=== PATIENT | female | born 1950 | race Caucasian/White ===

== ENCOUNTER 2017-10-15 17:17 | Emergency (ER) | payer MEDICARE, MEDICAID, SELFPAY ==
[2017-10-15 17:45] VITALS: BP 113/63; PULSE 57; RESP 16; TEMP 37; O2SAT 99
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
[2017-10-15 20:09] VITALS: BP 113/63; PULSE 57; RESP 16; TEMP 37; O2SAT 99
== END 2017-10-15 21:08 | disposition home or self-care (01) ==
PROVIDERS: Emergency Provider Nurse Practitioner Family
DX: S22.32XA Fracture of one rib, left side, initial encounter for closed fracture (principal); V19.3XXA Pedal cyclist (driver) (passenger) injured in unspecified nontraffic accident, initial encounter
CPT/HCPCS: 71101; 73010; 73060; 99282; 99283

== ENCOUNTER → 2020-10-26 15:50 | Outpatient (CLI) | payer MEDICARE, MEDICAID, SELFPAY ==
[2020-10-26 17:13] LABS: Add Manual Diff / Slide Review NO; Basophils Absolute Auto 0 /uL (0-100); Basophils Percent Auto 0.4 % (0-2); Eosinophils Absolute Auto 100 /uL (0-450); Eosinophils Percent Auto 1.2 % (2-4); Hematocrit 40.7 % (36-46); Hemoglobin 13.2 g/dL (12.0-16.0); Lymphocytes Absolute Auto 900 /uL (1100-4500); Lymphocytes Percent Auto 14.7 % (25-40); Mean Corpuscular HGB Conc 32.4 % (30-36); Mean Corpuscular Volume 95.8 fL (80-100); Monocytes Absolute Auto 800 /uL (0-900); Neutrophils Absolute Auto 4400 /uL (1500-7000); Neutrophils Percent Auto 70.7 % (50-75); Platelet Count 156 X10^3/uL (150-400); Red Blood Cell Count 4.25 X10^6/uL (4.0-5.2); Red Cell Distribution Width 14.1 % (11.6-14.8); White Blood Cell Count 6.3 X10^3/uL (4.5-11.0)
[2020-10-26 17:43] LABS: Alanine Aminotransferase 28 IU/L (<35); Albumin 4.1 g/dL (3.5-5.0); Albumin Globulin Ratio 1.6 (1.0-2.8); Alkaline Phosphatase 87 U/L (38-126); Aspartate Aminotransferase 38 IU/L (14-36); BUN Creatinine Ratio 24.4 (6-22); Bilirubin Total 0.4 mg/dL (0.2-1.3); Blood Urea Nitrogen 19 mg/dL (7-17); Calcium 9.6 mg/dL (8.4-10.2); Carbon Dioxide 36 mmol/L (22-32); Chloride 99 mmol/L (98-107); Cholesterol 161 mg/dL (140-199); Estimated Glomerular Filt Rate > 60.0 mL/min (>60); Globulin 2.5 g/dL (1.7-4.1); Glucose 87 mg/dL (80-110); HDL Cholesterol 96 mg/dL (40-60); HEMOLYSIS < 15 (0-50); LDL Cholesterol Calculated 52 mg/dL (<100); Potassium 4.3 mmol/L (3.4-5.1); Sodium 140 mmol/L (137-145); Total Protein 6.6 g/dL (6.3-8.2); Triglycerides 63 mg/dL (35-150)
[2020-10-26 17:52] LABS: Hemoglobin A1C% w Est Avg Glu 5.1 % (4.0-6.0)
[2020-10-26 17:57] LABS: Vitamin D 25 Hydroxy (D3) 61.9 ng/mL (30.0-100.0)
[2020-10-26 18:23] LABS: Thyroid Stimulating Hormone 1.42 uIU/mL (0.47-4.68)
== END ==
PROVIDERS: Referring Provider Physician Assistant; Visit Provider Physician Assistant
DX: Z13.29 Encounter for screening for other suspected endocrine disorder (principal); I10 Essential (primary) hypertension; Z76.89 Persons encountering health services in other specified circumstances; Z13.220 Encounter for screening for lipoid disorders; Z13.21 Encounter for screening for nutritional disorder; Z13.1 Encounter for screening for diabetes mellitus
CPT/HCPCS: 36415; 80053; 80061; 82306; 83036; 84439; 84443; 85025

== ENCOUNTER → 2021-05-11 17:16 | Outpatient (CLI) | payer MEDICARE, MEDICAID, SELFPAY ==
[2021-05-11 18:01] LABS: BUN Creatinine Ratio 27.8 (6-22); Blood Urea Nitrogen 25 mg/dL (7-17); Calcium 9.5 mg/dL (8.4-10.2); Carbon Dioxide 38 mmol/L (22-32); Chloride 100 mmol/L (98-107); Estimated Glomerular Filt Rate > 60.0 mL/min (>60); Glucose 122 mg/dL (80-110); HEMOLYSIS < 15 (0-50); Potassium 4.5 mmol/L (3.4-5.1); Sodium 138 mmol/L (137-145)
== END ==
PROVIDERS: Referring Provider Physician Assistant; Visit Provider Physician Assistant
DX: C34.92 Malignant neoplasm of unspecified part of left bronchus or lung (principal)
CPT/HCPCS: 36415; 80048

== ENCOUNTER → 2021-05-15 14:10 | Outpatient (CLI) | payer MEDICARE, MEDICAID, SELFPAY ==
--- NOTE | 2021-05-15 14:31 | DI.CT.S_ITS ---
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 Radiation dose reduction was achieved utilizing automated exposure control and/or adjustment of the dose parameters according to patient's size. FINDINGS: Image quality: Excellent. Lungs and pleura: Left upper lobe spiculated nodule with internal calcification measures 1.3 cm. There is a background advanced pulmonary emphysema present as well. Smaller 4 mm right upper lobe pulmonary nodule present posteriorly on image 3/884 Mediastinum: Heart size is normal. No pericardial effusion. No mediastinal or hilar adenopathy by size criteria. Thoracic aorta and central pulmonary arteries are normal in size. Esophagus is normal in caliber. No hiatal hernia. Bones and chest wall: No suspicious bony lesions. No vertebral body compression fractures. No axillary or supraclavicular adenopathy by size criteria. Thyroid gland unremarkable . Abdomen: Visualized upper abdominal solid organs appear normal. Upper abdominal bowel loops are normal in caliber. IMPRESSION: 1. Left upper lobe 1.3 cm spiculated nodule with internal calcifications is suspicious for metastatic disease given history. Consider follow-up PET-CT and/or biopsy. Additional smaller 4 mm nodule in the right upper lobe noted as well. 2. Moderate to severe pulmonary emphysema with hyperinflation. Approved by: Rajendra Gotti M.D. on 05/15/2021 at 19:05
== END ==
PROVIDERS: PCP Physician Assistant; Referring Provider Internal Medicine Medical Oncology; Visit Provider Internal Medicine Medical Oncology
DX: C96.4 Sarcoma of dendritic cells (accessory cells) (principal); R91.8 Other nonspecific abnormal finding of lung field; J43.8 Other emphysema
CPT/HCPCS: 71260

== ENCOUNTER → 2021-11-14 12:24 | Outpatient (CLI) | payer MEDICARE, MEDICAID, SELFPAY ==
[2021-11-14 14:55] LABS: Estimated Glomerular Filt Rate > 60 mL/min (>60)
== END ==
PROVIDERS: PCP Physician Assistant; Referring Provider Physician Assistant; Visit Provider Physician Assistant
DX: C34.92 Malignant neoplasm of unspecified part of left bronchus or lung (principal)
CPT/HCPCS: 36415; 82565

== ENCOUNTER → 2021-11-16 14:10 | Outpatient (CLI) | payer MEDICARE, MEDICAID, SELFPAY ==
--- NOTE | 2021-11-16 14:12 | DI.CT.S_ITS ---
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 1 mm axial lung, 5 mm thick coronal and sagittal reformats and 7 mm axial MIP were acquired. For radiation dose reduction, the following was used: automated exposure control, adjustment of mA and/or kV according to patient size. COMPARISON: [facility], CR, XR SCAPULA LT, 10/15/2017, 20:27. [facility], CR, XR CHEST 2VW, 10/22/2016, 20:31. [facility], CT, CT CHEST W CON, 05/15/2021, 14:23. FINDINGS: Image quality: Excellent. Lungs and pleura: There is severe centrilobular emphysema, as before. A centrally calcified pulmonary nodule is redemonstrated at the anterior left apex. This is unchanged from the study dated May 15, 2021, but was not visualized on the comparison plain films from October 15, 2017. A 4 mm interfissural nodule within the right oblique fissure is unchanged from the study dated May 15, 2021 (series 3/image 91). No new pulmonary nodules. No acute airspace opacities. No pleural effusion or pneumothorax. Mediastinum: Heart size is normal. No pericardial effusion. No mediastinal or hilar adenopathy by size criteria. Thoracic aorta and central pulmonary arteries are normal in size. Scattered atheromatous calcifications are present within the aortic arch. Esophagus is normal in caliber. No hiatal hernia. Bones and chest wall: No suspicious bony lesions. No vertebral body compression fractures. No axillary or supraclavicular adenopathy by size criteria. Thyroid gland is unremarkable. Abdomen: Visualized upper abdominal solid organs appear normal. Upper abdominal bowel loops are normal in caliber. IMPRESSION: 1. Stable calcified pulmonary nodule at the left apex suggesting the presence of a granuloma; however this is new when compared with the 2018 plain films of this region. Continued surveillance of this region recommended. 2. Stable 4 mm right interfissural nodule. 3. No findings to suggest new metastasis. Dictated by: Monisha Haile M.D. on 11/16/2021 at 17:02 Approved by: Monisha Haile M.D. on 11/16/2021 at 17:07
== END ==
PROVIDERS: PCP Physician Assistant; Referring Provider Internal Medicine Medical Oncology; Visit Provider Internal Medicine Medical Oncology
DX: C96.4 Sarcoma of dendritic cells (accessory cells) (principal); R91.8 Other nonspecific abnormal finding of lung field; J43.2 Centrilobular emphysema
CPT/HCPCS: 71260; Q9967

== ENCOUNTER 2022-02-19 17:02 | Inpatient (IN) | payer MEDICARE, MEDICAID, SELFPAY ==
[2022-02-19] VITALS (22 sets, daily range): BP systolic 98–142; BP diastolic 53–69; PULSE 65–97; RESP 18–32; TEMP 36.8–37.2; O2SAT 50–99; BMI 17.0
--- NOTE | 2022-02-19 17:25 | ED_ITS ---
HPI - General Adult <Travis Mcfadden DO - Last Filed: 02/20/22 07:07> General Chief complaint: Shortness of Breath/Dyspnea Stated complaint: cold/flu symptons X 3 weeks Time Seen by Provider: 02/19/22 17:14 Source: patient Mode of arrival: Ambulatory Limitations: no limitations History of Present Illness HPI narrative: Patient is a 71-year-old female. History of lung cancer. Had a left-sided lung resection back in 2019. Is not on chemotherapy or radiation. Does surveillance of CT scans. Has had approximately 3 weeks of flu-like symptoms. Difficult for her to get more specific than this although she is having shortness of breath specifically on exertion. She went to the walk-in clinic. She is found to be hypoxic with an oxygen saturations in the 70s so she was brought to the emergency department. She denies any chest pain. No lower extremity swelling. No diagnosis of COPD. Not on home oxygen. Related Data Home Medications Medication Instructions Recorded Confirmed alprazolam 0.5 mg tablet (Xanax) 0.5 mg PO Q12HP ##0 10/31/12 02/19/22 fluvoxamine 50 mg tablet 50 mg PO BID ##0 10/31/12 venlafaxine 75 mg capsule,extended 75 mg PO TID ##0 10/31/12 release 24 hr (Effexor XR) albuterol sulfate 90 mcg/actuation 2 puff inhalation Q4H PRN Wheezing 02/19/22 02/19/22 aerosol inhaler atorvastatin 40 mg tablet 40 mg PO DAILY 02/19/22 02/19/22 escitalopram oxalate 20 mg tablet 20 mg PO DAILY 02/19/22 02/19/22 levothyroxine 50 mcg tablet 50 mcg PO DAILY 02/19/22 02/19/22 quetiapine 25 mg tablet 25 mg PO BEDTIME 02/19/22 02/19/22 Previous Rx's Medication Instructions Recorded MELOXICAM 15 mg PO Q DAY ##30 10/31/12 Allergies Allergy/AdvReac Type Severity Reaction Status Date / Time No Known Drug Allergies Allergy Unverified 02/19/22 17:09 Review of Systems <Travis Mcfadden DO - Last Filed: 02/20/22 07:07> Constitutional Constitutional: Reports system reviewed and no additional complaints, except as documented Cardiovascular Cardiovascular: Reports system reviewed and no additional complaints, except as documented Respiratory Respiratory: Reports system reviewed and no additional complaints, except as documented Gastrointestinal Gastrointestinal: Reports system reviewed and no additional complaints, except as documented Integumentary/Breasts Skin/Breast: Reports system reviewed and no additional complaints, except as documented Hematologic/Lymphatic On Anticoagulants: No Allergic/Immunologic Allergic/Immunologic: Reports system reviewed and no additional complaints, except as documented Patient History <DO Nigaht Nair Last Filed: 02/20/22 07:07> Medical History Acute exacerbation of chronic obstructive pulmonary disease Lung cancer Family History (Updated 02/19/22 @ 22:52 by KODAK Posey) Father Old age Mother Crohn's disease Social History household members: friend(s) Smoking Status: Former smoker alcohol intake: current Smoking Status: Former smoker alcohol intake frequency: 0-2 drinks per day Substance Use Type: does not use Exam <DO Nighat Nair Last Filed: 02/20/22 07:07> Initial Vital Signs Initial Vital Signs: Vital Signs Pulse Rate 90 02/19/22 17:05 Respiratory Rate 32 H 02/19/22 17:05 Pulse Oximetry 69 L 02/19/22 17:05 Const General: cooperative, comfortable and No ill appearing HENMT Head: normal to inspection Chest Chest: normal inspection of the chest Resp Other: Diminished lung sounds on the left. Some wheezing/rhonchi on the right. Cardio Rate: regular rate Rhythm: regular rhythm GI Inspection: normal to inspection and non-distended Skin General: no rashes or lesions noted Neuro General: patient alert, patient awake and moves all extremities Extrem General: normal to inspection and capillary refill normal Psych Appearance: grossly normal and well kempt <Marcus Whaley DO - Last Filed: 02/20/22 03:49> Initial Vital Signs Initial Vital Signs: Vital Signs Pulse Rate 90 02/19/22 17:05 Respiratory Rate 32 H 02/19/22 17:05 Pulse Oximetry 69 L 02/19/22 17:05 Course <DO Nighat Nair Last Filed: 02/20/22 07:07> Orders Ordered: ED Orders 02/20/22 06:35 Complete Blood Count AUTO DIFF DAILY Comprehensive Metabolic Panel DAILY Magnesium DAILY 02/21/22 05:00 Complete Blood Count AUTO DIFF DAILY Comprehensive Metabolic Panel DAILY Magnesium DAILY 02/22/22 05:00 Complete Blood Count AUTO DIFF DAILY Comprehensive Metabolic Panel DAILY Magnesium DAILY Acetaminophen (Acetaminophen 325 Mg Tablet) 650 mg PO Q6H PRN PRN Reason: Fever/Mild Pain (1-3) Albuterol (Albuterol 2.5 Mg/3 Ml Neb (Adult)) 2.5 mg INH [id number] PRN PRN Reason: Shortness Of Breath Or Wheezing Enoxaparin Sodium (Enoxaparin 40 Mg/0.4 Ml Syringe) 40 mg SUBCUT DAILY ERROL Ibuprofen (Ibuprofen 600 Mg Tablet) 600 mg PO Q6H PRN PRN Reason: Fever/Mild Pain (1-3) Ipratropium [place] (Ipratropium 0.5 Mg/2.5 Ml Neb) 0.5 mg INH RTQ4HR PRN PRN Reason: Shortness Of Breath Or Wheezing Naloxone HCl (Naloxone 0.4 Mg/Ml Vial) 0.2 mg IV Q2MIN PRN PRN Reason: Opiate Reversal Ondansetron HCl (Ondansetron 4 Mg/2 Ml Inj) 4 mg IV Q6HR PRN PRN Reason: Nausea And Vomiting Quetiapine Fumarate (Quetiapine 25 Mg Tablet) 25 mg PO BEDTIME REPLACED BY [facility] Last Admin: 02/19/22 23:54 Dose: 25 mg Documented By: AM Discontinued Medications Albuterol/Ipratropium (Albuterol/Ipratropium 3 Ml Ampul) 3 ml INH NOW ONE Stop: 02/19/22 17:27 Last Admin: 02/19/22 19:09 Dose: 3 ml Documented By: SAT Vital Signs Vital signs: Vital Signs - 8 hr 02/19/22 20:00 02/19/22 20:15 02/19/22 20:30 Pulse Rate 66 67 66 Respiratory Rate 25 H 20 23 Pulse Oximetry 98 97 97 02/19/22 20:45 02/19/22 21:00 Pulse Rate 67 69 Respiratory Rate 27 H 30 H Pulse Oximetry 97 96 <Marcus Whaley DO - Last Filed: 02/20/22 03:49> Orders Ordered: ED Orders 02/20/22 06:35 Complete Blood Count AUTO DIFF DAILY Comprehensive Metabolic Panel DAILY Magnesium DAILY 02/21/22 05:00 Complete Blood Count AUTO DIFF DAILY Comprehensive Metabolic Panel DAILY Magnesium DAILY 02/22/22 05:00 Complete Blood Count AUTO DIFF DAILY Comprehensive Metabolic Panel DAILY Magnesium DAILY Acetaminophen (Acetaminophen 325 Mg Tablet) 650 mg PO Q6H PRN PRN Reason: Fever/Mild Pain (1-3) Albuterol (Albuterol 2.5 Mg/3 Ml Neb (Adult)) 2.5 mg INH [id number] PRN PRN Reason: Shortness Of Breath Or Wheezing Enoxaparin Sodium (Enoxaparin 40 Mg/0.4 Ml Syringe) 40 mg SUBCUT DAILY ERROL Ibuprofen (Ibuprofen 600 Mg Tablet) 600 mg PO Q6H PRN PRN Reason: Fever/Mild Pain (1-3) Ipratropium [place] (Ipratropium 0.5 Mg/2.5 Ml Neb) 0.5 mg INH RTQ4HR PRN PRN Reason: Shortness Of Breath Or Wheezing Naloxone HCl (Naloxone 0.4 Mg/Ml Vial) 0.2 mg IV Q2MIN PRN PRN Reason: Opiate Reversal Ondansetron HCl (Ondansetron 4 Mg/2 Ml Inj) 4 mg IV Q6HR PRN PRN Reason: Nausea And Vomiting Quetiapine Fumarate (Quetiapine 25 Mg Tablet) 25 mg PO BEDTIME REPLACED BY [facility] Last Admin: 02/19/22 23:54 Dose: 25 mg Documented By: AM Discontinued Medications Albuterol/Ipratropium (Albuterol/Ipratropium 3 Ml Ampul) 3 ml INH NOW ONE Stop: 02/19/22 17:27 Last Admin: 02/19/22 19:09 Dose: 3 ml Documented By: SAT Vital Signs Vital signs: Vital Signs - 8 hr 02/19/22 20:00 02/19/22 20:15 02/19/22 20:30 Pulse Rate 66 67 66 Respiratory Rate 25 H 20 23 Pulse Oximetry 98 97 97 02/19/22 20:45 02/19/22 21:00 Pulse Rate 67 69 Respiratory Rate 27 H 30 H Pulse Oximetry 97 96 Medical Decision Making <Travis Mcfadden DO - Last Filed: 02/20/22 07:07> Lab Data Lab results reviewed: Yes I reviewed the patient's lab results. Result diagrams: 02/20/22 06:35 02/19/22 17:25 Labs: Lab Results 02/19/22 02/19/22 02/19/22 Range/Units 17:25 17:25 17:25 WBC 12.1 H (4.5-11.0) X10^3/uL RBC 4.09 (4.0-5.2) X10^6/uL Hgb 12.7 (12.0-16.0) g/dL Hct 38.1 (36-46) % MCV 93.2 (80-100) fL MCH 31.1 (26-34) PG MCHC 33.3 (30-36) % RDW 13.7 (11.6-14.8) % Plt Count 110 L (150-400) X10^3/uL Neut % (Auto) 82.8 H (50-75) % Lymph % (Auto) 4.8 L (25-40) % Cloud % (Auto) 11.4 (3-14) % Eos % (Auto) 0.7 L (2-4) % Baso % (Auto) 0.3 (0-2) % Neut # (Auto) 88122 H (3008-6528) /uL Lymph # (Auto) 600 L (4208-0177) /uL Cloud # (Auto) 1400 H (0-900) /uL Eos # (Auto) 100 (0-450) /uL Baso # (Auto) 0 (0-100) /uL Sodium 133 L (137-145) mmol/L Potassium 3.7 (3.4-5.1) mmol/L Chloride 91 L (98-107) mmol/L Carbon Dioxide 37 H (22-32) mmol/L BUN 15 (7-17) mg/dL Creatinine 0.65 (0.52-1.04) mg/dL Estimated GFR > 60 (>60) mL/min BUN/Creatinine Ratio 23.1 H (6-22) Glucose 153 H (80-110) mg/dL Lactate (0.7-2.1) mmol/L Calcium 7.7 L (8.4-10.2) mg/dL Total Bilirubin 0.4 (0.2-1.3) mg/dL AST 27 (14-36) IU/L ALT 22 (<35) IU/L Alkaline Phosphatase 55 (38-126) U/L Total Creatine Kinase 28 L (30-135) U/L CK-MB (CK-2) TNP CK-MB (CK-2) Rel Index TNP Troponin I 0.018 (0.01-0.034) ng/mL NT-Pro-B Natriuret Pep 1340 H (<125) pg/mL Total Protein 6.0 L (6.3-8.2) g/dL Albumin 3.3 L (3.5-5.0) g/dL Globulin 2.7 (1.7-4.1) g/dL Albumin/Globulin Ratio 1.2 (1.0-2.8) Lipase 601 H (23-300) U/L Procalcitonin 0.13 (<0.5) ng/mL Chlamy pneumoniae PCR (Not Detect) Adenovirus (PCR) (Not Detect) B. pertussis DNA (PCR) (Not Detecte) B.parapertussis DNA PCR (Not Detecte) Coronavirus OC43 (PCR) (Not Detect) Coronavirus HKU1 (PCR) (Not Detect) Coronavirus 229E (PCR) (Not Detect) SARS-CoV-2 (PCR) (Not Detecte) Coronavirus NL63 (PCR) (Not Detect) Human Metapneumovir PCR (Not Detect) Influenza Type A (PCR) (Not Detect) Influenza Type B (PCR) (Not Detect) M. pneumoniae (PCR) (Not Detect) Parainfluenza 1 (PCR) (Not Detect) Parainfluenza 2 (PCR) (Not Detect) Parainfluenza 3 (PCR) (Not Detect) Parainfluenza 4 (PCR) (Not Detect) RSV (PCR) (Not Detect) Entero/Rhino (PCR) (Not Detect) 02/19/22 02/19/22 Range/Units 17:27 17:27 WBC (4.5-11.0) X10^3/uL RBC (4.0-5.2) X10^6/uL Hgb (12.0-16.0) g/dL Hct (36-46) % MCV (80-100) fL MCH (26-34) PG MCHC (30-36) % RDW (11.6-14.8) % Plt Count (150-400) X10^3/uL Neut % (Auto) (50-75) % Lymph % (Auto) (25-40) % Cloud % (Auto) (3-14) % Eos % (Auto) (2-4) % Baso % (Auto) (0-2) % Neut # (Auto) (1607-0198) /uL Lymph # (Auto) (4802-8795) /uL Cloud # (Auto) (0-900) /uL Eos # (Auto) (0-450) /uL Baso # (Auto) (0-100) /uL Sodium (137-145) mmol/L Potassium (3.4-5.1) mmol/L Chloride (98-107) mmol/L Carbon Dioxide (22-32) mmol/L BUN (7-17) mg/dL Creatinine (0.52-1.04) mg/dL Estimated GFR (>60) mL/min BUN/Creatinine Ratio (6-22) Glucose (80-110) mg/dL Lactate 1.1 (0.7-2.1) mmol/L Calcium (8.4-10.2) mg/dL Total Bilirubin (0.2-1.3) mg/dL AST (14-36) IU/L ALT (<35) IU/L Alkaline Phosphatase (38-126) U/L Total Creatine Kinase (30-135) U/L CK-MB (CK-2) CK-MB (CK-2) Rel Index Troponin I (0.01-0.034) ng/mL NT-Pro-B Natriuret Pep (<125) pg/mL Total Protein (6.3-8.2) g/dL Albumin (3.5-5.0) g/dL Globulin (1.7-4.1) g/dL Albumin/Globulin Ratio (1.0-2.8) Lipase (23-300) U/L Procalcitonin (<0.5) ng/mL Chlamy pneumoniae PCR Not detected (Not Detect) Adenovirus (PCR) Not detected (Not Detect) B. pertussis DNA (PCR) Not detected (Not Detecte) B.parapertussis DNA PCR Not detected (Not Detecte) Coronavirus OC43 (PCR) Not detected (Not Detect) Coronavirus HKU1 (PCR) Not detected (Not Detect) Coronavirus 229E (PCR) Not detected (Not Detect) SARS-CoV-2 (PCR) Not detected (Not Detecte) Coronavirus NL63 (PCR) Not detected (Not Detect) Human Metapneumovir PCR Not detected (Not Detect) Influenza Type A (PCR) Not detected (Not Detect) Influenza Type B (PCR) Not detected (Not Detect) M. pneumoniae (PCR) Not detected (Not Detect) Parainfluenza 1 (PCR) Not detected (Not Detect) Parainfluenza 2 (PCR) Not detected (Not Detect) Parainfluenza 3 (PCR) Not detected (Not Detect) Parainfluenza 4 (PCR) Not detected (Not Detect) RSV (PCR) Not detected (Not Detect) Entero/Rhino (PCR) Detected H (Not Detect) ECG Data Attestation: I personally reviewed and interpreted this ECG as follows: Interpretation: Sinus rhythm Ventricular rate is 75 Normal axis Normal QRS Normal QTC No ST T wave changes MDM Narrative Medical decision making narrative: Patient is hypoxic on room air and specifically with exertion however she improves with nasal cannula. No chest pain. Waiting on CT scan of the chest. Care turned over to Dr. Whaley to follow-up with CT scan, ABG, re-evaluation after neb and most likely admission to the hospital. <Marcus Whaley, DO - Last Filed: 02/20/22 03:49> Lab Data Labs: Lab Results 02/19/22 02/19/22 02/19/22 Range/Units 17:25 17:25 17:25 WBC 12.1 H (4.5-11.0) X10^3/uL RBC 4.09 (4.0-5.2) X10^6/uL Hgb 12.7 (12.0-16.0) g/dL Hct 38.1 (36-46) % MCV 93.2 (80-100) fL MCH 31.1 (26-34) PG MCHC 33.3 (30-36) % RDW 13.7 (11.6-14.8) % Plt Count 110 L (150-400) X10^3/uL Neut % (Auto) 82.8 H (50-75) % Lymph % (Auto) 4.8 L (25-40) % Cloud % (Auto) 11.4 (3-14) % Eos % (Auto) 0.7 L (2-4) % Baso % (Auto) 0.3 (0-2) % Neut # (Auto) 18461 H (4545-0749) /uL Lymph # (Auto) 600 L (1045-3384) /uL Cloud # (Auto) 1400 H (0-900) /uL Eos # (Auto) 100 (0-450) /uL Baso # (Auto) 0 (0-100) /uL Sodium 133 L (137-145) mmol/L Potassium 3.7 (3.4-5.1) mmol/L Chloride 91 L (98-107) mmol/L Carbon Dioxide 37 H (22-32) mmol/L BUN 15 (7-17) mg/dL Creatinine 0.65 (0.52-1.04) mg/dL Estimated GFR > 60 (>60) mL/min BUN/Creatinine Ratio 23.1 H (6-22) Glucose 153 H (80-110) mg/dL Lactate (0.7-2.1) mmol/L Calcium 7.7 L (8.4-10.2) mg/dL Total Bilirubin 0.4 (0.2-1.3) mg/dL AST 27 (14-36) IU/L ALT 22 (<35) IU/L Alkaline Phosphatase 55 (38-126) U/L Total Creatine Kinase 28 L (30-135) U/L CK-MB (CK-2) TNP CK-MB (CK-2) Rel Index TNP Troponin I 0.018 (0.01-0.034) ng/mL NT-Pro-B Natriuret Pep 1340 H (<125) pg/mL Total Protein 6.0 L (6.3-8.2) g/dL Albumin 3.3 L (3.5-5.0) g/dL Globulin 2.7 (1.7-4.1) g/dL Albumin/Globulin Ratio 1.2 (1.0-2.8) Lipase 601 H (23-300) U/L Procalcitonin 0.13 (<0.5) ng/mL Chlamy pneumoniae PCR (Not Detect) Adenovirus (PCR) (Not Detect) B. pertussis DNA (PCR) (Not Detecte) B.parapertussis DNA PCR (Not Detecte) Coronavirus OC43 (PCR) (Not Detect) Coronavirus HKU1 (PCR) (Not Detect) Coronavirus 229E (PCR) (Not Detect) SARS-CoV-2 (PCR) (Not Detecte) Coronavirus NL63 (PCR) (Not Detect) Human Metapneumovir PCR (Not Detect) Influenza Type A (PCR) (Not Detect) Influenza Type B (PCR) (Not Detect) M. pneumoniae (PCR) (Not Detect) Parainfluenza 1 (PCR) (Not Detect) Parainfluenza 2 (PCR) (Not Detect) Parainfluenza 3 (PCR) (Not Detect) Parainfluenza 4 (PCR) (Not Detect) RSV (PCR) (Not Detect) Entero/Rhino (PCR) (Not Detect) 02/19/22 02/19/22 Range/Units 17:27 17:27 WBC (4.5-11.0) X10^3/uL RBC (4.0-5.2) X10^6/uL Hgb (12.0-16.0) g/dL Hct (36-46) % MCV (80-100) fL MCH (26-34) PG MCHC (30-36) % RDW (11.6-14.8) % Plt Count (150-400) X10^3/uL Neut % (Auto) (50-75) % Lymph % (Auto) (25-40) % Cloud % (Auto) (3-14) % Eos % (Auto) (2-4) % Baso % (Auto) (0-2) % Neut # (Auto) (8003-1020) /uL Lymph # (Auto) (0824-1342) /uL Cloud # (Auto) (0-900) /uL Eos # (Auto) (0-450) /uL Baso # (Auto) (0-100) /uL Sodium (137-145) mmol/L Potassium (3.4-5.1) mmol/L Chloride (98-107) mmol/L Carbon Dioxide (22-32) mmol/L BUN (7-17) mg/dL Creatinine (0.52-1.04) mg/dL Estimated GFR (>60) mL/min BUN/Creatinine Ratio (6-22) Glucose (80-110) mg/dL Lactate 1.1 (0.7-2.1) mmol/L Calcium (8.4-10.2) mg/dL Total Bilirubin (0.2-1.3) mg/dL AST (14-36) IU/L ALT (<35) IU/L Alkaline Phosphatase (38-126) U/L Total Creatine Kinase (30-135) U/L CK-MB (CK-2) CK-MB (CK-2) Rel Index Troponin I (0.01-0.034) ng/mL NT-Pro-B Natriuret Pep (<125) pg/mL Total Protein (6.3-8.2) g/dL Albumin (3.5-5.0) g/dL Globulin (1.7-4.1) g/dL Albumin/Globulin Ratio (1.0-2.8) Lipase (23-300) U/L Procalcitonin (<0.5) ng/mL Chlamy pneumoniae PCR Not detected (Not Detect) Adenovirus (PCR) Not detected (Not Detect) B. pertussis DNA (PCR) Not detected (Not Detecte) B.parapertussis DNA PCR Not detected (Not Detecte) Coronavirus OC43 (PCR) Not detected (Not Detect) Coronavirus HKU1 (PCR) Not detected (Not Detect) Coronavirus 229E (PCR) Not detected (Not Detect) SARS-CoV-2 (PCR) Not detected (Not Detecte) Coronavirus NL63 (PCR) Not detected (Not Detect) Human Metapneumovir PCR Not detected (Not Detect) Influenza Type A (PCR) Not detected (Not Detect) Influenza Type B (PCR) Not detected (Not Detect) M. pneumoniae (PCR) Not detected (Not Detect) Parainfluenza 1 (PCR) Not detected (Not Detect) Parainfluenza 2 (PCR) Not detected (Not Detect) Parainfluenza 3 (PCR) Not detected (Not Detect) Parainfluenza 4 (PCR) Not detected (Not Detect) RSV (PCR) Not detected (Not Detect) Entero/Rhino (PCR) Detected H (Not Detect) Imaging Data CT scan - chest: Radiologist's Impression: Close Chest CTA (Signed) Marvin Reich - 02/19/[address] [address] [address] Scan Report Signed Patient: Trish Espinal MR#: [id number] : 1950 Acct:[id number] Age/Sex: 71 / F Date of Service: 02/19/22 Loc: ED Accession Number: [id number] ?? Procedure: CT angio chest PE protocol Ordering Provider: Travis Mcfadden D.O. PROCEDURE:? CT ANGIO CHEST PE PROTOCOL ? INDICATIONS:? Cancer, left-sided lung resection, hypoxia ? TECHNIQUE:? After the administration of intravenous contrast, 2 mm thick sections acquired from the pulmonary apices to the posterior costophrenic angles.? 3-dimensional maximum intensity projection (MIP) coronal and sagittal reformats were then acquired through the thorax.? For radiation dose reduction, the following was used:? automated exposure control, adjustment of mA and/or kV according to patient size.? ? COMPARISON:? [facility], CT, CT CHEST W CON, 11/16/2021, 14:18. ? FINDINGS:? Image quality:? Excellent.? ? Pulmonary arteries:? no intraluminal filling defects to suggest central pulmonary embolism.? ? Lungs and pleura:? Severe emphysema.? Post treatment changes of the left lung redemonstrated.? No definite new suspicious findings or consolidation.? No pleural effusion. ? Mediastinum:? no? pericardial effusion.? ? Thoracic aorta is normal in caliber and enhancement.? ? Bones and chest wall:? Multilevel degenerative change of the visualized spine. ? Abdomen:? Visualized upper abdominal solid organs appear normal in the early arterial phase of enhancement.? ? IMPRESSION:? No pulmonary embolism demonstrated. ? ? Dictated by: Marvin Reich M.D. on 02/19/2022 at 19:34 ? ? Approved by: Marvin Reich M.D. on 02/19/2022 at 19:45 ? MDM Narrative Medical decision making narrative: Patient is hypoxic on room air and specifically with exertion however she improves with nasal cannula. No chest pain. Waiting on CT scan of the chest. Care turned over to Dr. Whaley to follow-up with CT scan, ABG, re-evaluation after neb and most likely admission to the hospital. [1900] (Judd) Patient received in sign out from [Bogdan]. I have reviewed the clinical course and performed an independent history and physical exam. Trial off of oxygen results in relatively rapid drop in oxygen saturation into the mid to low 80s. CT shows no PE. Patient requires hospitalization for ongoing treatment and stabilization. Patient understands and agrees with the plan Discharge Plan Departure Patient Disposition: Admitted as Observation Clinical Impression: Acute hypoxemic respiratory failure, Rhinovirus Admit Date/Time: 02/19/22 21:10 Admit Provider: Rosie Smith
--- NOTE | 2022-02-19 17:27 | DI.CT.S_ITS ---
PROCEDURE: CT ANGIO CHEST PE PROTOCOL INDICATIONS: Cancer, left-sided lung resection, hypoxia TECHNIQUE: After the administration of intravenous contrast, 2 mm thick sections acquired from the pulmonary apices to the posterior costophrenic angles. 3-dimensional maximum intensity projection (MIP) coronal and sagittal reformats were then acquired through the thorax. For radiation dose reduction, the following was used: automated exposure control, adjustment of mA and/or kV according to patient size. COMPARISON: [facility], CT, CT CHEST W [facility], 11/16/2021, 14:18. FINDINGS: Image quality: Excellent. Pulmonary arteries: no intraluminal filling defects to suggest central pulmonary embolism. Lungs and pleura: Severe emphysema. Post treatment changes of the left lung redemonstrated. No definite new suspicious findings or consolidation. No pleural effusion. Mediastinum: no pericardial effusion. Thoracic aorta is normal in caliber and enhancement. Bones and chest wall: Multilevel degenerative change of the visualized spine. Abdomen: Visualized upper abdominal solid organs appear normal in the early arterial phase of enhancement. IMPRESSION: No pulmonary embolism demonstrated. Dictated by: Marvin Reich M.D. on 02/19/2022 at 19:34 Approved by: Marvin Reich M.D. on 02/19/2022 at 19:45
[2022-02-19 17:38] LABS: Add Manual Diff / Slide Review NO; Basophils Absolute Auto 0 /uL (0-100); Basophils Percent Auto 0.3 % (0-2); Eosinophils Absolute Auto 100 /uL (0-450); Eosinophils Percent Auto 0.7 % (2-4); Hematocrit 38.1 % (36-46); Hemoglobin 12.7 g/dL (12.0-16.0); Lymphocytes Absolute Auto 600 /uL (1100-4500); Lymphocytes Percent Auto 4.8 % (25-40); Mean Corpuscular HGB Conc 33.3 % (30-36); Mean Corpuscular Hemoglobin 31.1 PG (26-34); Mean Corpuscular Volume 93.2 fL (80-100); Monocytes Absolute Auto 1400 /uL (0-900); Monocytes Percent Auto 11.4 % (3-14); Neutrophils Absolute Auto 10100 /uL (1500-7000); Neutrophils Percent Auto 82.8 % (50-75); Platelet Count 110 X10^3/uL (150-400); Red Blood Cell Count 4.09 X10^6/uL (4.0-5.2); Red Cell Distribution Width 13.7 % (11.6-14.8); White Blood Cell Count 12.1 X10^3/uL (4.5-11.0)
[2022-02-19 17:47] LABS: Creatine Kinase 28 U/L (30-135); Lipase 601 U/L (23-300)
[2022-02-19 17:48] LABS: Lactate (Lactic Acid) 1.1 mmol/L (0.7-2.1)
[2022-02-19 17:57] LABS: NT-proBNP (BNP-Adult 18+) 1340 pg/mL (<125)
[2022-02-19 18:05] LABS: Procalcitonin 0.13 ng/mL (<0.5)
[2022-02-19 18:06] LABS: Alanine Aminotransferase 22 IU/L (<35); Albumin 3.3 g/dL (3.5-5.0); Albumin Globulin Ratio 1.2 (1.0-2.8); Alkaline Phosphatase 55 U/L (38-126); Aspartate Aminotransferase 27 IU/L (14-36); BUN Creatinine Ratio 23.1 (6-22); Bilirubin Total 0.4 mg/dL (0.2-1.3); Blood Urea Nitrogen 15 mg/dL (7-17); Calcium 7.7 mg/dL (8.4-10.2); Carbon Dioxide 37 mmol/L (22-32); Chloride 91 mmol/L (98-107); Estimated Glomerular Filt Rate > 60 mL/min (>60); Globulin 2.7 g/dL (1.7-4.1); Glucose 153 mg/dL (80-110); HEMOLYSIS < 15 (0-50); Potassium 3.7 mmol/L (3.4-5.1); Sodium 133 mmol/L (137-145)
[2022-02-19 18:17] LABS: Troponin I 0.018 ng/mL (0.01-0.034)
[2022-02-19] MEDS: ALBUTEROL/IPRATROPIUM 3 ML AMPUL INH (19:09)
[2022-02-19 19:10] LABS: Adenovirus Not Detected (Not Detect); B. parapertussis Not Detected (Not Detecte); Bordetella pertussis Not Detected (Not Detecte); Chlamydophila pneumoniae Not Detected (Not Detect); Coronavirus 229E Not Detected (Not Detect); Coronavirus HKU1 Not Detected (Not Detect); Coronavirus NL 63 Not Detected (Not Detect); Coronavirus OC43 Not Detected (Not Detect); Human Metapneumovirus Not Detected (Not Detect); Human Rhinovirus/Enterovirus Detected (Not Detect); Influenza A Not Detected (Not Detect); Influenza B Not Detected (Not Detect); Mycoplasma pneumoniae Not Detected (Not Detect); Parainfluenza Virus 1 Not Detected (Not Detect); Parainfluenza Virus 2 Not Detected (Not Detect); Parainfluenza Virus 3 Not Detected (Not Detect); Parainfluenza Virus 4 Not Detected (Not Detect); Respiratory Syncytial Virus Not Detected (Not Detect); SARS- CoV-2 Not Detected (Not Detecte)
--- NOTE | 2022-02-19 19:15 | PC.NURSE ---
Report received - assumed care of pt at this time
--- NOTE | 2022-02-19 19:50 | PC.NURSE ---
Pt up to bedside commode - removed self from monitor - able to climb back into bed unassisted - placed back on monitor and cycling BP with continuous O2 - placed back on 3L NC - initial RA O2 86%
--- NOTE | 2022-02-19 20:45 | PC.NURSE ---
Updated on POC - pt and sister with questions - answered at this time
--- NOTE | 2022-02-19 21:00 | PC.NURSE ---
Called report to ALDARI Aguirre
--- NOTE | 2022-02-19 22:44 | P.HP_ITS ---
History of Present Illness History of Present Illness Date Patient Seen: 02/19/22 Time Patient Seen: 21:30 Chief complaint: cold/flu symptons X 3 weeks Narrative: Trish Espinal is a 71 y.o. 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 She presented to the emergency department with a 3 week history of flu and cold-like symptoms. She is had a cough and a cold apparently was taking antibiotics and completed a 10 day course of Augmentin and prednisone and then returned to the ED thinking she would get another extension of her antibiotic treatment as she was getting ready to take a driving trip out of state to assist a friend who is undergoing surgery. She states she is been sick for about 1 month. She is had a low-grade fever off and on she is had profound fatigue and has occasional productive sputum ranging from clear to yellow. Denies a history of snoring or KARLO. She denies chest pain she did have some nausea and diarrhea after taking ivermectin you which is now resolved she denies any dysuria or constipation. Due to concerns for a pulmonary embolism, ED ordered a CTA which was negative for a PE. It did note postsurgical changes of the left lung. She has a low- grade temperature 99? blood pressure 105/59 heart rate 69 respiratory rate 30 oxygen saturation of 96% on 3 L she weighs 41 kg with a BMI of 17. She is a mildly elevated white count of 12.1 platelet count of 110 left shift of 10,000 sodium 133 chloride 91 bicarb 37 glucose of 153 calcium 7.7 proBNP of 1340 lipase of 601 procalcitonin of 0.13 COVID-19 PCR is negative, she does test positive for entero rhino virus. Patient History Medical History Acute exacerbation of chronic obstructive pulmonary disease Lung cancer Family & Social History Family History (Updated 02/19/22 @ 22:52 by KODAK Posey) Father Old age Mother Crohn's disease Social History: household members friend(s) Prior Living Arrangements House Safety & Behavioral: Feels Safe in Current Yes Environment Been Physically Hurt or No Threatened By a Person Tobacco & Substance use: Smoking Status Former smoker, is exposed to secondhand smoke in the home alcohol intake current alcohol intake frequency 0-2 drinks per day Substance Use Type does not use Meds Home Medications and Allergies Home Medications Medication Instructions Recorded Confirmed Type MELOXICAM 15 mg PO Q DAY ##30 10/31/12 Rx alprazolam 0.5 mg tablet (Xanax) 0.5 mg PO Q12HP ##0 10/31/12 History fluvoxamine 50 mg tablet 50 mg PO BID ##0 10/31/12 History venlafaxine 75 mg capsule,extended 75 mg PO TID ##0 10/31/12 History release 24 hr (Effexor XR) albuterol sulfate 90 mcg/actuation 2 puff inhalation Q4H PRN Wheezing 02/19/22 02/19/22 History aerosol inhaler atorvastatin 40 mg tablet 40 mg PO DAILY 02/19/22 02/19/22 History escitalopram oxalate 20 mg tablet 20 mg PO DAILY 02/19/22 02/19/22 History levothyroxine 50 mcg tablet 50 mcg PO DAILY 02/19/22 02/19/22 History quetiapine 25 mg tablet 25 mg PO BEDTIME 02/19/22 02/19/22 History Allergies Allergy/AdvReac Type Severity Reaction Status Date / Time No Known Drug Allergies Allergy Unverified 02/19/22 17:09 Review of Systems Review of Systems ROS: Yes All systems reviewed with the patient and are negative except as otherwise documented Exam Vital Signs (past 8 hours): - 02/19/22 17:09 02/19/22 17:18 02/19/22 17:18 Temperature 99.0 F Pulse Rate 89 82 Respiratory Rate 18 Blood Pressure 113/58 L 142/69 H Pulse Oximetry 80 L 97 Oxygen Delivery Method Room Air Oxygen Flow Rate 02/19/22 17:30 02/19/22 17:05 02/19/22 17:30 Temperature Pulse Rate 79 90 Respiratory Rate 24 32 H Blood Pressure 116/66 Pulse Oximetry 92 69 L Oxygen Delivery Method Room Air Oxygen Flow Rate 3 02/19/22 17:45 02/19/22 17:45 02/19/22 18:00 Temperature Pulse Rate 72 74 Respiratory Rate 26 H 25 H Blood Pressure 109/62 Pulse Oximetry 91 90 L Oxygen Delivery Method Oxygen Flow Rate 02/19/22 18:15 02/19/22 18:37 02/19/22 18:38 Temperature Pulse Rate 72 94 H 92 H Respiratory Rate 26 H 29 H 23 Blood Pressure Pulse Oximetry 94 50 L Oxygen Delivery Method Oxygen Flow Rate 02/19/22 18:38 02/19/22 18:45 02/19/22 18:46 Temperature Pulse Rate 72 Respiratory Rate 22 Blood Pressure 134/69 114/59 L Pulse Oximetry 94 Oxygen Delivery Method Oxygen Flow Rate 02/19/22 18:46 02/19/22 19:00 02/19/22 19:00 Temperature Pulse Rate 71 68 Respiratory Rate 20 26 H Blood Pressure 104/58 L Pulse Oximetry 99 93 Oxygen Delivery Method Nasal Cannula Oxygen Flow Rate 3 02/19/22 19:22 02/19/22 19:15 02/19/22 19:15 Temperature Pulse Rate 68 66 Respiratory Rate 18 29 H Blood Pressure 101/58 L Pulse Oximetry 97 99 Oxygen Delivery Method Nasal Cannula Oxygen Flow Rate 3 02/19/22 19:30 02/19/22 19:30 02/19/22 19:47 Temperature Pulse Rate 65 97 H Respiratory Rate 26 H 27 H Blood Pressure 105/59 L Pulse Oximetry 98 82 L Oxygen Delivery Method Oxygen Flow Rate 02/19/22 20:00 02/19/22 20:15 02/19/22 20:30 Temperature Pulse Rate 66 67 66 Respiratory Rate 25 H 20 23 Blood Pressure Pulse Oximetry 98 97 97 Oxygen Delivery Method Oxygen Flow Rate 02/19/22 20:45 02/19/22 21:00 Temperature Pulse Rate 67 69 Respiratory Rate 27 H 30 H Blood Pressure Pulse Oximetry 97 96 Oxygen Delivery Method Oxygen Flow Rate Oxygen Delivery Method Nasal Cannula Oxygen Flow Rate 3 Narrative Exam Narrative: Gen: Alert, oriented, very thin, but healthy appearing 71 y.o. female, NAD HEENT: normocephalic, atraumatic, conjunctiva clear, sclera non-icteric, oral mucosa pink and moist Neck: supple, full ROM, no JVD, trachea is midline Resp: Lung sounds are course, non-labored breathing, on 3L o2 CV: RRR, no murmur or rubs Abd: soft, non-tender, normoactive BTs Skin: no lesions or rashes, dry and intact Neuro: Alert and oriented X 4 w/no focal deficits. Speech clear and coherent. Extremities: moves all 4 extremities, is ambulatory, negative Cristina?s sign Psyche: normal mood and affect. Objective Labs Result Diagrams: 02/19/22 17:25 02/19/22 17:25 Labs: Laboratory Results - last 24 hr 02/19/22 02/19/22 02/19/22 17:25 17:25 17:25 WBC 12.1 H RBC 4.09 Hgb 12.7 Hct 38.1 MCV 93.2 MCH 31.1 MCHC 33.3 RDW 13.7 Plt Count 110 L Neut % (Auto) 82.8 H Lymph % (Auto) 4.8 L [place] % (Auto) 11.4 Eos % (Auto) 0.7 L Baso % (Auto) 0.3 Neut # (Auto) 31775 H Lymph # (Auto) 600 L [place] # (Auto) 1400 H Eos # (Auto) 100 Baso # (Auto) 0 Sodium 133 L Potassium 3.7 Chloride 91 L Carbon Dioxide 37 H BUN 15 Creatinine 0.65 Estimated GFR > 60 BUN/Creatinine Ratio 23.1 H Glucose 153 H Lactate Calcium 7.7 L Total Bilirubin 0.4 AST 27 ALT 22 Alkaline Phosphatase 55 Total Creatine Kinase 28 L CK-MB (CK-2) TNP CK-MB (CK-2) Rel Index TNP Troponin I 0.018 NT-Pro-B Natriuret Pep 1340 H Total Protein 6.0 L Albumin 3.3 L Globulin 2.7 Albumin/Globulin Ratio 1.2 Lipase 601 H Procalcitonin 0.13 Chlamy pneumoniae PCR Adenovirus (PCR) B. pertussis DNA (PCR) B.parapertussis DNA PCR Coronavirus OC43 (PCR) Coronavirus HKU1 (PCR) Coronavirus 229E (PCR) SARS-CoV-2 (PCR) Coronavirus NL63 (PCR) Human Metapneumovir PCR Influenza Type A (PCR) Influenza Type B (PCR) M. pneumoniae (PCR) Parainfluenza 1 (PCR) Parainfluenza 2 (PCR) Parainfluenza 3 (PCR) Parainfluenza 4 (PCR) RSV (PCR) Entero/Rhino (PCR) 02/19/22 02/19/22 17:27 17:27 WBC RBC Hgb Hct MCV MCH MCHC RDW Plt Count Neut % (Auto) Lymph % (Auto) [place] % (Auto) Eos % (Auto) Baso % (Auto) Neut # (Auto) Lymph # (Auto) [place] # (Auto) Eos # (Auto) Baso # (Auto) Sodium Potassium Chloride Carbon Dioxide BUN Creatinine Estimated GFR BUN/Creatinine Ratio Glucose Lactate 1.1 Calcium Total Bilirubin AST ALT Alkaline Phosphatase Total Creatine Kinase CK-MB (CK-2) CK-MB (CK-2) Rel Index Troponin I NT-Pro-B Natriuret Pep Total Protein Albumin Globulin Albumin/Globulin Ratio Lipase Procalcitonin Chlamy pneumoniae PCR Not detected Adenovirus (PCR) Not detected B. pertussis DNA (PCR) Not detected B.parapertussis DNA PCR Not detected Coronavirus OC43 (PCR) Not detected Coronavirus HKU1 (PCR) Not detected Coronavirus 229E (PCR) Not detected SARS-CoV-2 (PCR) Not detected Coronavirus NL63 (PCR) Not detected Human Metapneumovir PCR Not detected Influenza Type A (PCR) Not detected Influenza Type B (PCR) Not detected M. pneumoniae (PCR) Not detected Parainfluenza 1 (PCR) Not detected Parainfluenza 2 (PCR) Not detected Parainfluenza 3 (PCR) Not detected Parainfluenza 4 (PCR) Not detected RSV (PCR) Not detected Entero/Rhino (PCR) Detected H Assessment & Plan Assessment & Plan narrative: Trish Espinal will be placed into observation for further management of hypo vinh associated with a COPD exacerbation. Acute respiratory failure w/hypoxia, present on admission * While on oxygen the patient maintains oxygen saturations in the high 90s however when she takes off her oxygen and moves around it drops precipitously to the high 60s and low 70s. * COPD exacerbation is probable cause * She is ordered for albuterol, DuoNebs, and Pulmicort nebulizers every 3 hours as needed. Pulmicort is ordered twice daily. * Incentive spirometry Depression, chronic * Continue home doses of Lexapro, and quetiapine Hypothyroidism, chronic * Continue home dose of levothyroxine VTE Prophylaxis: Wells risk score 4.5 [X] Enoxaparin 40 mg subQ once daily X Bilateral SCDs Patient is placed into observation as her stay is not expected to exceed 2 midnights. FEN: IV fluids: saline lock, diet: general, labs: CBC, C/BMP, liver enzymes, [employer] None Dispo: probable d/c to home w/home nebulizers Code status: Full code as discussed with the patient who identifies Fabienne, her emergency contact and friend her surrogate and POA. [X] I have utilized all available immediate resources to obtain, update, or review of the patient's current medications VTE Deep Vein Thrombosis/Pulmonary Embolism Present on Admission: No MIPS - Admit I confirm the patient?s Advance Care Plan is present, Code status is documented, Surrogate decision maker is in patient?s record: Yes MIPS - DC The patient has current or prior documentation of left ventricular ejection fraction (LVEF) less than 40%, or moderate or severely depressed left ventricular systolic function.: No COVID-19 COVID-19 status: Negative Result date/Date tested (Pos, Neg/Pending): 02/19/22 Scores Wells' Criteria for PE Clinical signs and symptoms of DVT: Yes PE is #1 Dx or equally likely: No Heart rate > 100: No Immobilization at least 3 days or surg in previous 4 weeks: Yes History of PE or DVT: No Hemoptysis: No Malignancy w/Treatment within 6 months or palliative: No Wells' PE Score total: 4.5 Quality VTE Deep Vein Thrombosis/Pulmonary Embolism Present on Admission: No
--- NOTE | 2022-02-19 23:43 | PC.NURSE ---
Pt brought from ED at 2125 in wheelchair, ambulated to bed stable on feet. When ambulating to bedside commode pt desat to 81%. Pt states she can 'walk to the bathroom', educated on the need for short distances and oxygen levels. Pt advised to call when needing to get up d/t desat. 2L NC at 96% when sitting/laying. Pt oriented to room and call light.
[2022-02-19] MEDS: QUETIAPINE 25 MG TABLET PO (23:54)
[2022-02-20] VITALS (7 sets, daily range): BP systolic 89–131; BP diastolic 51–64; PULSE 65–88; RESP 20–28; TEMP 36.1–37.1; O2SAT 74–100
[2022-02-20 06:51] LABS: Add Manual Diff / Slide Review NO; Basophils Absolute Auto 0 /uL (0-100); Basophils Percent Auto 0.6 % (0-2); Eosinophils Absolute Auto 100 /uL (0-450); Eosinophils Percent Auto 1.7 % (2-4); Hematocrit 32.7 % (36-46); Hemoglobin 11.1 g/dL (12.0-16.0); Lymphocytes Absolute Auto 500 /uL (1100-4500); Lymphocytes Percent Auto 6.7 % (25-40); Mean Corpuscular HGB Conc 34.1 % (30-36); Mean Corpuscular Volume 93.8 fL (80-100); Monocytes Absolute Auto 900 /uL (0-900); Monocytes Percent Auto 12.8 % (3-14); Neutrophils Absolute Auto 5800 /uL (1500-7000); Neutrophils Percent Auto 78.2 % (50-75); Platelet Count 102 X10^3/uL (150-400); Red Blood Cell Count 3.49 X10^6/uL (4.0-5.2); Red Cell Distribution Width 13.6 % (11.6-14.8); White Blood Cell Count 7.4 X10^3/uL (4.5-11.0)
[2022-02-20 07:04] LABS: Alanine Aminotransferase 21 IU/L (<35); Albumin 2.8 g/dL (3.5-5.0); Albumin Globulin Ratio 1.1 (1.0-2.8); Alkaline Phosphatase 52 U/L (38-126); Aspartate Aminotransferase 26 IU/L (14-36); BUN Creatinine Ratio 24.1 (6-22); Bilirubin Total 0.3 mg/dL (0.2-1.3); Blood Urea Nitrogen 14 mg/dL (7-17); Calcium 7.6 mg/dL (8.4-10.2); Carbon Dioxide 38 mmol/L (22-32); Chloride 94 mmol/L (98-107); Estimated Glomerular Filt Rate > 60 mL/min (>60); Globulin 2.5 g/dL (1.7-4.1); Glucose 89 mg/dL (80-110); HEMOLYSIS < 15 (0-50); Magnesium 1.8 mg/dL (1.6-2.3); Sodium 134 mmol/L (137-145); Total Protein 5.3 g/dL (6.3-8.2)
--- NOTE | 2022-02-20 07:31 | P.PN_ITS ---
Subjective Subjective Date Patient Seen: 02/20/22 Interval history: Patient still has a cruddy cough and says she's been battling a resp illness for about a month. Currently eating with O2 off and satting at 82% and when replaces O2 at 3L drifts back up to 89%. Exam Vital Signs (past 8 hours): - 02/20/22 00:40 02/20/22 00:41 02/20/22 05:18 Temperature 98.8 F 96.9 F L Pulse Rate 69 65 Respiratory Rate 28 H 24 Blood Pressure 89/58 L 131/64 101/56 L Pulse Oximetry 98 100 Oxygen Flow Rate 3 3 Oxygen Delivery Method Nasal Cannula Oxygen Flow Rate 3 Narrative Exam Narrative: Gen: Alert, oriented, very thin, but healthy appearing 71 y.o. female, NAD HEENT: normocephalic, atraumatic, conjunctiva clear, sclera non-icteric, oral mucosa pink and moist Neck: supple, full ROM, no JVD, trachea is midline Resp: Lung sounds are course with distant breath sounds, non-labored breathing, on 3L O2 CV: RRR, no murmur or rubs Abd: soft, non-tender, normoactive BTs Skin: no lesions or rashes, dry and intact Neuro: Alert and oriented X 4 w/no focal deficits. Speech clear and coherent. Extremities: moves all 4 extremities, is ambulatory, negative Cristina?s sign Psyche: normal mood and affect. Objective Labs Result Diagrams: 02/20/22 06:35 02/20/22 06:35 Labs: Laboratory Results - last 24 hr 02/19/22 02/19/22 02/19/22 17:25 17:25 17:25 WBC 12.1 H RBC 4.09 Hgb 12.7 Hct 38.1 MCV 93.2 MCH 31.1 MCHC 33.3 RDW 13.7 Plt Count 110 L Neut % (Auto) 82.8 H Lymph % (Auto) 4.8 L [place] % (Auto) 11.4 Eos % (Auto) 0.7 L Baso % (Auto) 0.3 Neut # (Auto) 71385 H Lymph # (Auto) 600 L [place] # (Auto) 1400 H Eos # (Auto) 100 Baso # (Auto) 0 Sodium 133 L Potassium 3.7 Chloride 91 L Carbon Dioxide 37 H BUN 15 Creatinine 0.65 Estimated GFR > 60 BUN/Creatinine Ratio 23.1 H Glucose 153 H Lactate Calcium 7.7 L Magnesium Total Bilirubin 0.4 AST 27 ALT 22 Alkaline Phosphatase 55 Total Creatine Kinase 28 L CK-MB (CK-2) TNP CK-MB (CK-2) Rel Index TNP Troponin I 0.018 NT-Pro-B Natriuret Pep 1340 H Total Protein 6.0 L Albumin 3.3 L Globulin 2.7 Albumin/Globulin Ratio 1.2 Lipase 601 H Procalcitonin 0.13 Chlamy pneumoniae PCR Adenovirus (PCR) B. pertussis DNA (PCR) B.parapertussis DNA PCR Coronavirus OC43 (PCR) Coronavirus HKU1 (PCR) Coronavirus 229E (PCR) SARS-CoV-2 (PCR) Coronavirus NL63 (PCR) Human Metapneumovir PCR Influenza Type A (PCR) Influenza Type B (PCR) M. pneumoniae (PCR) Parainfluenza 1 (PCR) Parainfluenza 2 (PCR) Parainfluenza 3 (PCR) Parainfluenza 4 (PCR) RSV (PCR) Entero/Rhino (PCR) 02/19/22 02/19/22 02/20/22 17:27 17:27 06:35 WBC 7.4 RBC 3.49 L Hgb 11.1 L Hct 32.7 L MCV 93.8 MCH 32.0 MCHC 34.1 RDW 13.6 Plt Count 102 L Neut % (Auto) 78.2 H Lymph % (Auto) 6.7 L [place] % (Auto) 12.8 Eos % (Auto) 1.7 L Baso % (Auto) 0.6 Neut # (Auto) 5800 Lymph # (Auto) 500 L [place] # (Auto) 900 Eos # (Auto) 100 Baso # (Auto) 0 Sodium Potassium Chloride Carbon Dioxide BUN Creatinine Estimated GFR BUN/Creatinine Ratio Glucose Lactate 1.1 Calcium Magnesium Total Bilirubin AST ALT Alkaline Phosphatase Total Creatine Kinase CK-MB (CK-2) CK-MB (CK-2) Rel Index Troponin I NT-Pro-B Natriuret Pep Total Protein Albumin Globulin Albumin/Globulin Ratio Lipase Procalcitonin Chlamy pneumoniae PCR Not detected Adenovirus (PCR) Not detected B. pertussis DNA (PCR) Not detected B.parapertussis DNA PCR Not detected Coronavirus OC43 (PCR) Not detected Coronavirus HKU1 (PCR) Not detected Coronavirus 229E (PCR) Not detected SARS-CoV-2 (PCR) Not detected Coronavirus NL63 (PCR) Not detected Human Metapneumovir PCR Not detected Influenza Type A (PCR) Not detected Influenza Type B (PCR) Not detected M. pneumoniae (PCR) Not detected Parainfluenza 1 (PCR) Not detected Parainfluenza 2 (PCR) Not detected Parainfluenza 3 (PCR) Not detected Parainfluenza 4 (PCR) Not detected RSV (PCR) Not detected Entero/Rhino (PCR) Detected H 02/20/22 06:35 WBC RBC Hgb Hct MCV MCH MCHC RDW Plt Count Neut % (Auto) Lymph % (Auto) [place] % (Auto) Eos % (Auto) Baso % (Auto) Neut # (Auto) Lymph # (Auto) [place] # (Auto) Eos # (Auto) Baso # (Auto) Sodium 134 L Potassium 4.0 Chloride 94 L Carbon Dioxide 38 H BUN 14 Creatinine 0.58 Estimated GFR > 60 BUN/Creatinine Ratio 24.1 H Glucose 89 Lactate Calcium 7.6 L Magnesium 1.8 Total Bilirubin 0.3 AST 26 ALT 21 Alkaline Phosphatase 52 Total Creatine Kinase CK-MB (CK-2) CK-MB (CK-2) Rel Index Troponin I NT-Pro-B Natriuret Pep Total Protein 5.3 L Albumin 2.8 L Globulin 2.5 Albumin/Globulin Ratio 1.1 Lipase Procalcitonin Chlamy pneumoniae PCR Adenovirus (PCR) B. pertussis DNA (PCR) B.parapertussis DNA PCR Coronavirus OC43 (PCR) Coronavirus HKU1 (PCR) Coronavirus 229E (PCR) SARS-CoV-2 (PCR) Coronavirus NL63 (PCR) Human Metapneumovir PCR Influenza Type A (PCR) Influenza Type B (PCR) M. pneumoniae (PCR) Parainfluenza 1 (PCR) Parainfluenza 2 (PCR) Parainfluenza 3 (PCR) Parainfluenza 4 (PCR) RSV (PCR) Entero/Rhino (PCR) ON LICENSE OF [facility] Medical History Acute exacerbation of chronic obstructive pulmonary disease Lung cancer Family History (Updated 02/19/22 @ 22:52 by KODAK Posey) Father Old age Mother Crohn's disease Social History household members: friend(s) Smoking Status: Former smoker alcohol intake: current Assessment & Plan Assessment & Plan narrative: Acute respiratory failure w/ hypoxia, present on admission * While on oxygen the patient maintains oxygen saturations in the high 90s however when she takes off her oxygen and moves around it drops precipitously to the high 60s and low 70s. * COPD exacerbation is probable cause * She is ordered for albuterol, DuoNebs, and Pulmicort nebulizers every 3 hours as needed. Pulmicort is ordered twice daily. * Incentive spirometry * will likely discharge home on a 1-2L of O2 Depression, chronic * Continue home doses of Lexapro, and quetiapine Hypothyroidism, chronic * Continue home dose of levothyroxine VTE Prophylaxis: Enoxaparin 40 mg subQ once daily X Bilateral SCDs Dispo: probable d/c to home in 1-2 days on home O2 pending home O2 eval Code status: Full code as discussed with the patient who identifies Fabienne, her emergency contact and friend her surrogate and POA. COVID-19 COVID-19 status: Negative Result date/Date tested (Pos, Neg/Pending): 02/19/22 Time Spent With Patient Critical Care time: I spent a total of [] minutes of critical care time on this patient's care today; this time is exclusive of procedural time. Quality VTE Deep Vein Thrombosis/Pulmonary Embolism Present on Admission: No
[2022-02-20] MEDS: ENOXAPARIN 40 MG/0.4 ML SYRINGE SUBCUT (09:28)
[2022-02-20] MEDS: ESCITALOPRAM 10 MG TABLET 20 MG PO (09:29)
[2022-02-20] MEDS: predniSONE 20 MG TABLET 40 MG PO (09:29)
[2022-02-20] MEDS: ALPRAZolam 0.5 MG TABLET PO ×2 (09:29→21:16)
--- NOTE | 2022-02-20 10:53 | CM.DANOTE ---
DCP: Case receive, EMR reviewed and met with patient. Introduced self and role. Was able to obtain information regarding patient's baseline activity status at home prior to hospitalization. DCP assessment completed with information currently available. Patient is a 71 year old female who admitted yesterday evening to the care of the hospitalist team. PCP: Dr. Reich at [facility]. Payer: confirmed: [facility]. Patient came to the hospital via private vehicle secondary to having flu-like symptoms for the last 3 weeks. When patient arrived to the hospital, she was hypoxic, her saturations were in the 70s. Notes indicate that patient also had low grade temp. Patient holds diagnosis of rhino virus. Patient also has history of COPD, and lung cancer. Met with patient in her room. She is alert and oriented, pleasant. She was sitting up in bed. Spoke to patient from the doorway, as to not get too close due to her virus situation. Confirmed that she resides in [place] with room mate, and she is independent at her baseline. She did not have oxygen on when this DC Dye Reel Operator met with her. P: DCP to continue to follow. Patient should be able to go home when she is deemed medically stable. Alem Guillen RN/Institutional Custodian Discharge Planning/Care Management CM Discharge Assessment Start: 02/20/22 10:51 Freq: Status: Active Protocol: Document 02/20/22 10:52 (Rec: 02/20/22 10:53 [id number]) Discharge Planning Assessment Advance Directives? No History Provided By Patient,Medical Record Prior Living Arrangements House Household Members friend(s) Type of transporation used prior to Drives own vehicle admit Independent with ADL's Yes Is patient alert and oriented? Yes Caregiver for Another No Barriers to Discharge No Discharge Plan Home Transportation Arrangement Friend Referrals Initiated None needed Whiteboard Updated in Patient Room with Yes name and ext. # of Real Estate Representative Review Status In Process Next Review Type Continued Stay Review
[2022-02-20 17:12] LABS: HCO3 ABG 37 mmol/L (22-26); PO2 ABG 62 mmHg (80-100); TCO2 ABG 39 mmol/L (21-31); pH ABG 7.33 (7.35-7.45)
[2022-02-20 17:13] LABS: Oxygen Saturation ABG 89 % (95-100)
[2022-02-20] MEDS: QUETIAPINE 25 MG TABLET PO (21:17)
[2022-02-20] MEDS: ATORVASTATIN 20 MG TABLET 40 MG PO (21:51)
[2022-02-21 05:01] VITALS: BP 109/63; PULSE 64; RESP 17; TEMP 36.3; O2SAT 100
[2022-02-21 05:15] VITALS: O2SAT 95
[2022-02-21] MEDS: LEVOTHYROXINE 50 MCG TABLET PO (05:47)
[2022-02-21 07:12] LABS: Add Manual Diff / Slide Review NO; Basophils Absolute Auto 0 /uL (0-100); Basophils Percent Auto 0.4 % (0-2); Eosinophils Absolute Auto 0 /uL (0-450); Eosinophils Percent Auto 0.3 % (2-4); Hematocrit 33.6 % (36-46); Hemoglobin 11.4 g/dL (12.0-16.0); Lymphocytes Absolute Auto 600 /uL (1100-4500); Lymphocytes Percent Auto 6.6 % (25-40); Mean Corpuscular HGB Conc 33.9 % (30-36); Mean Corpuscular Hemoglobin 31.6 PG (26-34); Mean Corpuscular Volume 93.4 fL (80-100); Monocytes Absolute Auto 1000 /uL (0-900); Monocytes Percent Auto 10.8 % (3-14); Neutrophils Absolute Auto 7600 /uL (1500-7000); Neutrophils Percent Auto 81.9 % (50-75); Platelet Count 128 X10^3/uL (150-400); Red Cell Distribution Width 13.6 % (11.6-14.8); White Blood Cell Count 9.3 X10^3/uL (4.5-11.0)
[2022-02-21 07:35] LABS: Alanine Aminotransferase 23 IU/L (<35); Albumin Globulin Ratio 1.2 (1.0-2.8); Alkaline Phosphatase 47 U/L (38-126); Aspartate Aminotransferase 27 IU/L (14-36); BUN Creatinine Ratio 33.3 (6-22); Bilirubin Total 0.3 mg/dL (0.2-1.3); Blood Urea Nitrogen 19 mg/dL (7-17); Calcium 8.2 mg/dL (8.4-10.2); Carbon Dioxide 39 mmol/L (22-32); Chloride 96 mmol/L (98-107); Estimated Glomerular Filt Rate > 60 mL/min (>60); Globulin 2.6 g/dL (1.7-4.1); Glucose 99 mg/dL (80-110); HEMOLYSIS < 15 (0-50); Magnesium 1.8 mg/dL (1.6-2.3); Potassium 4.1 mmol/L (3.4-5.1); Sodium 136 mmol/L (137-145); Total Protein 5.6 g/dL (6.3-8.2)
[2022-02-21 08:19] VITALS: BP 93/54; PULSE 63; RESP 18; TEMP 36.5; O2SAT 100
[2022-02-21] MEDS: ESCITALOPRAM 10 MG TABLET 20 MG PO (08:50)
[2022-02-21] MEDS: ENOXAPARIN 40 MG/0.4 ML SYRINGE SUBCUT (08:50)
[2022-02-21] MEDS: predniSONE 20 MG TABLET 40 MG PO (08:50)
[2022-02-21] MEDS: ALBUTEROL 2.5 MG/3 ML NEB (ADULT) INH (09:28)
[2022-02-21 09:29] VITALS: PULSE 82; RESP 16; O2SAT 95
[2022-02-21] MEDS: IPRATROPIUM 0.5 MG/2.5 ML NEB INH (09:29)
[2022-02-21] MEDS: DOXYCYCLINE HYCLATE 100 MG TABLET PO ×2 (11:28→21:39)
[2022-02-21] MEDS: ACETAMINOPHEN 325 MG TABLET 650 MG PO ×2 (11:29→17:17)
[2022-02-21] MEDS: cefTRIAXone 1,000 MG in SODIUM CHLORIDE 0.9% 100 ML 200 MG IV (11:29)
[2022-02-21 12:00] VITALS: BP 101/56; PULSE 79; RESP 16; TEMP 36.8; O2SAT 93
--- NOTE | 2022-02-21 15:43 | P.PN_ITS ---
Subjective Subjective Date Patient Seen: 02/21/22 Time Patient Seen: 10:00 Interval history: Patient feeling worse today. Says she feels achy and cough is worse. Exam Vital Signs (past 8 hours): - 02/21/22 08:19 02/21/22 09:29 02/21/22 08:00 Temperature 97.7 F Pulse Rate 63 82 Respiratory Rate 18 16 Blood Pressure 93/54 L Pulse Oximetry 100 95 Oxygen Delivery Method Nasal Cannula Nasal Cannula Oxygen Flow Rate 2 2 02/21/22 12:00 Temperature 98.3 F Pulse Rate 79 Respiratory Rate 16 Blood Pressure 101/56 L Pulse Oximetry 93 Oxygen Delivery Method Oxygen Flow Rate 3 Oxygen Delivery Method Nasal Cannula Oxygen Flow Rate 3 Narrative Exam Narrative: Gen: Alert, oriented, very thin, but healthy appearing 71 y.o. female, NAD HEENT: normocephalic, atraumatic, conjunctiva clear, sclera non-icteric, oral mucosa pink and moist Neck: supple, full ROM, no JVD, trachea is midline Resp: Lung sounds are course with distant breath sounds, non-labored breathing, on 3L O2 CV: RRR, no murmur or rubs Abd: soft, non-tender, normoactive BTs Skin: no lesions or rashes, dry and intact Neuro: Alert and oriented X 4 w/no focal deficits. Speech clear and coherent. Extremities: moves all 4 extremities, is ambulatory, negative Cristina?s sign Psyche: normal mood and affect. Objective Labs Result Diagrams: 02/21/22 06:55 02/21/22 06:55 Labs: Laboratory Results - last 24 hr 02/19/22 02/21/22 02/21/22 19:03 06:55 06:55 WBC 9.3 RBC 3.60 L Hgb 11.4 L Hct 33.6 L MCV 93.4 MCH 31.6 MCHC 33.9 RDW 13.6 Plt Count 128 L Neut % (Auto) 81.9 H Lymph % (Auto) 6.6 L [place] % (Auto) 10.8 Eos % (Auto) 0.3 L Baso % (Auto) 0.4 Neut # (Auto) 7600 H Lymph # (Auto) 600 L [place] # (Auto) 1000 H Eos # (Auto) 0 Baso # (Auto) 0 ABG pH 7.33 L ABG pCO2 69.5 H* ABG pO2 62 L ABG HCO3 37 H ABG Total CO2 39 H ABG O2 Saturation 89 L ABG Base Excess 11.0 H Sodium 136 L Potassium 4.1 Chloride 96 L Carbon Dioxide 39 H BUN 19 H Creatinine 0.57 Estimated GFR > 60 BUN/Creatinine Ratio 33.3 H Glucose 99 Calcium 8.2 L Magnesium 1.8 Total Bilirubin 0.3 AST 27 ALT 23 Alkaline Phosphatase 47 Total Protein 5.6 L Albumin 3.0 L Globulin 2.6 Albumin/Globulin Ratio 1.2 PFSH Medical History Acute exacerbation of chronic obstructive pulmonary disease Lung cancer Family History (Updated 02/19/22 @ 22:52 by KODAK Posey) Father Old age Mother Crohn's disease Social History household members: friend(s) Smoking Status: Former smoker alcohol intake: current Assessment & Plan Assessment & Plan narrative: Acute respiratory failure w/ hypoxia, present on admission * While on oxygen the patient maintains oxygen saturations in the high 90s however when she takes off her oxygen and moves around it drops precipitously to the high 60s and low 70s. * COPD exacerbation is probable cause * She is ordered for albuterol, DuoNebs, and Pulmicort nebulizers every 3 hours as needed. Pulmicort is ordered twice daily. * Incentive spirometry * will likely discharge home on a 1-2L of O2 COPD exacerbation 2/2 RSV infection with bacterial pneumonia superinfection * RSV positive on PCR panel * Sputum sample with heavy growth * start rocephin and doxy (given interaction of azithro with pt psych meds) for likely CAP * f/u sputum culture results and sensitivities * schedule tylenol as patient forgets to ask for it Depression, chronic * Continue home doses of Lexapro and quetiapine Hypothyroidism, chronic * Continue home dose of levothyroxine VTE Prophylaxis: Enoxaparin 40 mg subQ once daily X Bilateral SCDs Dispo: probable d/c home in 2-3 days on home O2 Code status: Full code as discussed with the patient who identifies Fabienne, her emergency contact and friend her surrogate and POA. COVID-19 COVID-19 status: Negative Result date/Date tested (Pos, Neg/Pending): 02/19/22 Time Spent With Patient Critical Care time: I spent a total of [] minutes of critical care time on this patient's care today; this time is exclusive of procedural time. Quality VTE Deep Vein Thrombosis/Pulmonary Embolism Present on Admission: No
--- NOTE | 2022-02-21 18:11 | PC.NURSE ---
Day shift note: Patient awake, alert, and pleasantly cooperative. Remains on O2 at 2L via NC, sat 93%. SOB on exertion. Excellent PO intake, very motivated to gain weight. Persistent to sporadic bronchospastic cough. Redness to buttocks noted, non blanchable and small dime size skin tear to left inner perineum. Barrier cream applied and waffle cushion placed to offload pressure. Patient states noted redness in the past two weeks since has been less active. Up OOB to BR, voiding without difficult. Evening visit by housemate Kenyatta, providing supportive care and ice cream. Calls appropriately for staff assist.
[2022-02-21 18:25] VITALS: BP 95/53; PULSE 66; RESP 16; TEMP 36.6; O2SAT 98
[2022-02-21] MEDS: ATORVASTATIN 20 MG TABLET 40 MG PO (21:39)
[2022-02-21] MEDS: QUETIAPINE 25 MG TABLET PO (21:39)
[2022-02-22 06:00] VITALS: BP 124/67; PULSE 78; RESP 18; TEMP 36.4; O2SAT 95
[2022-02-22] MEDS: LEVOTHYROXINE 50 MCG TABLET PO (06:24)
[2022-02-22 06:46] LABS: Add Manual Diff / Slide Review NO; Basophils Absolute Auto 0 /uL (0-100); Basophils Percent Auto 0.2 % (0-2); Eosinophils Absolute Auto 0 /uL (0-450); Eosinophils Percent Auto 0.3 % (2-4); Hematocrit 33.6 % (36-46); Hemoglobin 11.2 g/dL (12.0-16.0); Lymphocytes Absolute Auto 800 /uL (1100-4500); Lymphocytes Percent Auto 8.5 % (25-40); Mean Corpuscular HGB Conc 33.3 % (30-36); Mean Corpuscular Hemoglobin 31.5 PG (26-34); Mean Corpuscular Volume 94.5 fL (80-100); Monocytes Absolute Auto 800 /uL (0-900); Monocytes Percent Auto 7.9 % (3-14); Neutrophils Absolute Auto 8000 /uL (1500-7000); Neutrophils Percent Auto 83.1 % (50-75); Platelet Count 144 X10^3/uL (150-400); Red Blood Cell Count 3.55 X10^6/uL (4.0-5.2); Red Cell Distribution Width 13.9 % (11.6-14.8); White Blood Cell Count 9.6 X10^3/uL (4.5-11.0)
[2022-02-22 07:01] LABS: Alanine Aminotransferase 25 IU/L (<35); Albumin Globulin Ratio 1.2 (1.0-2.8); Alkaline Phosphatase 46 U/L (38-126); Aspartate Aminotransferase 25 IU/L (14-36); BUN Creatinine Ratio 35.8 (6-22); Bilirubin Total 0.3 mg/dL (0.2-1.3); Blood Urea Nitrogen 24 mg/dL (7-17); Calcium 8.1 mg/dL (8.4-10.2); Chloride 98 mmol/L (98-107); Estimated Glomerular Filt Rate > 60 mL/min (>60); Globulin 2.6 g/dL (1.7-4.1); Glucose 84 mg/dL (80-110); HEMOLYSIS < 15 (0-50); Magnesium 1.6 mg/dL (1.6-2.3); Sodium 138 mmol/L (137-145); Total Protein 5.6 g/dL (6.3-8.2)
[2022-02-22 07:43] LABS: Carbon Dioxide 40 mmol/L (22-32)
[2022-02-22] MEDS: DOXYCYCLINE HYCLATE 100 MG TABLET PO ×2 (09:36→20:31)
[2022-02-22] MEDS: predniSONE 20 MG TABLET 40 MG PO (09:36)
[2022-02-22] MEDS: ESCITALOPRAM 10 MG TABLET 20 MG PO (09:36)
[2022-02-22] MEDS: ENOXAPARIN 40 MG/0.4 ML SYRINGE SUBCUT (09:36)
[2022-02-22] MEDS: ACETAMINOPHEN 325 MG TABLET 650 MG PO ×3 (10:10→23:17)
[2022-02-22] MEDS: cefTRIAXone 1,000 MG in SODIUM CHLORIDE 0.9% 100 ML 200 MG IV (10:10)
[2022-02-22] MEDS: BUDESONIDE 0.5 MG/2 ML NEB INH ×2 (10:46→19:00)
[2022-02-22] MEDS: ALBUTEROL 2.5 MG/3 ML NEB (ADULT) INH ×2 (10:46→19:00)
[2022-02-22 10:52] VITALS: PULSE 83; RESP 16; O2SAT 96
[2022-02-22] MEDS: methylPREDNISolone 125 MG/2 ML VIAL IV (11:45)
--- NOTE | 2022-02-22 12:04 | P.PN_ITS ---
Subjective Subjective Date Patient Seen: 02/22/22 Time Patient Seen: 12:04 Interval history: Still feeling unwell, with cruddy wet cough however O2 able to wean off. She would like to stay one more day to feel better. Exam Vital Signs (past 8 hours): - 02/22/22 06:00 02/22/22 09:45 02/22/22 10:52 Temperature 97.6 F Pulse Rate 78 83 Respiratory Rate 18 16 Blood Pressure 124/67 Pulse Oximetry 95 96 Oxygen Delivery Method Nasal Cannula Room Air Oxygen Flow Rate 2 Oxygen Delivery Method Room Air Oxygen Flow Rate 2 Narrative Exam Narrative: Gen: Alert, oriented, very thin, 71 y.o. female, NAD but appears fatigued HEENT: normocephalic, atraumatic, conjunctiva clear, sclera non-icteric, oral mucosa pink and moist Neck: supple, full ROM, no JVD, trachea is midline Resp: Lung sounds with distant breath sounds CV: RRR, no murmur or rubs Abd: soft, non-tender, normoactive BTs Skin: no lesions or rashes, dry and intact Neuro: Alert and oriented X 4 w/no focal deficits. Speech clear and coherent. Extremities: moves all 4 extremities, is ambulatory, negative Cristina?s sign Psyche: normal mood and affect. Objective Labs Result Diagrams: 02/22/22 06:36 02/22/22 06:36 Labs: Laboratory Results - last 24 hr 02/22/22 02/22/22 06:36 06:36 WBC 9.6 RBC 3.55 L Hgb 11.2 L Hct 33.6 L MCV 94.5 MCH 31.5 MCHC 33.3 RDW 13.9 Plt Count 144 L Neut % (Auto) 83.1 H Lymph % (Auto) 8.5 L [place] % (Auto) 7.9 Eos % (Auto) 0.3 L Baso % (Auto) 0.2 Neut # (Auto) 8000 H Lymph # (Auto) 800 L [place] # (Auto) 800 Eos # (Auto) 0 Baso # (Auto) 0 Sodium 138 Potassium 4.0 Chloride 98 Carbon Dioxide 40 H* BUN 24 H Creatinine 0.67 Estimated GFR > 60 BUN/Creatinine Ratio 35.8 H Glucose 84 Calcium 8.1 L Magnesium 1.6 Total Bilirubin 0.3 AST 25 ALT 25 Alkaline Phosphatase 46 Total Protein 5.6 L Albumin 3.0 L Globulin 2.6 Albumin/Globulin Ratio 1.2 [facility] Medical History Acute exacerbation of chronic obstructive pulmonary disease Lung cancer Family History (Updated 02/19/22 @ 22:52 by KODAK Posey) Father Old age Mother Crohn's disease Social History household members: friend(s) Smoking Status: Former smoker alcohol intake: current Assessment & Plan Assessment & Plan narrative: Acute respiratory failure w/ hypoxia, present on admission * While on oxygen the patient maintains oxygen saturations in the high 90s however when she takes off her oxygen and moves around it drops precipitously to the high 60s and low 70s. * COPD exacerbation is probable cause * She is ordered for albuterol, DuoNebs, and Pulmicort nebulizers every 3 hours as needed. Pulmicort is ordered twice daily. * Incentive spirometry * will likely discharge home on a 1-2L of O2 COPD exacerbation 2/2 RSV infection * RSV positive on PCR panel * Sputum sample with heavy growth normal geovanna * continue rocephin and doxy (given interaction of azithro with pt psych meds) * schedule tylenol as patient forgets to ask for it * give dose of 125mg solu medrol and schedule nebs instead of PRN Depression, chronic * Continue home doses of Lexapro and quetiapine Hypothyroidism, chronic * Continue home dose of levothyroxine VTE Prophylaxis: Enoxaparin 40 mg subQ once daily X Bilateral SCDs Dispo: Home on 02/23. Code status: Full code as discussed with the patient who identifies Fabienne, her emergency contact and friend her surrogate and POA. COVID-19 COVID-19 status: Negative Result date/Date tested (Pos, Neg/Pending): 02/19/22 Time Spent With Patient Critical Care time: I spent a total of [] minutes of critical care time on this patient's care today; this time is exclusive of procedural time. Quality VTE Deep Vein Thrombosis/Pulmonary Embolism Present on Admission: No
[2022-02-22 12:13] VITALS: BP 121/66; PULSE 72; RESP 22; TEMP 37.6; O2SAT 90
[2022-02-22] MEDS: MAGNESIUM CHLORIDE 64 MG TABLET 128 MG PO (13:20)
[2022-02-22 14:41] LABS: pH ABG 7.36 (7.35-7.45)
[2022-02-22 14:42] LABS: HCO3 ABG 40 mmol/L (22-26); PCO2 ABG 70.6 mmHg (35-45); PO2 ABG 97 mmHg (80-100)
[2022-02-22 14:43] LABS: Fractionated Inspired Oxygen 28; Oxygen Saturation ABG 97 % (95-100); TCO2 ABG 42 mmol/L (21-31)
[2022-02-22 15:02] LABS: PCO2 ABG 69.5 mmHg (35-45)
[2022-02-22 18:49] VITALS: BP 113/62; PULSE 73; RESP 22; TEMP 37.7; O2SAT 93
[2022-02-22 19:00] VITALS: PULSE 73; RESP 18; O2SAT 97
[2022-02-22] MEDS: IPRATROPIUM 0.5 MG/2.5 ML NEB INH (19:00)
[2022-02-22] MEDS: QUETIAPINE 25 MG TABLET PO (20:31)
[2022-02-22] MEDS: ATORVASTATIN 20 MG TABLET 40 MG PO (20:31)
[2022-02-22] MEDS: SODIUM CHLORIDE 0.9% FLUSH 10 ML IV (20:32)
[2022-02-22] MEDS: ALPRAZolam 0.5 MG TABLET PO (23:17)
[2022-02-23] VITALS: BP 96/52; PULSE 66; RESP 18; TEMP 36.6; O2SAT 98
[2022-02-23 05:44] VITALS: BP 99/65; PULSE 65; RESP 18; TEMP 36.6; O2SAT 93
[2022-02-23] MEDS: LEVOTHYROXINE 50 MCG TABLET PO (06:00)
--- NOTE | 2022-02-23 07:32 | P.DS_ITS ---
History of Present Illness History of Present Illness Date Patient Seen: 02/23/22 Chief complaint: cold/flu symptons X 3 weeks Narrative: Trish Espinal is a 71 y.o. 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 She presented to the emergency department with a 3 week history of flu and cold-like symptoms.? She is had a cough and a cold apparently was taking antibiotics and completed a 10 day course of Augmentin and prednisone and then returned to the ED thinking she would get another extension of her antibiotic treatment as she was getting ready to take a driving trip out of state to assist a friend who is undergoing surgery.? She states she is been sick for about 1 month.? She is had a low-grade fever off and on she is had profound fatigue and has occasional productive sputum ranging from clear to yellow. Denies a history of snoring or KARLO. She denies chest pain she did have some nausea and diarrhea after taking ivermectin you which is now resolved she denies any dysuria or constipation. Due to concerns for a pulmonary embolism, ED ordered a CTA which was negative for a PE.? It did note postsurgical changes of the left lung.? She has a low- grade temperature 99? blood pressure 105/59 heart rate 69 respiratory rate 30 oxygen saturation of 96% on 3 L she weighs 41 kg with a BMI of 17.? She is a mildly elevated white count of 12.1 platelet count of 110 left shift of 10,000 sodium 133 chloride 91 bicarb 37 glucose of 153 calcium 7.7 proBNP of 1340 lipase of 601 procalcitonin of 0.13 COVID-19 PCR is negative, she does test positive for entero rhino virus. Discharge Providers Provider Date of admission: 02/19/22 21:10 Discharge Date: 02/23/22 Primary care physician: Rylie Reich PA-C Consults: 02/19/22 20:43 Consult to Cardio/Pulmonary Rehabilitation Routine Comment: Physician Instructions: Evaluate and treat Discharge provider: Moises Soliz DO Summary Hospital Course Discharge Diagnosis: Acute respiratory failure w/ hypoxia, present on admission * While on oxygen the patient maintains oxygen saturations in the high 90s however when she takes off her oxygen and moves around it drops precipitously to the high 60s and low 70s. * COPD exacerbation is probable cause triggered by RSV * She is ordered for albuterol, DuoNebs, and Pulmicort nebulizers every 3 hours as needed.? Pulmicort is ordered twice daily. * Incentive spirometry * will likely discharge home on a 1-2L of O2 COPD exacerbation 2/2 RSV infection * RSV positive on PCR panel * Sputum sample with heavy growth normal geovanna * given course of rocephin and doxy (given interaction of azithro with pt psych meds) due to lack of improvement * schedule tylenol as patient forgets to ask for it * give dose of 125mg solu medrol and schedule nebs instead of PRN, patient felt better after this along with antibiotics Depression, chronic * Continue home doses of Lexapro and quetiapine Hypothyroidism, chronic * Continue home dose of levothyroxine Hospital Course: Admitted for COPD exacerbation caused by RSV infection, with patient desatting to 70-80's and requiring up to 3L NC. Given steroids, duonebs, and mucinex with slow improvement over several days. Antitiobics were added as patient stated she continued to feel poorly in terms of her breathing and her sputum culture initially grew heavy growth bacteria. This turned out to be normal geovanna, but antibiotics were continued to finish the course as patient seemed to improve with it. She was eventually weaned off O2 and discharged to follow with her cilnical scientist for an upcoming appt that she already has scheduled. She was prescribed an albuterol inhaler and a couple more days of po antibiotics and prednisone to complete at home. Time Spent with Patient Time spent: Greater than 30 minutes Exam Vital Signs (past 8 hours): - 02/21/22 05:01 02/21/22 05:15 Temperature 97.4 F L Pulse Rate 64 Respiratory Rate 17 Blood Pressure 109/63 Pulse Oximetry 100 95 Oxygen Flow Rate 2 1.5 Oxygen Delivery Method Nasal Cannula Oxygen Flow Rate 1.5 Narrative Exam Narrative: Gen: Alert, oriented, very thin, 71 y.o. female, NAD and more comfortable today HEENT: normocephalic, atraumatic, conjunctiva clear, sclera non-icteric, oral mucosa pink and moist Neck: supple, full ROM, no JVD, trachea is midline Resp: Lung sounds with distant breath sounds CV: RRR, no murmur or rubs Abd: soft, non-tender, normoactive BTs Skin: no lesions or rashes, dry and intact Neuro: Alert and oriented X 4 w/no focal deficits. Speech clear and coherent. Extremities: moves all 4 extremities, is ambulatory, negative Cristina?s sign Psyche: normal mood and affect. Objective Labs Result Diagrams: 02/22/22 06:36 02/22/22 06:36 Labs: Laboratory Results - last 24 hr 02/19/22 02/21/22 19:03 06:55 WBC 9.3 RBC 3.60 L Hgb 11.4 L Hct 33.6 L MCV 93.4 MCH 31.6 MCHC 33.9 RDW 13.6 Plt Count 128 L Neut % (Auto) 81.9 H Lymph % (Auto) 6.6 L [place] % (Auto) 10.8 Eos % (Auto) 0.3 L Baso % (Auto) 0.4 Neut # (Auto) 7600 H Lymph # (Auto) 600 L [place] # (Auto) 1000 H Eos # (Auto) 0 Baso # (Auto) 0 ABG pH 7.33 L ABG pCO2 69.5 H* ABG pO2 62 L ABG HCO3 37 H ABG Total CO2 39 H ABG O2 Saturation 89 L ABG Base Excess 11.0 H PFSH Medical History Acute exacerbation of chronic obstructive pulmonary disease Lung cancer Family History (Updated 02/19/22 @ 22:52 by KODAK Posey) Father Old age Mother Crohn's disease Social History household members: friend(s) Smoking Status: Former smoker alcohol intake: current Discharge Plan Discharge Plan Patient Disposition: Home Provider Discharge Comment: You were admitted for worsening shortness of breath due to RSV viral infection exacerbating your COPD. You improved on steroids, antibiotics and nebulizers and were able to come off of oxygen. I'm sending you home on a couple more days of steroids and antibiotics, as well as refills of your albuterol inhaler. Please make sure to get in soon with your cilnical scientist so he can review things and adjust your inhalers. Discharge orders & Medications Prescriptions: Continued alprazolam [Xanax] 0.5 MG tablet 0.5 mg PO Q12HP Qty: 0 atorvastatin 40 mg tablet 40 mg PO DAILY escitalopram oxalate 20 mg tablet 20 mg PO DAILY Label Comments: TAKE 1 TABLET BY MOUTH EVERY MORNING DIRECTED levothyroxine 50 mcg tablet 50 mcg PO DAILY quetiapine 25 mg tablet 25 mg PO BEDTIME Label Comments: TAKE 1 TABLET BY MOUTH EVERY NIGHT AT BEDTIME DIRECTED alprazolam 0.5 mg tablet 0.5 mg PO BID PRN (Reason: Anxiety) Label Comments: TAKE 1 TABLET BY MOUTH UP TO TWICE DAILY NEEDED FOR ACUTE ANXIETY albuterol sulfate 90 mcg/actuation HFA aerosol inhaler 2 puff INHALATION Q4H PRN (Reason: shortness of breath or wheezing) Qty: 8.5 2RF Follow up/Referrals: Rylie Reich, [facility] [Primary Care Provider] - 2 Weeks Visit Report/Discharge Packet Instructions: DI for Chronic Obstructive Pulmonary Disease, DI for Respiratory Syncytial Virus -- Adults Discharge Data Primary Care Provider: Rylie Reich Quality VTE Deep Vein Thrombosis/Pulmonary Embolism Present on Admission: No
[2022-02-23 07:42] VITALS: PULSE 69; RESP 20; O2SAT 95
[2022-02-23] MEDS: ALBUTEROL/IPRATROPIUM 3 ML AMPUL INH (07:43)
[2022-02-23] MEDS: BUDESONIDE 0.5 MG/2 ML NEB INH (07:43)
[2022-02-23 07:50] VITALS: PULSE 65; RESP 20
[2022-02-23] MEDS: DOXYCYCLINE HYCLATE 100 MG TABLET PO (09:14)
[2022-02-23] MEDS: predniSONE 20 MG TABLET 40 MG PO (09:14)
[2022-02-23] MEDS: ENOXAPARIN 40 MG/0.4 ML SYRINGE SUBCUT (09:14)
[2022-02-23] MEDS: ESCITALOPRAM 10 MG TABLET 20 MG PO (09:14)
[2022-02-23] MEDS: ACETAMINOPHEN 325 MG TABLET 650 MG PO (09:15)
[2022-02-23] MEDS: SODIUM CHLORIDE 0.9% FLUSH 10 ML IV (09:17)
[2022-02-23] MEDS: cefTRIAXone 1,000 MG in SODIUM CHLORIDE 0.9% 100 ML 200 MG IV (10:01)
--- NOTE | 2022-02-23 10:31 | CM.DPNOTE ---
Discharge Planning Note: Met with patient who states she is feeling better and ready to go home. Nurse states she is going home today. She is not needing her O2 this morning. Plan: Home. Patient states her roommate will provide transport. Linda Linares RN/DCP
--- NOTE | 2022-02-23 13:42 | PC.NURSE ---
Addendum entered by Sofia Madsen R.N. 02/23/22 14:00: Left unit via WC at approx 1400. Original Note: Day shift: Paperwork signed and all questions answered. O2 90 to 94% on RA. Pt has no c/o SOB at this time. Pt has all personal belongings. scripts sent electronic to Pt's pharmacy. Awaiting Pt's friend to arrive so Pt can go home. Pt's friend will drive her home. No home O2 ordered/needed per Dr Soliz.
== END 2022-02-23 14:00 | disposition home or self-care (01) | DRG 190 ==
LOC: ED 20:06 → AC 21:26
PROVIDERS: Emergency Medicine; Student in an Organized Health Care Education/Training Program; Admitting Provider Nurse Practitioner Family; Emergency Provider Emergency Medicine; PCP Physician Assistant; Referring Provider Emergency Medicine; Visit Provider Nurse Practitioner Family
DX: J44.1 Chronic obstructive pulmonary disease with (acute) exacerbation (principal); J96.01 Acute respiratory failure with hypoxia; B97.89 Other viral agents as the cause of diseases classified elsewhere; F32.A Depression, unspecified; E03.9 Hypothyroidism, unspecified; Z20.822 Contact with and (suspected) exposure to COVID-19; Z77.22 Contact with and (suspected) exposure to environmental tobacco smoke (acute) (chronic); Z87.891 Personal history of nicotine dependence
CPT/HCPCS: 36415; 36600; 71275; 80053; 82550; 82805; 83605; 83690; 83735; 83880; 84145; 84484; 85025; 87040; 87070; 87205; 87633; 94618; 94640; 94762; 99284; J0696; J1650; J2930; J7613; Q9967

== ENCOUNTER → 2022-05-29 11:47 | Outpatient (CLI) | payer MEDICARE, MEDICAID, SELFPAY ==
[2022-02-19 21:29] VITALS: BMI 17.0
--- NOTE | 2022-05-29 | DI.CT.S_ITS ---
PROCEDURE: CT CHEST WO CON INDICATIONS: Sarcoma of dendritic cells (accessory cells) TECHNIQUE: Noncontrast 5 mm thick sections acquired from the pulmonary apices to the posterior costophrenic angles. 1 mm lung window, 5 mm thick coronal and sagittal and 7 mm axial MIP reformats were then acquired. For radiation dose reduction, the following was used: automated exposure control, adjustment of mA and/or kV according to patient size. COMPARISON: [facility], CT, CT ANGIO CHEST PE PROTOCOL, 02/19/2022, 18:20. FINDINGS: Image quality: Excellent. Lungs and pleura: There is severe centrilobular emphysema with an apical predominance. A densely calcified granuloma or hamartoma is present within the left upper lung. Mediastinum: Heart size is normal. No pericardial effusion. No mediastinal adenopathy by size criteria. Thoracic aorta and central pulmonary arteries are normal in size. Esophagus is normal in caliber. No hiatal hernia. Bones and chest wall: No suspicious bony lesions. No vertebral body compression fractures. No axillary or supraclavicular adenopathy by size criteria. Thyroid gland is unremarkable . Abdomen: Visualized upper abdominal solid organs and bowel loops appear normal in the absence of contrast. IMPRESSION: 1. No acute airspace opacities or suspicious pulmonary nodules to suggest thoracic metastasis. Dictated by: Monisha Haile M.D. on 05/29/2022 at 14:15 Approved by: Monisha Haile M.D. on 05/29/2022 at 14:18
== END ==
PROVIDERS: Referring Provider Internal Medicine Medical Oncology; Visit Provider Internal Medicine Medical Oncology
DX: C96.4 Sarcoma of dendritic cells (accessory cells) (principal)
CPT/HCPCS: 71250

== ENCOUNTER → 2023-04-25 15:49 | Outpatient (CLI) | payer MEDICARE, MEDICAID, SELFPAY ==
[2022-02-19 21:29] VITALS: BMI 17.0
--- NOTE | 2023-04-25 | DI.CT.S_ITS ---
PROCEDURE: CT CHEST WO CON INDICATIONS: Sarcoma of dendritic cells (accessory cells) TECHNIQUE: Noncontrast 5 mm thick sections acquired from the pulmonary apices to the posterior costophrenic angles. 1 mm lung window, 5 mm thick coronal and sagittal and 7 mm axial MIP reformats were then acquired. For radiation dose reduction, the following was used: automated exposure control, adjustment of mA and/or kV according to patient size. COMPARISON: [facility], CT, CT CHEST WO CON, 05/29/2022, 11:54. FINDINGS: Image quality: Diagnostic. Lower Neck: No enlarged lymph nodes. Thyroid: No thyroid nodules which require sonographic follow up, per consensus guidelines. Axillae: No enlarged lymph nodes. Chest Wall: Unremarkable. Bones: Unremarkable. Lungs and Pleura: There is severe centrilobular emphysema bilaterally. Pulmonary scar is present at the left lung base. A calcified granuloma is present within the left upper lobe. Subcentimeter airspace opacities are present within the lateral right upper lobe (series 3/image 67). Similar patchy airspace opacities are present within the right lower lobe (series 3/image 198). No pleural effusion or pneumothorax. Heart: Heart size is normal. No pericardial effusion. Thoracic Vessels: The aorta and pulmonary arteries demonstrate normal size. Scattered atheromatous calcifications are present within the aortic arch. Mediastinum and Farrah: No enlarged lymph nodes. Esophagus: No wall thickening. No hiatal hernia. Upper Abdomen: Visualized upper abdomen solid organs and bowel loops appear normal. IMPRESSION: 1. Scattered right pulmonary airspace opacities suspicious for aspiration/infection. However, pulmonary metastasis superimposed on severe emphysematous change cannot be excluded and three-month CT follow-up is recommended to ensure resolution of these findings. Dictated by: Monisha Haile M.D. on 04/25/2023 at 17:06 Approved by: Monisha Haile M.D. on 04/25/2023 at 17:09
== END ==
LOC: CT 15:50
PROVIDERS: Referring Provider Internal Medicine Medical Oncology; Visit Provider Internal Medicine Medical Oncology
DX: C96.4 Sarcoma of dendritic cells (accessory cells) (principal); J43.2 Centrilobular emphysema
CPT/HCPCS: 71250

== ENCOUNTER → 2023-11-04 13:55 | Outpatient (CLI) | payer MEDICARE, MEDICAID, SELFPAY ==
[2022-02-19 21:29] VITALS: BMI 17.0
[2023-11-04 14:31] LABS: Estimated Glomerular Filt Rate > 60 mL/min (>60)
== END ==
LOC: LAB 13:58
PROVIDERS: PCP Family Medicine; Referring Provider Radiology Diagnostic Radiology; Visit Provider Radiology Diagnostic Radiology
DX: Z13.89 Encounter for screening for other disorder (principal)
CPT/HCPCS: 36415; 82565

== ENCOUNTER → 2023-11-06 11:55 | Outpatient (CLI) | payer MEDICARE, MEDICAID, SELFPAY ==
[2022-02-19 21:29] VITALS: BMI 17.0
--- NOTE | 2023-11-06 11:56 | DI.CT.S_ITS ---
PROCEDURE: CT SOFT TISSUE NECK W CON INDICATIONS: HX OF LUNG CANCER,MASS SURFACE OF EPIGLOTTIS TECHNIQUE: After the administration of intravenous contrast, 3.0 mm axial sections acquired from the sella to the aortic arch. Additional oblique axial 3.0 mm sections acquired through the pharynx. 3 mm thick coronal and sagittal reformats were generated. For radiation dose reduction, the following was used: automated exposure control. COMPARISON: None. FINDINGS: Image quality: Excellent. Lymph nodes: No enlarged lymph nodes seen throughout the neck. Vessels: Visualized vasculature appears patent. Atherosclerotic vascular calcifications. Neck spaces: Possible mucosal thickening just inferior to the epiglottis anteriorly (09/21, ). The oropharynx, nasopharynx, and pharynx demonstrate no mucosal lesions. The vocal cords, false vocal cords, pyriform sinuses, vallecula, and tongue base all appear normal. Extramucosal spaces appear unremarkable. Glands: The parotid and submandibular glands appear normal. Thyroid gland demonstrates no significant abnormality. Miscellaneous: Visualized brain appears normal. Please refer to same day CT chest with regards to lung findings. Superficial soft tissues appear normal. Bones: No suspicious bony lesions. Visualized sinuses and mastoids appear unremarkable. Multilevel degenerative changes of the spine. IMPRESSION: History of mass on the surface of the glottis. Possible mucosal thickening just inferior to the epiglottis anteriorly. Recommend correlation with direct visualization findings. No enlarged cervical lymph nodes. Dictated by: Ramin Larson M.D. on 11/06/2023 at 16:50 Approved by: Ramin Larson M.D. on 11/06/2023 at 17:21
--- NOTE | 2023-11-06 11:56 | DI.CT.S_ITS ---
PROCEDURE: CT CHEST W CON INDICATIONS: HX OF LUNG CANCER,MASS SURFACE OF EPIGLOTTIS TECHNIQUE: After the administration of intravenous contrast, 5 mm thick sections acquired from the pulmonary apices to the posterior costophrenic angles. 1 mm axial lung, 5 mm thick coronal and sagittal reformats and 7 mm axial MIP were acquired. For radiation dose reduction, the following was used: automated exposure control, adjustment of mA and/or kV according to patient size. COMPARISON: [facility], CT, CT CHEST WO [facility], 04/25/2023, 16:08. FINDINGS: Image quality: Diagnostic. Lower Neck: No enlarged lymph nodes. Thyroid: No thyroid nodules which require sonographic follow up, per consensus guidelines. Axillae: No enlarged lymph nodes. Chest Wall: Unremarkable. Bones: Unremarkable. Lungs and Pleura: No pneumothorax or pleural effusions. Severe emphysematous changes are redemonstrated. Is new left lower lobe pleural based opacity measuring 2.1 x 1.4 cm, may represent atelectasis, consolidation or neoplasm. New nodular opacity within the lingula measuring approximately 8 x 5 mm (3/174). Multiple additional subpleural nodular opacities throughout the bilateral lungs are redemonstrated. Calcified left apical nodule measuring 1.2 x 1.0 cm is stable, possible hamartoma. Heart: Heart size is normal. Trace pericardial effusion. Thoracic Vessels: The aorta and pulmonary arteries demonstrate normal size. Atherosclerotic vascular calcifications. Mediastinum and Farrah: No enlarged lymph nodes. Esophagus: No wall thickening. No hiatal hernia. Upper Abdomen: Visualized upper abdomen solid organs and bowel loops appear normal. IMPRESSION: Redemonstration of scattered pulmonary airspace opacities. New left basilar airspace opacity measuring up to 2 cm, differential includes infection, metastatic disease or atelectasis. Additional new 8 mm nodular opacity in the lingula. Given persistence and increase, findings are concerning for metastatic disease. Recommend clinical correlation and attention on follow-up exams. Severe emphysematous changes. Dictated by: Ramin Larson M.D. on 11/06/2023 at 16:39 Approved by: Ramin Larson M.D. on 11/06/2023 at 16:49
== END ==
PROVIDERS: PCP Family Medicine; Referring Provider Student in an Organized Health Care Education/Training Program; Visit Provider Student in an Organized Health Care Education/Training Program
DX: D38.0 Neoplasm of uncertain behavior of larynx (principal); Z85.118 Personal history of other malignant neoplasm of bronchus and lung
CPT/HCPCS: 70491; 71260; Q9967

== ENCOUNTER 2024-02-08 19:55 | Emergency (ER) | payer MEDICARE, MEDICAID, SELFPAY ==
[2022-02-19 21:29] VITALS: BMI 17.0
[2024-02-08] VITALS (10 sets, daily range): BP systolic 96–142; BP diastolic 56–84; PULSE 71–91; RESP 14–34; TEMP 38.2; O2SAT 81–98; BMI 18.5
--- NOTE | 2024-02-08 20:03 | EKG_ITS ---
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
--- NOTE | 2024-02-08 20:22 | DI.RAD.S_ITS ---
PROCEDURE: XR CHEST 1V INDICATIONS: chest pain TECHNIQUE: One view of the chest was acquired. COMPARISON: [facility], CT, CT CHEST W CON, 11/06/2023, 12:04. FINDINGS: Surgical changes and devices: None. Lungs and pleura: Stable calcified nodule at the left upper lobe. Bilateral emphysematous changes. No pleural effusions or pneumothorax. Mediastinum: Mediastinal contours appear normal. Heart size is normal. Bones and chest wall: No suspicious bony lesions. Overlying soft tissues appear unremarkable. IMPRESSION: No acute cardiopulmonary abnormality is seen. Approved by: Marvin Sánchez M.D. on 02/08/2024 at 21:22
--- NOTE | 2024-02-08 20:30 | PC.NURSE ---
pt s/o cp, has hx of CA throat, on radiation, hx of lobectomy for ca lung, pt drowsy, awakens easily, is taking MS Contin for pain, oriented to person and place
[2024-02-08 20:31] LABS: Add Manual Diff / Slide Review NO; Basophils Absolute Auto 0 /uL (0-100); Basophils Percent Auto 0.2 % (0-2); Eosinophils Absolute Auto 0 /uL (0-450); Hematocrit 46.3 % (36-46); Hemoglobin 15.4 g/dL (12.0-16.0); Lymphocytes Absolute Auto 200 /uL (1100-4500); Lymphocytes Percent Auto 1.6 % (25-40); Mean Corpuscular HGB Conc 33.2 % (30-36); Mean Corpuscular Hemoglobin 32.2 PG (26-34); Mean Corpuscular Volume 96.7 fL (80-100); Monocytes Absolute Auto 1000 /uL (0-900); Neutrophils Absolute Auto 11300 /uL (1500-7000); Neutrophils Percent Auto 90.2 % (50-75); Platelet Count 179 X10^3/uL (150-400); Red Blood Cell Count 4.79 X10^6/uL (4.0-5.2); Red Cell Distribution Width 15.3 % (11.6-14.8); White Blood Cell Count 12.5 X10^3/uL (4.5-11.0)
[2024-02-08 20:39] LABS: INR 1.1 (0.9-1.3); Prothrombin Time 12.6 SECONDS (9.4-12.5)
[2024-02-08 20:42] LABS: PTT Partial Thromboplastin Tim 34 SECONDS (25.1-36.5)
[2024-02-08 20:44] LABS: Alanine Aminotransferase 703 IU/L (<35); Albumin 3.9 g/dL (3.5-5.0); Albumin Globulin Ratio 1.3 (1.0-2.8); Alkaline Phosphatase 56 U/L (38-126); BUN Creatinine Ratio 32.4 (6-22); Bilirubin Total 0.7 mg/dL (0.2-1.3); Blood Urea Nitrogen 36 mg/dL (7-17); Calcium 9.3 mg/dL (8.4-10.2); Carbon Dioxide 33 mmol/L (22-32); Chloride 93 mmol/L (98-107); Creatine Kinase 56 U/L (30-135); Estimated Glomerular Filt Rate 52 mL/min (>60); Globulin 2.9 g/dL (1.7-4.1); Glucose 125 mg/dL (80-110); HEMOLYSIS 29 (0-50); Lipase 40 U/L (23-300); Magnesium 1.7 mg/dL (1.6-2.3); Sodium 129 mmol/L (137-145); Total Protein 6.8 g/dL (6.3-8.2)
--- NOTE | 2024-02-08 20:45 | ED.CHESTPAIN ---
HPI - Chest Pain General Chief Complaint: Chest Pain Stated Complaint: pain in chest- confused, SOB has throat cancer Time Seen by Provider: 02/08/24 20:45 Source: patient and other Mode of arrival: Ambulatory Limitations: no limitations History of Present Illness HPI narrative: Patient is a 73-year-old female history of COPD throat cancer with left-sided lung resection in 2019, is on radiation is scheduled for her last round of this tomorrow at [facility]. She Presents to the ED for evaluation of shortness a breath that started earlier today. States that she does have history of COPD but does not require supplemental oxygen at baseline. Patient's medical advocate at bedside was her best friend states that she is also started new medications for her pain. But patient A&O x4 follows all commands appropriately not complaining of any headache visual disturbances no nausea vomiting abdominal pain or any other GI/ symptoms time. Related Data Home Medications Medication Instructions Recorded Confirmed atorvastatin 40 mg tablet 40 mg PO DAILY 02/19/22 02/19/22 escitalopram oxalate 20 mg tablet 20 mg PO DAILY 02/19/22 02/19/22 levothyroxine 50 mcg tablet 50 mcg PO DAILY 02/19/22 02/19/22 quetiapine 25 mg tablet 25 mg PO BEDTIME 02/19/22 02/19/22 alprazolam 0.5 mg tablet 0.5 mg PO BID PRN Anxiety 02/20/22 02/20/22 alprazolam 0.5 mg tablet 0.5 - 1 mg PO DAILY PRN anxiety 02/08/24 02/08/24 Previous Rx's Medication Instructions Recorded albuterol sulfate 90 mcg/actuation 2 puff inhalation Q4H PRN 02/23/22 aerosol inhaler shortness of breath or wheezing #8.5 grams Allergies Allergy/AdvReac Type Severity Reaction Status Date / Time No Known Drug Allergies Allergy Unverified 02/19/22 17:09 Review of Systems Review of Systems Narrative: General: Denies fever, chills, weight loss HEENT: Denies headache, eye drainage, eye irritation, head trauma, sore throat, voice change Cardiovascular: Denies any chest pain, palpitations, shortness of breath, tachycardia Respiratory: Positive shortness of breath, denies cough, wheeze, stridor GI/: Denies any abdominal pain, nausea, vomiting, diarrhea, bright red blood per rectum, melanotic stools, urinary frequency, urinary retention, dysuria, hematuria MSK: Denies any joint pain, muscle pains, swelling Skin: Denies any rashes, lesions, discoloration Neuro: Denies any headache, lightheadedness, dizziness, fainting, weakness Psych: Denies SI/HI Patient History Medical History Acute exacerbation of chronic obstructive pulmonary disease Lung cancer Family History (Updated 02/19/22 @ 22:52 by KODAK Posey) Father Old age Mother Crohn's disease Social History household members: friend(s) Smoking Status: Current every day smoker alcohol intake: current Smoking Status: Current every day smoker alcohol intake frequency: 0-2 drinks per day Substance Use Type: does not use Exam Narrative Exam Narrative: General: Elderly, cachectic HEENT: Normocephalic, atraumatic, PERRLA, normal sclera, eyelids normal, Neck: Active full range of motion, atraumatic Chest: Normal to inspection, negative crepitus, no overlying erythema ecchymosis Respiratory: Normal respiratory effort, not in acute respiratory distress, clear to auscultation bilaterally negative cough, wheeze, tachypnea, rhonchi, rales Cardiology: Regular rate rhythm negative gallop, murmur, rubs GI/: Normal to inspection, soft, nonrigid, no tenderness to palpation, exam deferred MSK: Full range of active range of motion of all 4 extremities, atraumatic Skin: No rashes lesions noted Neuro: Alert awake oriented x3, moves all 4 extremities spontaneously, cranial nerves intact, able to answer all questions appropriately follows commands appropriately Psych: Cooperative, negative suicidal or homicidal ideations Initial Vital Signs Initial Vital Signs: Vital Signs Pulse Rate 91 H 02/08/24 20:06 Blood Pressure 139/70 02/08/24 20:06 Course Orders Ordered: ED Orders 02/08/24 20:03 EKG-12 Lead Stat 02/08/24 20:20 Complete Blood Count AUTO DIFF Stat Comprehensive Metabolic Panel Stat Lipase Stat Magnesium Stat NT-proBNP (BNP-Adult 18+) Stat PTT Partial Thromboplastin Froilan Stat Prothrombin Time INR Stat Troponin & CK Cardiac Panel Stat 02/08/24 20:22 XR chest 1V Stat 02/08/24 21:01 CT angio chest PE protocol Stat 02/08/24 21:08 Covid-19 + FLU A/B + RSV - PCR Stat 02/08/24 22:30 Trop I [Troponin I] Stat Heparin Sodium/Dextrose (Heparin Drip) 25,000 unit in 500 mls @ 16.003 mls/hr IV CONT ERROL; Protocol Last Admin: 02/08/24 22:02 Dose: 12.04 units/kg/hr, 10.7 mls/hr Documented By: MARVIN Co-signed By: HNG Discontinued Medications Aspirin (Aspirin 81 Mg Chew Tab) 324 mg PO NOW ONE Stop: 02/08/24 20:23 Last Admin: 02/08/24 22:47 Dose: Not Given Documented By: MARVIN Heparin Sodium (Porcine) (Heparin 5,000 Unit/Ml Vial) 3,500 unit 80 unit/kg (3500 unit) IV NOW ONE Stop: 02/08/24 21:51 Last Admin: 02/08/24 21:59 Dose: 3,500 unit Documented By: MARVIN Hydromorphone HCl (Hydromorphone 0.5 Mg Inj) 0.5 mg IV NOW ONE Stop: 02/08/24 23:08 Last Admin: 02/08/24 23:14 Dose: 0.5 mg Documented By: MARVIN Hydromorphone HCl (Hydromorphone 1 Mg Inj) 0.5 mg IV NOW ONE Stop: 02/08/24 23:11 Last Admin: 02/08/24 23:18 Dose: Not Given Documented By: MARVIN Lorazepam (Lorazepam 2 Mg/Ml Inj) 1 mg IV NOW ONE Stop: 02/08/24 23:37 Last Admin: 02/08/24 23:39 Dose: 1 mg Documented By: MARVIN Vital Signs Vital signs: Vital Signs - 8 hr 02/08/24 20:06 02/08/24 20:06 02/08/24 20:15 Temperature 100.8 F H Pulse Rate 91 H 83 Respiratory Rate 22 Blood Pressure 139/70 139/70 Pulse Oximetry 98 Oxygen Delivery Method Nasal Cannula Oxygen Flow Rate 3 02/08/24 20:30 02/08/24 20:30 02/08/24 21:00 Temperature Pulse Rate 79 Respiratory Rate Blood Pressure 107/67 110/61 Pulse Oximetry 96 Oxygen Delivery Method Nasal Cannula Oxygen Flow Rate 6 02/08/24 21:00 02/08/24 21:25 02/08/24 21:25 Temperature Pulse Rate 78 76 Respiratory Rate 31 H 25 H Blood Pressure 104/64 Pulse Oximetry 97 86 L Oxygen Delivery Method Nasal Cannula Oxygen Flow Rate 2 02/08/24 21:30 02/08/24 21:30 02/08/24 22:00 Temperature Pulse Rate 72 Respiratory Rate 23 Blood Pressure 96/56 L 112/64 Pulse Oximetry 98 Oxygen Delivery Method Nasal Cannula Oxygen Flow Rate 3 02/08/24 22:00 02/08/24 22:30 02/08/24 22:30 Temperature Pulse Rate 72 71 Respiratory Rate 14 28 H Blood Pressure 111/66 Pulse Oximetry 97 95 Oxygen Delivery Method Oxygen Flow Rate 02/08/24 23:00 02/08/24 23:00 02/08/24 23:30 Temperature Pulse Rate 86 Respiratory Rate 34 H Blood Pressure 142/84 H 141/68 H Pulse Oximetry 81 L Oxygen Delivery Method Oxygen Flow Rate 02/08/24 23:30 02/09/24 00:00 02/09/24 00:30 Temperature Pulse Rate 86 75 Respiratory Rate 31 H 18 Blood Pressure 116/63 Pulse Oximetry 86 L 97 Oxygen Delivery Method Oxygen Flow Rate 02/09/24 00:30 02/09/24 01:00 02/09/24 01:00 Temperature Pulse Rate 77 Respiratory Rate 18 Blood Pressure 100/60 105/61 Pulse Oximetry 98 Oxygen Delivery Method Oxygen Flow Rate MDM - Chest Pain Differential Diagnosis Differential diagnosis: Likely other (Electrolyte abnormality, COVID, flu, PE) Lab Data 02/08/24 20:20 02/08/24 20:20 Labs: Lab Results 02/08/24 02/08/24 02/08/24 Range/Units 20:20 21:08 22:30 WBC 12.5 H (4.5-11.0) X10^3/uL RBC 4.79 (4.0-5.2) X10^6/uL Hgb 15.4 (12.0-16.0) g/dL Hct 46.3 H (36-46) % MCV 96.7 (80-100) fL MCH 32.2 (26-34) PG MCHC 33.2 (30-36) % RDW 15.3 H (11.6-14.8) % Plt Count 179 (150-400) X10^3/uL Neut % (Auto) 90.2 H (50-75) % Lymph % (Auto) 1.6 L (25-40) % Mcduffie % (Auto) 8.0 (3-14) % Eos % (Auto) 0.0 L (2-4) % Baso % (Auto) 0.2 (0-2) % Neut # (Auto) 96087 H (9607-4292) /uL Lymph # (Auto) 200 L (7649-8564) /uL Mcduffie # (Auto) 1000 H (0-900) /uL Eos # (Auto) 0 (0-450) /uL Baso # (Auto) 0 (0-100) /uL PT 12.6 H (9.4-12.5) SECONDS INR 1.1 (0.9-1.3) APTT 34 (25.1-36.5) SECONDS Sodium 129 L (137-145) mmol/L Potassium 5.0 (3.4-5.1) mmol/L Chloride 93 L (98-107) mmol/L Carbon Dioxide 33 H (22-32) mmol/L BUN 36 H (7-17) mg/dL Creatinine 1.11 H (0.52-1.04) mg/dL Estimated GFR 52 L (>60) mL/min BUN/Creatinine Ratio 32.4 H (6-22) Glucose 125 H (80-110) mg/dL Calcium 9.3 (8.4-10.2) mg/dL Magnesium 1.7 (1.6-2.3) mg/dL Total Bilirubin 0.7 (0.2-1.3) mg/dL AST 994 H (14-36) IU/L ALT 703 H (<35) IU/L Alkaline Phosphatase 56 (38-126) U/L Total Creatine Kinase 56 (30-135) U/L Troponin I 0.477 H* 0.434 H* (0.01-0.034) ng/mL NT-Pro-B Natriuret Pep 08784 H (<125) pg/mL Total Protein 6.8 (6.3-8.2) g/dL Albumin 3.9 (3.5-5.0) g/dL Globulin 2.9 (1.7-4.1) g/dL Albumin/Globulin Ratio 1.3 (1.0-2.8) Lipase 40 (23-300) U/L SARS-CoV-2 (PCR) Negative (Negative) Influenza A (RT-PCR) Flu a negative (NEGATIVE) Influenza B (RT-PCR) Flu b negative (NEGATIVE) RSV (PCR) Negative (Negative) Imaging Data Chest x-ray: Radiologist's Impression: [place] [address] XRay Report Signed Patient: Trish Espinal MR#: [id number] : 1950 Acct:[id number] Age/Sex: 73 / F Date of Service: 02/08/24 Loc: ED Accession Number: [id number] Procedure: XR chest 1V Ordering Provider: Gume Masterson D.O. PROCEDURE: XR CHEST 1V INDICATIONS: chest pain TECHNIQUE: One view of the chest was acquired. COMPARISON: [facility], CT, CT CHEST W CON, 11/06/2023, 12:04. FINDINGS: Surgical changes and devices: None. Lungs and pleura: Stable calcified nodule at the left upper lobe. Bilateral emphysematous changes. No pleural effusions or pneumothorax. Mediastinum: Mediastinal contours appear normal. Heart size is normal. Bones and chest wall: No suspicious bony lesions. Overlying soft tissues appear unremarkable. IMPRESSION: No acute cardiopulmonary abnormality is seen. CT scan - chest: Radiologist's Impression: [place] [address] CT Scan Report Signed Patient: Trish Espinal MR#: [id number] : 1950 Acct:[id number] Age/Sex: 73 / F Date of Service: 02/08/24 Loc: ED Accession Number: [id number] Procedure: CT angio chest PE protocol Ordering Provider: Gume Masterson D.O. PROCEDURE: CT ANGIO CHEST PE PROTOCOL INDICATIONS: SOB, hx of lung and throat cancer TECHNIQUE: After the administration of intravenous contrast, 2 mm thick sections acquired from the pulmonary apices to the posterior costophrenic angles. 3-dimensional maximum intensity projection (MIP) coronal and sagittal reformats were then acquired through the thorax. For radiation dose reduction, the following was used: automated exposure control, adjustment of mA and/or kV according to patient size. COMPARISON: [facility], CT, CT CHEST W CON, 11/06/2023, 12:04. [facility], CT, CT SOFT TISSUE NECK W CON, 11/06/2023, 12:04. [facility], CT, CT ANGIO CHEST PE PROTOCOL, 02/19/2022, 18:20. FINDINGS: Image quality: Diagnostic. Pulmonary arteries: Pulmonary arteries are normal in size, and demonstrate no intraluminal filling defects to suggest central pulmonary embolism. Lower Neck: No enlarged lymph nodes. Thyroid: No thyroid nodules which require sonographic follow up, per consensus guidelines. Axillae: No enlarged lymph nodes. Chest Wall: Mild soft tissue anasarca. Bones: Unremarkable. Lungs and Pleura: Trace bilateral pleural effusions. No pneumothorax. Severe centrilobular and paraseptal emphysema. Left basilar opacities likely represent scarring and/or atelectasis. Previously seen lateral left basilar consolidation and lingular opacity have resolved. 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 Heart: Heart size is normal. No pericardial effusion. Thoracic Vessels: No aortic aneurysm. Mediastinum and Farrah: No enlarged lymph nodes. Esophagus: No wall thickening. No hiatal hernia. Upper Abdomen: Trace upper abdominal ascites. Mild reflux of contrast material into the hepatic veins. Visualized upper abdomen solid organs and bowel loops appear normal. IMPRESSION: 1. No acute pulmonary embolus. No acute abnormality is seen in the chest. 2. Severe emphysema. 3. Signs of volume overload including soft tissue anasarca, bilateral trace pleural effusions, and trace upper abdominal ascites. ECG Data Interpretation: EKG interpreted by ED physician sinus at 86 beats per minute, QTC 466, normal axis, nonspecific ST changes, no STEMI MDM Narrative Medical decision making narrative: Patient is a 73-year-old female history of COPD lung cancer with resection, throat cancer currently on radiation presents to the emergency department for shortness of breath. She follows at [facility] for all of her chronic conditions. Normally does not require supplemental oxygen at baseline. Here patient with pulse ox low 80s requiring 2 L nasal cannula. Patient noted to have troponin elevated at 0.477, also noted to have elevated proBNP at 14,000, patient meeting and STEMI criteria therefore heparinization started. Given patient with NSTEMI and current throat and lung cancer patient will require transfer to higher level care with Cardiology. patient does follow with Dr. vance of ENT. Follows with Dr. Fabienne Deal at [facility]. 2204: Discussed case with Dr. nieto (cardiology), reviewed the case, agrees with heparinzation. No further recommendation at this time, does agree patient needs to be transferred for cardiology consultation. 2227: Had a discussion with Dr. Lora, cardiology at [facility], discussed the case with her she agrees with current workup and agrees for need for transfer for echo and possible catheterization, comes for center was updated they understand and will be reaching out to the hospitalist for admission. 2338: Patient was re-evaluated, stating she has not having any new symptoms but states that she feels restless, she states that she feels like she just wants to get up walk around the room, I informed her that this is not safe and that she needs to remain in the bed, states that she does not really takes alprazolam whenever she has these kind of restless symptoms, therefore will add medications at this time, 1 mg Ativan ordered at this time we will continue to monitor. 0010: Had a discussion with hospitalist at [facility] Dr. Betancourt, accepts the admission, will received call back from transfer center when bed availability and ETA 0121: Did call transfer center back, states patient has been assigned a bed at [facility], but wont be available until 0800. Will set up transport to have patient arrive there for this ETA. Patient was updated and understands. Discharge Plan Departure Patient Disposition: [facility] Clinical Impression: Acute hypoxemic respiratory failure, Non-ST elevation MS (NSTEMI) Prescriptions: No Action atorvastatin 40 mg tablet 40 mg PO DAILY escitalopram oxalate 20 mg tablet 20 mg PO DAILY Patient Comments: TAKE 1 TABLET BY MOUTH EVERY MORNING DIRECTED levothyroxine 50 mcg tablet 50 mcg PO DAILY quetiapine 25 mg tablet 25 mg PO BEDTIME Patient Comments: TAKE 1 TABLET BY MOUTH EVERY NIGHT AT BEDTIME DIRECTED alprazolam 0.5 mg tablet 0.5 mg PO BID PRN (Reason: Anxiety) Patient Comments: TAKE 1 TABLET BY MOUTH UP TO TWICE DAILY NEEDED FOR ACUTE ANXIETY albuterol sulfate 90 mcg/actuation HFA aerosol inhaler 2 puff INHALATION Q4H PRN (Reason: shortness of breath or wheezing) Qty: 8.5 2RF alprazolam 0.5 mg tablet 0.5 - 1 mg PO DAILY PRN (Reason: anxiety) Referrals: Manasa Nayak MD [Primary Care Provider] -
[2024-02-08 20:50] LABS: Aspartate Aminotransferase 994 IU/L (14-36)
[2024-02-08 20:56] LABS: NT-proBNP (BNP-Adult 18+) 14000 pg/mL (<125)
--- NOTE | 2024-02-08 21:01 | DI.CT.S_ITS ---
PROCEDURE: CT ANGIO CHEST PE PROTOCOL INDICATIONS: SOB, hx of lung and throat cancer TECHNIQUE: After the administration of intravenous contrast, 2 mm thick sections acquired from the pulmonary apices to the posterior costophrenic angles. 3-dimensional maximum intensity projection (MIP) coronal and sagittal reformats were then acquired through the thorax. For radiation dose reduction, the following was used: automated exposure control, adjustment of mA and/or kV according to patient size. COMPARISON: [facility], CT, CT CHEST W CON, 11/06/2023, 12:04. [facility], CT, CT SOFT TISSUE NECK W CON, 11/06/2023, 12:04. [facility], CT, CT ANGIO CHEST PE PROTOCOL, 02/19/2022, 18:20. FINDINGS: Image quality: Diagnostic. Pulmonary arteries: Pulmonary arteries are normal in size, and demonstrate no intraluminal filling defects to suggest central pulmonary embolism. Lower Neck: No enlarged lymph nodes. Thyroid: No thyroid nodules which require sonographic follow up, per consensus guidelines. Axillae: No enlarged lymph nodes. Chest Wall: Mild soft tissue anasarca. Bones: Unremarkable. Lungs and Pleura: Trace bilateral pleural effusions. No pneumothorax. Severe centrilobular and paraseptal emphysema. Left basilar opacities likely represent scarring and/or atelectasis. Previously seen lateral left basilar consolidation and lingular opacity have resolved. 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 Heart: Heart size is normal. No pericardial effusion. Thoracic Vessels: No aortic aneurysm. Mediastinum and Farrah: No enlarged lymph nodes. Esophagus: No wall thickening. No hiatal hernia. Upper Abdomen: Trace upper abdominal ascites. Mild reflux of contrast material into the hepatic veins. Visualized upper abdomen solid organs and bowel loops appear normal. IMPRESSION: 1. No acute pulmonary embolus. No acute abnormality is seen in the chest. 2. Severe emphysema. 3. Signs of volume overload including soft tissue anasarca, bilateral trace pleural effusions, and trace upper abdominal ascites. Approved by: Marvin Sánchez M.D. on 02/08/2024 at 21:45
[2024-02-08 21:06] LABS: Troponin I 0.477 ng/mL (0.01-0.034)
[2024-02-08 21:50] LABS: Influenza A - CEPHEID Flu A NEGATIVE (NEGATIVE); Influenza B - CEPHEID Flu B NEGATIVE (NEGATIVE); Respiratory Syncytial Virus Negative (Negative)
[2024-02-08 21:54] LABS: COVID-19 CEPHEID 4-PLEX PCR Negative (Negative)
[2024-02-08] MEDS: HEPARIN 5,000 UNIT/ML VIAL 3500 UNIT IV (21:59)
[2024-02-08] MEDS: HEPARIN DRIP 25,000 UNIT/500 ML IV.SOLN 10.7 UNIT IV (22:02)
--- NOTE | 2024-02-08 23:00 | PC.NURSE ---
pt attempted to drink some water unsuccessfully, pt started coughing stating she felt like her throat was having spasms, pt changed to NPO status, explained to pt
[2024-02-08 23:08] LABS: Troponin I 0.434 ng/mL (0.01-0.034)
[2024-02-08] MEDS: HYDROMORPHONE 0.5 MG INJ IV (23:14)
--- NOTE | 2024-02-08 23:35 | PC.NURSE ---
pt becoming agitated and restless, continues to pull the nasal cannula off and wants to get out of bed, Dr Masterson informed and in to speak with pt. new orders received, pt medicated for agitation, repositioned in bed purwick placed, warm blankets given and lights dimmed
[2024-02-08] MEDS: LORazepam 2 MG/ML INJ 1 MG IV (23:39)
[2024-02-09] VITALS (15 sets, daily range): BP systolic 99–146; BP diastolic 56–77; PULSE 68–90; RESP 18–36; O2SAT 90–99
[2024-02-09 04:33] LABS: PTT Partial Thromboplastin Tim 45 SECONDS (25.1-36.5)
--- NOTE | 2024-02-09 04:43 | PC.NURSE ---
On 02/07 at 2155 I started calling places for this pt to transfer to. [facility], [facility], and [facility] are at capacity. accepted this pt at around 0010, then around 0100 VM called us with bed information and let us know that she can arrive after 0800. transport is arranged for her to arrive at 0840.
--- NOTE | 2024-02-09 05:50 | PC.NURSE ---
pt climbed out of bed pulled off her gown, O2 and pulled out her IV to the right forearm, assisted pt back to bed. cleaned pt and changed linen. attempted unsuccessfully to place cannon catheter d\t pt being unable to urinate, using the bedpan or the purewick, pt becomes extremely dyspneic upon exertion with O2 sat dropping to around 88%
--- NOTE | 2024-02-09 06:36 | PC.NURSE ---
unable to place cannon in patient, able to empty bladder with a 5fr catheter, with 10 ml clear yellow urine returned
--- NOTE | 2024-02-09 07:42 | PC.NURSE ---
report called to Ni Mcknight RN [phone] ext [phone]
== END 2024-02-09 07:43 | disposition short-term general hospital (02) ==
PROVIDERS: Emergency Provider Student in an Organized Health Care Education/Training Program; PCP Family Medicine
DX: I21.4 Non-ST elevation (NSTEMI) myocardial infarction (principal); J96.01 Acute respiratory failure with hypoxia; Z11.52 Encounter for screening for COVID-19
CPT/HCPCS: 0241U; 36415; 71045; 71275; 80053; 82550; 83690; 83735; 83880; 84484; 85025; 85610; 85730; 93005; 93010; 96365; 96366; 96375; 99285; J1171; J1644; J2060; Q9967

== ENCOUNTER 2024-03-02 15:17 | Emergency (ER) | payer MEDICARE, MEDICAID, SELFPAY ==
[2022-02-19 21:29] VITALS: BMI 17.0
[2024-03-02] VITALS (37 sets, daily range): BP systolic 78–148; BP diastolic 49–66; PULSE 70–111; RESP 20–40; TEMP 36.8–37.5; O2SAT 78–96; BMI 16.8
--- NOTE | 2024-03-02 15:55 | DI.RAD.S_ITS ---
PROCEDURE: XR CHEST 1V INDICATIONS: Shortness of breath TECHNIQUE: One view of the chest was acquired. COMPARISON: [facility], CT, CT ANGIO CHEST PE PROTOCOL, 02/08/2024, 21:20. [facility], CR, XR CHEST 1V, 02/08/2024, 20:40. FINDINGS: Surgical changes and devices: None. Lungs and pleura: Unchanged left costophrenic angle blunting likely related to scarring. Calcified right upper lobe nodule. Mild opacity is present in the left base present on prior exam appearing related to scarring. Mediastinum: Mediastinal contours appear normal. Heart size is normal. Bones and chest wall: No suspicious bony lesions. Overlying soft tissues appear unremarkable. Prominent right glenohumeral arthritic change. IMPRESSION: No acute pulmonary process. Dictated by: Paradise Lujan M.D. on 03/02/2024 at 16:31 Approved by: Paradise Lujan M.D. on 03/02/2024 at 16:32
--- NOTE | 2024-03-02 16:37 | EKG_ITS ---
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
[2024-03-02 16:43] LABS: Add Manual Diff / Slide Review NO; Basophils Absolute Auto 0 /uL (0-100); Basophils Percent Auto 0.1 % (0-2); Eosinophils Absolute Auto 0 /uL (0-450); Hematocrit 41.2 % (36-46); Hemoglobin 13.5 g/dL (12.0-16.0); Lymphocytes Absolute Auto 200 /uL (1100-4500); Lymphocytes Percent Auto 1.3 % (25-40); Mean Corpuscular HGB Conc 32.8 % (30-36); Mean Corpuscular Hemoglobin 31.1 PG (26-34); Mean Corpuscular Volume 94.7 fL (80-100); Monocytes Absolute Auto 700 /uL (0-900); Monocytes Percent Auto 5.7 % (3-14); Neutrophils Absolute Auto 11900 /uL (1500-7000); Neutrophils Percent Auto 92.9 % (50-75); Platelet Count 170 X10^3/uL (150-400); Red Blood Cell Count 4.35 X10^6/uL (4.0-5.2); Red Cell Distribution Width 14.7 % (11.6-14.8); White Blood Cell Count 12.8 X10^3/uL (4.5-11.0)
[2024-03-02 16:48] LABS: Prothrombin Time 11.8 SECONDS (9.4-12.5)
[2024-03-02 16:53] LABS: Alanine Aminotransferase 28 IU/L (<35); Albumin 4.1 g/dL (3.5-5.0); Albumin Globulin Ratio 1.5 (1.0-2.8); Alkaline Phosphatase 75 U/L (38-126); Aspartate Aminotransferase 33 IU/L (14-36); BUN Creatinine Ratio 28.2 (6-22); Bilirubin Total 1.1 mg/dL (0.2-1.3); Blood Urea Nitrogen 22 mg/dL (7-17); Calcium 9.2 mg/dL (8.4-10.2); Carbon Dioxide 30 mmol/L (22-32); Chloride 96 mmol/L (98-107); Estimated Glomerular Filt Rate > 60 mL/min (>60); Globulin 2.8 g/dL (1.7-4.1); Glucose 140 mg/dL (80-110); HEMOLYSIS 23 (0-50); Lactate (Lactic Acid) 1.1 mmol/L (0.7-2.1); Sodium 130 mmol/L (137-145); Total Protein 6.9 g/dL (6.3-8.2)
[2024-03-02 17:05] LABS: NT-proBNP (BNP-Adult 18+) 410 pg/mL (<125); Troponin I < 0.012 ng/mL (0.01-0.034)
--- NOTE | 2024-03-02 18:00 | ED.SOB ---
HPI - SOB/Dyspnea General Chief Complaint: Shortness of Breath/Dyspnea Stated Complaint: sob, chills, loss apetite, hx of cancer Time Seen by Provider: 03/02/24 17:55 Source: family Mode of arrival: Ambulatory History of Present Illness HPI Narrative: 73-year-old female with history of COPD on 2-4L home O2, throat cancer on radiation therapy presents by private vehicle from home for evaluation. Patient states that since yesterday she has felt ?bad?, which she describes as excessive fatigue and sleepiness. She told her friend her symptoms today, who told her she should come to the ED for evaluation. Still actively undergoing radiation therapy for her throat cancer. Patient transferred to [facility] from 02/09/2024 to 02/13/2024 for shortness of breath, possible NSTEMI. At that time patient underwent left heart catheterization that showed normal coronaries. Patient states that during that hospitalization she was told that she would need to wear oxygen 247, however she does endorse that she has not been compliant with wearing her oxygen until the last 24 hours. Related Data Home Medications Medication Instructions Recorded Confirmed atorvastatin 40 mg tablet 40 mg PO DAILY 02/19/22 02/19/22 escitalopram oxalate 20 mg tablet 20 mg PO DAILY 02/19/22 02/19/22 levothyroxine 50 mcg tablet 50 mcg PO DAILY 02/19/22 02/19/22 quetiapine 25 mg tablet 25 mg PO BEDTIME 02/19/22 02/19/22 alprazolam 0.5 mg tablet 0.5 mg PO BID PRN Anxiety 02/20/22 02/20/22 alprazolam 0.5 mg tablet 0.5 - 1 mg PO DAILY PRN anxiety 02/08/24 02/08/24 Previous Rx's Medication Instructions Recorded albuterol sulfate 90 mcg/actuation 2 puff inhalation Q4H PRN 02/23/22 aerosol inhaler shortness of breath or wheezing #8.5 grams lidocaine 5 % topical patch 1 patch topical DAILY #15 ea 03/03/24 Allergies Allergy/AdvReac Type Severity Reaction Status Date / Time No Known Drug Allergies Allergy Unverified 03/02/24 15:50 Patient History Medical History Acute exacerbation of chronic obstructive pulmonary disease Lung cancer Family History Father Old age Mother Crohn's disease Social History household members: friend(s) Smoking Status: Current some day smoker alcohol intake: current Smoking Status: Current some day smoker alcohol intake frequency: 0-2 drinks per day Substance Use Type: does not use Exam Initial Vital Signs Initial Vital Signs: Vital Signs Temperature 98.2 F 03/02/24 15:41 Pulse Rate 89 03/02/24 15:41 Respiratory Rate 20 03/02/24 15:41 Blood Pressure 133/61 03/02/24 15:41 Pulse Oximetry 78 L 03/02/24 15:41 Oxygen Delivery Method Room Air 03/02/24 15:41 Const: Awake, alert, no acute distress, appears chronically unwell, frail, underweight HEENT: on supplemental nasal cannula, full ROM Cardiac: regular rate, regular rhythm RESP: unlabored, decreased breath sounds bilaterally, no wheezing GI: Soft, nontender, nondistended Skin: Warm, Dry, intact, no rashes Neuro: AO x3, CN II-XII grossly intact, moves all extremities Course Orders Ordered: ED Orders 03/02/24 16:33 Complete Blood Count AUTO DIFF Stat Comprehensive Metabolic Panel Stat Lactate (Lactic Acid) Stat NT-proBNP (BNP-Adult 18+) Stat Prothrombin Time INR Stat TSH [Thyroid Stimulating Hormone] Stat Troponin I Stat 03/02/24 18:58 Respiratory Panel (Film Array) Stat 03/02/24 20:08 ABG [Arterial Blood Gas] STAT Discontinued Medications Albuterol/Ipratropium (Albuterol/Ipratropium 3 Ml Ampul) 3 ml INH NOW ONE Stop: 03/02/24 18:57 Last Admin: 03/02/24 19:02 Dose: 3 ml Documented By: VIKAS Gabapentin (Gabapentin 300 Mg Capsule) 300 mg PO NOW ONE Stop: 03/02/24 20:09 Last Admin: 03/02/24 20:23 Dose: 300 mg Documented By: MARSHAL Acetaminophen (Ofirmev) 1,000 mg in 100 mls @ 400 mls/hr IV NOW ONE Stop: 03/02/24 20:30 Last Infusion: 03/02/24 21:06 Dose: Infused Documented By: Admin: 03/02/24 20:23 Dose: 400 mls/hr Documented By: MARSHAL Ibuprofen (Ibuprofen 400 Mg Tablet) 400 mg PO NOW ONE Stop: 03/02/24 19:46 Last Admin: 03/02/24 19:55 Dose: 400 mg Documented By: MARSHAL Lidocaine (Lidocaine 5% Patch) 1 each TOP NOW ONE Stop: 03/02/24 20:17 Last Admin: 03/02/24 20:23 Dose: 1 each Documented By: MARSHAL Lorazepam (Lorazepam 2 Mg/Ml Inj) 0.5 mg IV NOW ONE Stop: 03/02/24 20:35 Last Admin: 03/02/24 21:06 Dose: 0.5 mg Documented By: MARSHAL Vital Signs Vital signs: Vital Signs - 8 hr 03/02/24 17:30 03/02/24 17:30 03/02/24 18:00 Temperature Pulse Rate 80 Respiratory Rate 26 H Blood Pressure 113/56 L 126/60 Pulse Oximetry 92 Oxygen Delivery Method Nasal Cannula Oxygen Flow Rate 3 Fraction of Inspired Oxygen 03/02/24 18:00 03/02/24 18:21 03/02/24 18:30 Temperature Pulse Rate 80 84 Respiratory Rate 34 H Blood Pressure Pulse Oximetry 94 93 Oxygen Delivery Method Nasal Cannula Oxygen Flow Rate 3 Fraction of Inspired Oxygen 03/02/24 18:30 03/02/24 19:00 03/02/24 19:00 Temperature Pulse Rate 92 H Respiratory Rate 34 H Blood Pressure 135/64 134/65 Pulse Oximetry 93 Oxygen Delivery Method Nasal Cannula Oxygen Flow Rate 3 Fraction of Inspired Oxygen 03/02/24 19:02 03/02/24 19:30 03/02/24 19:35 Temperature Pulse Rate 90 105 H Respiratory Rate 20 38 H Blood Pressure 116/65 Pulse Oximetry 93 92 Oxygen Delivery Method Nasal Cannula Nasal Cannula Oxygen Flow Rate 2 3 Fraction of Inspired Oxygen 03/02/24 19:35 03/02/24 19:45 03/02/24 19:55 Temperature 99.5 F 99.5 F Pulse Rate 111 H 99 H Respiratory Rate 40 H 40 H Blood Pressure 116/65 Pulse Oximetry 84 L 93 Oxygen Delivery Method Nasal Cannula Nasal Cannula Oxygen Flow Rate 3 4 Fraction of Inspired Oxygen 03/02/24 20:00 03/02/24 20:00 03/02/24 20:30 Temperature Pulse Rate 105 H 101 H Respiratory Rate 35 H 38 H Blood Pressure 141/59 H Pulse Oximetry 91 92 Oxygen Delivery Method Nasal Cannula Oxygen Flow Rate 6 Fraction of Inspired Oxygen 03/02/24 20:31 03/02/24 20:31 03/02/24 21:00 Temperature Pulse Rate 101 H 95 H Respiratory Rate 29 H Blood Pressure 148/64 H Pulse Oximetry 91 92 Oxygen Delivery Method Nasal Cannula Oxygen Flow Rate 5 Fraction of Inspired Oxygen 03/02/24 21:10 03/02/24 21:10 03/02/24 21:12 Temperature Pulse Rate 89 88 Respiratory Rate Blood Pressure 98/56 L Pulse Oximetry 94 93 Oxygen Delivery Method Nasal Cannula Oxygen Flow Rate 5 Fraction of Inspired Oxygen 03/02/24 21:12 03/02/24 21:15 03/02/24 21:15 Temperature Pulse Rate 84 Respiratory Rate Blood Pressure 93/55 L 100/56 L Pulse Oximetry 95 Oxygen Delivery Method Oxygen Flow Rate Fraction of Inspired Oxygen 03/02/24 21:30 03/02/24 21:39 03/02/24 21:39 Temperature Pulse Rate 97 H 92 H Respiratory Rate 22 22 Blood Pressure 93/58 L Pulse Oximetry 92 94 Oxygen Delivery Method Nasal Cannula Oxygen Flow Rate 4 Fraction of Inspired Oxygen 03/02/24 21:52 03/02/24 21:52 03/02/24 22:00 Temperature Pulse Rate 79 78 Respiratory Rate 24 Blood Pressure 89/53 L Pulse Oximetry 96 95 Oxygen Delivery Method Oxygen Flow Rate Fraction of Inspired Oxygen 03/02/24 22:00 03/02/24 22:30 03/02/24 22:30 Temperature Pulse Rate 74 Respiratory Rate 25 H Blood Pressure 90/53 L 89/50 L Pulse Oximetry 96 Oxygen Delivery Method Nasal Cannula Oxygen Flow Rate 4 Fraction of Inspired Oxygen 03/02/24 22:31 03/02/24 22:31 03/02/24 23:00 Temperature Pulse Rate 74 72 Respiratory Rate 24 24 Blood Pressure 94/50 L Pulse Oximetry 96 96 Oxygen Delivery Method Nasal Cannula Oxygen Flow Rate 4 Fraction of Inspired Oxygen 03/02/24 23:00 03/02/24 23:06 03/02/24 23:06 Temperature Pulse Rate 78 Respiratory Rate 24 Blood Pressure 90/53 L 96/55 L Pulse Oximetry 96 Oxygen Delivery Method Oxygen Flow Rate Fraction of Inspired Oxygen 03/02/24 23:30 03/02/24 23:30 03/02/24 23:32 Temperature Pulse Rate 70 Respiratory Rate 23 Blood Pressure 86/50 L 79/49 L Pulse Oximetry 95 Oxygen Delivery Method Oxygen Flow Rate Fraction of Inspired Oxygen 03/02/24 23:32 03/02/24 23:33 03/02/24 23:33 Temperature Pulse Rate 72 71 Respiratory Rate 23 22 Blood Pressure 78/52 L Pulse Oximetry 95 96 Oxygen Delivery Method Oxygen Flow Rate Fraction of Inspired Oxygen 03/02/24 23:34 03/02/24 23:34 03/02/24 23:40 Temperature Pulse Rate 73 Respiratory Rate 22 Blood Pressure 78/50 L 94/52 L Pulse Oximetry 96 Oxygen Delivery Method Nasal Cannula Oxygen Flow Rate 4 Fraction of Inspired Oxygen 03/02/24 23:40 03/03/24 00:25 Temperature 98.5 F Pulse Rate 73 75 Respiratory Rate 23 20 Blood Pressure 90/54 L Pulse Oximetry 94 Oxygen Delivery Method Nasal Cannula Oxygen Flow Rate 4 Fraction of Inspired Oxygen MDM - SOB/Dyspnea Differential Diagnosis Differential diagnosis: Likely acute exacerbation of chronic obstructive airways disease, congestive heart failure and community acquired pneumonia Lab Data 03/02/24 16:33 03/02/24 16:33 Labs: Lab Results 03/02/24 03/02/24 03/02/24 Range/Units 16:33 18:58 20:27 WBC 12.8 H (4.5-11.0) X10^3/uL RBC 4.35 (4.0-5.2) X10^6/uL Hgb 13.5 (12.0-16.0) g/dL Hct 41.2 (36-46) % MCV 94.7 (80-100) fL MCH 31.1 (26-34) PG MCHC 32.8 (30-36) % RDW 14.7 (11.6-14.8) % Plt Count 170 (150-400) X10^3/uL Neut % (Auto) 92.9 H (50-75) % Lymph % (Auto) 1.3 L (25-40) % [place] % (Auto) 5.7 (3-14) % Eos % (Auto) 0.0 L (2-4) % Baso % (Auto) 0.1 (0-2) % Neut # (Auto) 12692 H (0772-8528) /uL Lymph # (Auto) 200 L (2837-3177) /uL [place] # (Auto) 700 (0-900) /uL Eos # (Auto) 0 (0-450) /uL Baso # (Auto) 0 (0-100) /uL PT 11.8 (9.4-12.5) SECONDS INR 1.0 (0.9-1.3) ABG pH 7.44 (7.35-7.45) ABG pCO2 38.7 (35-45) mmHg ABG pO2 69 L (80-100) mmHg ABG HCO3 26 (23-27) mmol/L ABG Total CO2 26 (23-27) mmol/L ABG O2 Saturation 94 L (95-100) % ABG Base Excess 2.2 (-2-3) mmol/L Sodium 130 L (137-145) mmol/L Potassium 4.0 (3.4-5.1) mmol/L Chloride 96 L (98-107) mmol/L Carbon Dioxide 30 (22-32) mmol/L BUN 22 H (7-17) mg/dL Creatinine 0.78 (0.52-1.04) mg/dL Estimated GFR > 60 (>60) mL/min BUN/Creatinine Ratio 28.2 H (6-22) Glucose 140 H (80-110) mg/dL Lactate 1.1 (0.7-2.1) mmol/L Calcium 9.2 (8.4-10.2) mg/dL Total Bilirubin 1.1 (0.2-1.3) mg/dL AST 33 (14-36) IU/L ALT 28 (<35) IU/L Alkaline Phosphatase 75 (38-126) U/L Troponin I < 0.012 (0.01-0.034) ng/mL NT-Pro-B Natriuret Pep 410 H (<125) pg/mL Total Protein 6.9 (6.3-8.2) g/dL Albumin 4.1 (3.5-5.0) g/dL Globulin 2.8 (1.7-4.1) g/dL Albumin/Globulin Ratio 1.5 (1.0-2.8) TSH 1.39 (0.47-4.68) uIU/mL Chlamy pneumoniae PCR Not detected (Not Detect) Adenovirus (PCR) Not detected (Not Detect) B. pertussis DNA (PCR) Not detected (Not Detect) B.parapertussis DNA PCR Not detected (Not Detecte) Coronavirus OC43 (PCR) Not detected (Not Detect) Coronavirus HKU1 (PCR) Not detected (Not Detect) Coronavirus 229E (PCR) Not detected (Not Detect) SARS-CoV-2 (PCR) Not detected (Not Detecte) Coronavirus NL63 (PCR) Not detected (Not Detect) Human Metapneumovir PCR Not detected (Not Detect) Influenza Type A (PCR) Not detected (Not Detect) Influenza Type B (PCR) Not detected (Not Detect) M. pneumoniae (PCR) Not detected (Not Detect) Parainfluenza 1 (PCR) Not detected (Not Detect) Parainfluenza 2 (PCR) Not detected (Not Detect) Parainfluenza 3 (PCR) Not detected (Not Detect) Parainfluenza 4 (PCR) Not detected (Not Detect) RSV (PCR) Not detected (Not Detect) Entero/Rhino (PCR) Not detected (Not Detect) Imaging Data Chest x-ray: Radiologist's Impression: PROCEDURE: XR CHEST 1V INDICATIONS: Shortness of breath TECHNIQUE: One view of the chest was acquired. COMPARISON: Located Within [facility], CT, CT ANGIO CHEST PE PROTOCOL, 02/08/2024, 21:20. Located Within [facility], CR, XR CHEST 1V, 02/08/2024, 20:40. FINDINGS: Surgical changes and devices: None. Lungs and pleura: Unchanged left costophrenic angle blunting likely related to scarring. Calcified right upper lobe nodule. Mild opacity is present in the left base present on prior exam appearing related to scarring. Mediastinum: Mediastinal contours appear normal. Heart size is normal. Bones and chest wall: No suspicious bony lesions. Overlying soft tissues appear unremarkable. Prominent right glenohumeral arthritic change. IMPRESSION: No acute pulmonary process. Dictated by: Paradise Lujan M.D. on 03/02/2024 at 16:31 Approved by: Paradise Lujan M.D. on 03/02/2024 at 16:32 ECG Data Interpretation: Normal sinus rhythm at 83 beats per minute. Normal CT. No ST T wave changes MDM Narrative Medical decision making narrative: Very chronically in frail appearing patient with fatigue. Has known throat cancer and severe end-stage COPD. Records from [facility] reviewed. Patient had negative coronary angiography on 02/08 and after several days of hospitalization patient's symptoms were attributed to polypharmacy and end-stage COPD. Since her discharge from the hospital she was told to wear oxygen 247, however she was only been compliant with that directive in the last day. Patient requested a breathing treatment, which was ordered. Also complaining of left-sided pain at her lower ribs, which causes her to cough. Patient had CT angiography performed at her last stay that showed no signs of pulmonary embolism. Laboratory work is reviewed WBC count 12.8, hemoglobin 13.5, platelet count 170, sodium 130, potassium 4.0, creatinine 0.78, troponin undetectable (previously [id number]). After receiving the nebulizer treatment patient began to have increased work of breathing and agitation. She did state that she has significant anxiety and has been prescribed 0.5 mg of alprazolam as needed for this condition. She last took a dose approximately 5 hours ago. ABG shows pH 7.44, CO2 39, PO2 69 on nasal cannula. Previous [facility] note did report concern about benzodiazepine withdrawal contributing to her symptoms. After receiving a small dose of Ativan patient's breathing symptoms resolved and she was able to rest comfortably in bed. With normal chest x-ray, otherwise normal laboratory work, reassuring pulmonary exam given patient's advanced COPD, and negative respiratory panel no indication for admission at this time. Patient counseled on all lab and imaging findings, she was recommended to continue to use the oxygen as prescribed and not take it off when she gets home. She was strongly advised to follow up with her doctors. ED return precautions discussed. Transferred via S ambulance back home since patient did not bring home O2 equipment with her to the ED, however the equipment is available at home. Discharge Plan Departure Patient Disposition: Home Clinical Impression: Fatigue, COPD (chronic obstructive pulmonary disease) Instructions: DI for Fatigue Activity Restrictions/Additional Instructions: Your laboratory work and chest x-ray imaging today were normal. There do not appear to be signs of bacterial infection or respiratory failure. Your fatigue may be due to not wearing oxygen / at home. Prescriptions: New lidocaine 5 % adhesive patch,medicated 1 patch topical DAILY Qty: 15 0RF Rx Instructions: leave on most painful area for up to 12 hrs No Action atorvastatin 40 mg tablet 40 mg PO DAILY escitalopram oxalate 20 mg tablet 20 mg PO DAILY Patient Comments: TAKE 1 TABLET BY MOUTH EVERY MORNING DIRECTED levothyroxine 50 mcg tablet 50 mcg PO DAILY quetiapine 25 mg tablet 25 mg PO BEDTIME Patient Comments: TAKE 1 TABLET BY MOUTH EVERY NIGHT AT BEDTIME DIRECTED alprazolam 0.5 mg tablet 0.5 mg PO BID PRN (Reason: Anxiety) Patient Comments: TAKE 1 TABLET BY MOUTH UP TO TWICE DAILY NEEDED FOR ACUTE ANXIETY albuterol sulfate 90 mcg/actuation HFA aerosol inhaler 2 puff INHALATION Q4H PRN (Reason: shortness of breath or wheezing) Qty: 8.5 2RF alprazolam 0.5 mg tablet 0.5 - 1 mg PO DAILY PRN (Reason: anxiety) Referrals: Manasa Nayak MD [Primary Care Provider] - Stand Alone Forms: Patient Portal/API/Survey
[2024-03-02] MEDS: ALBUTEROL/IPRATROPIUM 3 ML AMPUL INH (19:02)
--- NOTE | 2024-03-02 19:47 | PC.NURSE ---
Pt found agitated in bed, had pulled NC off, HR 120's. Pt c/o feeling really sick. Hot and cold. Denies nausea. Pt reassured, helped back to position of comfort in bed.O2 reapplied at 4L, sats improved to 93%. Axillary temp 99.5. Pt requesting ibuprofen. Dr Chavarria updated, order for ibuprofen received.
[2024-03-02] MEDS: IBUPROFEN 400 MG TABLET PO (19:55)
[2024-03-02 20:02] LABS: Adenovirus Not Detected (Not Detect); B. parapertussis Not Detected (Not Detecte); Bordetella pertussis Not Detected (Not Detect); Chlamydophila pneumoniae Not Detected (Not Detect); Coronavirus 229E Not Detected (Not Detect); Coronavirus HKU1 Not Detected (Not Detect); Coronavirus NL 63 Not Detected (Not Detect); Coronavirus OC43 Not Detected (Not Detect); Human Metapneumovirus Not Detected (Not Detect); Human Rhinovirus/Enterovirus Not Detected (Not Detect); Influenza A Not Detected (Not Detect); Influenza B Not Detected (Not Detect); Mycoplasma pneumoniae Not Detected (Not Detect); Parainfluenza Virus 1 Not Detected (Not Detect); Parainfluenza Virus 2 Not Detected (Not Detect); Parainfluenza Virus 3 Not Detected (Not Detect); Parainfluenza Virus 4 Not Detected (Not Detect); Respiratory Syncytial Virus Not Detected (Not Detect); SARS- CoV-2 Not Detected (Not Detecte)
--- NOTE | 2024-03-02 20:13 | PC.NURSE ---
This RN checks on patient. Patient breathing is shallow and labored and needing more oxygen. She is at 6L via NC. RT called and provider Deon made aware. Provider goes to room immediately. New orders for ABG and home med of gabapentin for pain.
[2024-03-02] MEDS: LIDOCAINE 5% PATCH 1 EACH TOP (20:23)
[2024-03-02] MEDS: ACETAMINOPHEN IV 1,000 MG/100 ML VIAL 400 MG IV (20:23)
[2024-03-02] MEDS: GABAPENTIN 300 MG CAPSULE PO (20:23)
[2024-03-02 20:31] LABS: Base Excess ABG 2.2 mmol/L (-2-3); HCO3 ABG 26 mmol/L (23-27); Oxygen Saturation ABG 94 % (95-100); PCO2 ABG 38.7 mmHg (35-45); PO2 ABG 69 mmHg (80-100); TCO2 ABG 26 mmol/L (23-27); pH ABG 7.44 (7.35-7.45)
[2024-03-02 20:34] LABS: Thyroid Stimulating Hormone 1.39 uIU/mL (0.47-4.68)
[2024-03-02] MEDS: LORazepam 2 MG/ML INJ 0.5 MG IV (21:06)
[2024-03-03 00:25] VITALS: BP 90/54; PULSE 75; RESP 20; TEMP 36.9; O2SAT 94
--- NOTE | 2024-03-03 00:47 | PC.NURSE ---
0040: EMT Simon comes back to ED to talk with this RN. They have patient loaded in ambulance in ED ambulance bay. EMT reports blood pressure of 72/42. This RN notifies provider Deon who goes out to ambulance. Physician evaluated patient. She has strong palpable peripheral pulses incongruent with reported BP measurements. Patient resting on stretcher with no complaints. Provider Deon OKAYS patient to continue discharge and transport home.
== END 2024-03-03 00:28 | disposition home or self-care (01) ==
PROVIDERS: Emergency Medicine; Emergency Provider Emergency Medicine; PCP Family Medicine
DX: R53.83 Other fatigue (principal); J44.9 Chronic obstructive pulmonary disease, unspecified; F41.8 Other specified anxiety disorders
CPT/HCPCS: 36415; 36600; 71045; 80053; 82805; 83605; 83880; 84443; 84484; 85025; 85610; 87633; 93005; 93010; 94640; 96365; 96375; 99285; J0134; J2060

== ENCOUNTER 2024-03-05 15:22 | Emergency (ER) | payer MEDICARE, MEDICAID, SELFPAY ==
[2022-02-19 21:29] VITALS: BMI 17.0
[2024-03-05] VITALS (56 sets, daily range): BP systolic 71–104; BP diastolic 47–59; PULSE 68–87; RESP 16–29; TEMP 31–36.4; O2SAT 86–96
--- NOTE | 2024-03-05 15:32 | DI.RAD.S_ITS ---
PROCEDURE: XR CHEST 1V INDICATIONS: altered mental status TECHNIQUE: One view of the chest was acquired. COMPARISON: [facility], CR, XR CHEST 1V, 03/02/2024, 16:11. [facility], CR, XR CHEST 1V, 02/08/2024, 20:40. FINDINGS: Surgical changes and devices: None. Lungs and pleura: Left basilar consolidation. Mediastinum: Mediastinal contours appear normal. Heart size is normal. Bones and chest wall: No suspicious bony lesions. Overlying soft tissues appear unremarkable. IMPRESSION: Left basilar consolidation, concerning for pneumonia. Differential includes aspiration, less likely malignancy. Dictated by: Hakeem Vasques M.D. on 03/05/2024 at 16:14 Approved by: Hakeem Vasques M.D. on 03/05/2024 at 16:15
[2024-03-05 15:47] LABS: Hematocrit 39.5 % (36-46); Hemoglobin 13.2 g/dL (12.0-16.0); Mean Corpuscular HGB Conc 33.4 % (30-36); Mean Corpuscular Hemoglobin 31.1 PG (26-34); Mean Corpuscular Volume 93.2 fL (80-100); Platelet Count 131 X10^3/uL (150-400); Red Blood Cell Count 4.23 X10^6/uL (4.0-5.2); Red Cell Distribution Width 14.7 % (11.6-14.8); White Blood Cell Count 10.2 X10^3/uL (4.5-11.0)
[2024-03-05] MEDS: NALOXONE 0.4 MG/ML VIAL 0.2 MG IV ×3 (15:47→17:33)
--- NOTE | 2024-03-05 15:47 | EKG_ITS ---
[address] [address] Test Date: 2024-03-05 Pat Name: Trish Espinal Department: [facility] Room: Gender: Female Meter Reader: MARCELO : 1950 Requested By: Order Number: [id number] Reading MD: See Acuña MD Measurements Intervals [place] Rate: 86 P: 67 MA: 150 QRS: 12 QRSD: 76 T: 41 QT: 360 QTc: 430 Interpretive Statements Normal sinus rhythm Electronically Signed On 03-07-2024 17:05:35 PST by See Acuña MD
--- NOTE | 2024-03-05 15:50 | DI.CT.S_ITS ---
PROCEDURE: CT HEAD/BRAIN WO CON INDICATIONS: Altered mental status TECHNIQUE: Noncontrast 4.5 mm thick angled axial sections acquired from the foramen magnum to the vertex, with coronal and sagittal reformats. For radiation dose reduction, the following was used: automated exposure control, adjustment of mA and/or kV according to patient size. COMPARISON: None. FINDINGS: Image quality: Diagnostic. CSF spaces: Basal cisterns are patent. No extra-axial fluid collections. The ventricles are symmetric in size and shape. Brain: No intracranial bleeds or masses. There is cerebral volume loss for age, with resultant ventricular and sulcal prominence. There are periventricular and deep white matter chronic small vessel ischemic changes. There is intracranial internal carotid artery atherosclerosis. Skull and face: Calvarium and visualized facial bones appear intact, without suspicious lesions. Sinuses: Visualized sinuses and mastoids are clear. IMPRESSION: No acute intracranial pathology. Dictated by: Hakeem Vasques M.D. on 03/05/2024 at 16:45 Approved by: Hakeem Vasques M.D. on 03/05/2024 at 16:46
[2024-03-05 15:54] LABS: Add Manual Diff / Slide Review YES
[2024-03-05 15:59] LABS: Alanine Aminotransferase 37 IU/L (<35); Albumin 3.3 g/dL (3.5-5.0); Albumin Globulin Ratio 1.1 (1.0-2.8); Alkaline Phosphatase 71 U/L (38-126); Aspartate Aminotransferase 60 IU/L (14-36); BUN Creatinine Ratio 26.2 (6-22); Bilirubin Total 0.7 mg/dL (0.2-1.3); Blood Urea Nitrogen 82 mg/dL (7-17); Calcium 8.6 mg/dL (8.4-10.2); Carbon Dioxide 25 mmol/L (22-32); Chloride 92 mmol/L (98-107); Estimated Glomerular Filt Rate 15 mL/min (>60); Glucose 122 mg/dL (80-110); HEMOLYSIS 33 (0-50); Potassium 4.3 mmol/L (3.4-5.1); Sodium 128 mmol/L (137-145); Total Protein 6.3 g/dL (6.3-8.2)
[2024-03-05 16:03] LABS: INR 0.9 (0.9-1.3); Prothrombin Time 10.3 SECONDS (9.4-12.5)
[2024-03-05 16:04] LABS: Neutrophils Absolute Manual 8466 /uL (3000-5900); Total Cells Counted 100
[2024-03-05 16:05] LABS: PTT Partial Thromboplastin Tim 31 SECONDS (25.1-36.5); RBC Morphology Normal Morphology
[2024-03-05 16:09] LABS: Lactate (Lactic Acid) 2.5 mmol/L (0.7-2.1)
[2024-03-05 16:10] LABS: Creatine Kinase 190 U/L (30-135); Ethanol (ETOH) < 10 mg/dL
--- NOTE | 2024-03-05 16:18 | ED.AMS ---
HPI - Altered Mental Status <Manasa Montgomery DO - Last Filed: 03/07/24 08:27> General Chief Complaint: Altered Mental Status Stated Complaint: Altered mental status-Fall in AM Time Seen by Provider: 03/05/24 15:48 Source: patient, EMS and other Mode of arrival: EMS Limitations: altered mental status History of Present Illness HPI narrative: 73-year-old female history of COPD on 2-4 L home O2, throat cancer on radiation therapy presents for altered mental status, hypotension with reported fall earlier this morning. POA noted the patient been getting more weak and altered this is per EMS. Patient tries to tell me her name but quite confused and altered. She was hypotensive. Attempts to participate in evaluation but is confused and does not follow commands well. Related Data Home Medications Medication Instructions Recorded Confirmed atorvastatin 40 mg tablet 40 mg PO DAILY 02/19/22 02/19/22 escitalopram oxalate 20 mg tablet 20 mg PO DAILY 02/19/22 02/19/22 levothyroxine 50 mcg tablet 50 mcg PO DAILY 02/19/22 02/19/22 quetiapine 25 mg tablet 25 mg PO BEDTIME 02/19/22 02/19/22 alprazolam 0.5 mg tablet 0.5 mg PO BID PRN Anxiety 02/20/22 02/20/22 alprazolam 0.5 mg tablet 0.5 - 1 mg PO DAILY PRN anxiety 02/08/24 02/08/24 Previous Rx's Medication Instructions Recorded albuterol sulfate 90 mcg/actuation 2 puff inhalation Q4H PRN 02/23/22 aerosol inhaler shortness of breath or wheezing #8.5 grams lidocaine 5 % topical patch 1 patch topical DAILY #15 ea 03/03/24 Allergies Allergy/AdvReac Type Severity Reaction Status Date / Time No Known Drug Allergies Allergy Unverified 03/02/24 15:50 Review of Systems <Manasa Montgomery DO - Last Filed: 03/07/24 08:27> Review of Systems ROS Unobtainable: Unobtainable due to mental status/LOC Patient History <Manasa Montgomery DO - Last Filed: 03/07/24 08:27> Medical History Acute exacerbation of chronic obstructive pulmonary disease Lung cancer Family History Father Old age Mother Crohn's disease Social History household members: friend(s) Smoking Status: Current some day smoker alcohol intake: current Smoking Status: Current some day smoker alcohol intake frequency: 0-2 drinks per day Exam <Manasa Montgomery DO - Last Filed: 03/07/24 08:27> Narrative Exam Narrative: GEN: Cachectic elderly appearing female, appears altered, can tell me her name, patient appears to be in [id number] distress. HEENT: Atraumatic, pupils are pinpoint bilaterally, extraocular movements are intact, nares are clear, there is no conjunctival pallor. Throat is clear without any exudates, erythema, tonsillar enlargement or uvular deviation HEART: Regular rate and rhythm without murmur, clicks, rubs. Pulses are equal in upper and lower extremities, patient has decreased cap refill bilateral hands but normal bilateral feet. LUNGS:Lungs clear to auscultation, no wheezes, rales, crackles, chest moves symmetrically, mild tachypnea, patient has got some pursed lipped breathing and use of SCM muscles. ABD:bowel sounds normal, soft, non-tender, no guarding, rebound, rigidity, no masses noted, no hepatosplenomegaly, nondistended. :No CVA tenderness MSCL: Non-tender, no muscle atrophy, full range of motion NEURO:CN 2-12 intact, sensation normal. Initial Vital Signs Initial Vital Signs: Vital Signs Temperature 97.6 F 03/05/24 15:26 Pulse Rate 70 03/05/24 15:26 Respiratory Rate 16 03/05/24 15:26 Blood Pressure 87/53 L 03/05/24 15:26 Pulse Oximetry 94 03/05/24 15:26 Oxygen Delivery Method Room Air 03/05/24 15:26 <Gume Masterson DO - Last Filed: 03/06/24 03:15> Initial Vital Signs Initial Vital Signs: Vital Signs Temperature 97.6 F 03/05/24 15:26 Pulse Rate 70 03/05/24 15:26 Respiratory Rate 16 03/05/24 15:26 Blood Pressure 87/53 L 03/05/24 15:26 Pulse Oximetry 94 03/05/24 15:26 Oxygen Delivery Method Room Air 03/05/24 15:26 Course <Manasa Montgomery, DO - Last Filed: 03/07/24 08:27> Orders Ordered: Discontinued Medications Piperacillin Sod/Tazobactam (Sod 4.5 gm/ Sodium Chloride) 100 mls @ 200 mls/hr IV NOW ONE Stop: 03/05/24 16:26 Last Infusion: 03/05/24 17:33 Dose: Infused Documented By: Admin: 03/05/24 16:49 Dose: 200 mls/hr Documented By: DAMIR Sodium Chloride (Normal Saline 0.9%) 1,000 mls @ 1,000 mls/hr IV BOLUS ONE Stop: 03/05/24 18:32 Last Infusion: 03/05/24 17:35 Dose: Infused Documented By: Admin: 03/05/24 17:34 Dose: 1,000 mls/hr Documented By: DAMIR Sodium Chloride (Normal Saline 0.9%) 1,000 mls @ 1,000 mls/hr IV BOLUS ONE Stop: 03/05/24 18:34 Last Infusion: 03/05/24 18:46 Dose: Infused Documented By: Admin: 03/05/24 17:36 Dose: 1,000 mls/hr Documented By: DAMIR Naloxone HCl 2 mg/ Sodium (Chloride) 500 mls @ 62.5 mls/hr IV TITRATE [facility]; Protocol Last Titration: 03/06/24 03:04 Dose: 0 mg/hr, 0 mls/hr Documented By: Admin: 03/06/24 02:22 Dose: 0.25 mg/hr, 62.5 mls/hr Documented By: Titration: 03/06/24 02:01 Dose: Infused Documented By: Admin: 03/05/24 18:01 Dose: 0.25 mg/hr, 62.5 mls/hr Documented By: DAMIR Vancomycin HCl (Vancomycin) 1,000 mg in 200 mls @ 200 mls/hr IV Q24H [facility] Last Admin: 03/05/24 19:09 Dose: Not Given Documented By: ACOSTA Vancomycin HCl 1,000 mg/ (Sodium Chloride) 250 mls @ 250 mls/hr IV NOW ONE Stop: 03/05/24 19:44 Last Infusion: 03/05/24 20:15 Dose: Infused Documented By: Admin: 03/05/24 18:47 Dose: 250 mls/hr Documented By: DAMIR NOREPINEPHRINE BITARTRATE/D5W (Levophed) 4 mg in 250 mls @ 15.989 mls/hr IV TITRATE [facility]; Protocol Last Titration: 03/06/24 03:04 Dose: 0 mcg/kg/min, 0 mls/hr Documented By: Admin: 03/06/24 02:48 Dose: 0.15 mcg/kg/min, 23.984 mls/hr Documented By: Titration: 03/06/24 02:48 Dose: Infused Documented By: Titration: 03/05/24 20:21 Dose: 0.15 mcg/kg/min, 23.984 mls/hr Documented By: Admin: 03/05/24 19:37 Dose: 0.1 mcg/kg/min, 15.989 mls/hr Documented By: KARYNA Naloxone HCl (Naloxone 0.4 Mg/Ml Vial) 0.2 mg IV NOW ONE Stop: 03/05/24 15:45 Last Admin: 03/05/24 15:47 Dose: 0.2 mg Documented By: ACOSTA Naloxone HCl (Naloxone 0.4 Mg/Ml Vial) 0.2 mg IV NOW ONE Stop: 03/05/24 16:08 Last Admin: 03/05/24 16:11 Dose: 0.2 mg Documented By: DAMIR Naloxone HCl (Naloxone 0.4 Mg/Ml Vial) 0.2 mg IV Q2MIN ONE Stop: 03/05/24 17:23 Last Admin: 03/05/24 17:51 Dose: Not Given Documented By: DAMIR Naloxone HCl (Naloxone 0.4 Mg/Ml Vial) 0.2 mg IV Q2MIN ONE Stop: 03/05/24 17:25 Last Admin: 03/05/24 17:33 Dose: 0.2 mg Documented By: DAMIR Vital Signs Vital signs: Vital Signs - 8 hr 03/05/24 19:15 03/05/24 19:15 03/05/24 19:20 Pulse Rate 77 77 Respiratory Rate 23 24 Blood Pressure 82/54 L Pulse Oximetry 94 95 Oxygen Delivery Method Fraction of Inspired Oxygen 03/05/24 19:20 03/05/24 19:25 03/05/24 19:25 Pulse Rate 76 Respiratory Rate 18 Blood Pressure 91/58 L 91/55 L Pulse Oximetry 95 Oxygen Delivery Method Fraction of Inspired Oxygen 03/05/24 19:30 03/05/24 19:30 03/05/24 19:35 Pulse Rate 77 75 Respiratory Rate 23 23 Blood Pressure 90/54 L Pulse Oximetry 95 95 Oxygen Delivery Method Mechanical Ventilation Fraction of Inspired Oxygen 03/05/24 19:35 03/05/24 19:44 03/05/24 19:44 Pulse Rate 75 Respiratory Rate 23 Blood Pressure 78/52 L 94/53 L Pulse Oximetry 95 Oxygen Delivery Method Fraction of Inspired Oxygen 03/05/24 19:50 03/05/24 19:50 03/05/24 19:55 Pulse Rate 76 Respiratory Rate 25 H Blood Pressure 92/53 L 88/53 L Pulse Oximetry 94 Oxygen Delivery Method Fraction of Inspired Oxygen 03/05/24 19:55 03/05/24 20:00 03/05/24 20:00 Pulse Rate 74 77 Respiratory Rate 24 29 H Blood Pressure 100/56 L Pulse Oximetry 96 95 Oxygen Delivery Method Fraction of Inspired Oxygen 03/05/24 20:05 03/05/24 20:05 03/05/24 20:10 Pulse Rate 74 72 Respiratory Rate 25 H 24 Blood Pressure 90/51 L Pulse Oximetry 95 94 Oxygen Delivery Method Fraction of Inspired Oxygen 03/05/24 20:10 03/05/24 20:20 03/05/24 20:20 Pulse Rate 72 Respiratory Rate 27 H Blood Pressure 88/52 L 82/52 L Pulse Oximetry 95 Oxygen Delivery Method Fraction of Inspired Oxygen 03/05/24 20:30 03/05/24 20:30 03/05/24 20:40 Pulse Rate 70 68 Respiratory Rate 24 26 H Blood Pressure 99/56 L Pulse Oximetry 95 95 Oxygen Delivery Method Fraction of Inspired Oxygen 03/05/24 20:40 03/05/24 20:50 03/05/24 20:50 Pulse Rate 69 Respiratory Rate 25 H Blood Pressure 97/53 L 96/52 L Pulse Oximetry 94 Oxygen Delivery Method Fraction of Inspired Oxygen 03/05/24 21:00 03/05/24 21:00 03/05/24 21:10 Pulse Rate 69 71 Respiratory Rate 23 23 Blood Pressure 101/55 L Pulse Oximetry 94 94 Oxygen Delivery Method Fraction of Inspired Oxygen 03/05/24 21:10 03/05/24 21:20 03/05/24 21:20 Pulse Rate 77 Respiratory Rate 24 Blood Pressure 97/55 L 99/54 L Pulse Oximetry 94 Oxygen Delivery Method Fraction of Inspired Oxygen 03/05/24 21:30 03/05/24 21:30 03/05/24 21:40 Pulse Rate 72 Respiratory Rate 22 Blood Pressure 98/56 L 102/57 L Pulse Oximetry 95 Oxygen Delivery Method Fraction of Inspired Oxygen 03/05/24 21:40 03/05/24 21:50 03/05/24 21:50 Pulse Rate 70 69 Respiratory Rate 24 25 H Blood Pressure 99/57 L Pulse Oximetry 95 94 Oxygen Delivery Method Fraction of Inspired Oxygen 03/05/24 22:00 03/05/24 22:00 03/05/24 22:10 Pulse Rate 68 Respiratory Rate 23 Blood Pressure 97/56 L 102/58 L Pulse Oximetry 94 Oxygen Delivery Method Fraction of Inspired Oxygen 03/05/24 22:10 03/05/24 22:20 03/05/24 22:20 Pulse Rate 69 70 Respiratory Rate 23 24 Blood Pressure 94/54 L Pulse Oximetry 94 93 Oxygen Delivery Method Fraction of Inspired Oxygen 03/05/24 22:30 03/05/24 22:30 03/05/24 22:40 Pulse Rate 71 75 Respiratory Rate 24 23 Blood Pressure 96/54 L Pulse Oximetry 93 93 Oxygen Delivery Method Fraction of Inspired Oxygen 03/05/24 22:40 03/05/24 22:50 03/05/24 22:50 Pulse Rate 74 Respiratory Rate 24 Blood Pressure 104/59 L 98/55 L Pulse Oximetry 93 Oxygen Delivery Method Fraction of Inspired Oxygen 03/05/24 23:00 03/05/24 23:00 03/05/24 23:10 Pulse Rate 75 74 Respiratory Rate 24 24 Blood Pressure 102/57 L Pulse Oximetry 93 92 Oxygen Delivery Method Fraction of Inspired Oxygen 03/05/24 23:10 03/05/24 23:20 03/05/24 23:20 Pulse Rate 73 Respiratory Rate 25 H Blood Pressure 99/54 L 97/55 L Pulse Oximetry 94 Oxygen Delivery Method Fraction of Inspired Oxygen 03/05/24 23:30 03/05/24 23:30 03/05/24 23:40 Pulse Rate 73 73 Respiratory Rate 24 23 Blood Pressure 104/57 L Pulse Oximetry 94 94 Oxygen Delivery Method Fraction of Inspired Oxygen 03/05/24 23:40 03/05/24 23:50 03/05/24 23:50 Pulse Rate 72 Respiratory Rate 24 Blood Pressure 99/53 L 102/57 L Pulse Oximetry 94 Oxygen Delivery Method Fraction of Inspired Oxygen 03/06/24 00:00 03/06/24 00:00 03/06/24 00:00 Pulse Rate 72 Respiratory Rate 24 Blood Pressure 112/56 L 112/56 L Pulse Oximetry 94 Oxygen Delivery Method Fraction of Inspired Oxygen 03/06/24 00:07 03/06/24 00:07 03/06/24 00:10 Pulse Rate 73 Respiratory Rate 25 H Blood Pressure 109/58 L 107/59 L Pulse Oximetry 91 Oxygen Delivery Method Fraction of Inspired Oxygen 03/06/24 00:10 03/06/24 00:20 03/06/24 00:20 Pulse Rate 71 72 Respiratory Rate 24 24 Blood Pressure 99/50 L Pulse Oximetry 93 91 Oxygen Delivery Method Fraction of Inspired Oxygen 03/06/24 00:30 03/06/24 00:30 03/06/24 00:35 Pulse Rate 72 Respiratory Rate 25 H Blood Pressure 105/59 L Pulse Oximetry 94 Oxygen Delivery Method Fraction of Inspired Oxygen 45 03/06/24 00:40 03/06/24 00:40 03/06/24 00:50 Pulse Rate 70 71 Respiratory Rate 24 21 Blood Pressure 105/59 L Pulse Oximetry 96 97 Oxygen Delivery Method Fraction of Inspired Oxygen 03/06/24 00:50 03/06/24 01:00 03/06/24 01:00 Pulse Rate 72 Respiratory Rate 22 Blood Pressure 98/57 L 115/57 L Pulse Oximetry 97 Oxygen Delivery Method Fraction of Inspired Oxygen 03/06/24 01:10 03/06/24 01:10 03/06/24 01:20 Pulse Rate 72 74 Respiratory Rate 24 24 Blood Pressure 105/58 L Pulse Oximetry 97 97 Oxygen Delivery Method Fraction of Inspired Oxygen 03/06/24 01:20 03/06/24 01:30 03/06/24 01:30 Pulse Rate 74 Respiratory Rate 25 H Blood Pressure 105/57 L 110/55 L Pulse Oximetry 95 Oxygen Delivery Method Fraction of Inspired Oxygen 03/06/24 01:40 03/06/24 01:40 03/06/24 01:50 Pulse Rate 75 76 Respiratory Rate 26 H 27 H Blood Pressure 107/52 L Pulse Oximetry 94 93 Oxygen Delivery Method Fraction of Inspired Oxygen 03/06/24 01:50 03/06/24 02:00 03/06/24 02:00 Pulse Rate 76 Respiratory Rate 26 H Blood Pressure 114/57 L 113/55 L Pulse Oximetry 96 Oxygen Delivery Method Fraction of Inspired Oxygen 03/06/24 02:10 03/06/24 02:10 03/06/24 02:20 Pulse Rate 72 74 Respiratory Rate 28 H 22 Blood Pressure 112/57 L Pulse Oximetry 97 92 Oxygen Delivery Method Fraction of Inspired Oxygen 03/06/24 02:20 03/06/24 02:30 03/06/24 02:30 Pulse Rate 71 Respiratory Rate 29 H Blood Pressure 116/64 112/56 L Pulse Oximetry 97 Oxygen Delivery Method Fraction of Inspired Oxygen 03/06/24 02:40 03/06/24 02:40 03/06/24 02:50 Pulse Rate 73 77 Respiratory Rate 28 H 32 H Blood Pressure 113/58 L Pulse Oximetry 96 90 L Oxygen Delivery Method Fraction of Inspired Oxygen 03/06/24 02:50 03/06/24 03:00 03/06/24 03:00 Pulse Rate 74 Respiratory Rate 29 H Blood Pressure 105/58 L 108/57 L Pulse Oximetry 90 L Oxygen Delivery Method Fraction of Inspired Oxygen <Gume Masterson DO - Last Filed: 03/06/24 03:15> Orders Ordered: Discontinued Medications Piperacillin Sod/Tazobactam (Sod 4.5 gm/ Sodium Chloride) 100 mls @ 200 mls/hr IV NOW ONE Stop: 03/05/24 16:26 Last Infusion: 03/05/24 17:33 Dose: Infused Documented By: Admin: 03/05/24 16:49 Dose: 200 mls/hr Documented By: DAMIR Sodium Chloride (Normal Saline 0.9%) 1,000 mls @ 1,000 mls/hr IV BOLUS ONE Stop: 03/05/24 18:32 Last Infusion: 03/05/24 17:35 Dose: Infused Documented By: Admin: 03/05/24 17:34 Dose: 1,000 mls/hr Documented By: DAMIR Sodium Chloride (Normal Saline 0.9%) 1,000 mls @ 1,000 mls/hr IV BOLUS ONE Stop: 03/05/24 18:34 Last Infusion: 03/05/24 18:46 Dose: Infused Documented By: Admin: 03/05/24 17:36 Dose: 1,000 mls/hr Documented By: DAMIR Naloxone HCl 2 mg/ Sodium (Chloride) 500 mls @ 62.5 mls/hr IV TITRATE [facility]; Protocol Last Titration: 03/06/24 03:04 Dose: 0 mg/hr, 0 mls/hr Documented By: Admin: 03/06/24 02:22 Dose: 0.25 mg/hr, 62.5 mls/hr Documented By: Titration: 03/06/24 02:01 Dose: Infused Documented By: Admin: 03/05/24 18:01 Dose: 0.25 mg/hr, 62.5 mls/hr Documented By: DAMIR Vancomycin HCl (Vancomycin) 1,000 mg in 200 mls @ 200 mls/hr IV Q24H [facility] Last Admin: 03/05/24 19:09 Dose: Not Given Documented By: ACOSTA Vancomycin HCl 1,000 mg/ (Sodium Chloride) 250 mls @ 250 mls/hr IV NOW ONE Stop: 03/05/24 19:44 Last Infusion: 03/05/24 20:15 Dose: Infused Documented By: Admin: 03/05/24 18:47 Dose: 250 mls/hr Documented By: DAMIR NOREPINEPHRINE BITARTRATE/D5W (Levophed) 4 mg in 250 mls @ 15.989 mls/hr IV TITRATE [facility]; Protocol Last Titration: 03/06/24 03:04 Dose: 0 mcg/kg/min, 0 mls/hr Documented By: Admin: 03/06/24 02:48 Dose: 0.15 mcg/kg/min, 23.984 mls/hr Documented By: Titration: 03/06/24 02:48 Dose: Infused Documented By: Titration: 03/05/24 20:21 Dose: 0.15 mcg/kg/min, 23.984 mls/hr Documented By: Admin: 03/05/24 19:37 Dose: 0.1 mcg/kg/min, 15.989 mls/hr Documented By: KARYNA Naloxone HCl (Naloxone 0.4 Mg/Ml Vial) 0.2 mg IV NOW ONE Stop: 03/05/24 15:45 Last Admin: 03/05/24 15:47 Dose: 0.2 mg Documented By: ACOSTA Naloxone HCl (Naloxone 0.4 Mg/Ml Vial) 0.2 mg IV NOW ONE Stop: 03/05/24 16:08 Last Admin: 03/05/24 16:11 Dose: 0.2 mg Documented By: DAMIR Naloxone HCl (Naloxone 0.4 Mg/Ml Vial) 0.2 mg IV Q2MIN ONE Stop: 03/05/24 17:23 Last Admin: 03/05/24 17:51 Dose: Not Given Documented By: DAMIR Naloxone HCl (Naloxone 0.4 Mg/Ml Vial) 0.2 mg IV Q2MIN ONE Stop: 03/05/24 17:25 Last Admin: 03/05/24 17:33 Dose: 0.2 mg Documented By: DAMIR Vital Signs Vital signs: Vital Signs - 8 hr 03/05/24 19:15 03/05/24 19:15 03/05/24 19:20 Pulse Rate 77 77 Respiratory Rate 23 24 Blood Pressure 82/54 L Pulse Oximetry 94 95 Oxygen Delivery Method Fraction of Inspired Oxygen 03/05/24 19:20 03/05/24 19:25 03/05/24 19:25 Pulse Rate 76 Respiratory Rate 18 Blood Pressure 91/58 L 91/55 L Pulse Oximetry 95 Oxygen Delivery Method Fraction of Inspired Oxygen 03/05/24 19:30 03/05/24 19:30 03/05/24 19:35 Pulse Rate 77 75 Respiratory Rate 23 23 Blood Pressure 90/54 L Pulse Oximetry 95 95 Oxygen Delivery Method Mechanical Ventilation Fraction of Inspired Oxygen 03/05/24 19:35 03/05/24 19:44 03/05/24 19:44 Pulse Rate 75 Respiratory Rate 23 Blood Pressure 78/52 L 94/53 L Pulse Oximetry 95 Oxygen Delivery Method Fraction of Inspired Oxygen 03/05/24 19:50 03/05/24 19:50 03/05/24 19:55 Pulse Rate 76 Respiratory Rate 25 H Blood Pressure 92/53 L 88/53 L Pulse Oximetry 94 Oxygen Delivery Method Fraction of Inspired Oxygen 03/05/24 19:55 03/05/24 20:00 03/05/24 20:00 Pulse Rate 74 77 Respiratory Rate 24 29 H Blood Pressure 100/56 L Pulse Oximetry 96 95 Oxygen Delivery Method Fraction of Inspired Oxygen 03/05/24 20:05 03/05/24 20:05 03/05/24 20:10 Pulse Rate 74 72 Respiratory Rate 25 H 24 Blood Pressure 90/51 L Pulse Oximetry 95 94 Oxygen Delivery Method Fraction of Inspired Oxygen 03/05/24 20:10 03/05/24 20:20 03/05/24 20:20 Pulse Rate 72 Respiratory Rate 27 H Blood Pressure 88/52 L 82/52 L Pulse Oximetry 95 Oxygen Delivery Method Fraction of Inspired Oxygen 03/05/24 20:30 03/05/24 20:30 03/05/24 20:40 Pulse Rate 70 68 Respiratory Rate 24 26 H Blood Pressure 99/56 L Pulse Oximetry 95 95 Oxygen Delivery Method Fraction of Inspired Oxygen 03/05/24 20:40 03/05/24 20:50 03/05/24 20:50 Pulse Rate 69 Respiratory Rate 25 H Blood Pressure 97/53 L 96/52 L Pulse Oximetry 94 Oxygen Delivery Method Fraction of Inspired Oxygen 03/05/24 21:00 03/05/24 21:00 03/05/24 21:10 Pulse Rate 69 71 Respiratory Rate 23 23 Blood Pressure 101/55 L Pulse Oximetry 94 94 Oxygen Delivery Method Fraction of Inspired Oxygen 03/05/24 21:10 03/05/24 21:20 03/05/24 21:20 Pulse Rate 77 Respiratory Rate 24 Blood Pressure 97/55 L 99/54 L Pulse Oximetry 94 Oxygen Delivery Method Fraction of Inspired Oxygen 03/05/24 21:30 03/05/24 21:30 03/05/24 21:40 Pulse Rate 72 Respiratory Rate 22 Blood Pressure 98/56 L 102/57 L Pulse Oximetry 95 Oxygen Delivery Method Fraction of Inspired Oxygen 03/05/24 21:40 03/05/24 21:50 03/05/24 21:50 Pulse Rate 70 69 Respiratory Rate 24 25 H Blood Pressure 99/57 L Pulse Oximetry 95 94 Oxygen Delivery Method Fraction of Inspired Oxygen 03/05/24 22:00 03/05/24 22:00 03/05/24 22:10 Pulse Rate 68 Respiratory Rate 23 Blood Pressure 97/56 L 102/58 L Pulse Oximetry 94 Oxygen Delivery Method Fraction of Inspired Oxygen 03/05/24 22:10 03/05/24 22:20 03/05/24 22:20 Pulse Rate 69 70 Respiratory Rate 23 24 Blood Pressure 94/54 L Pulse Oximetry 94 93 Oxygen Delivery Method Fraction of Inspired Oxygen 03/05/24 22:30 12/06/24 22:30 03/05/24 22:40 Pulse Rate 71 75 Respiratory Rate 24 23 Blood Pressure 96/54 L Pulse Oximetry 93 93 Oxygen Delivery Method Fraction of Inspired Oxygen 03/05/24 22:40 03/05/24 22:50 03/05/24 22:50 Pulse Rate 74 Respiratory Rate 24 Blood Pressure 104/59 L 98/55 L Pulse Oximetry 93 Oxygen Delivery Method Fraction of Inspired Oxygen 03/05/24 23:00 03/05/24 23:00 03/05/24 23:10 Pulse Rate 75 74 Respiratory Rate 24 24 Blood Pressure 102/57 L Pulse Oximetry 93 92 Oxygen Delivery Method Fraction of Inspired Oxygen 03/05/24 23:10 03/05/24 23:20 03/05/24 23:20 Pulse Rate 73 Respiratory Rate 25 H Blood Pressure 99/54 L 97/55 L Pulse Oximetry 94 Oxygen Delivery Method Fraction of Inspired Oxygen 03/05/24 23:30 03/05/24 23:30 03/05/24 23:40 Pulse Rate 73 73 Respiratory Rate 24 23 Blood Pressure 104/57 L Pulse Oximetry 94 94 Oxygen Delivery Method Fraction of Inspired Oxygen 03/05/24 23:40 03/05/24 23:50 03/05/24 23:50 Pulse Rate 72 Respiratory Rate 24 Blood Pressure 99/53 L 102/57 L Pulse Oximetry 94 Oxygen Delivery Method Fraction of Inspired Oxygen 03/06/24 00:00 03/06/24 00:00 03/06/24 00:00 Pulse Rate 72 Respiratory Rate 24 Blood Pressure 112/56 L 112/56 L Pulse Oximetry 94 Oxygen Delivery Method Fraction of Inspired Oxygen 03/06/24 00:07 03/06/24 00:07 03/06/24 00:10 Pulse Rate 73 Respiratory Rate 25 H Blood Pressure 109/58 L 107/59 L Pulse Oximetry 91 Oxygen Delivery Method Fraction of Inspired Oxygen 03/06/24 00:10 03/06/24 00:20 03/06/24 00:20 Pulse Rate 71 72 Respiratory Rate 24 24 Blood Pressure 99/50 L Pulse Oximetry 93 91 Oxygen Delivery Method Fraction of Inspired Oxygen 03/06/24 00:30 03/06/24 00:30 03/06/24 00:35 Pulse Rate 72 Respiratory Rate 25 H Blood Pressure 105/59 L Pulse Oximetry 94 Oxygen Delivery Method Fraction of Inspired Oxygen 45 03/06/24 00:40 03/06/24 00:40 03/06/24 00:50 Pulse Rate 70 71 Respiratory Rate 24 21 Blood Pressure 105/59 L Pulse Oximetry 96 97 Oxygen Delivery Method Fraction of Inspired Oxygen 03/06/24 00:50 03/06/24 01:00 03/06/24 01:00 Pulse Rate 72 Respiratory Rate 22 Blood Pressure 98/57 L 115/57 L Pulse Oximetry 97 Oxygen Delivery Method Fraction of Inspired Oxygen 03/06/24 01:10 03/06/24 01:10 03/06/24 01:20 Pulse Rate 72 74 Respiratory Rate 24 24 Blood Pressure 105/58 L Pulse Oximetry 97 97 Oxygen Delivery Method Fraction of Inspired Oxygen 03/06/24 01:20 03/06/24 01:30 03/06/24 01:30 Pulse Rate 74 Respiratory Rate 25 H Blood Pressure 105/57 L 110/55 L Pulse Oximetry 95 Oxygen Delivery Method Fraction of Inspired Oxygen 03/06/24 01:40 03/06/24 01:40 03/06/24 01:50 Pulse Rate 75 76 Respiratory Rate 26 H 27 H Blood Pressure 107/52 L Pulse Oximetry 94 93 Oxygen Delivery Method Fraction of Inspired Oxygen 03/06/24 01:50 03/06/24 02:00 03/06/24 02:00 Pulse Rate 76 Respiratory Rate 26 H Blood Pressure 114/57 L 113/55 L Pulse Oximetry 96 Oxygen Delivery Method Fraction of Inspired Oxygen 03/06/24 02:10 03/06/24 02:10 03/06/24 02:20 Pulse Rate 72 74 Respiratory Rate 28 H 22 Blood Pressure 112/57 L Pulse Oximetry 97 92 Oxygen Delivery Method Fraction of Inspired Oxygen 03/06/24 02:20 03/06/24 02:30 03/06/24 02:30 Pulse Rate 71 Respiratory Rate 29 H Blood Pressure 116/64 112/56 L Pulse Oximetry 97 Oxygen Delivery Method Fraction of Inspired Oxygen 03/06/24 02:40 03/06/24 02:40 03/06/24 02:50 Pulse Rate 73 77 Respiratory Rate 28 H 32 H Blood Pressure 113/58 L Pulse Oximetry 96 90 L Oxygen Delivery Method Fraction of Inspired Oxygen 03/06/24 02:50 03/06/24 03:00 03/06/24 03:00 Pulse Rate 74 Respiratory Rate 29 H Blood Pressure 105/58 L 108/57 L Pulse Oximetry 90 L Oxygen Delivery Method Fraction of Inspired Oxygen MDM - Altered Mental Status <Manasa Montgomery, DO - Last Filed: 03/07/24 08:27> Lab Data 03/05/24 15:37 03/05/24 17:42 Labs: Lab Results 03/05/24 03/05/24 03/05/24 Range/Units 15:37 15:59 16:42 WBC 10.2 (4.5-11.0) X10^3/uL RBC 4.23 (4.0-5.2) X10^6/uL Hgb 13.2 (12.0-16.0) g/dL Hct 39.5 (36-46) % MCV 93.2 (80-100) fL MCH 31.1 (26-34) PG MCHC 33.4 (30-36) % RDW 14.7 (11.6-14.8) % Plt Count 131 L (150-400) X10^3/uL Neut % (Auto) Not Reportable Lymph % (Auto) Not Reportable Ballard % (Auto) Not Reportable Eos % (Auto) Not Reportable Baso % (Auto) Not Reportable Lymph # (Auto) Not Reportable Ballard # (Auto) Not Reportable Baso # (Auto) Not Reportable Total Counted 100 Seg Neutrophils % 75.0 H (38-70) % Band Neutrophils % 8.0 H (3-7) % Lymphocytes % (Manual) 5.0 L (25-45) % Monocytes % (Manual) 8.0 (2-11) % Metamyelocytes % 4.0 H (-0) % Neutrophils # (Manual) 8466 H (7380-5422) /uL RBC Morphology Normal morphology PT 10.3 (9.4-12.5) SECONDS INR 0.9 (0.9-1.3) APTT 31 (25.1-36.5) SECONDS ABG Sample Site Left brachial ABG pH 7.27 L* (7.35-7.45) ABG pCO2 57.9 H (35-45) mmHg ABG pO2 61 L (80-100) mmHg ABG HCO3 27 (23-27) mmol/L ABG Total CO2 26 (23-27) mmol/L ABG O2 Saturation 87 L (95-100) % ABG Base Excess -1.3 (-2-3) mmol/L Damián Test N/a O2 Delivery Device Cannula Sodium 128 L (137-145) mmol/L Potassium 4.3 (3.4-5.1) mmol/L Chloride 92 L (98-107) mmol/L Carbon Dioxide 25 (22-32) mmol/L BUN 82 H (7-17) mg/dL Creatinine 3.13 H (0.52-1.04) mg/dL Estimated GFR 15 L (>60) mL/min BUN/Creatinine Ratio 26.2 H (6-22) Glucose 122 H (80-110) mg/dL Lactate 2.5 H (0.7-2.1) mmol/L Calcium 8.6 (8.4-10.2) mg/dL Total Bilirubin 0.7 (0.2-1.3) mg/dL AST 60 H (14-36) IU/L ALT 37 H (<35) IU/L Alkaline Phosphatase 71 (38-126) U/L Ammonia (9-30) umol/L Total Creatine Kinase 190 H (30-135) U/L Troponin I 0.042 H (0.01-0.034) ng/mL Total Protein 6.3 (6.3-8.2) g/dL Albumin 3.3 L (3.5-5.0) g/dL Globulin 3.0 (1.7-4.1) g/dL Albumin/Globulin Ratio 1.1 (1.0-2.8) Procalcitonin 58.1 H (<0.5) ng/mL TSH 2.13 D (0.47-4.68) uIU/mL Urine Color Urine Appearance Urine pH (4.5-8.0) Ur Specific [place] (1.000-1.035) Urine Protein (Negative) Urine Glucose (UA) (Negative) g/dL Urine Ketones (NEGATIVE) Urine Occult Blood (Negative) Urine Nitrate (Negative) Urine Bilirubin (NEGATIVE) Urine Urobilinogen (0.2) E.U./dL Ur Leukocyte Esterase (NEGATIVE) Urine RBC (0-5/HPF) Urine WBC (0-5/HPF) Ur Squamous Epith Cells (0-5/HPF) Ur Transition Epith Cell (0-5/HPF) Ur Renal Epithelial Cell (0-1/HPF) Amorphous Sediment Urine Bacteria (None) Hyaline Casts (None) Granular Casts (None) Ur Culture Indicated? Vol Urine Centrifuged U Opiates 300ng/mL cut (Negative) Ur Oxycodone Screen (Negative) Urine Methadone Screen (Negative) Ur Barbiturates Screen (Negative) U Tricyclic Antidepress (Negative) Ur Phencyclidine Scrn (Negative) Ur Amphetamines Screen (Negative) U Methamphetamines Scrn (Negative) Ur MDMA Scrn (Ecstasy) (Negative) U Benzodiazepines Scrn (Negative) Urine Cocaine Screen (Negative) U Marijuana (THC) Screen (Negative) Urine Specific [place] (Normal) Ethyl Alcohol < 10 ( - 10) mg/dL Ur Creatinine (Normal) A.calcoaceticus-baumannii cmplx PCR Not detected (Not Detect) Bacteroides fragilis Not detected (Not Detect) Barbara albicans (PCR) Not detected (Not Detect) Barbara auris (PCR) Not detected (Not Detect) C. glabrata (PCR) Not detected (Not Detect) C. krusei (PCR) Not detected (Not Detect) C. parapsilosis (PCR) Not detected (Not Detect) C. tropicalis (PCR) Not detected (Not Detect) C. neoform/gattii (PCR) Not detected (Not Detect) Enterobacterales (PCR) Not detected (Not Detect) E. cloacae complex PCR Not detected (Not Detect) Enterococc faecalis PCR Not detected (Not Detect) Enterococc faecium PCR Not detected (Not Detect) E. coli (PCR) Not detected (Not Detect) H. influenzae (PCR) Not detected (Not Detect) Klebsiella aerogenes (PCR) Not detected (Not Detect) Klebsiella oxytoca PCR Not detected (Not Detect) Klebsiella pneumoniae Not detected (Not Detect) List. monocytogenes PCR Not detected (Not Detect) N. meningitidis (PCR) Not detected (Not Detect) Proteus species (PCR) Not detected (Not Detect) Salmonella spp. (PCR) Not detected (Not Detect) Serratia marcescens PCR Not detected (Not Detect) Staphylococcus sp PCR Detected (Not Detect) Staph aureus (PCR) Detected (Not Detect) mecA/C & MREJ Resist Gene Detected (Not Detect) mecA/C-Methicil Resis Gene Not applicable (Not Detect) mcr-1 Colistin Res Gene PCR Not applicable (Not Detect) Staph epidermidis (PCR) Not detected (Not Detect) Staph lugdunensis PCR Not detected (Not Detect) S. maltophilia (PCR) Not detected (Not Detect) Streptococcus sp PCR Not detected (Not Detect) Group A Strep (PCR) Not detected (Not Detect) Strep agalactiae (PCR) Not detected (Not Detect) Strep pneumoniae (PCR) Not detected (Not Detect) P. aeruginosa (PCR) Not detected (Not Detect) Praful/B-Vanco Res Genes Not applicable (Not Detect) blaIMP Car res Gene PCR Not applicable (Not Detect) KPC-Carbap Res Gene PCR Not applicable (Not Detect) blaNDM Car Res Gene PCR Not applicable (Not Detect) OXA-48 Carbapenem Resis Gene (PCR) Not applicable (Not Detect) blaVIM Car Res Gene PCR Not applicable (Not Detect) CTX-M Gene Resistance (PCR) Not applicable (Not Detect) 03/05/24 03/05/24 03/05/24 Range/Units 16:45 17:05 17:05 WBC (4.5-11.0) X10^3/uL RBC (4.0-5.2) X10^6/uL Hgb (12.0-16.0) g/dL Hct (36-46) % MCV (80-100) fL MCH (26-34) PG MCHC (30-36) % RDW (11.6-14.8) % Plt Count (150-400) X10^3/uL Neut % (Auto) Lymph % (Auto) Ballard % (Auto) Eos % (Auto) Baso % (Auto) Lymph # (Auto) Ballard # (Auto) Baso # (Auto) Total Counted Seg Neutrophils % (38-70) % Band Neutrophils % (3-7) % Lymphocytes % (Manual) (25-45) % Monocytes % (Manual) (2-11) % Metamyelocytes % (-0) % Neutrophils # (Manual) (4220-2920) /uL RBC Morphology PT (9.4-12.5) SECONDS INR (0.9-1.3) APTT (25.1-36.5) SECONDS ABG Sample Site ABG pH (7.35-7.45) ABG pCO2 (35-45) mmHg ABG pO2 (80-100) mmHg ABG HCO3 (23-27) mmol/L ABG Total CO2 (23-27) mmol/L ABG O2 Saturation (95-100) % ABG Base Excess (-2-3) mmol/L Damián Test O2 Delivery Device Sodium (137-145) mmol/L Potassium (3.4-5.1) mmol/L Chloride (98-107) mmol/L Carbon Dioxide (22-32) mmol/L BUN (7-17) mg/dL Creatinine (0.52-1.04) mg/dL Estimated GFR (>60) mL/min BUN/Creatinine Ratio (6-22) Glucose (80-110) mg/dL Lactate (0.7-2.1) mmol/L Calcium (8.4-10.2) mg/dL Total Bilirubin (0.2-1.3) mg/dL AST (14-36) IU/L ALT (<35) IU/L Alkaline Phosphatase (38-126) U/L Ammonia < 9 L (9-30) umol/L Total Creatine Kinase (30-135) U/L Troponin I (0.01-0.034) ng/mL Total Protein (6.3-8.2) g/dL Albumin (3.5-5.0) g/dL Globulin (1.7-4.1) g/dL Albumin/Globulin Ratio (1.0-2.8) Procalcitonin (<0.5) ng/mL TSH (0.47-4.68) uIU/mL Urine Color Yellow Urine Appearance Sl cloudy Urine pH 5.0 Normal (4.5-8.0) Ur Specific [place] >=1.030 H (1.000-1.035) Urine Protein 2+ H (Negative) Urine Glucose (UA) Negative (Negative) g/dL Urine Ketones Negative (NEGATIVE) Urine Occult Blood 2+ H (Negative) Urine Nitrate Negative (Negative) Urine Bilirubin Negative (NEGATIVE) Urine Urobilinogen 1.0 (0.2) E.U./dL Ur Leukocyte Esterase Trace H (NEGATIVE) Urine RBC 0-1/hpf (0-5/HPF) Urine WBC None seen (0-5/HPF) Ur Squamous Epith Cells 0-1 /hpf (0-5/HPF) Ur Transition Epith Cell 0-1/hpf (0-5/HPF) Ur Renal Epithelial Cell 0-1/hpf (0-1/HPF) Amorphous Sediment 1+ Urine Bacteria Few (2-10) H (None) Hyaline Casts 1-5/lpf (None) Granular Casts 0-1/lpf (None) Ur Culture Indicated? Cult not indicated Vol Urine Centrifuged Low vol <1ml unspun A U Opiates 300ng/mL cut Negative (Negative) Ur Oxycodone Screen Positive H (Negative) Urine Methadone Screen Negative (Negative) Ur Barbiturates Screen Negative (Negative) U Tricyclic Antidepress Negative (Negative) Ur Phencyclidine Scrn Negative (Negative) Ur Amphetamines Screen Negative (Negative) U Methamphetamines Scrn Negative (Negative) Ur MDMA Scrn (Ecstasy) Negative (Negative) U Benzodiazepines Scrn Positive H (Negative) Urine Cocaine Screen Negative (Negative) U Marijuana (THC) Screen Negative (Negative) Urine Specific [place] Normal (Normal) Ethyl Alcohol ( - 10) mg/dL Ur Creatinine Normal (Normal) A.calcoaceticus-baumannii cmplx PCR (Not Detect) Bacteroides fragilis (Not Detect) Barbara albicans (PCR) (Not Detect) Barbara auris (PCR) (Not Detect) C. glabrata (PCR) (Not Detect) C. krusei (PCR) (Not Detect) C. parapsilosis (PCR) (Not Detect) C. tropicalis (PCR) (Not Detect) C. neoform/gattii (PCR) (Not Detect) Enterobacterales (PCR) (Not Detect) E. cloacae complex PCR (Not Detect) Enterococc faecalis PCR (Not Detect) Enterococc faecium PCR (Not Detect) E. coli (PCR) (Not Detect) H. influenzae (PCR) (Not Detect) Klebsiella aerogenes (PCR) (Not Detect) Klebsiella oxytoca PCR (Not Detect) Klebsiella pneumoniae (Not Detect) List. monocytogenes PCR (Not Detect) N. meningitidis (PCR) (Not Detect) Proteus species (PCR) (Not Detect) Salmonella spp. (PCR) (Not Detect) Serratia marcescens PCR (Not Detect) Staphylococcus sp PCR (Not Detect) Staph aureus (PCR) (Not Detect) mecA/C & MREJ Resist Gene (Not Detect) mecA/C-Methicil Resis Gene (Not Detect) mcr-1 Colistin Res Gene PCR (Not Detect) Staph epidermidis (PCR) (Not Detect) Staph lugdunensis PCR (Not Detect) S. maltophilia (PCR) (Not Detect) Streptococcus sp PCR (Not Detect) Group A Strep (PCR) (Not Detect) Strep agalactiae (PCR) (Not Detect) Strep pneumoniae (PCR) (Not Detect) P. aeruginosa (PCR) (Not Detect) Praful/B-Vanco Res Genes (Not Detect) blaIMP Car res Gene PCR (Not Detect) KPC-Carbap Res Gene PCR (Not Detect) blaNDM Car Res Gene PCR (Not Detect) OXA-48 Carbapenem Resis Gene (PCR) (Not Detect) blaVIM Car Res Gene PCR (Not Detect) CTX-M Gene Resistance (PCR) (Not Detect) 03/05/24 03/05/24 Range/Units 17:42 19:17 WBC (4.5-11.0) X10^3/uL RBC (4.0-5.2) X10^6/uL Hgb (12.0-16.0) g/dL Hct (36-46) % MCV (80-100) fL MCH (26-34) PG MCHC (30-36) % RDW (11.6-14.8) % Plt Count (150-400) X10^3/uL Neut % (Auto) Lymph % (Auto) Ballard % (Auto) Eos % (Auto) Baso % (Auto) Lymph # (Auto) Ballard # (Auto) Baso # (Auto) Total Counted Seg Neutrophils % (38-70) % Band Neutrophils % (3-7) % Lymphocytes % (Manual) (25-45) % Monocytes % (Manual) (2-11) % Metamyelocytes % (-0) % Neutrophils # (Manual) (1258-4295) /uL RBC Morphology PT (9.4-12.5) SECONDS INR (0.9-1.3) APTT (25.1-36.5) SECONDS ABG Sample Site Left radial ABG pH 7.28 L* (7.35-7.45) ABG pCO2 50.2 H (35-45) mmHg ABG pO2 87 (80-100) mmHg ABG HCO3 23 (23-27) mmol/L ABG Total CO2 23 (23-27) mmol/L ABG O2 Saturation 95 (95-100) % ABG Base Excess -3.6 L (-2-3) mmol/L Damián Test Positive O2 Delivery Device Sodium 130 L (137-145) mmol/L Potassium 3.9 (3.4-5.1) mmol/L Chloride 98 (98-107) mmol/L Carbon Dioxide 24 (22-32) mmol/L BUN 75 H (7-17) mg/dL Creatinine 2.66 H (0.52-1.04) mg/dL Estimated GFR 18 L (>60) mL/min BUN/Creatinine Ratio 28.2 H (6-22) Glucose 97 (80-110) mg/dL Lactate 1.7 (0.7-2.1) mmol/L Calcium 7.3 L (8.4-10.2) mg/dL Total Bilirubin (0.2-1.3) mg/dL AST (14-36) IU/L ALT (<35) IU/L Alkaline Phosphatase (38-126) U/L Ammonia (9-30) umol/L Total Creatine Kinase (30-135) U/L Troponin I 0.033 (0.01-0.034) ng/mL Total Protein (6.3-8.2) g/dL Albumin (3.5-5.0) g/dL Globulin (1.7-4.1) g/dL Albumin/Globulin Ratio (1.0-2.8) Procalcitonin (<0.5) ng/mL TSH (0.47-4.68) uIU/mL Urine Color Urine Appearance Urine pH (4.5-8.0) Ur Specific [place] (1.000-1.035) Urine Protein (Negative) Urine Glucose (UA) (Negative) g/dL Urine Ketones (NEGATIVE) Urine Occult Blood (Negative) Urine Nitrate (Negative) Urine Bilirubin (NEGATIVE) Urine Urobilinogen (0.2) E.U./dL Ur Leukocyte Esterase (NEGATIVE) Urine RBC (0-5/HPF) Urine WBC (0-5/HPF) Ur Squamous Epith Cells (0-5/HPF) Ur Transition Epith Cell (0-5/HPF) Ur Renal Epithelial Cell (0-1/HPF) Amorphous Sediment Urine Bacteria (None) Hyaline Casts (None) Granular Casts (None) Ur Culture Indicated? Vol Urine Centrifuged U Opiates 300ng/mL cut (Negative) Ur Oxycodone Screen (Negative) Urine Methadone Screen (Negative) Ur Barbiturates Screen (Negative) U Tricyclic Antidepress (Negative) Ur Phencyclidine Scrn (Negative) Ur Amphetamines Screen (Negative) U Methamphetamines Scrn (Negative) Ur MDMA Scrn (Ecstasy) (Negative) U Benzodiazepines Scrn (Negative) Urine Cocaine Screen (Negative) U Marijuana (THC) Screen (Negative) Urine Specific [place] (Normal) Ethyl Alcohol ( - 10) mg/dL Ur Creatinine (Normal) A.calcoaceticus-baumannii cmplx PCR (Not Detect) Bacteroides fragilis (Not Detect) Barbara albicans (PCR) (Not Detect) Barbara auris (PCR) (Not Detect) C. glabrata (PCR) (Not Detect) C. krusei (PCR) (Not Detect) C. parapsilosis (PCR) (Not Detect) C. tropicalis (PCR) (Not Detect) C. neoform/gattii (PCR) (Not Detect) Enterobacterales (PCR) (Not Detect) E. cloacae complex PCR (Not Detect) Enterococc faecalis PCR (Not Detect) Enterococc faecium PCR (Not Detect) E. coli (PCR) (Not Detect) H. influenzae (PCR) (Not Detect) Klebsiella aerogenes (PCR) (Not Detect) Klebsiella oxytoca PCR (Not Detect) Klebsiella pneumoniae (Not Detect) List. monocytogenes PCR (Not Detect) N. meningitidis (PCR) (Not Detect) Proteus species (PCR) (Not Detect) Salmonella spp. (PCR) (Not Detect) Serratia marcescens PCR (Not Detect) Staphylococcus sp PCR (Not Detect) Staph aureus (PCR) (Not Detect) mecA/C & MREJ Resist Gene (Not Detect) mecA/C-Methicil Resis Gene (Not Detect) mcr-1 Colistin Res Gene PCR (Not Detect) Staph epidermidis (PCR) (Not Detect) Staph lugdunensis PCR (Not Detect) S. maltophilia (PCR) (Not Detect) Streptococcus sp PCR (Not Detect) Group A Strep (PCR) (Not Detect) Strep agalactiae (PCR) (Not Detect) Strep pneumoniae (PCR) (Not Detect) P. aeruginosa (PCR) (Not Detect) Praful/B-Vanco Res Genes (Not Detect) blaIMP Car res Gene PCR (Not Detect) KPC-Carbap Res Gene PCR (Not Detect) blaNDM Car Res Gene PCR (Not Detect) OXA-48 Carbapenem Resis Gene (PCR) (Not Detect) blaVIM Car Res Gene PCR (Not Detect) CTX-M Gene Resistance (PCR) (Not Detect) ECG Data Attestation: I personally reviewed and interpreted this ECG as follows: Prior ECG tracings: available for review Interpretation: Sinus rhythm rate 86 CO 150 QRS is 76 QTC of 430, no acute ST elevation depression noted. Patient has prior from 03/02/2024 overall appears similar accept for lateral leads V3 through V6 T-waves are little bit more upright and peaked but no consistent ST elevation, no new depression. MDM Narrative Medical decision making narrative: 73-year-old female comes in hypotensive, little bit tachypneic altered some pursed lip breathing has known COPD on 6 L O2 with EMS but is typically on 2-4 L nasal cannula. On exam patient is sedated pinpoint pupils, received Narcan 0.2 mg had significant improvement in mentation stable to answer questions much better. ABG shows pH of 7.27 pCO2 of 57 PO2 of 61 bicarb of 26. Patient has had priors has not been quite as acidotic has been higher pCO2 is 60s and 70s in the past but on last visit on 03/02/2024 had a pH of 7.44 with a pCO2 of 38 and a PO2 of 69 with a bicarb of 26. Suspect little bit of narcotic overdoses patient states she has been taking some oxycodone can not tell us how many combination with her COPD and having a little bit of hypercapnic respiratory failure as well. Patient was placed on BiPAP we will reassess. Was given additional dose of Narcan 0.2 mg after about 30 minutes as it seemed to be wearing off. We will consider Narcan drip if necessary. Labs, white count of 10.2 hemoglobin of 13 platelets of 131 patient has been intermittently thrombocytopenic, 75% segmented neutrophils 8% bands. 4% metamyelocytes. Sodium is 128 similar to prior in January she was 130 on the 02 of March, old creatinine is 3.13 with a GFR of 15 this is increased from 3 days ago. BS is 122. Lactate 2.5, calcium 8.6, AST ALT are slightly elevated at 16 37 total CK is 190 trop is 0.04 with a procalcitonin of 58.1 and a TSH Chest x-ray shows possible aspiration pneumonia with left basilar consolidation less likely malignancy. CT head shows no acute change CT KUB ordered as patient has KARO. DI requested for can add CT chest concern for possible mass based off CT KUB in his was added on. No acute abnormality of the CT abdomen a prominent L4 Schmorl's node degenerative disc disease. CT chest obstructive left lower lobe bronchus resulting in presumed postobstructive pneumonia left lower lobe probable sequela of aspiration and a bronchial evaluation can be considered. Patient received a 1L bolus, antibiotics, Narcan x3, patient improves with the has a decrease in mentation again placed on Narcan drip as she seems to respond to 0.2 mg doses Placed on BiPAP, patient has had improved aeration plan for repeat ABG Patient has had 2.5 L had some drop in her blood pressures suspect component of sepsis patient might require pressors. Spoke with her POA who is agreeable to interventions. Patient is started on antibiotics. Patient discussed code status with the patient, she indicates her heart will not stop really answer the question. She has some family/caregiver who is expected to arrive shortly we will clarify with them. Spoke with POA, patient was full code they are agreeable to central line and pressors as needed. Will also likely need transfer for postobstructive aspiration pneumonia, sepsis, septic shock, KARO/renal failure, Patient signed out to Dr. Masterson. 1900: Patient was signed out to me by morning provider, patient brought in for altered mental status, responded to Narcan therefore Narcan drip was ordered, CT scan showing postobstructive pneumonia of the left lung base, added vancomycin for MRSA coverage given patient with recent history of hospitalization, Zosyn had already been ordered. Patient has already received 3 L normal saline pressure is still soft mapping under 65 therefore decision was made to place central line. Levophed has been ordered. Patient on BiPAP for work of breathing, most recent ABG showing pH 7.275 CO2 50 PO2 87 continue BiPAP 1934: Had discussion with Dr. Abad, database design analyst at [facility] accepts the patient pending bed placement, states possible bed availability at around 11:00 p.m. 0: Placed call back out to [facility] to determine if bed availability, states they are no beds this time therefore we will start reaching out to surrounding hospitals for transfer 2314: Call discussed with [facility] awaiting call back for possible transfer 24 @ 0015: Discussed case with Dr. win (database design analyst) at [facility] who accepts the admission/transfer 0314: Transport here at bedside, patient re-evaluated, stable for transport at this time patient will be sent out to [facility] for further evaluation and treatment of her symptoms <Gume Zelalem, - Last Filed: 03/06/24 03:15> Lab Data Labs: Lab Results 03/05/24 03/05/24 03/05/24 Range/Units 15:37 15:59 16:42 WBC 10.2 (4.5-11.0) X10^3/uL RBC 4.23 (4.0-5.2) X10^6/uL Hgb 13.2 (12.0-16.0) g/dL Hct 39.5 (36-46) % MCV 93.2 (80-100) fL MCH 31.1 (26-34) PG MCHC 33.4 (30-36) % RDW 14.7 (11.6-14.8) % Plt Count 131 L (150-400) X10^3/uL Neut % (Auto) Not Reportable Lymph % (Auto) Not Reportable Ballard % (Auto) Not Reportable Eos % (Auto) Not Reportable Baso % (Auto) Not Reportable Lymph # (Auto) Not Reportable [place] # (Auto) Not Reportable Baso # (Auto) Not Reportable Total Counted 100 Seg Neutrophils % 75.0 H (38-70) % Band Neutrophils % 8.0 H (3-7) % Lymphocytes % (Manual) 5.0 L (25-45) % Monocytes % (Manual) 8.0 (2-11) % Metamyelocytes % 4.0 H (-0) % Neutrophils # (Manual) 8466 H (8240-8858) /uL RBC Morphology Normal morphology PT 10.3 (9.4-12.5) SECONDS INR 0.9 (0.9-1.3) APTT 31 (25.1-36.5) SECONDS ABG Sample Site Left brachial ABG pH 7.27 L* (7.35-7.45) ABG pCO2 57.9 H (35-45) mmHg ABG pO2 61 L (80-100) mmHg ABG HCO3 27 (23-27) mmol/L ABG Total CO2 26 (23-27) mmol/L ABG O2 Saturation 87 L (95-100) % ABG Base Excess -1.3 (-2-3) mmol/L Damián Test N/a O2 Delivery Device Cannula Sodium 128 L (137-145) mmol/L Potassium 4.3 (3.4-5.1) mmol/L Chloride 92 L (98-107) mmol/L Carbon Dioxide 25 (22-32) mmol/L BUN 82 H (7-17) mg/dL Creatinine 3.13 H (0.52-1.04) mg/dL Estimated GFR 15 L (>60) mL/min BUN/Creatinine Ratio 26.2 H (6-22) Glucose 122 H (80-110) mg/dL Lactate 2.5 H (0.7-2.1) mmol/L Calcium 8.6 (8.4-10.2) mg/dL Total Bilirubin 0.7 (0.2-1.3) mg/dL AST 60 H (14-36) IU/L ALT 37 H (<35) IU/L Alkaline Phosphatase 71 (38-126) U/L Ammonia (9-30) umol/L Total Creatine Kinase 190 H (30-135) U/L Troponin I 0.042 H (0.01-0.034) ng/mL Total Protein 6.3 (6.3-8.2) g/dL Albumin 3.3 L (3.5-5.0) g/dL Globulin 3.0 (1.7-4.1) g/dL Albumin/Globulin Ratio 1.1 (1.0-2.8) Procalcitonin 58.1 H (<0.5) ng/mL TSH 2.13 D (0.47-4.68) uIU/mL Urine Color Urine Appearance Urine pH (4.5-8.0) Ur Specific [place] (1.000-1.035) Urine Protein (Negative) Urine Glucose (UA) (Negative) g/dL Urine Ketones (NEGATIVE) Urine Occult Blood (Negative) Urine Nitrate (Negative) Urine Bilirubin (NEGATIVE) Urine Urobilinogen (0.2) E.U./dL Ur Leukocyte Esterase (NEGATIVE) Urine RBC (0-5/HPF) Urine WBC (0-5/HPF) Ur Squamous Epith Cells (0-5/HPF) Ur Transition Epith Cell (0-5/HPF) Ur Renal Epithelial Cell (0-1/HPF) Amorphous Sediment Urine Bacteria (None) Hyaline Casts (None) Granular Casts (None) Ur Culture Indicated? Vol Urine Centrifuged U Opiates 300ng/mL cut (Negative) Ur Oxycodone Screen (Negative) Urine Methadone Screen (Negative) Ur Barbiturates Screen (Negative) U Tricyclic Antidepress (Negative) Ur Phencyclidine Scrn (Negative) Ur Amphetamines Screen (Negative) U Methamphetamines Scrn (Negative) Ur MDMA Scrn (Ecstasy) (Negative) U Benzodiazepines Scrn (Negative) Urine Cocaine Screen (Negative) U Marijuana (THC) Screen (Negative) Urine Specific [place] (Normal) Ethyl Alcohol < 10 ( - 10) mg/dL Ur Creatinine (Normal) A.calcoaceticus-baumannii cmplx PCR Not detected (Not Detect) Bacteroides fragilis Not detected (Not Detect) Barbara albicans (PCR) Not detected (Not Detect) Barbara auris (PCR) Not detected (Not Detect) C. glabrata (PCR) Not detected (Not Detect) C. krusei (PCR) Not detected (Not Detect) C. parapsilosis (PCR) Not detected (Not Detect) C. tropicalis (PCR) Not detected (Not Detect) C. neoform/gattii (PCR) Not detected (Not Detect) Enterobacterales (PCR) Not detected (Not Detect) E. cloacae complex PCR Not detected (Not Detect) Enterococc faecalis PCR Not detected (Not Detect) Enterococc faecium PCR Not detected (Not Detect) E. coli (PCR) Not detected (Not Detect) H. influenzae (PCR) Not detected (Not Detect) Klebsiella aerogenes (PCR) Not detected (Not Detect) Klebsiella oxytoca PCR Not detected (Not Detect) Klebsiella pneumoniae Not detected (Not Detect) List. monocytogenes PCR Not detected (Not Detect) N. meningitidis (PCR) Not detected (Not Detect) Proteus species (PCR) Not detected (Not Detect) Salmonella spp. (PCR) Not detected (Not Detect) Serratia marcescens PCR Not detected (Not Detect) Staphylococcus sp PCR Detected (Not Detect) Staph aureus (PCR) Detected (Not Detect) mecA/C & MREJ Resist Gene Detected (Not Detect) mecA/C-Methicil Resis Gene Not applicable (Not Detect) mcr-1 Colistin Res Gene PCR Not applicable (Not Detect) Staph epidermidis (PCR) Not detected (Not Detect) Staph lugdunensis PCR Not detected (Not Detect) S. maltophilia (PCR) Not detected (Not Detect) Streptococcus sp PCR Not detected (Not Detect) Group A Strep (PCR) Not detected (Not Detect) Strep agalactiae (PCR) Not detected (Not Detect) Strep pneumoniae (PCR) Not detected (Not Detect) P. aeruginosa (PCR) Not detected (Not Detect) Praful/B-Vanco Res Genes Not applicable (Not Detect) blaIMP Car res Gene PCR Not applicable (Not Detect) KPC-Carbap Res Gene PCR Not applicable (Not Detect) blaNDM Car Res Gene PCR Not applicable (Not Detect) OXA-48 Carbapenem Resis Gene (PCR) Not applicable (Not Detect) blaVIM Car Res Gene PCR Not applicable (Not Detect) CTX-M Gene Resistance (PCR) Not applicable (Not Detect) 03/05/24 03/05/24 03/05/24 Range/Units 16:45 17:05 17:05 WBC (4.5-11.0) X10^3/uL RBC (4.0-5.2) X10^6/uL Hgb (12.0-16.0) g/dL Hct (36-46) % MCV (80-100) fL MCH (26-34) PG MCHC (30-36) % RDW (11.6-14.8) % Plt Count (150-400) X10^3/uL Neut % (Auto) Lymph % (Auto) Ballard % (Auto) Eos % (Auto) Baso % (Auto) Lymph # (Auto) Ballard # (Auto) Baso # (Auto) Total Counted Seg Neutrophils % (38-70) % Band Neutrophils % (3-7) % Lymphocytes % (Manual) (25-45) % Monocytes % (Manual) (2-11) % Metamyelocytes % (-0) % Neutrophils # (Manual) (1419-1271) /uL RBC Morphology PT (9.4-12.5) SECONDS INR (0.9-1.3) APTT (25.1-36.5) SECONDS ABG Sample Site ABG pH (7.35-7.45) ABG pCO2 (35-45) mmHg ABG pO2 (80-100) mmHg ABG HCO3 (23-27) mmol/L ABG Total CO2 (23-27) mmol/L ABG O2 Saturation (95-100) % ABG Base Excess (-2-3) mmol/L Damián Test O2 Delivery Device Sodium (137-145) mmol/L Potassium (3.4-5.1) mmol/L Chloride (98-107) mmol/L Carbon Dioxide (22-32) mmol/L BUN (7-17) mg/dL Creatinine (0.52-1.04) mg/dL Estimated GFR (>60) mL/min BUN/Creatinine Ratio (6-22) Glucose (80-110) mg/dL Lactate (0.7-2.1) mmol/L Calcium (8.4-10.2) mg/dL Total Bilirubin (0.2-1.3) mg/dL AST (14-36) IU/L ALT (<35) IU/L Alkaline Phosphatase (38-126) U/L Ammonia < 9 L (9-30) umol/L Total Creatine Kinase (30-135) U/L Troponin I (0.01-0.034) ng/mL Total Protein (6.3-8.2) g/dL Albumin (3.5-5.0) g/dL Globulin (1.7-4.1) g/dL Albumin/Globulin Ratio (1.0-2.8) Procalcitonin (<0.5) ng/mL TSH (0.47-4.68) uIU/mL Urine Color Yellow Urine Appearance Sl cloudy Urine pH 5.0 Normal (4.5-8.0) Ur Specific [place] >=1.030 H (1.000-1.035) Urine Protein 2+ H (Negative) Urine Glucose (UA) Negative (Negative) g/dL Urine Ketones Negative (NEGATIVE) Urine Occult Blood 2+ H (Negative) Urine Nitrate Negative (Negative) Urine Bilirubin Negative (NEGATIVE) Urine Urobilinogen 1.0 (0.2) E.U./dL Ur Leukocyte Esterase Trace H (NEGATIVE) Urine RBC 0-1/hpf (0-5/HPF) Urine WBC None seen (0-5/HPF) Ur Squamous Epith Cells 0-1 /hpf (0-5/HPF) Ur Transition Epith Cell 0-1/hpf (0-5/HPF) Ur Renal Epithelial Cell 0-1/hpf (0-1/HPF) Amorphous Sediment 1+ Urine Bacteria Few (2-10) H (None) Hyaline Casts 1-5/lpf (None) Granular Casts 0-1/lpf (None) Ur Culture Indicated? Cult not indicated Vol Urine Centrifuged Low vol <1ml unspun A U Opiates 300ng/mL cut Negative (Negative) Ur Oxycodone Screen Positive H (Negative) Urine Methadone Screen Negative (Negative) Ur Barbiturates Screen Negative (Negative) U Tricyclic Antidepress Negative (Negative) Ur Phencyclidine Scrn Negative (Negative) Ur Amphetamines Screen Negative (Negative) U Methamphetamines Scrn Negative (Negative) Ur MDMA Scrn (Ecstasy) Negative (Negative) U Benzodiazepines Scrn Positive H (Negative) Urine Cocaine Screen Negative (Negative) U Marijuana (THC) Screen Negative (Negative) Urine Specific [place] Normal (Normal) Ethyl Alcohol ( - 10) mg/dL Ur Creatinine Normal (Normal) A.calcoaceticus-baumannii cmplx PCR (Not Detect) Bacteroides fragilis (Not Detect) Barbara albicans (PCR) (Not Detect) Barbara auris (PCR) (Not Detect) C. glabrata (PCR) (Not Detect) C. krusei (PCR) (Not Detect) C. parapsilosis (PCR) (Not Detect) C. tropicalis (PCR) (Not Detect) C. neoform/gattii (PCR) (Not Detect) Enterobacterales (PCR) (Not Detect) E. cloacae complex PCR (Not Detect) Enterococc faecalis PCR (Not Detect) Enterococc faecium PCR (Not Detect) E. coli (PCR) (Not Detect) H. influenzae (PCR) (Not Detect) Klebsiella aerogenes (PCR) (Not Detect) Klebsiella oxytoca PCR (Not Detect) Klebsiella pneumoniae (Not Detect) List. monocytogenes PCR (Not Detect) N. meningitidis (PCR) (Not Detect) Proteus species (PCR) (Not Detect) Salmonella spp. (PCR) (Not Detect) Serratia marcescens PCR (Not Detect) Staphylococcus sp PCR (Not Detect) Staph aureus (PCR) (Not Detect) mecA/C & MREJ Resist Gene (Not Detect) mecA/C-Methicil Resis Gene (Not Detect) mcr-1 Colistin Res Gene PCR (Not Detect) Staph epidermidis (PCR) (Not Detect) Staph lugdunensis PCR (Not Detect) S. maltophilia (PCR) (Not Detect) Streptococcus sp PCR (Not Detect) Group A Strep (PCR) (Not Detect) Strep agalactiae (PCR) (Not Detect) Strep pneumoniae (PCR) (Not Detect) P. aeruginosa (PCR) (Not Detect) Praful/B-Vanco Res Genes (Not Detect) blaIMP Car res Gene PCR (Not Detect) KPC-Carbap Res Gene PCR (Not Detect) blaNDM Car Res Gene PCR (Not Detect) OXA-48 Carbapenem Resis Gene (PCR) (Not Detect) blaVIM Car Res Gene PCR (Not Detect) CTX-M Gene Resistance (PCR) (Not Detect) 03/05/24 03/05/24 Range/Units 17:42 19:17 WBC (4.5-11.0) X10^3/uL RBC (4.0-5.2) X10^6/uL Hgb (12.0-16.0) g/dL Hct (36-46) % MCV (80-100) fL MCH (26-34) PG MCHC (30-36) % RDW (11.6-14.8) % Plt Count (150-400) X10^3/uL Neut % (Auto) Lymph % (Auto) Ballard % (Auto) Eos % (Auto) Baso % (Auto) Lymph # (Auto) Ballard # (Auto) Baso # (Auto) Total Counted Seg Neutrophils % (38-70) % Band Neutrophils % (3-7) % Lymphocytes % (Manual) (25-45) % Monocytes % (Manual) (2-11) % Metamyelocytes % (-0) % Neutrophils # (Manual) (7483-6729) /uL RBC Morphology PT (9.4-12.5) SECONDS INR (0.9-1.3) APTT (25.1-36.5) SECONDS ABG Sample Site Left radial ABG pH 7.28 L* (7.35-7.45) ABG pCO2 50.2 H (35-45) mmHg ABG pO2 87 (80-100) mmHg ABG HCO3 23 (23-27) mmol/L ABG Total CO2 23 (23-27) mmol/L ABG O2 Saturation 95 (95-100) % ABG Base Excess -3.6 L (-2-3) mmol/L Damián Test Positive O2 Delivery Device Sodium 130 L (137-145) mmol/L Potassium 3.9 (3.4-5.1) mmol/L Chloride 98 (98-107) mmol/L Carbon Dioxide 24 (22-32) mmol/L BUN 75 H (7-17) mg/dL Creatinine 2.66 H (0.52-1.04) mg/dL Estimated GFR 18 L (>60) mL/min BUN/Creatinine Ratio 28.2 H (6-22) Glucose 97 (80-110) mg/dL Lactate 1.7 (0.7-2.1) mmol/L Calcium 7.3 L (8.4-10.2) mg/dL Total Bilirubin (0.2-1.3) mg/dL AST (14-36) IU/L ALT (<35) IU/L Alkaline Phosphatase (38-126) U/L Ammonia (9-30) umol/L Total Creatine Kinase (30-135) U/L Troponin I 0.033 (0.01-0.034) ng/mL Total Protein (6.3-8.2) g/dL Albumin (3.5-5.0) g/dL Globulin (1.7-4.1) g/dL Albumin/Globulin Ratio (1.0-2.8) Procalcitonin (<0.5) ng/mL TSH (0.47-4.68) uIU/mL Urine Color Urine Appearance Urine pH (4.5-8.0) Ur Specific [place] (1.000-1.035) Urine Protein (Negative) Urine Glucose (UA) (Negative) g/dL Urine Ketones (NEGATIVE) Urine Occult Blood (Negative) Urine Nitrate (Negative) Urine Bilirubin (NEGATIVE) Urine Urobilinogen (0.2) E.U./dL Ur Leukocyte Esterase (NEGATIVE) Urine RBC (0-5/HPF) Urine WBC (0-5/HPF) Ur Squamous Epith Cells (0-5/HPF) Ur Transition Epith Cell (0-5/HPF) Ur Renal Epithelial Cell (0-1/HPF) Amorphous Sediment Urine Bacteria (None) Hyaline Casts (None) Granular Casts (None) Ur Culture Indicated? Vol Urine Centrifuged U Opiates 300ng/mL cut (Negative) Ur Oxycodone Screen (Negative) Urine Methadone Screen (Negative) Ur Barbiturates Screen (Negative) U Tricyclic Antidepress (Negative) Ur Phencyclidine Scrn (Negative) Ur Amphetamines Screen (Negative) U Methamphetamines Scrn (Negative) Ur MDMA Scrn (Ecstasy) (Negative) U Benzodiazepines Scrn (Negative) Urine Cocaine Screen (Negative) U Marijuana (THC) Screen (Negative) Urine Specific [place] (Normal) Ethyl Alcohol ( - 10) mg/dL Ur Creatinine (Normal) A.calcoaceticus-baumannii cmplx PCR (Not Detect) Bacteroides fragilis (Not Detect) Barbara albicans (PCR) (Not Detect) Barbara auris (PCR) (Not Detect) C. glabrata (PCR) (Not Detect) C. krusei (PCR) (Not Detect) C. parapsilosis (PCR) (Not Detect) C. tropicalis (PCR) (Not Detect) C. neoform/gattii (PCR) (Not Detect) Enterobacterales (PCR) (Not Detect) E. cloacae complex PCR (Not Detect) Enterococc faecalis PCR (Not Detect) Enterococc faecium PCR (Not Detect) E. coli (PCR) (Not Detect) H. influenzae (PCR) (Not Detect) Klebsiella aerogenes (PCR) (Not Detect) Klebsiella oxytoca PCR (Not Detect) Klebsiella pneumoniae (Not Detect) List. monocytogenes PCR (Not Detect) N. meningitidis (PCR) (Not Detect) Proteus species (PCR) (Not Detect) Salmonella spp. (PCR) (Not Detect) Serratia marcescens PCR (Not Detect) Staphylococcus sp PCR (Not Detect) Staph aureus (PCR) (Not Detect) mecA/C & MREJ Resist Gene (Not Detect) mecA/C-Methicil Resis Gene (Not Detect) mcr-1 Colistin Res Gene PCR (Not Detect) Staph epidermidis (PCR) (Not Detect) Staph lugdunensis PCR (Not Detect) S. maltophilia (PCR) (Not Detect) Streptococcus sp PCR (Not Detect) Group A Strep (PCR) (Not Detect) Strep agalactiae (PCR) (Not Detect) Strep pneumoniae (PCR) (Not Detect) P. aeruginosa (PCR) (Not Detect) Praful/B-Vanco Res Genes (Not Detect) blaIMP Car res Gene PCR (Not Detect) KPC-Carbap Res Gene PCR (Not Detect) blaNDM Car Res Gene PCR (Not Detect) OXA-48 Carbapenem Resis Gene (PCR) (Not Detect) blaVIM Car Res Gene PCR (Not Detect) CTX-M Gene Resistance (PCR) (Not Detect) MDM Narrative Medical decision making narrative: 73-year-old female comes in hypotensive, little bit tachypneic altered some pursed lip breathing has known COPD on 6 L O2 with EMS but is typically on 2-4 L nasal cannula. On exam patient is sedated pinpoint pupils, received Narcan 0.2 mg had significant improvement in mentation stable to answer questions much better. ABG shows pH of 7.27 pCO2 of 57 PO2 of 61 bicarb of 26. Patient has had priors has not been quite as acidotic has been higher pCO2 is 60s and 70s in the past but on last visit on 03/02/2024 had a pH of 7.44 with a pCO2 of 38 and a PO2 of 69 with a bicarb of 26. Suspect little bit of narcotic overdoses patient states she has been taking some oxycodone can not tell us how many combination with her COPD and having a little bit of hypercapnic respiratory failure as well. Patient was placed on BiPAP we will reassess. Was given additional dose of Narcan 0.2 mg after about 30 minutes as it seemed to be wearing off. We will consider Narcan drip if necessary. Labs, white count of 10.2 hemoglobin of 13 platelets of 131 patient has been intermittently thrombocytopenic, 75% segmented neutrophils 8% bands. 4% metamyelocytes. Sodium is 128 similar to prior in January she was 130 on the 02 of March, old creatinine is 3.13 with a GFR of 15 this is increased from 3 days ago. BS is 122. Lactate 2.5, calcium 8.6, AST ALT are slightly elevated at 16 37 total CK is 190 trop is 0.04 with a procalcitonin of 58.1 and a TSH Chest x-ray shows possible aspiration pneumonia with left basilar consolidation less likely malignancy. CT head shows no acute change CT KUB ordered as patient has KARO. DI requested for can add CT chest concern for possible mass based off CT KUB in his was added on. No acute abnormality of the CT abdomen a prominent L4 Schmorl's node degenerative disc disease. CT chest obstructive left lower lobe bronchus resulting in presumed postobstructive pneumonia left lower lobe probable sequela of aspiration and a bronchial evaluation can be considered. Patient received a 1L bolus, antibiotics, Narcan x3, patient improves with the has a decrease in mentation again placed on Narcan drip as she seems to respond to 0.2 mg doses Placed on BiPAP, patient has had improved aeration plan for repeat ABG Patient has had 2.5 L had some drop in her blood pressures suspect component of sepsis patient might require pressors. Spoke with her POA who is agreeable to interventions. Patient is started on antibiotics. Patient discussed code status with the patient, she indicates her heart will not stop really answer the question. She has some family/caregiver who is expected to arrive shortly we will clarify with them. Spoke with POA, patient was full code they are agreeable to central line and pressors as needed. Will also likely need transfer for postobstructive aspiration pneumonia, sepsis, septic shock, KARO/renal failure, Patient signed out to Dr. Masterson, 1900: Patient was signed out to me by morning provider, patient brought in for altered mental status, responded to Narcan therefore Narcan drip was ordered, CT scan showing postobstructive pneumonia of the left lung base, added vancomycin for MRSA coverage given patient with recent history of hospitalization, Zosyn had already been ordered. Patient has already received 3 L normal saline pressure is still soft mapping under 65 therefore decision was made to place central line. Levophed has been ordered. Patient on BiPAP for work of breathing, most recent ABG showing pH 7.275 CO2 50 PO2 87 continue BiPAP 1934: Had discussion with Dr. Abad, database design analyst at [facility] accepts the patient pending bed placement, states possible bed availability at around 11:00 p.m. 2300: Placed call back out to [facility] to determine if bed availability, states they are no beds this time therefore we will start reaching out to surrounding hospitals for transfer 2315: Call discussed with [facility] transfer center awaiting call back for possible transfer 03.06.24 @ 0015: Discussed case with Dr. win (database design analyst) at [facility] who accepts the admission/transfer 0314: Transport here at bedside, patient re-evaluated, stable for transport at this time patient will be sent out to [facility] for further evaluation and treatment of her symptoms Critical Care Time <Manasa Montgomery, DO - Last Filed: 03/07/24 08:27> Critical Care Time Critical Care Time: Yes Total Critical Care Time: 45 Attestation: The high probability of a clinically significant, sudden or life threatening deterioration of the cardiac, pulmonary system(s) required my full and direct attention, intervention and personal management. The aggregate critical care time was [--] minutes. This time is in addition to time spent performing reported procedures but includes the following: [x] Data Review and interpretation [x] Patient assessment and monitoring of vital signs [x] Documentation [x] Medication orders and management Discharge Plan Departure Patient Disposition: [facility] Clinical Impression: Acute hypercapnic respiratory failure, KARO (acute kidney injury), Pneumonia, Septic shock Prescriptions: No Action atorvastatin 40 mg tablet 40 mg PO DAILY escitalopram oxalate 20 mg tablet 20 mg PO DAILY Patient Comments: TAKE 1 TABLET BY MOUTH EVERY MORNING DIRECTED levothyroxine 50 mcg tablet 50 mcg PO DAILY quetiapine 25 mg tablet 25 mg PO BEDTIME Patient Comments: TAKE 1 TABLET BY MOUTH EVERY NIGHT AT BEDTIME DIRECTED alprazolam 0.5 mg tablet 0.5 mg PO BID PRN (Reason: Anxiety) Patient Comments: TAKE 1 TABLET BY MOUTH UP TO TWICE DAILY NEEDED FOR ACUTE ANXIETY albuterol sulfate 90 mcg/actuation HFA aerosol inhaler 2 puff INHALATION Q4H PRN (Reason: shortness of breath or wheezing) Qty: 8.5 2RF alprazolam 0.5 mg tablet 0.5 - 1 mg PO DAILY PRN (Reason: anxiety) lidocaine 5 % adhesive patch,medicated 1 patch topical DAILY Qty: 15 0RF Rx Instructions: leave on most painful area for up to 12 hrs Referrals: Manasa Nayak MD [Primary Care Provider] -
[2024-03-05 16:21] LABS: Base Excess ABG -1.3 mmol/L (-2-3); Blood Gas Collection Site Left Brachial; Delivery System Cannula; HCO3 ABG 27 mmol/L (23-27); Oxygen Saturation ABG 87 % (95-100); PCO2 ABG 57.9 mmHg (35-45); PO2 ABG 61 mmHg (80-100); TCO2 ABG 26 mmol/L (23-27); pH ABG 7.27 (7.35-7.45)
[2024-03-05 16:23] LABS: Troponin I 0.042 ng/mL (0.01-0.034)
--- NOTE | 2024-03-05 16:25 | DI.CT.S_ITS ---
PROCEDURE: CT KIDNEY URETER BLADDER (KUB) INDICATIONS: altered, dagoberto, hypotension TECHNIQUE: Axial sections were acquired from the lung bases to the pubic symphysis. Coronal and sagittal reformats were performed. For radiation dose reduction, the following was used: automated exposure control, adjustment of mA and/or kV according to patient size. COMPARISON: None. FINDINGS: Image quality: Diagnostic. Lower Chest: Please see same day chest CT. URINARY: Right Kidney: No stones or hydronephrosis. Right Ureter: No hydroureter. Left Kidney: No stones or hydronephrosis. Left Ureter: No hydroureter. Bladder: Normal wall thickness. No stones. ABDOMEN: Liver: No contour-deforming solid mass. Gallbladder: Gallbladder sludge versus small stones. No wall thickening or pericholecystic edema to suggest acute cholecystitis. Biliary ducts: No biliary dilation. Pancreas: No ductal dilation. Spleen: Size is within normal limits. Adrenal Glands: No adrenal nodules. Stomach and Bowel: Normal colonic caliber, without significant wall thickening. Large colonic stool load. Peritoneum: No abnormal intraperitoneal fluid. No free air. Ventral Wall: No hernia. Abdominal Nodes: No enlarged retroperitoneal or mesenteric lymph nodes. Vessels: Aorta and inferior vena cava are normal in size. PELVIS: Pelvic Organs: Unremarkable. Pelvic Nodes: Unremarkable. Miscellaneous: No inguinal hernias are seen. Bones: Prominent L4 Schmorl's node. Degenerative disc disease of the lumbar spine. IMPRESSION: No acute abnormality. Please see same day chest CT for further discussion. Dictated by: Hakeem Vasques M.D. on 03/05/2024 at 16:46 Approved by: Hakeem Vasques M.D. on 03/05/2024 at 16:48
[2024-03-05 16:27] LABS: Procalcitonin 58.1 ng/mL (<0.5)
--- NOTE | 2024-03-05 16:32 | DI.CT.S_ITS ---
PROCEDURE: CT CHEST WO CON INDICATIONS: Left lung ? mass vs cancer. TECHNIQUE: Noncontrast 5 mm thick sections acquired from the pulmonary apices to the posterior costophrenic angles. 1 mm lung window, 5 mm thick coronal and sagittal and 7 mm axial MIP reformats were then acquired. For radiation dose reduction, the following was used: automated exposure control, adjustment of mA and/or kV according to patient size. COMPARISON: [facility], CT, CT ANGIO CHEST PE PROTOCOL, 02/08/2024, 21:20. [facility], CT, CT CHEST WO CON, 04/25/2023, 16:08. FINDINGS: Image quality: Diagnostic. Lower Neck: No enlarged lymph nodes. Thyroid: No thyroid nodules which require sonographic follow up, per consensus guidelines. Axillae: No enlarged lymph nodes. Chest Wall: Unremarkable. Bones: Unremarkable. Lungs and Pleura: No pneumothorax or pleural effusions. Advanced destructive emphysema. There is debris obstructing the left lower lobar bronchus. There is consolidation in left lower lobe. Additional layering debris within the dependent airways, with superimposed bronchial thickening period pre within the trachea and layering within the dependent airways of the right lower lobe as well. 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 Heart: Heart size is normal. No pericardial effusion. Thoracic Vessels: The aorta and pulmonary arteries demonstrate normal size. Mediastinum and Farrah: No enlarged lymph nodes. Esophagus: No wall thickening. No hiatal hernia. Upper Abdomen: Visualized upper abdomen solid organs and bowel loops appear normal. IMPRESSION: There is obstruction of the left lower lobar bronchus, resulting in presumed postobstructive pneumonia of the left lower lobe. This is probably a sequela of aspiration, as this airway was nonobstructed 02/08/2024. Endobronchial evaluation can be considered. Additional bronchial thickening and dependent debris within the right lower lobe, also favoring a sequela of aspiration. Dictated by: Hakeem Vasques M.D. on 03/05/2024 at 16:48 Approved by: Hakeem Vasques M.D. on 03/05/2024 at 16:52
[2024-03-05] MEDS: PIPERACILLIN/TAZO 4.5 GM in SODIUM CHLORIDE 0.9% 100 ML IV (16:49)
[2024-03-05 16:52] LABS: Thyroid Stimulating Hormone 2.13 uIU/mL (0.47-4.68)
[2024-03-05 17:06] LABS: Ammonia (NH3) < 9 umol/L (9-30)
[2024-03-05 17:23] LABS: Appearance Urine UA SL CLOUDY; Bilirubin Urine UA NEGATIVE (NEGATIVE); Color Urine UA YELLOW; Glucose Urine UA NEGATIVE (Negative); Ketones Urine UA NEGATIVE (NEGATIVE); Leukocyte Esterase Urine UA TRACE (NEGATIVE); Nitrite Urine UA NEGATIVE (Negative); Occult Blood Urine UA 2+ (Negative); Protein Urine UA 2+ (Negative); Specific Gravity Urine UA >=1.030 (1.000-1.035)
[2024-03-05 17:24] LABS: UR Morphine/Opiate cutoff 300 Negative (Negative); Ur Creatinine Normal (Normal); Ur Specific Gravity Normal (Normal); Urine Amphetamines Negative (Negative); Urine Barbiturates Negative (Negative); Urine Benzodiazepines Positive (Negative); Urine Cocaine Negative (Negative); Urine MDMA Negative (Negative); Urine Methadone Negative (Negative); Urine Methamphetamines Negative (Negative); Urine Phencyclidine Negative (Negative); Urine Tetrahydrocannabinol Negative (Negative); Urine Tricyclic Antidepressant Negative (Negative); Urine pH Normal (Normal)
[2024-03-05 17:25] LABS: Urine Oxycodone Positive (Negative)
[2024-03-05 17:27] LABS: Urine Volume Low Vol <1mL unspun
[2024-03-05 17:29] LABS: Amorphous Sediment Urine 1+; Bacteria Urine Few (2-10); Culture Indicated Urine Cult Not Indicated; Granular Casts Urine 0-1/LPF; Hyaline Casts Urine 1-5/LPF; RBC Urine 0-1/HPF (0-5/HPF); Renal Epithelial Cells Urine 0-1/HPF (0-1/HPF); Squamous Epithelial Cell Urine 0-1 /HPF (0-5/HPF); Transitional Epi Cells Urine 0-1/HPF (0-5/HPF); WBC Urine None Seen (0-5/HPF)
[2024-03-05 17:32] LABS: Reflexed Lactate in 2 Hours Y
[2024-03-05] MEDS: SODIUM CHLORIDE 0.9% 1,000 ML 1000 ML IV ×2 (17:34→17:36)
[2024-03-05] MEDS: NALOXONE 2 MG in SODIUM CHLORIDE 0.9% 500 ML 62.5 MG IV (18:01)
[2024-03-05 18:09] LABS: BUN Creatinine Ratio 28.2 (6-22); Blood Urea Nitrogen 75 mg/dL (7-17); Calcium 7.3 mg/dL (8.4-10.2); Carbon Dioxide 24 mmol/L (22-32); Chloride 98 mmol/L (98-107); Estimated Glomerular Filt Rate 18 mL/min (>60); Glucose 97 mg/dL (80-110); HEMOLYSIS < 15 (0-50); Lactate 2HR (Lactic Acid Rflx) 1.7 mmol/L (0.7-2.1); Potassium 3.9 mmol/L (3.4-5.1); Sodium 130 mmol/L (137-145)
[2024-03-05 18:21] LABS: Troponin I 0.033 ng/mL (0.01-0.034)
--- NOTE | 2024-03-05 18:33 | PC.NURSE ---
Spoke with POA r/t central line, another ABX and provider reaching out to other hospitals for higher level of care, Kristina is agreeable to all.
[2024-03-05] MEDS: VANCOMYCIN 1,000 MG in SODIUM CHLORIDE 0.9% 250 ML 250 MG IV (18:47)
--- NOTE | 2024-03-05 19:19 | DI.RAD.S_ITS ---
PROCEDURE: XR CHEST 1V INDICATIONS: placement of R neck central line verification TECHNIQUE: One view of the chest was acquired. COMPARISON: [facility], CR, XR CHEST 1V, 03/05/2024, 15:48. FINDINGS: Surgical changes and devices: Right internal jugular central venous catheter tip is in SVC. Lungs and pleura: Moderate to large size airspace consolidation in left lower lung field is again seen consistent with left lower lobe infiltrate. No significant pleural effusion. No pneumothorax. Chronic emphysematous changes are seen. Mediastinum: Mediastinal contours appear normal. Heart size is normal. Bones and chest wall: No suspicious bony lesions. Overlying soft tissues appear unremarkable. IMPRESSION: Right internal jugular central venous catheter tip is in SVC. Persistent moderate to large left lower lobe infiltrate. No pneumothorax. Dictated by: Eddi Prescott M.D. on 03/05/2024 at 19:39 Approved by: Eddi Prescott M.D. on 03/05/2024 at 19:39
[2024-03-05 19:35] LABS: Allen Test for ABG Passed? Positive; Base Excess ABG -3.6 mmol/L (-2-3); Blood Gas Collection Site Left Radial; HCO3 ABG 23 mmol/L (23-27); Oxygen Saturation ABG 95 % (95-100); PCO2 ABG 50.2 mmHg (35-45); PO2 ABG 87 mmHg (80-100); TCO2 ABG 23 mmol/L (23-27); pH ABG 7.28 (7.35-7.45)
[2024-03-05] MEDS: NOREPINEPHRINE BITARTRATE/D5W 4 MG/250 ML PLAST..BAG 15.989 MG IV (19:37)
--- NOTE | 2024-03-05 19:50 | PC.NURSE ---
This RN removed a lidocaine patch dated 03/02 from patient's left ribs
[2024-03-06] VITALS (21 sets, daily range): BP systolic 98–116; BP diastolic 50–64; PULSE 70–77; RESP 16–32; TEMP 36; O2SAT 45–97
[2024-03-06] MEDS: NALOXONE 2 MG in SODIUM CHLORIDE 0.9% 500 ML 62.5 MG IV (02:22)
[2024-03-06] MEDS: NOREPINEPHRINE BITARTRATE/D5W 4 MG/250 ML PLAST..BAG 23.984 MG IV (02:48)
--- NOTE | 2024-03-06 03:04 | PC.NURSE ---
infusions continued upon d/c with [facility]
[2024-03-06 09:31] LABS: Acinetobacter calcoa-baumannii Not Detected (Not Detect); Bacteroides fragilis Not Detected (Not Detect); Candida albicans Not Detected (Not Detect); Candida auris Not Detected (Not Detect); Candida glabrata Not Detected (Not Detect); Candida krusei Not Detected (Not Detect); Candida parapsilosis Not Detected (Not Detect); Candida tropicalis Not Detected (Not Detect); Cryptococcus neoformans/gatti Not Detected (Not Detect); Enterobacter cloacae complex Not Detected (Not Detect); Enterobacterales Not Detected (Not Detect); Enterococcus faecalis Not Detected (Not Detect); Enterococcus faecium Not Detected (Not Detect); Haemophilus influenzae Not Detected (Not Detect); Klebsiella aerogenes Not Detected (Not Detect); Listeria monocytogenes Not Detected (Not Detect); Neisseria meningitidis Not Detected (Not Detect); Proteus species Not Detected (Not Detect); Pseudomonas aeruginosa Not Detected (Not Detect); Salmonella species Not Detected (Not Detect); Serratia marcescens Not Detected (Not Detect); Staphylococcus epidermidis Not Detected (Not Detect); Staphylococcus lugdunensis Not Detected (Not Detect); Staphylococcus species Detected (Not Detect); Stenotrophomonas maltophilia Not Detected (Not Detect); Streptococcus agalactiae (Gr B Not Detected (Not Detect); Streptococcus pneumonia Not Detected (Not Detect); Streptococcus pyogenes (Gr A) Not Detected (Not Detect); Streptococcus species Not Detected (Not Detect); mecA/C and MREJ (MRSA) Resista Detected (Not Detect)
== END 2024-03-06 03:05 | disposition short-term general hospital (02) ==
PROVIDERS: Emergency Medicine; Emergency Provider Student in an Organized Health Care Education/Training Program; PCP Family Medicine
DX: A41.9 Sepsis, unspecified organism (principal); R65.21 Severe sepsis with septic shock; J96.02 Acute respiratory failure with hypercapnia; N17.9 Acute kidney failure, unspecified; J18.9 Pneumonia, unspecified organism; I95.9 Hypotension, unspecified
CPT/HCPCS: 36415; 36600; 70450; 71045; 71250; 74176; 80048; 80053; 80305; 80320; 81001; 82140; 82550; 82805; 83605; 84145; 84443; 84484; 85007; 85025; 85610; 85730; 87040; 87077; 87154; 87186; 93005; 93010; 94660; 96365; 96366; 96367; 96368; 96375; 96376; 99284; 99291; J2310; J2543

== ENCOUNTER → 2024-05-22 11:24 | Outpatient (CLI) | payer MEDICARE, MEDICAID, SELFPAY ==
[2022-02-19 21:29] VITALS: BMI 17.0
[2024-03-05 16:00] VITALS: PULSE 87
[2024-03-06 00:35] VITALS: RESP 24; O2SAT 45
[2024-05-22 12:17] LABS: Add Manual Diff / Slide Review NO; Basophils Absolute Auto 0 /uL (0-100); Basophils Percent Auto 0.5 % (0-2); Eosinophils Absolute Auto 100 /uL (0-450); Eosinophils Percent Auto 1.9 % (2-4); Hematocrit 31.8 % (36-46); Hemoglobin 10.4 g/dL (12.0-16.0); Lymphocytes Absolute Auto 1000 /uL (1100-4500); Lymphocytes Percent Auto 16.1 % (25-40); Mean Corpuscular HGB Conc 32.9 % (30-36); Mean Corpuscular Hemoglobin 31.2 PG (26-34); Mean Corpuscular Volume 94.9 fL (80-100); Monocytes Absolute Auto 900 /uL (0-900); Monocytes Percent Auto 14.5 % (3-14); Neutrophils Absolute Auto 4100 /uL (1500-7000); Platelet Count 353 X10^3/uL (150-400); Red Blood Cell Count 3.35 X10^6/uL (4.0-5.2); Red Cell Distribution Width 16.5 % (11.6-14.8); White Blood Cell Count 6.1 X10^3/uL (4.5-11.0)
[2024-05-22 14:00] LABS: C-Reactive Protein Quant < 0.5 mg/dL (<1.0)
== END ==
LOC: LAB 11:27
PROVIDERS: PCP Family Medicine; Referring Provider Internal Medicine Pulmonary Disease; Visit Provider Internal Medicine Pulmonary Disease
DX: J18.9 Pneumonia, unspecified organism (principal)
CPT/HCPCS: 36415; 85025; 86140

== ENCOUNTER → 2024-07-05 10:51 | Outpatient (CLI) | payer MEDICARE, MEDICAID, SELFPAY ==
[2022-02-19 21:29] VITALS: BMI 17.0
[2024-03-05 16:00] VITALS: PULSE 87
[2024-03-06 00:35] VITALS: RESP 24; O2SAT 45
== END ==
PROVIDERS: PCP Family Medicine; Referring Provider Internal Medicine Pulmonary Disease; Visit Provider Internal Medicine Pulmonary Disease
DX: J44.9 Chronic obstructive pulmonary disease, unspecified (principal); Z87.891 Personal history of nicotine dependence; R94.2 Abnormal results of pulmonary function studies
CPT/HCPCS: 94060; 94729

== ENCOUNTER 2024-09-06 14:15 | Outpatient (RCR) | payer MEDICARE, MEDICAID, SELFPAY ==
[2022-02-19 21:29] VITALS: BMI 17.0
[2024-03-05 16:00] VITALS: PULSE 87
[2024-03-06 00:35] VITALS: RESP 24; O2SAT 45
== END 2024-09-06 16:15 ==
LOC: PUL 14:15
PROVIDERS: PCP Family Medicine; Referring Provider Internal Medicine Pulmonary Disease; Visit Provider Internal Medicine Pulmonary Disease
DX: J44.9 Chronic obstructive pulmonary disease, unspecified (principal)
CPT/HCPCS: 94626

== ENCOUNTER → 2024-11-01 12:37 | Outpatient (CLI) | payer MEDICARE, MEDICAID, SELFPAY ==
[2022-02-19 21:29] VITALS: BMI 17.0
[2024-03-05 16:00] VITALS: PULSE 87
[2024-03-06 00:35] VITALS: RESP 24; O2SAT 45
--- NOTE | 2024-11-01 12:40 | DI.CT.S_ITS ---
PROCEDURE: CT CHEST ABD PEL W CON INDICATIONS: restage head/neck cancer TECHNIQUE: After the administration of intravenous contrast, 5 mm thick sections acquired from the lung apices to the symphysis. 5 mm coronal and sagittal reformats were performed, with additional 7 mm MIP reformats through the lungs. For radiation dose reduction, the following was used: automated exposure control, adjustment of mA and/or kV according to patient size. COMPARISON: [facility], CT, CT CHEST WO CON, 03/05/2024, 16:34. [facility], NM, NM PET CT FUSION SKULL 2 THIGH, 05/05/2024, 10:16. FINDINGS: Image quality: Excellent. CHEST: Lower Neck: No enlarged lymph nodes. Thyroid: No thyroid nodules which require sonographic follow up, per consensus guidelines. Axillae: No enlarged lymph nodes. Chest Wall: Unremarkable. Lungs and Pleura: No pneumothorax or pleural effusions. Advanced COPD again seen. There has been significant improvement with near complete resolution of the previously seen left lower lobe consolidation, with residual band-like densities anteriorly, with mild bronchiectasis. Postoperative changes seen again in the left lower lobe. No endobronchial obstructing lesion seen. No dominant focal lesion seen. Heart: Heart size is normal. No pericardial effusion. Thoracic Vessels: The aorta and pulmonary arteries demonstrate normal size. Mediastinum and Farrah: No enlarged lymph nodes. Esophagus: No wall thickening. There is a defect of the left hemidiaphragm measuring 1.5 cm AP diameter, with herniation of the pancreatic tail as well as surrounding fat into the left lower mediastinum. ABDOMEN: Liver: No solid mass. Gallbladder: No radiopaque gallstones or wall thickening. Biliary ducts: No biliary dilation. Pancreas: No ductal dilation. Spleen: Size is within normal limits. Adrenal Glands: No adrenal nodules. Kidneys and Ureters: No hydronephrosis. No solid mass. No complex renal cystic lesion which requires follow up. Stomach and Bowel: Normal colonic caliber, without significant wall thickening. Peritoneum: No abnormal intraperitoneal fluid. No free air. Ventral Wall: No significant ventral hernia. Abdominal Nodes: No retroperitoneal or mesenteric adenopathy by size criteria. Vessels: Aorta and inferior vena cava are normal in size. PELVIS: Pelvic Organs: Unremarkable. Bladder: No bladder wall thickening, accounting for underdistention. Pelvic Nodes: No enlarged lymph nodes. Miscellaneous: No inguinal hernias are seen. Bones: There is new mild T2 compression deformity, with increased density diffusely. IMPRESSION: 1. There has been near complete resolution of the previously seen left lower lobe consolidation, with some residual parenchymal scarring. 2. No significant adenopathy or signs of soft tissue metastasis seen at this time. 3. New mild T2 compression deformity, with diffuse sclerosis. This can be further assessed with bone scan with SPECT CT or MRI. Dictated by: Hugo Otero M.D. on 11/02/2024 at 17:47 Approved by: Hugo Otero M.D. on 11/02/2024 at 17:59
--- NOTE | 2024-11-01 12:48 | DI.CT.S_ITS ---
PROCEDURE: CT SOFT TISSUE NECK W CON INDICATIONS: RESTAGE HEAD/NECK CANCER TECHNIQUE: After the administration of intravenous contrast, 3.0 mm axial sections acquired from the sella to the aortic arch. Additional oblique axial 3.0 mm sections acquired through the pharynx. 3 mm thick coronal and sagittal reformats were generated. For radiation dose reduction, the following was used: automated exposure control. COMPARISON: [facility], CR, XR THORACIC SPINE 3 VIEWS, 06/25/2024, 16:41. [facility], CT, CT CHEST WO CON, 03/05/2024, 16:34. [facility], NM, NM PET CT FUSION SKULL 2 THIGH, 05/05/2024, 10:16. [facility], CT, CT CHEST ABD PEL W CON, 11/01/2024, 13:53. [facility], CT, CT SOFT TISSUE NECK W CON, 11/06/2023, 12:04. FINDINGS: Image quality: There is artifact associated with the metallic hardware. Artifact from the metallic hardware is reduced by metal reconstruction algorithm. Lymph nodes: No enlarged lymph nodes seen throughout the neck. Vessels: Visualized vasculature appears patent. Neck spaces: There is thickening seen of the epiglottis, which is slightly worse on the left than on the right. The appearance is worse compared to the CT portion of the PET CT dated 05/05/2024. No over mass or abnormal the enhancement can be seen, however. Generalized mucosal thickening can be seen of the pharynx. Glands: The parotid and submandibular glands appear normal. Thyroid gland is small in size. Miscellaneous: Visualized brain and orbits appear normal. Significant emphysematous change can be seen involving the visualized lung apices. Superficial soft tissues appear normal. Bones: No suspicious bony lesions. Visualized sinuses and mastoids appear unremarkable. Moderate to severe disc space narrowing can be seen at C5-C6, with associated endplate irregularity and sclerosis. At T2, there is a chronic appearing anterior wedge deformity, with sclerosis. This is new compared to the 03/05/2024 examination. IMPRESSION: Generalized thickening can be seen of the epiglottis, which is slightly more prominent on the left than on the right. No obed mass or abnormal enhancement can be seen. This may be related to treatment effect. There is also generalized mucosal thickening seen throughout the pharynx. No obed masses are identified. No enlarged lymph nodes can be seen. There is a T2 level anterior wedge deformity, which is new compared to the prior CT through the region. Underlying sclerosis is seen. Please consider a pathologic fracture, although no abnormal metabolic activity can be seen on the recent PET dated 05/05/2024. Additional findings: Focal C5-C6 degenerative change Significant emphysematous change Dictated by: Bhavik Barron M.D. on 11/03/2024 at 11:31 Approved by: Bhavik Barron M.D. on 11/03/2024 at 11:37
[2024-11-01 13:18] LABS: Estimated Glomerular Filt Rate > 60 mL/min (>60)
== END ==
PROVIDERS: Family Provider Family Medicine; PCP Family Medicine; Referring Provider Radiology Radiation Oncology; Visit Provider Radiology Radiation Oncology
DX: C32.1 Malignant neoplasm of supraglottis (principal); M43.8X4 Other specified deforming dorsopathies, thoracic region
CPT/HCPCS: 36415; 70491; 71260; 74177; 82565; Q9967

== ENCOUNTER → 2024-11-04 10:47 | Outpatient (CLI) | payer MEDICARE, MEDICAID, SELFPAY ==
[2022-02-19 21:29] VITALS: BMI 17.0
[2024-03-05 16:00] VITALS: PULSE 87
[2024-03-06 00:35] VITALS: RESP 24; O2SAT 45
--- NOTE | 2024-11-04 17:58 | ST.SWALLOW ---
Visit Care Team Role Provider Type Dominique Oakley DO Attending Provider Non-Staff Family Provider Primary Care Provider Referring Provider Specialty: Medical Address: [address] [place] [address], [place], [address] Email: Modified Barium Swallow Study CLEAT BLANKER Modified Barium Swallow Study Start: 11/04/24 15:30 Freq: Status: Active Protocol: Document 11/04/24 15:31 LNK (Rec: 11/04/24 16:38 LNK Desktop) Modified Barium Swallow Study Total Time Visit Start Time 11:00 Visit Stop Time 12:15 Total Visit Minutes [address] Lauren, ENT; Pt requested cc: Toyin Carpenter and Adin Reason for Referral dysphagia/silent aspiration Setting Setting Outpatient Care Patient Information Identification Type Name,Date of Patient History Pt was seen for a Modified Barium Swallow Study at the referral of Dr. Deal (ENT) for evaluation of voice and swallowing concerns in the setting of laryngeal cancer s/p radiation. Per referral from Dr. 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 Pt was treated with radiation therapy from -02/19/2024, no concurrent chemotherapy recommended. Pt was hospitalized at [facility] in 01/2024 for NSTEMI and acute hypoxemic respiratory failure. Pt was again hospitalized at [facility] from 03/06/2024-03/20/2024 for hypoxia with LLL PNA requiring intubation with evidence of necrotizing PNA and pulmonary abscesses. While hospitalized, pt had a Modified Barium Swallow Study (MBSS) on 03/15/2024 which revealed silent aspiration. Following this hospitalization, pt d/c to [facility] where she remained through 05/01. PET/CT post radiation showed clinical complete response and laryngoscopy by ENT, Dr. Hoffman on 2024 showed essentially complete resolution of the previous mass on the laryngeal surface of the epiglottis and normal true vocal fold motion. Pt received home health therapies following d/c from [facility], where pt has been living at home independently with support of her close friend, Fabienne. Pt 's additional past medical history includes COPD, NSTEMI, hypothyroidism, squamous cell carcinoma of left neck, and colon polyp. Pt was a prior smoker, quit late 2023. Pt's past surgical history includes sublobar resection lung cancer 2018. Throughout her complicated medical course, pt received ST services at different levels of care from [facility], [facility], and [facility] for swallowing strategies/exercises and reported completing both MBSS and Fiberoptic Endoscopic Evaluation of Swallow (FEES) where it was revealed she was silently aspirating. Pt reported at one point she was on thickened liquids, however, this was discontinued and she is currently consuming a baseline regular/thin diet . Pt reported globus sensation with pills and solid foods as well as choking with thin liquids that she notes have worsened over time following radiation treatment. Subjective Pt was seated in the fluoroscopy chair with directions Observations and procedures described for her. She indicated she understood and agreed to proceed. Patient Positioning Position View Lat-A/P Imaging Lateral View Textures Administered Trials Presented Thin Liquid via Spoon (IDDSI 0),Thin Liquid via Cup ( IDDSI 0),Thin Liquid via Straw (IDDSI 0),Extremely Thick Liquid via Spoon (IDDSI 4),Regular (IDDSI 7) Barium Tablet Yes The IDDSI Framework Protocol: IDDSI.1 Oral Impairment Source: The Modified Barium Swallow Impairment Profile (MBSImP??) Lip Closure No labial escape Tongue Control Cohesive bolus between tongue to palatal seal During Bolus Hold Bolus Preparation/ Timely & efficient chewing & mashing Mastication Bolus Transport/ Brisk tongue motion Lingual Motion Oral Residue Residue collection on oral structures Location Tongue Initiation of Bolus head in valleculae Pharyngeal Swallow Additional Oral Oral phase of swallow WFL *OME and DKS were observed to be WNL. Impairment *Dentition noted with upper denture awaiting implant/ Observations permanent denture and lower teeth were natural. Oral cavity is good hygiene *Mastication observed with rotary chew pattern. *Good bolus formation, control and AP transition. *Velopharyngeal closure was WNL. Pharyngeal Impairment Source: The Modified Barium Swallow Impairment Profile (MBSImP??) Soft Palate No bolus between soft palate & pharyngeal wall Elevation Laryngeal Elevation Part.sup.move.thyroid cart/part.approx.arytenoids to epiglot.petiole Anterior Hyoid No anterior movement Excursion Epiglottic Movement No inversion Laryngeal Vestibular Incomplete; narrow column air/contrast in laryngeal Closure vestibule Pharyngeal Stripping Absent Wave Pharyngoesophageal Complete distention & complete duration; no obstruction Segment Opening of flow Tongue Base Narrow column of contrast/air betwn tongue base & post. Retraction pharyngeal wall Pharyngeal Residue Collection of residue within/on pharyngeal structures Location Valleculae Additional *Reduced base of tongue retraction strength Pharyngeal *Reduced hyolaryngeal elevation and movement Impairment *No epiglottal inversion for liquids; with solids Observations epiglottal inversion was observed with contrast penetration (PAS 3) *Silent aspiration with thin barium in head up position. *No/trace aspiration with chin tuck and chin tuck head turn right swallow strategies *Trace tracheal aspiration (PAS 7) of pooled pharyngeal residue was observed x3; did not clear with cough With semi solid and solid trials, the pt's epiglottis inverted with trace penetration. No aspiration noted -- *Residue observed on anterior wall of laryngeal cartilage Single swallow of teaspoonsful of barium utilizing the following swallow strategies were attempted: chin tuck, , chin tuck with head turn right, chin tuck with head turn left, effortful swallow, supraglottic swallow. Chin tuck with and without head turn right were effective in preventing aspiration. Effortful swallow and supraglottic swallow strategies did not prevent penetration (silent) (PAS 3). All aspiration was silent. Cued coughs cleared aspirated content from trachea. Trace barium contrast remained in the trachea. With a straw, and thin barium AND chin tuck, single swallows with a straw were noted to be safest. Pt did reflexively cough while drinking water from a straw trying to swallow barium tablet. Tablet trial was discontinued. Pt remains at risk for aspiration A/P View Textures Administered Trials Presented Thin Liquid via Spoon (IDDSI 0) The IDDSI Framework Protocol: IDDSI.1 A/P View Observations Pharyngeal Incomplete (Pseudodiverticulae) Contraction Esophageal Clearance Minimal to no esophageal clearance Upright Position Vocal Fold Function Good,Decrease Approxim. Right Esophageal Function Stasis Additional A-P Esophageal retention of previous trials was observed Observations within entire esophagus in AP position. Water wash partially effective in clearing residue. The PROSPER esophageal swallow strategy was utilized and noted to clear most of the the stasis to the stomach. Thin barium was observed with tortuous spams observed near LES. Thin barium cleared to the stomach in a timely manner. Clinical Impressions Dysphagia Type Pharyngeal,Esophageal Findings Pt demonstrated pharyngeal and tracheal tissue negatively impacted by the after effects of radiation treatment. Stiffness with reduced ROM of the tracheal and esophageal structures were noted. Hyolaryngeal elevation, movement and epiglottal inversion were impaired. Her ability to protect her airway is improved utilizing safe swallow strategies as described above. She would benefit from continued ST targeting safe swallow strategies and targeting base of tongue strengthening exercises. Pt may possibly benefit from Vital Stim therapy for muscle activation as well. Pt's esophageal peristalsis appeared to be minimal. Pt will need to rely on gravity assist, alternating solids/and liquids. and using the PROSPER esophageal swallow strategy to clear her esophageal contents. Pt was able to use the PROSPER strategy during the MBSS effectively following description and walking her through the steps. Consistent training in this strategy is recommended through her therapy sessions. Pt was observed to silently aspirate trace amounts of contrast during this MBSS. Cued coughing was effective in clearing the contrast. However, pt is at risk for silent aspiration when the PO amounts are not as regulated as in MBSS context. In a typical head up swallowing position, pt is unable to protect her airway . In a chin tuck position with or without head turn, pt's aspiration risk is reduced. Pt's aspiration was silent Reflexive cough was observed with pt taking in too much water too quickly. Otherwise cued coughing was required. In addition to continued ST, Pt would benefit from attending Physical Therapy session targeting Myofacial Release Therapy to reduce the stiffening effect of radiation treatment on her neck and upper body. This would help the pt maintain flexibility in her neck area. This therapy is available at [facility] Finally, repeated MBSSs are recommended annually or as indicated to monitor her aspiration risk Rehabilitation Excellent Potential Patient Appropriate Yes for Therapy Recommendations Diet Comments no diet change; safe swallow strategies to be used for all swallows Additional Dietary Single Sips,Controlled Sips Needs Aspiration Precautions Recommended Upright at 90 Degrees,Frequent Rest Periods,Chin Tuck Precautions Treatment Plan Therapy Outpatient Speech Therapy Recommendations Therapy Strategy Sitting Upright (90 deg),Turn Head Right,Chin Tuck, Recommendations Small Bites and Sips,Alternate Liquids/Solids Additional Vital Stim therapy Strategies Recommended
== END ==
PROVIDERS: Family Provider Family Medicine; PCP Family Medicine; Referring Provider Family Medicine; Visit Provider Family Medicine
DX: R13.19 Other dysphagia (principal); R13.14 Dysphagia, pharyngoesophageal phase
CPT/HCPCS: 74230; 92611

== ENCOUNTER → 2024-12-14 17:26 | Outpatient (CLI) | payer MEDICARE, MEDICAID, SELFPAY ==
[2022-02-19 21:29] VITALS: BMI 17.0
[2024-03-05 16:00] VITALS: PULSE 87
[2024-03-06 00:35] VITALS: RESP 24; O2SAT 45
[2024-12-14 19:08] LABS: Free T3, Triiodothyronine Free 3.68 pg/mL (2.77-5.27)
[2024-12-14 19:22] LABS: TSH w/ Reflex to FT4 1.07 uIU/mL (0.47-4.68)
== END ==
PROVIDERS: Family Medicine; Family Provider Family Medicine; PCP Family Medicine; Referring Provider Family Medicine; Visit Provider Family Medicine
DX: E03.9 Hypothyroidism, unspecified (principal)
CPT/HCPCS: 36415; 84443; 84481

== ENCOUNTER 2024-12-22 20:27 | Inpatient (IN) | payer MEDICARE, MEDICAID, SELFPAY ==
[2022-02-19 21:29] VITALS: BMI 17.0
[2024-03-05 16:00] VITALS: PULSE 87
[2024-03-06 00:35] VITALS: RESP 24; O2SAT 45
[2024-12-22] VITALS (11 sets, daily range): BP systolic 103–115; BP diastolic 48–64; PULSE 74–98; RESP 20–48; TEMP 38.7; O2SAT 91–94; BMI 18.8
[2024-12-22] MEDS: ALBUTEROL 2.5 MG/3 ML NEB (ADULT) 5 MG INH (20:57)
--- NOTE | 2024-12-22 21:24 | DI.RAD.S_ITS ---
PROCEDURE: XR CHEST 1V INDICATIONS: short of breath TECHNIQUE: One view of the chest was acquired. COMPARISON: [facility], , XR CHEST 1V, 03/05/2024, 19:17. FINDINGS: Surgical changes and devices: None. Lungs and pleura: No pneumothorax or pleural effusion. Chronic background of emphysematous and fibrotic changes. Compared to prior radiograph, decreased opacity at the left lung base. Mediastinum: Mediastinal contours appear normal. Heart size is normal. Bones and chest wall: No suspicious bony lesions. Overlying soft tissues appear unremarkable. IMPRESSION: Left basal patchy opacities, decreased since prior radiograph, which may represent atelectasis versus aspiration. Similar background of chronic emphysematous and fibrotic changes. Approved by: Yarelis Rock M.D.,Ph.D. on 12/22/2024 at 22:23
--- NOTE | 2024-12-22 21:32 | EKG_ITS ---
[address] [address] Test Date: 2024-12-22 Pat Name: Trish Espinal Department: [facility] Room: Gender: Female Visual Artist: PARVEZ : 1950 Requested By: Order Number: [id number] Reading MD: Hema Sears Measurements Intervals [place] Rate: 88 P: 77 UT: 156 QRS: -18 QRSD: 74 T: 67 QT: 380 QTc: 459 Interpretive Statements Normal sinus rhythm Nonspecific T wave abnormality PROBABLE ANTEROSEPTAL INFARCT, OLD Electronically Signed On 12-23-2024 7:02:43 PDT by Hema Sears
[2024-12-22 21:52] LABS: Add Manual Diff / Slide Review NO; Hematocrit 39.6 % (36-46); Hemoglobin 13.5 g/dL (12.0-16.0); Lymphocytes Absolute Auto 1000 /uL (1100-4500); Mean Corpuscular HGB Conc 34.1 % (30-36); Mean Corpuscular Hemoglobin 31.5 PG (26-34); Mean Corpuscular Volume 92.4 fL (80-100); Platelet Count 152 X10^3/uL (150-400)
[2024-12-22] MEDS: SODIUM CHLORIDE 0.9% 1,000 ML 1000 ML IV (21:53)
--- NOTE | 2024-12-22 21:54 | ED.SOB ---
HPI - SOB/Dyspnea General Chief Complaint: Shortness of Breath/Dyspnea Stated Complaint: SOB Time Seen by Provider: 12/22/24 20:50 Source: patient and EMS Mode of arrival: EMS Limitations: no limitations History of Present Illness HPI Narrative: Patient is a 74-year-old female with distant history of COPD, left-sided lung cancer, partial lobectomy also history of throat cancer for which he received radiation. Since then she has had silent aspiration. She is presenting today with fever weakness and increasing shortness of breath. She is here with 2 good friends 1 is her power of ip attorney. She has previously been intubated and hospitalized with sepsis about 1 year ago at [facility]. Friends have noticed that she has had increased congestion she is feeling warm. She has oxygen at home but chooses not to wear it. No significant abdominal pain nausea or vomiting. Related Data Home Medications ?Medication ?Instructions ?Recorded ?Confirmed atorvastatin 40 mg tablet 40 mg PO DAILY 02/19/22 02/19/22 escitalopram oxalate 20 mg tablet 20 mg PO DAILY 02/19/22 02/19/22 levothyroxine 50 mcg tablet 50 mcg PO DAILY 02/19/22 02/19/22 quetiapine 25 mg tablet 25 mg PO BEDTIME 02/19/22 02/19/22 alprazolam 0.5 mg tablet 0.5 mg PO BID PRN Anxiety 02/20/22 02/20/22 alprazolam 0.5 mg tablet 0.5 - 1 mg PO DAILY PRN anxiety 02/08/24 02/08/24 Previous Rx's ?Medication ?Instructions ?Recorded albuterol sulfate 90 mcg/actuation 2 puff inhalation Q4H PRN 02/23/22 aerosol inhaler shortness of breath or wheezing #8.5 grams lidocaine 5 % topical patch 1 patch topical DAILY #15 ea 03/03/24 Allergies Allergy/AdvReac Type Severity Reaction Status Date / Time No Known Drug Allergies Allergy Unverified 12/22/24 20:33 Patient History Medical History Acute exacerbation of chronic obstructive pulmonary disease Lung cancer Family History Father Old age Mother Crohn's disease Social History household members: friend(s) alcohol intake: former alcohol intake frequency: 0-2 drinks per day Exam Initial Vital Signs Initial Vital Signs: Vital Signs Temperature 101.7 F H 12/22/24 20:24 Pulse Rate 97 H 12/22/24 20:24 Respiratory Rate 25 H 12/22/24 20:24 Blood Pressure 104/55 L 12/22/24 20:24 Pulse Oximetry 93 12/22/24 20:24 Oxygen Delivery Method Nasal Cannula 12/22/24 20:24 Oxygen Flow Rate 3 12/22/24 20:24 GENERAL: Alert chronically ill 74-year-old female and in no acute distress. Feels slightly clammy HEENT: Head atraumatic,EOMI, pupils reactive, face symmetric, moist mucous membranes CARDIOVASCULAR: Regular rate and rhythm without murmurs, rubs or gallops. RESPIRATORY: Coarse breath sounds bilaterally mild tachypnea speaking in full sentences without difficulty ABDOMEN: Soft, nontender. Normoactive bowel sounds all 4 quadrants. No guarding or rebound. EXTREMITIES: Normal range of motion, no clubbing or edema. Neurovascularly intact NEUROLOGICAL: Alert and oriented x4.Normal gait and speech. Cranial nerves II through XII grossly intact. SKIN: Warm, dry, no laceration, no petechiae, no rashes or lesions. Course Orders Ordered: ED Orders 12/22/24 20:30 Complete Blood Count AUTO DIFF Stat Comprehensive Metabolic Panel Stat Lactate (Lactic Acid) Stat Lipase Stat NT-proBNP (BNP-Adult 18+) Stat Procalcitonin Stat Troponin & CK Cardiac Panel Stat 12/22/24 21:24 XR chest 1V Stat EKG-12 Lead Stat 12/22/24 22:00 Blood Culture Stat Covid-19 + FLU A/B + RSV - PCR Stat Acetaminophen (Acetaminophen 325 Mg Tablet) 650 mg PO Q6H PRN PRN Reason: Fever/Mild Pain (1-3) Hydrocodone Bitart/Acetaminophen (Hydrocodone/Acet 5/325 Tablet) 1 tab PO Q4H PRN PRN Reason: Pain, Moderate (4-6) Albuterol/Ipratropium (Albuterol/Ipratropium 3 Ml Ampul) 3 ml INH [id number] ERROL Albuterol/Ipratropium (Albuterol/Ipratropium 3 Ml Ampul) 3 ml INH RTQ6HR PRN PRN Reason: Shortness Of Breath Heparin Sodium (Porcine) (Heparin 5,000 Unit/Ml Vial) 5,000 unit SUBCUT BID ERROL Sodium Chloride (Normal Saline 0.9%) 1,000 mls @ 100 mls/hr IV CONT ERROL Last Admin: 12/23/24 00:57 Dose: 100 mls/hr Documented By: ALICJA Piperacillin Sod/Tazobactam (Sod 3.375 gm/ Sodium Chloride) 100 mls @ 25 mls/hr IV Q8H ERROL Methylprednisolone (Methylprednisolone Succ 125 Mg/2 Ml Vial) 60 mg IV Q8H ERROL Morphine Sulfate (Morphine 4 Mg/Ml Inj) 3 mg IV Q2HR PRN PRN Reason: Pain, Severe (7-10) Naloxone HCl (Naloxone 0.4 Mg/Ml Vial) 0.2 mg IV Q2MIN PRN PRN Reason: Opiate Reversal Ondansetron HCl (Ondansetron 4 Mg/2 Ml Inj) 4 mg IV Q8HR PRN PRN Reason: Nausea And Vomiting Discontinued Medications Acetaminophen (Acetaminophen 325 Mg Tablet) 975 mg PO NOW ONE Stop: 12/22/24 22:48 Last Admin: 12/22/24 22:53 Dose: 975 mg Documented By: GURJIT Albuterol (Albuterol 2.5 Mg/3 Ml Neb (Adult)) 5 mg INH NOW ONE Stop: 12/22/24 20:50 Last Admin: 12/22/24 20:57 Dose: 5 mg Documented By: KWAN Sodium Chloride (Normal Saline 0.9%) 1,000 mls @ 1,000 mls/hr IV BOLUS ONE Stop: 12/22/24 22:23 Last Infusion: 12/23/24 00:31 Dose: Infused Documented By: Admin: 12/22/24 21:53 Dose: 1,000 mls/hr Documented By: GURJIT Piperacillin Sod/Tazobactam (Sod 4.5 gm/ Sodium Chloride) 100 mls @ 200 mls/hr IV NOW ONE Stop: 12/22/24 21:52 Last Infusion: 12/22/24 22:57 Dose: Infused Documented By: Admin: 12/22/24 21:58 Dose: 200 mls/hr Documented By: GURJIT Methylprednisolone (Methylprednisolone Succ 125 Mg/2 Ml Vial) 125 mg IV NOW ONE Stop: 12/22/24 21:52 Last Admin: 12/22/24 21:58 Dose: 125 mg Documented By: GURJIT Vital Signs Vital signs: Vital Signs - 8 hr 12/22/24 20:24 12/22/24 20:29 12/22/24 20:30 Temperature 101.7 F H Pulse Rate 97 H 98 H 98 H Respiratory Rate 25 H 25 H Blood Pressure 104/55 L Pulse Oximetry 93 93 92 Oxygen Delivery Method Nasal Cannula Oxygen Flow Rate 3 12/22/24 20:30 12/22/24 20:48 12/22/24 20:58 Temperature Pulse Rate 93 H 91 H Respiratory Rate 38 H 20 Blood Pressure 104/55 L 104/55 L Pulse Oximetry 93 92 Oxygen Delivery Method Nasal Cannula Oxygen Flow Rate 2 2 12/22/24 21:00 12/22/24 21:00 12/22/24 21:30 Temperature Pulse Rate 93 H Respiratory Rate 35 H Blood Pressure 114/64 115/57 L Pulse Oximetry 93 Oxygen Delivery Method Oxygen Flow Rate 12/22/24 21:30 12/22/24 22:00 12/22/24 22:00 Temperature Pulse Rate 93 H 87 Respiratory Rate 44 H 48 H Blood Pressure 107/48 L Pulse Oximetry 91 92 Oxygen Delivery Method Oxygen Flow Rate 12/22/24 22:30 12/22/24 22:30 12/22/24 23:00 Temperature Pulse Rate 78 79 Respiratory Rate 32 H 36 H Blood Pressure 104/53 L Pulse Oximetry 93 92 Oxygen Delivery Method Room Air Oxygen Flow Rate 12/22/24 23:00 12/22/24 23:30 12/22/24 23:30 Temperature Pulse Rate 74 Respiratory Rate 29 H Blood Pressure 115/56 L 103/51 L Pulse Oximetry 94 Oxygen Delivery Method Nasal Cannula Oxygen Flow Rate 2 MDM - SOB/Dyspnea Lab Data 12/22/24 20:30 12/22/24 20:30 Labs: Lab Results 12/22/24 12/22/24 Range/Units 20:30 22:00 WBC 9.9 (4.5-11.0) X10^3/uL RBC 4.28 (4.0-5.2) X10^6/uL Hgb 13.5 (12.0-16.0) g/dL Hct 39.6 (36-46) % MCV 92.4 (80-100) fL MCH 31.5 (26-34) PG MCHC 34.1 (30-36) % RDW 13.8 (11.6-14.8) % Plt Count 152 (150-400) X10^3/uL Neut % (Auto) 80.6 H (50-75) % Lymph % (Auto) 10.4 L (25-40) % Mck[place] % (Auto) 8.3 (3-14) % Eos % (Auto) 0.4 L (2-4) % Baso % (Auto) 0.3 (0-2) % Neut # (Auto) 8000 H (5041-0588) /uL Lymph # (Auto) 1000 L (5323-6304) /uL [place] # (Auto) 800 (0-900) /uL Eos # (Auto) 0 (0-450) /uL Baso # (Auto) 0 (0-100) /uL Sodium 134 L (137-145) mmol/L Potassium 3.8 (3.4-5.1) mmol/L Chloride 97 L (98-107) mmol/L Carbon Dioxide 30 (22-32) mmol/L BUN 16 (7-17) mg/dL Creatinine 0.92 (0.52-1.04) mg/dL Estimated GFR > 60 (>60) mL/min BUN/Creatinine Ratio 17.4 (6-22) Glucose 145 H (70-99) mg/dL Lactate 1.4 (0.7-2.1) mmol/L Calcium 9.2 (8.4-10.2) mg/dL Total Bilirubin 0.5 (0.2-1.3) mg/dL AST 35 (14-36) IU/L ALT 18 (<35) IU/L Alkaline Phosphatase 82 (38-126) U/L Total Creatine Kinase 47 (30-135) U/L Troponin I < 0.012 (0.01-0.034) ng/mL NT-Pro-B Natriuret Pep 416 (<450) pg/mL Total Protein 7.2 (6.3-8.2) g/dL Albumin 4.4 (3.5-5.0) g/dL Globulin 2.8 (1.7-4.1) g/dL Albumin/Globulin Ratio 1.6 (1.0-2.8) Lipase 69 (23-300) U/L Procalcitonin 0.151 (<0.5) ng/mL SARS-CoV-2 (PCR) Negative (Negative) Influenza A (RT-PCR) Flu a negative (NEGATIVE) Influenza B (RT-PCR) Flu b negative (NEGATIVE) RSV (PCR) Negative (Negative) Imaging Data Chest x-ray: Radiologist's Impression: PROCEDURE: XR CHEST 1V INDICATIONS: short of breath TECHNIQUE: One view of the chest was acquired. COMPARISON: [facility], , XR CHEST 1V, 03/05/2024, 19:17. FINDINGS: Surgical changes and devices: None. Lungs and pleura: No pneumothorax or pleural effusion. Chronic background of emphysematous and fibrotic changes. Compared to prior radiograph, decreased opacity at the left lung base. Mediastinum: Mediastinal contours appear normal. Heart size is normal. Bones and chest wall: No suspicious bony lesions. Overlying soft tissues appear unremarkable. IMPRESSION: Left basal patchy opacities, decreased since prior radiograph, which may represent atelectasis versus aspiration. Similar background of chronic emphysematous and fibrotic changes. Approved by: Yarelis Rock M.D.,Ph.D. on 12/22/2024 at 22:23 ECG Data Attestation: I personally reviewed and interpreted this ECG as follows: Prior ECG tracings: available for review Interpretation: Sinus rhythm rate 88 NV interval 156 QRS [address] changes or T-wave inversion MDM Narrative Medical decision making narrative: MDM CC: Shortness of breath fever Complicating co-morbidities: Multiple cancers history of aspiration pneumonia Data collected from: Patient DPOA friends it bed Medical records reviewed: Previous admission to [facility] January 2024 Differential considered: Viral COVID versus pneumonia versus aspiration pneumonia versus COPD exacerbation Exam documented above, pertinent findings include: Alert 74-year-old female chronically ill decreased breath sounds bilaterally on oxygen Lab Test results independently reviewed as above. Pertinent findings: No significant leukocytosis WBC 9.9 Lactate is 1.4, procalcitonin 0.151 Electrolytes within normal limits glucose is 145 Troponin negative BNP 460 Viral panel Independently reviewed EKG as above Sinus rhythm Imaging studies independently reviewed: Left Patchy infiltrate Consultations: Dr. Stallworth accepts Treatments: IV fluids Zosyn Re-evaluations: [ ] Discussion: Patient is 74-year-old female history of throat cancer with radiation prior aspiration pneumonia presenting today with fever of 101 and cough. She was having some difficulty breathing which did resolve with a DuoNeb treatment. She has no significant leukocytosis but is on oxygen. She does have oxygen at home she generally does not wear it. X-ray shows left patchy infiltrate. Typically has a duration is on the right so unclear if this is actually aspiration. She has improved. Given IV fluids antibiotics. At this time due to ongoing aspiration risk current fever in need of oxygen would benefit from admission. Pulmonary embolism was considered however with fever and cough is this is clinically pneumonia. Hospitalist agreed no need for CT angio at Discharge Plan Departure Patient Disposition: Admitted As Inpatient Clinical Impression: Aspiration pneumonia Admit Date/Time: 12/22/24 23:33 Admit Provider: Edgard Reich
[2024-12-22] MEDS: methylPREDNISolone succ 125 MG/2 ML VIAL IV (21:58)
[2024-12-22] MEDS: PIPERACILLIN/TAZO 4.5 GM in SODIUM CHLORIDE 0.9% 100 ML IV (21:58)
[2024-12-22 22:03] LABS: Alanine Aminotransferase 18 IU/L (<35); Albumin 4.4 g/dL (3.5-5.0); Albumin Globulin Ratio 1.6 (1.0-2.8); Alkaline Phosphatase 82 U/L (38-126); Blood Urea Nitrogen 16 mg/dL (7-17); Calcium 9.2 mg/dL (8.4-10.2); Carbon Dioxide 30 mmol/L (22-32); Chloride 97 mmol/L (98-107); Creatine Kinase 47 U/L (30-135); Estimated Glomerular Filt Rate > 60 mL/min (>60); Globulin 2.8 g/dL (1.7-4.1); Glucose 145 mg/dL (70-99); HEMOLYSIS < 15 (0-50); Lipase 69 U/L (23-300); Potassium 3.8 mmol/L (3.4-5.1); Sodium 134 mmol/L (137-145); Total Protein 7.2 g/dL (6.3-8.2)
[2024-12-22 22:04] LABS: Lactate (Lactic Acid) 1.4 mmol/L (0.7-2.1)
[2024-12-22 22:15] LABS: NT-proBNP (BNP-Adult 18+) 416 pg/mL (<450); Troponin I < 0.012 ng/mL (0.01-0.034)
[2024-12-22 22:19] LABS: Procalcitonin 0.151 ng/mL (<0.5)
[2024-12-22 22:50] LABS: Influenza A - CEPHEID Flu A NEGATIVE (NEGATIVE); Influenza B - CEPHEID Flu B NEGATIVE (NEGATIVE)
[2024-12-22] MEDS: ACETAMINOPHEN 325 MG TABLET 975 MG PO (22:53)
[2024-12-22 22:57] LABS: COVID-19 CEPHEID 4-PLEX PCR Negative (Negative)
[2024-12-23] VITALS (10 sets, daily range): BP systolic 103–126; BP diastolic 51–59; PULSE 54–80; RESP 16–29; TEMP 35.6–36.9; O2SAT 92–97; BMI 18.8
[2024-12-23] MEDS: SODIUM CHLORIDE 0.9% 1,000 ML 100 ML IV (00:57)
--- NOTE | 2024-12-23 01:54 | PM.HP.1 ---
History of Present Illness History of Present Illness Date Patient Seen: 12/23/24 Time Patient Seen: 01:54 Chief complaint: SOB Narrative: 74-year-old female with past medical history of COPD on 2.5 L of oxygen intermittently when the patient used to wear it, left-sided lung cancer status post partial lobectomy and laryngeal cancer on radiation therapy, hyperlipidemia, hypothyroidism and anxiety presents with complaint of shortness of breath and coughing. Per the patient's report, the patient admits to have dysphagia and aspiration history. Today the patient started to have generalized weakness with subjective fever and shortness of breath. The patient states that she does have some silent aspiration and is concerned that she might have aspirated again. About a year ago the patient was hospitalized with sepsis and required intubation for pneumonia. Otherwise the patient denies any chills, nausea, vomiting, diarrhea, chest pain or syncope. In the emergency room, the patient was hemodynamically stable. The patient was requiring 2 L of oxygen per nasal cannula. Labs shows relatively benign values with negative viral respiratory panel. Tropes are negative as well as lactate and WBC were normal. However chest x-ray shows left basal chest opacities concerning for possible aspiration. The patient was wheezy on exam per our ER physician. The patient received Solu-Medrol, DuoNebs and Zosyn. [facility] Medical History Acute exacerbation of chronic obstructive pulmonary disease Lung cancer Family History Father Old age Mother Crohn's disease Social History household members: friend(s) alcohol intake: former Meds Home Medications and Allergies Home Medications ?Medication ?Instructions ?Recorded ?Confirmed ?Type atorvastatin 40 mg tablet 40 mg PO DAILY 02/19/22 02/19/22 History escitalopram oxalate 20 mg tablet 20 mg PO DAILY 02/19/22 02/19/22 History levothyroxine 50 mcg tablet 50 mcg PO DAILY 02/19/22 02/19/22 History quetiapine 25 mg tablet 25 mg PO BEDTIME 02/19/22 02/19/22 History alprazolam 0.5 mg tablet 0.5 mg PO BID PRN Anxiety 02/20/22 02/20/22 History albuterol sulfate 90 mcg/actuation 2 puff inhalation Q4H PRN 02/23/22 Rx aerosol inhaler shortness of breath or wheezing #8.5 grams alprazolam 0.5 mg tablet 0.5 - 1 mg PO DAILY PRN anxiety 02/08/24 02/08/24 History lidocaine 5 % topical patch 1 patch topical DAILY #15 ea 03/03/24 Rx Allergies Allergy/AdvReac Type Severity Reaction Status Date / Time No Known Drug Allergies Allergy Unverified 12/22/24 20:33 Exam Vital Signs (past 8 hours): - 12/22/24 20:24 12/22/24 20:29 12/22/24 20:30 Temperature 101.7 F H Pulse Rate 97 H 98 H 98 H Respiratory Rate 25 H 25 H Blood Pressure 104/55 L Pulse Oximetry 93 93 92 Oxygen Delivery Method Nasal Cannula Oxygen Flow Rate 3 12/22/24 20:30 12/22/24 20:48 12/22/24 20:58 Temperature Pulse Rate 93 H 91 H Respiratory Rate 38 H 20 Blood Pressure 104/55 L 104/55 L Pulse Oximetry 93 92 Oxygen Delivery Method Nasal Cannula Oxygen Flow Rate 2 2 12/22/24 21:00 12/22/24 21:00 12/22/24 21:30 Temperature Pulse Rate 93 H Respiratory Rate 35 H Blood Pressure 114/64 115/57 L Pulse Oximetry 93 Oxygen Delivery Method Oxygen Flow Rate 12/22/24 21:30 12/22/24 22:00 12/22/24 22:00 Temperature Pulse Rate 93 H 87 Respiratory Rate 44 H 48 H Blood Pressure 107/48 L Pulse Oximetry 91 92 Oxygen Delivery Method Oxygen Flow Rate 12/22/24 22:30 12/22/24 22:30 12/22/24 23:00 Temperature Pulse Rate 78 79 Respiratory Rate 32 H 36 H Blood Pressure 104/53 L Pulse Oximetry 93 92 Oxygen Delivery Method Room Air Oxygen Flow Rate 12/22/24 23:00 12/22/24 23:30 12/22/24 23:30 Temperature Pulse Rate 74 Respiratory Rate 29 H Blood Pressure 115/56 L 103/51 L Pulse Oximetry 94 Oxygen Delivery Method Nasal Cannula Oxygen Flow Rate 2 12/23/24 00:00 12/23/24 00:00 12/23/24 00:29 Temperature 98.1 F Pulse Rate 70 Respiratory Rate 29 H Blood Pressure 104/52 L Pulse Oximetry 95 Oxygen Delivery Method Oxygen Flow Rate 12/23/24 00:31 12/23/24 00:50 Temperature 98.1 F 98.5 F Pulse Rate 77 Respiratory Rate 21 Blood Pressure 126/59 L Pulse Oximetry 97 Oxygen Delivery Method Oxygen Flow Rate 3 Oxygen Delivery Method Nasal Cannula Oxygen Flow Rate 3 Narrative Exam Narrative: Physical Exam: GENERAL: The patient is not in any acute distressed. Awake and alert. HEENT: Nonicteric sclerae, PERRLA, EOMI. Oropharynx clear. Moist mucous membranes. Conjunctivae appear well perfused. HEART: Regular rate and rhythm without murmurs. No lower extremities edema. LUNGS: Clear to auscultation bilaterally. No wheezing, crackles or rhonchi ABDOMEN: Soft, positive bowel sounds, nontender. SKIN: No rash, no excessive bruising, petechiae, or purpura. NEUROLOGIC: AxO x 3. Cranial nerves II-XII intact without motor/sensory deficit. Objective Labs 12/22/24 20:30 12/22/24 20:30 Labs: Laboratory Results - last 24 hr 12/22/24 12/22/24 20:30 22:00 WBC 9.9 RBC 4.28 Hgb 13.5 Hct 39.6 MCV 92.4 MCH 31.5 MCHC 34.1 RDW 13.8 Plt Count 152 Neut % (Auto) 80.6 H Lymph % (Auto) 10.4 L [place] % (Auto) 8.3 Eos % (Auto) 0.4 L Baso % (Auto) 0.3 Neut # (Auto) 8000 H Lymph # (Auto) 1000 L [place] # (Auto) 800 Eos # (Auto) 0 Baso # (Auto) 0 Sodium 134 L Potassium 3.8 Chloride 97 L Carbon Dioxide 30 BUN 16 Creatinine 0.92 Estimated GFR > 60 BUN/Creatinine Ratio 17.4 Glucose 145 H Lactate 1.4 Calcium 9.2 Total Bilirubin 0.5 AST 35 ALT 18 Alkaline Phosphatase 82 Total Creatine Kinase 47 Troponin I < 0.012 NT-Pro-B Natriuret Pep 416 Total Protein 7.2 Albumin 4.4 Globulin 2.8 Albumin/Globulin Ratio 1.6 Lipase 69 Procalcitonin 0.151 SARS-CoV-2 (PCR) Negative Influenza A (RT-PCR) Flu a negative Influenza B (RT-PCR) Flu b negative RSV (PCR) Negative Assessment & Plan Assessment & Plan narrative: Possible aspiration pneumonia. Admit the patient to medical inpatient. Of note the patient is hemodynamically stable without sepsis at this point. Continue Zosyn. NPO. IV fluid. And swallow evaluation in the morning. COPD exacerbation. Continue Solu-Medrol and DuoNebs. Likely triggered from aspiration pneumonia. Acute on chronic respiratory failure with hypoxemia. The patient states that she sometimes she does well with the room air but currently requiring 2 L of oxygen per nasal cannula. The patient does wear oxygen 2 to 2.5 L when needed at home as well. Treated as above and wean down oxygen as able. Hyperlipidemia. Resume home statin once swallow eval is verified. Hypothyroidism resume home Synthroid when able to take p.o. safely. Anxiety. Resume home medication. DVT prophylaxis heparin subcu. CODE STATUS full code. Disposition likely home in 2 days. - As the provider of this telehealth evaluation, requested by the patient's evaluating physician, I attest that I introduced myself to the patient, provided my credentials and determined that telemedicine via a real-time, 2 way interactive audio and video platform is an appropriate and effective means of providing this service. - I reviewed the patient's chart and had a discussion with the member of the patient's treatment team. - The patient and I mutually agreed with continuation of this evaluation via telemedicine. The patient consented for the telemedicine evaluation. - This virtual encounter was taken place from [place] by Dr. Edgard Reich. The patient was evaluated at [facility]. The encounter was approximately 35 minutes. The nurse was present during the entire time of the encounter and was able assists with the stethoscope to listen to the patients. Time-Based Coding :: [TOTAL MINUTES] spent with patient and on the chart (including review of chart, obtaining history, exam, reviewing outside data, placing orders, documenting exam and treatment plan, and counseling patient) on [DATE]. Quality VTE Deep Vein Thrombosis/Pulmonary Embolism Present on Admission: No
[2024-12-23] MEDS: PIPERACILLIN/TAZO 3.375 GM in SODIUM CHLORIDE 0.9% 100 ML IV ×3 (02:59→17:42)
[2024-12-23 03:15] LABS: Add Manual Diff / Slide Review NO; Hematocrit 33.6 % (36-46); Hemoglobin 11.4 g/dL (12.0-16.0); Lymphocytes Absolute Auto 200 /uL (1100-4500); Mean Corpuscular HGB Conc 33.8 % (30-36); Mean Corpuscular Hemoglobin 31.1 PG (26-34); Mean Corpuscular Volume 92.0 fL (80-100); Platelet Count 124 X10^3/uL (150-400)
[2024-12-23] MEDS: GABAPENTIN 300 MG CAPSULE PO ×2 (03:30→08:55)
[2024-12-23 03:31] LABS: Blood Urea Nitrogen 16 mg/dL (7-17); Calcium 8.6 mg/dL (8.4-10.2); Carbon Dioxide 25 mmol/L (22-32); Chloride 102 mmol/L (98-107); Estimated Glomerular Filt Rate > 60 mL/min (>60); Glucose 234 mg/dL (70-99); HEMOLYSIS < 15 (0-50); Potassium 3.9 mmol/L (3.4-5.1); Sodium 135 mmol/L (137-145)
[2024-12-23] MEDS: ATORVASTATIN 20 MG TABLET 40 MG PO ×2 (03:31→21:01)
[2024-12-23] MEDS: MIRTAZAPINE 15 MG TABLET PO ×2 (03:31→21:01)
[2024-12-23] MEDS: LEVOTHYROXINE 50 MCG TABLET PO (06:47)
[2024-12-23] MEDS: methylPREDNISolone succ 125 MG/2 ML VIAL 60 MG IV ×3 (06:47→22:31)
--- NOTE | 2024-12-23 06:57 | PM.HP.1 ---
History of Present Illness History of Present Illness Date Patient Seen: 12/23/24 Chief complaint: SOB Narrative: This is a 74-year-old female with a history of COPD on 2.5 L of oxygen intermittently at home, left-sided lung cancer status post partial lobectomy and laryngeal cancer treated with radiation therapy, hyperlipidemia, hypothyroidism and anxiety who presents with 3 days of shortness of breath and coughing. She originally contacted her lace finisher at [facility] who prescribed doxycycline but then she thought better of it and decided come to the ED after a friend convinced her. She has also has dysphagia and an aspiration history. She presented yesterday with onset of weakness with subjective fever and shortness of breath. She apparently suffers from silent aspiration and is concerned that she might have aspirated again. About a year ago the patient was hospitalized with sepsis and required intubation for pneumonia. Otherwise the patient denies any chills, nausea, vomiting, diarrhea, chest pain or syncope. She has needed 2 L of oxygen per nasal cannula. Labs shows relatively benign values with negative viral respiratory panel. Troponins are negative as well as lactate and WBC were normal. Her chest x-ray shows left lung opacities concerning for possible aspiration. She is now feeling a lot better on Solu-Medrol, DuoNebs and Zosyn. Meds Home Medications and Allergies Home Medications ?Medication ?Instructions ?Recorded ?Confirmed ?Type atorvastatin 40 mg tablet 40 mg PO DAILY 02/19/22 02/19/22 History escitalopram oxalate 20 mg tablet 20 mg PO DAILY 02/19/22 02/19/22 History levothyroxine 50 mcg tablet 50 mcg PO DAILY 02/19/22 02/19/22 History quetiapine 25 mg tablet 25 mg PO BEDTIME 02/19/22 02/19/22 History alprazolam 0.5 mg tablet 0.5 mg PO BID PRN Anxiety 02/20/22 02/20/22 History albuterol sulfate 90 mcg/actuation 2 puff inhalation Q4H PRN 02/23/22 Rx aerosol inhaler shortness of breath or wheezing #8.5 grams alprazolam 0.5 mg tablet 0.5 - 1 mg PO DAILY PRN anxiety 02/08/24 02/08/24 History lidocaine 5 % topical patch 1 patch topical DAILY #15 ea 03/03/24 Rx Labs: Laboratory Results - last 24 hr 12/22/24 12/22/24 20:30 22:00 WBC 9.9 RBC 4.28 Hgb 13.5 Hct 39.6 MCV 92.4 MCH 31.5 MCHC 34.1 RDW 13.8 Plt Count 152 Neut % (Auto) 80.6 H Lymph % (Auto) 10.4 L [place] % (Auto) 8.3 Eos % (Auto) 0.4 L Baso % (Auto) 0.3 Neut # (Auto) 8000 H Lymph # (Auto) 1000 L [place] # (Auto) 800 Eos # (Auto) 0 Baso # (Auto) 0 Sodium 134 L Potassium 3.8 Chloride 97 L Carbon Dioxide 30 BUN 16 Creatinine 0.92 Estimated GFR > 60 BUN/Creatinine Ratio 17.4 Glucose 145 H Lactate 1.4 Calcium 9.2 Total Bilirubin 0.5 AST 35 ALT 18 Alkaline Phosphatase 82 Total Creatine Kinase 47 Troponin I < 0.012 NT-Pro-B Natriuret Pep 416 Total Protein 7.2 Albumin 4.4 Globulin 2.8 Albumin/Globulin Ratio 1.6 Lipase 69 Procalcitonin 0.151 SARS-CoV-2 (PCR) Negative Influenza A (RT-PCR) Flu a negative Influenza B (RT-PCR) Flu b negative RSV (PCR) Negative Assessment & Plan Assessment & Plan narrative: Possible aspiration pneumonia. -Continue Zosyn, IV fluid and swallow evaluation. COPD exacerbation. Continue Solu-Medrol and DuoNebs. Likely triggered from aspiration pneumonia. Acute on chronic respiratory failure with hypoxemia. The patient states that she sometimes she does well with the room air but is currently requiring 2 L of oxygen per nasal cannula. The patient does wear oxygen 2 to 2.5 L when needed at home as well. Treated as above and wean down oxygen as able. Hyperglycemia -Glucose 234 on admission -Check sugars ACHS and begin on Lispro correctional scale -Check A1C Hyperlipidemia. Resume home statin Hypothyroidism resume home Synthroid Anxiety. Resume home medication. DVT prophylaxis heparin subcu. CODE STATUS full code. Disposition likely home in 1-2 days. [facility] Medical History (Updated 12/23/24 @ 16:22 by Cole Sears MD) Chronic pulmonary aspiration Laryngeal cancer Acute exacerbation of chronic obstructive pulmonary disease Lung cancer Surgical History (Updated 12/23/24 @ 16:22 by Cole Sears MD) S/P breast lumpectomy History of lobectomy of lung Family History Father Old age Mother Crohn's disease Social History household members: none alcohol intake: former Meds Home Medications and Allergies Home Medications ?Medication ?Instructions ?Recorded ?Confirmed ?Type atorvastatin 40 mg tablet 40 mg PO DAILY 02/19/22 12/23/24 History escitalopram oxalate 20 mg tablet 20 mg PO DAILY 02/19/22 12/23/24 History levothyroxine 50 mcg tablet 50 mcg PO DAILY 02/19/22 12/23/24 History quetiapine 25 mg tablet 25 mg PO BEDTIME 02/19/22 12/23/24 History alprazolam 0.5 mg tablet 0.5 mg PO BID PRN Anxiety 02/20/22 12/23/24 History albuterol sulfate 90 mcg/actuation 2 puff inhalation Q4H PRN 02/23/22 12/23/24 Rx aerosol inhaler shortness of breath or wheezing #8.5 grams alprazolam 0.5 mg tablet 0.5 - 1 mg PO DAILY PRN anxiety 02/08/24 12/23/24 History cefdinir 300 mg capsule 300 mg PO BID 12/23/24 12/23/24 History doxycycline monohydrate 100 mg 100 mg PO BID 12/23/24 12/23/24 History capsule fluticasone fur. 200 mcg-umeclid 1 inh inhalation DAILY 12/23/24 12/23/24 History 62.5 mcg-vilant 25 mcg inhalat.powder (Trelegy Ellipta) gabapentin 300 mg capsule 300 mg PO DAILY 12/23/24 12/23/24 History ibuprofen 600 mg tablet 600 mg PO Q6H PRN pain 12/23/24 12/23/24 History mirtazapine 15 mg tablet 15 mg PO ONCE PM 12/23/24 12/23/24 History omeprazole 20 mg capsule,delayed 20 mg PO DAILY 12/23/24 12/23/24 History release prednisone 20 mg tablet 20 mg PO BID 12/23/24 12/23/24 History tiotropium bromide 2.5 1 inh inhalation DAILY 12/23/24 12/23/24 History mcg/actuation mist for inhalation (Spiriva Respimat) Allergies Allergy/AdvReac Type Severity Reaction Status Date / Time No Known Drug Allergies Allergy Unverified 12/22/24 20:33 Review of Systems Review of Systems Narrative: Positive for shortness of breath, fever, cough and chronic laryngeal vocal changes. Negative for chest pain, abdominal pain, nausea, vomiting, diarrhea, dysuria, bleeding, rashes, sore throat, headache, new allergies. Exam Vital Signs (past 8 hours): - 12/22/24 23:00 12/22/24 23:00 12/22/24 23:30 Temperature Pulse Rate 79 Respiratory Rate 36 H Blood Pressure 115/56 L 103/51 L Pulse Oximetry 92 Oxygen Delivery Method Room Air Oxygen Flow Rate 12/22/24 23:30 12/23/24 00:00 12/23/24 00:00 Temperature Pulse Rate 74 70 Respiratory Rate 29 H 29 H Blood Pressure 104/52 L Pulse Oximetry 94 95 Oxygen Delivery Method Nasal Cannula Oxygen Flow Rate 2 12/23/24 00:29 12/23/24 00:31 12/23/24 00:50 Temperature 98.1 F 98.1 F 98.5 F Pulse Rate 77 Respiratory Rate 21 Blood Pressure 126/59 L Pulse Oximetry 97 Oxygen Delivery Method Oxygen Flow Rate 3 Oxygen Delivery Method Nasal Cannula Oxygen Flow Rate 3 Narrative Exam Narrative: She is alert and oriented x3. No apparent distress. Her voice is very gravelly. Pupils are equally round and reactive to light and accommodation. Extraocular muscles are intact. Sclerae are pink and nonicteric. There is no thyromegaly. JVD is less than 6 cm. No carotid bruits are heard. No lymph nodes are felt head, neck, supraclavicular area. No masses are felt in the neck. Heart is regular rate and rhythm without murmur. Lungs are notable for clear sounds on the right side and wheezes/crackles on the left side. Abdomen is soft, bowel sounds positive, nontender, no organomegaly. Extremities have no ankle edema. Skin has no rash. Motor function is 4/5 throughout. There is no tremor. Reflexes are normal. Cranial nerves 2-12 test intact. Objective Labs 12/23/24 03:09 12/23/24 03:09 Labs: Laboratory Results - last 24 hr 09/24/25 09/24/25 09/25/25 20:30 22:00 03:09 WBC 9.9 10.8 RBC 4.28 3.66 L Hgb 13.5 11.4 L Hct 39.6 33.6 L MCV 92.4 92.0 MCH 31.5 31.1 MCHC 34.1 33.8 RDW 13.8 14.1 Plt Count 152 124 L Neut % (Auto) 80.6 H 95.0 H Lymph % (Auto) 10.4 L 1.8 L [place] % (Auto) 8.3 2.9 L Eos % (Auto) 0.4 L 0.0 L Baso % (Auto) 0.3 0.3 Neut # (Auto) 8000 H 29504 H Lymph # (Auto) 1000 L 200 L [place] # (Auto) 800 300 Eos # (Auto) 0 0 Baso # (Auto) 0 0 Sodium 134 L 135 L Potassium 3.8 3.9 Chloride 97 L 102 Carbon Dioxide 30 25 BUN 16 16 Creatinine 0.92 0.82 Estimated GFR > 60 > 60 BUN/Creatinine Ratio 17.4 19.5 Glucose 145 H 234 H Lactate 1.4 Calcium 9.2 8.6 Total Bilirubin 0.5 AST 35 ALT 18 Alkaline Phosphatase 82 Total Creatine Kinase 47 Troponin I < 0.012 NT-Pro-B Natriuret Pep 416 Total Protein 7.2 Albumin 4.4 Globulin 2.8 Albumin/Globulin Ratio 1.6 Lipase 69 Procalcitonin 0.151 SARS-CoV-2 (PCR) Negative Influenza A (RT-PCR) Flu a negative Influenza B (RT-PCR) Flu b negative RSV (PCR) Negative Assessment & Plan Time-Based Coding :: [TOTAL MINUTES] spent with patient and on the chart (including review of chart, obtaining history, exam, reviewing outside data, placing orders, documenting exam and treatment plan, and counseling patient) on [DATE]. Quality VTE Deep Vein Thrombosis/Pulmonary Embolism Present on Admission: No
[2024-12-23] MEDS: HEPARIN 5,000 UNIT/ML VIAL 5000 UNIT SUBCUT ×2 (08:54→21:01)
[2024-12-23] MEDS: ESCITALOPRAM 10 MG TABLET 20 MG PO (08:54)
[2024-12-23] MEDS: PANTOPRAZOLE DR 20 MG TABLET PO (08:55)
[2024-12-23] MEDS: ALBUTEROL/IPRATROPIUM 3 ML AMPUL INH ×3 (11:21→20:37)
--- NOTE | 2024-12-23 14:58 | CM.DANOTE ---
Initial DCP Assessment Note Pt is a 74 yo female, resident of [place], admitted for SOB, aspiration PNA suspected, hx of COPD, left-sided lung cancer status post partial lobectomy and laryngeal cancer on radiation therapy. Reviewed chart, pt discussed in multidisciplinary rounds this morning. DAVIN 12/24. Patient lives alone, independently, attends outpatient speech therapy due to her throat cancer and radiation. Patient denies needs from this SW team currently, politely declines HH, she would like to continue her outpatient therapy. No barriers identified at this time to patient's safe discharge home w; close outpatient f/u recommended. Social work team will plan to follow clinical course closely in case any DC needs or concerns arise. AUTUMN Hardwick Discharge Planning/Care Management CM Discharge Assessment Start: 12/23/24 00:42 Freq: Status: Active Protocol: Document 12/23/24 14:52 ELLA (Rec: 12/23/24 14:58 ELLA [id number]) Discharge Planning Assessment Assigned Discharge AUTUMN Ji Java Android Developer Provider Dominique Oakley Insurance Comment [facility] DPOA/Assigned Fabienne Wall, friend Designee Name Contact Information [phone] Advance Directives? Yes Advance Directives Yes on File History Provided By Patient,Medical Record Prior Living Apartment/Condo Arrangements Household Members none Type of Drives own vehicle transporation used prior to admit Independent with ADL Yes 's Is patient alert and Yes oriented? Discharge Plan Home Transportation Friend Arrangement Referrals Initiated None needed
--- NOTE | 2024-12-23 16:11 | ST.IPIE ---
Visit Care Team Role Provider Type Dominique Oakley DO Family Provider Non-Staff Primary Care Provider Specialty: Medical [address]: [address] [place] [address], [place], [address] Email: Priscilla Barton DO Emergency Provider Physician Referring Provider Specialty: Emergency Medicine Address: [address] [place] [address], [id number] Email: [email or web address] Edgard Reich MD Admit Provider Physician Attending Provider Specialty: Internal Medicine Address: [address] [place] [address], [address] Email: [email or web address] Diagnoses Pneumonitis due to inhalation of food and vomit (12/22/24) Past Medical History (Last Reviewed 12/22/24 @ 21:57 by Priscilla Barton DO) Acute exacerbation of chronic obstructive pulmonary disease (Medical) Lung cancer (Medical) Dendritic sarcoma ST IP Initial Evaluation 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 Reich Reason for Referral Aspiration PNA Setting Assessment Location Acute Care Visit Type Note Type Initial evaluation Next Note Type Next Note Type Treatment Note Patient Information Identification Type Name History Per H&P: 74-year-old female with past medical history of COPD on 2.5 L of oxygen intermittently when the patient used to wear it, left-sided lung cancer status post partial lobectomy and laryngeal cancer on radiation therapy, hyperlipidemia, hypothyroidism and anxiety presents with complaint of shortness of breath and coughing. Per the patient's report, the patient admits to have dysphagia and aspiration history. Today the patient started to have generalized weakness with subjective fever and shortness of breath. The patient states that she does have some silent aspiration and is concerned that she might have aspirated again. About a year ago the patient was hospitalized with sepsis and required intubation for pneumonia. Otherwise the patient denies any chills, nausea, vomiting, diarrhea, chest pain or syncope. In the emergency room, the patient was hemodynamically stable. The patient was requiring 2 L of oxygen per nasal cannula. Labs shows relatively benign values with negative viral respiratory panel. Tropes are negative as well as lactate and WBC were normal. However chest x-ray shows left basal chest opacities concerning for possible aspiration. The patient was wheezy on exam per our ER physician. The patient received Solu-Medrol, DuoNebs and Zosyn. Pt received a MBS here at this hospital on 11/04/24 with the following impressions: Pt demonstrated pharyngeal and tracheal tissue negatively impacted by the after effects of radiation treatment. Stiffness with reduced ROM of the tracheal and esophageal structures were noted. Hyolaryngeal elevation, movement and epiglottal inversion were impaired. Her ability to protect her airway is improved utilizing safe swallow strategies as described above. She would benefit from continued ST targeting safe swallow strategies and targeting base of tongue strengthening exercises. Pt may possibly benefit from Vital Stim therapy for muscle activation as well. Pt's esophageal peristalsis appeared to be minimal. Pt will need to rely on gravity assist, alternating solids/and liquids. and using the PROSPER esophageal swallow strategy to clear her esophageal contents. Pt was able to use the PROSPER strategy during the MBSS effectively following description and walking her through the steps. Consistent training in this strategy is recommended through her therapy sessions. Pt was observed to silently aspirate trace amounts of contrast during this MBSS. Cued coughing was effective in clearing the contrast. However, pt is at risk for silent aspiration when the PO amounts are not as regulated as in MBSS context. In a typical head up swallowing position, pt is unable to protect her airway . In a chin tuck position with or without head turn, pt's aspiration risk is reduced. Pt's aspiration was silent Reflexive cough was observed with pt taking in too much water too quickly. Otherwise cued coughing was required. In addition to continued ST, Pt would benefit from attending Physical Therapy session targeting Myofacial Release Therapy to reduce the stiffening effect of radiation treatment on her neck and upper body. This would help the pt maintain flexibility in her neck area. This therapy is available at [facility] Finally, repeated MBSSs are recommended annually or as indicated to monitor her aspiration risk Pt referred for ST evaluation d/t dx of aspiration PNA and hx of dysphagia. Subjective Pt awake, alert, agreeable to evaluation, sitting Observations upright in bed. Pt Ox3. Pt on O2 via nasal cannula. Pt is familiar to this ST d/t her being treated by her in the outpatient setting at this facility targeting dysphagia/voice. As stated above, Pt recently had a MBS completed on 11/04/24, which recommended Pt utilize chin tuck and head turn to the right to prevent risk of aspiration. Pt reports she has been doing this at home, as well as ensuring she is completing oral care before /after meals. Pt reports she can't recall what she may have aspirated on d/t her coughing on and off during and not during meals/drinking fluids. She reports she was not eating a lot the past few days d/t not feeling well. Pt reports concerns of aspirating and getting reoccurring PNA. Reported by Patient/Caregiver Other Symptoms Coughing,Difficulty swallowing liquids,Difficulty swallowing solids,History of aspiration or pneumonia Current Diet Regular (IDDSI 7) Baseline Feeding Independent in self-feeding Method The IDDSI Framework Protocol: IDDSI.1 Objective Assessment Mental Status Alert,Responsive,Cooperative Dentition Upper dentures/partials Lip Function Within normal limits Tongue Function Within normal limits Jaw Function Within normal limits Nasality Within normal limits Respiratory Moderate impairment Sufficiency Food and Liquid Trials Position During Upright (90 degrees) Assessment Liquids Trialed Thin (IDDSI 0) Solid Trials Purred (IDDSI 4),Regular (IDDSI 7) Administration Type Straw Oral Impairment Within functional limits Oral Phase Comments Pt consumed about 4 oz of thin water via straw, 1/2 brandy cracker and about 2 oz of pudding via tsp. Pt with wet/congested cough reflex prior to PO trials, during and after, with ST unable to determine if d/t current PNA dx or from aspiration. For thin water via straw, Pt took small single sips, good oral acceptance and containment, suspected delay in swallow, no immediate cough reflex observed with Pt tucking chin provided cue and eventually tucking chin independently at the end of the session. For brandy cracker, Pt took small bites, good oral acceptance and containment, no overt s/s of aspiration such as coughing or choke. No overt s/s of aspiration with pudding. Suspected silent aspiration based on MBS completed 11/04, however cannot confirm without an instrumental exam. Pharyngeal Moderately impaired Impairment Fatigue/Endurance Endurance WNL Strategies Attempted Chin tuck The IDDSI Framework Protocol: IDDSI.1 Findings Swallowing Function Oropharyngeal phase dysphagia Severity of Swallow Moderately impaired Impairment Impact on Safety and Risk for aspiration,Risk for inadequate nutrition/ Functioning hydration Recommendations Instrumental No Assessment Swallowing Treatment Yes Frequency Daily while inpatient Recommended Solids Regular (IDDSI 7) Recommended Liquids Thin (IDDSI 0) Other Pt presents with suspected moderate pharyngeal phase Recommendations dysphagia with suspected esophageal component. ST recommends regular solids and thin liquids with safe swallowing in place for each swallow, which consists of - thin liquids via straw with small single sips with use of chin tuck, alternating liquids/solids, upright 90 degrees all meals, upright at least 30 minutes after meals, strict oral care before and after intake. ST educated Pt on safe swallowing strategies and importance of utilizing chin tuck with each swallow and cleaning mouth before/after intake. Pt verbalized understanding. ST is warranted in order to ensure Pt is utilizing safe swallowing strategies, assess diet tolerance and facilitate hyolaryngeal strengthening exercises. ST recommends Pt resume outpatient speech therapy once discharged from hospital. Safety Precautions/ Remain upright (90 degrees) during all oral intake, Swallowing Upright position at least 30 minutes after meals,Small Recommendations bites and sips when eating,Slow rate; swallow between bites,Sip by straw only,Alternate liquids and solids, Strict oral care after intake Medication As Tolerated Recommendations Comments no diet change; safe swallow strategies to be used for all swallows Education Patient/Caregiver Described results of evaluation,Patient expressed Education understanding of evaluation,Patient expressed agreement with goals & treatment plans,Patient requires further education/training Goals Short-term Goals STG1: Pt will complete hyolaryngeal strengthening exercises for improved pharyngeal phase of swallow with minimal cueing with 90% accuracy. STG 2: Patient will utilize safe swallowing strategies 90% of the time with minimal verbal cues in order to consume safest and most efficient least restrictive diet. STG 3: Pt will tolerate prescribed diet with <5% overt s/s of aspiration/dysphagia with use of compensatory swallowing strategies and minimal cues. Long-term Goals LTG: Pt will consume the safest and most efficient least restrictive diet with no clinical s/sx of dysphagia in order to meet nutrition/hydration needs.
[2024-12-23 17:15] LABS: Hemoglobin A1C% w Est Avg Glu 4.9 % (4.0-6.0)
[2024-12-23] MEDS: INSULIN LISPRO 100 UNIT/ML 3ML VIAL SUBCUT ×2 (17:40→21:03)
[2024-12-23] MEDS: BENZONATATE 100 MG CAPSULE PO (22:31)
[2024-12-23] MEDS: BENZOCAINE/MENTHOL 1 LOZ PKT 1 EACH PO (22:31)
[2024-12-24] MEDS: PIPERACILLIN/TAZO 3.375 GM in SODIUM CHLORIDE 0.9% 100 ML IV ×2 (02:33→11:42)
[2024-12-24] MEDS: PANTOPRAZOLE DR 20 MG TABLET PO (06:20)
[2024-12-24] MEDS: BENZOCAINE/MENTHOL 1 LOZ PKT 1 EACH PO (06:20)
[2024-12-24] MEDS: methylPREDNISolone succ 125 MG/2 ML VIAL 60 MG IV ×2 (06:20→15:00)
[2024-12-24] MEDS: BENZONATATE 100 MG CAPSULE PO (06:20)
[2024-12-24] MEDS: LEVOTHYROXINE 50 MCG TABLET PO (06:20)
--- NOTE | 2024-12-24 06:59 | P.PN_ITS ---
Subjective Subjective Date Patient Seen: 12/24/24 Interval history: This is a 74-year-old female with a history of COPD on 2.5 L of oxygen intermittently at home, left-sided lung cancer status post partial lobectomy and laryngeal cancer treated with radiation therapy, hyperlipidemia, hypothyroidism and anxiety who presents with 3 days of shortness of breath and coughing. She originally contacted her speeder tender at [facility] who prescribed doxycycline but then she thought better of it and decided come to the ED after a friend convinced her. She has also has dysphagia and an aspiration history. She presented yesterday with onset of weakness with subjective fever and shortness of breath. She apparently suffers from silent aspiration and is concerned that she might have aspirated again. About a year ago the patient was hospitalized with sepsis and required intubation for pneumonia. Otherwise the patient denies any chills, nausea, vomiting, diarrhea, chest pain or syncope. She has needed 2 L of oxygen per nasal cannula. Labs shows relatively benign values with negative viral respiratory panel. Troponins are negative as well as lactate and WBC were normal. Her chest x-ray shows left lung opacities concerning for possible aspiration. She is now feeling a lot better on Solu- Medrol, DuoNebs and Zosyn. Meds Home Medications and Allergies Home Medications ?Medication ?Instructions ?Recorded ?Confirmed ?Type atorvastatin 40 mg tablet 40 mg PO DAILY 02/19/22 02/19/22 History escitalopram oxalate 20 mg tablet 20 mg PO DAILY 02/19/22 02/19/22 History levothyroxine 50 mcg tablet 50 mcg PO DAILY 02/19/22 02/19/22 Histor y quetiapine 25 mg tablet 25 mg PO BEDTIME 02/19/22 02/19/22 Histo ry alprazolam 0.5 mg tablet 0.5 mg PO BID PRN Anxiety 02/20/2202/20 History albuterol sulfate 90 mcg/actuation 2 puff inhalation Q4H PRN 02/23/22 Rx aerosol inhaler shortness of breath or wheezing #8.5 grams alprazolam 0.5 mg tablet 0.5 - 1 mg PO DAILY PRN anxiety 02/08/24 02/08/24 History lidocaine 5 % topical patch 1 patch topical DAILY #15 ea 03/03/24 R x Assessment & Plan Assessment & Plan narrative: Possible aspiration pneumonia. -Continue Zosyn, IV fluid and swallow evaluation. COPD exacerbation. Continue Solu-Medrol and DuoNebs. Likely triggered from aspiration pneumonia. Acute on chronic respiratory failure with hypoxemia. The patient states that she sometimes she does well with the room air but is currently requiring 2 L of oxygen per nasal cannula. The patient does wear oxygen 2 to 2.5 L when needed at home as well. Treated as above and wean down oxygen as able. Hyperglycemia -Glucose 234 on admission -Check sugars ACHS and begin on Lispro correctional scale -Check A1C Hyperlipidemia. Resume home statin Hypothyroidism resume home Synthroid Anxiety. Resume home medication. DVT prophylaxis heparin subcu. CODE STATUS full code. Disposition likely home in 1-2 days. Exam Vital Signs (past 8 hours): Fraction of Inspired Oxygen 28 SaO2/FiO2 Ratio 328 Oxygen Delivery Method Nasal Cannula Oxygen Flow Rate 2 Objective Labs 12/23/24 03:09 12/23/24 03:09 Labs: Laboratory Results - last 24 hr 12/23/24 12/23/24 12/23/24 03:09 17:30 20:29 POC Whole Bld Glucose 389 H 285 H D Hemoglobin A1c 4.9 PFSH Medical History (Updated 12/23/24 @ 16:22 by Cole Sears MD) Chronic pulmonary aspiration Laryngeal cancer Acute exacerbation of chronic obstructive pulmonary disease Lung cancer Surgical History (Updated 12/23/24 @ 16:22 by Cole Sears MD) S/P breast lumpectomy History of lobectomy of lung Family History Father Old age Mother Crohn's disease Social History household members: none alcohol intake: former Assessment & Plan Time-Based Coding :: [TOTAL MINUTES] spent with patient and on the chart (including review of chart, obtaining history, exam, reviewing outside data, placing orders, documenting exam and treatment plan, and counseling patient) on [DATE]. Quality VTE Deep Vein Thrombosis/Pulmonary Embolism Present on Admission: No
[2024-12-24 08:15] VITALS: PULSE 72; RESP 22; O2SAT 96
[2024-12-24] MEDS: ALBUTEROL/IPRATROPIUM 3 ML AMPUL INH ×2 (08:15→13:50)
[2024-12-24 09:00] VITALS: BP 110/65; PULSE 73; RESP 19; TEMP 36.1; O2SAT 95
[2024-12-24] MEDS: ESCITALOPRAM 10 MG TABLET 20 MG PO (09:07)
[2024-12-24] MEDS: HEPARIN 5,000 UNIT/ML VIAL 5000 UNIT SUBCUT (09:08)
--- NOTE | 2024-12-24 11:00 | PM.DS.1 ---
History of Present Illness History of Present Illness Chief complaint: SOB Narrative: This is a 74-year-old female with a history of COPD on 2.5 L of oxygen intermittently at home, left-sided lung cancer status post partial lobectomy and laryngeal cancer treated with radiation therapy, hyperlipidemia, hypothyroidism and anxiety who presents with 3 days of shortness of breath and coughing. She originally contacted her refinery operator crude unit at [facility] who prescribed doxycycline but then she thought better of it and decided come to the ED after a friend convinced her. She has also has dysphagia and an aspiration history. She presented yesterday with onset of weakness with subjective fever and shortness of breath. She apparently suffers from silent aspiration and is concerned that she might have aspirated again. About a year ago the patient was hospitalized with sepsis and required intubation for pneumonia. Otherwise the patient denies any chills, nausea, vomiting, diarrhea, chest pain or syncope. She has needed 2 L of oxygen per nasal cannula. Labs shows relatively benign values with negative viral respiratory panel. Troponins are negative as well as lactate and WBC were normal. Her chest x-ray shows left lung opacities concerning for possible aspiration. She is now feeling a lot better on Solu-Medrol, DuoNebs and Zosyn. Discharge Providers Provider Date of admission: 12/22/24 23:33 Discharge Date: 12/24/24 Primary care physician: Dominique Oakley DO Consults: 12/22/24 23:51 Consult to Speech Therapy Evaluate & Treat Comment: swallow evaluation for aspiration risk Physician Instructions: Evaluate and treat Discharge provider: Cole Sears MD Summary Hospital Course Hospital Course: Possible aspiration pneumonia. -this was a somewhat subjective diagnosis based on the patient's recurrent symptoms, known risk factors and precaution. The chest x-ray at baseline has significant scarring, making it difficult to be conclusive about any new pneumonias/infiltrates. She was treated with Zosyn for 2 days and will be discharging home and completing the course of cefdinir and doxycycline that her refinery operator crude unit had already prescribed for her the day that she was admitted here. She says she is subjectively feeling much better. COPD exacerbation. This was treated with DuoNeb and Solu-Medrol. She is returning to her 20 mg prednisone b.i.d. baseline steroid dosing at home. Acute on chronic respiratory failure with hypoxemia. The patient states that she sometimes she does well with the room air but is currently requiring 2 L of oxygen per nasal cannula. The patient does wear oxygen 2 to 2.5 L when needed at home as well. This has not worsened or significantly changed during the hospital stay. Hyperglycemia -Glucose 234 on admission, concluded to be steroid related -A1c was only 4.9. Blood sugars ranged from 285 up to 309. Expected to resolve off the Solu-Medrol. Hyperlipidemia. Resume home statin Hypothyroidism resume home Synthroid Anxiety. Resume home alprazolam. Status at Discharge Cognitive/behavioral status at discharge: oriented Functional status at discharge: independent ambulation Overall status at discharge: patient is progressing back to baseline Time Spent with Patient Time spent: Less than 30 minutes Exam Vital Signs (past 8 hours): - 12/24/24 08:15 12/24/24 09:00 Temperature 97.0 F L Pulse Rate 72 73 Respiratory Rate 22 19 Blood Pressure 110/65 Pulse Oximetry 96 95 Oxygen Delivery Method Nasal Cannula Oxygen Flow Rate 2 2 Fraction of Inspired Oxygen 28 SaO2/FiO2 Ratio 328 Oxygen Delivery Method Nasal Cannula Oxygen Flow Rate 2 Narrative Exam Narrative: Alert and oriented x3. No apparent distress. Breathing with some effort but this appears to be her baseline. Heart is regular rate and rhythm without murmur Lungs are clear to auscultation bilaterally Extremities have no ankle edema Objective Labs 12/23/24 03:09 12/23/24 03:09 Labs: Laboratory Results - last 24 hr 12/23/24 12/23/24 12/23/24 03:09 17:30 20:29 POC Whole Bld Glucose 389 H 285 H D Hemoglobin A1c 4.9 12/24/24 08:30 POC Whole Bld Glucose 161 H D Hemoglobin A1c [facility] Medical History (Updated 12/23/24 @ 16:22 by Cole Sears MD) Chronic pulmonary aspiration Laryngeal cancer Acute exacerbation of chronic obstructive pulmonary disease Lung cancer Surgical History (Updated 12/23/24 @ 16:22 by Cole Sears MD) S/P breast lumpectomy History of lobectomy of lung Family History Father Old age Mother Crohn's disease Social History household members: none alcohol intake: former Discharge Plan Discharge Plan Patient Disposition: Home Provider Discharge Comment: Follow up with Dr. Oakley and with your refinery operator crude unit as planned. Discharge orders & Medications Prescriptions: Continued atorvastatin 40 mg tablet 40 mg PO DAILY Patient Comments: takes at bedtime escitalopram oxalate 20 mg tablet 20 mg PO DAILY Patient Comments: TAKE 1 TABLET BY MOUTH EVERY MORNING DIRECTED levothyroxine 50 mcg tablet 50 mcg PO DAILY quetiapine 25 mg tablet 25 mg PO BEDTIME Patient Comments: TAKE 1 TABLET BY MOUTH EVERY NIGHT AT BEDTIME DIRECTED alprazolam 0.5 mg tablet 0.5 mg PO BID PRN (Reason: Anxiety) Patient Comments: TAKE 1 TABLET BY MOUTH UP TO TWICE DAILY NEEDED FOR ACUTE ANXIETY albuterol sulfate 90 mcg/actuation HFA aerosol inhaler 2 puff INHALATION Q4H PRN (Reason: shortness of breath or wheezing) Qty: 8.5 2RF alprazolam 0.5 mg tablet 0.5 - 1 mg PO DAILY PRN (Reason: anxiety) prednisone 20 mg tablet 20 mg PO BID doxycycline monohydrate 100 mg capsule 100 mg PO BID gabapentin 300 mg capsule 300 mg PO DAILY Patient Comments: takes at bedtime omeprazole 20 mg capsule,delayed release(DR/EC) 20 mg PO DAILY mirtazapine 15 mg tablet 15 mg PO ONCE PM ibuprofen 600 mg tablet 600 mg PO Q6H PRN (Reason: pain) cefdinir 300 mg capsule 300 mg PO BID Spiriva Respimat 2.5 mcg/actuation mist 1 inh inhalation DAILY Trelegy Ellipta 200-62.5-25 mcg blister with device 1 inh inhalation DAILY Follow up/Referrals: Dominique Oakley, [Primary Care Provider, Medical] Diet/Activity/Treatments Diet: Regular Visit Report/Discharge Packet Stand Alone Forms: Patient Portal/API, Stroke Signs & Symptoms Discharge Data Primary Care Provider: Dominique Oakley Quality VTE Deep Vein Thrombosis/Pulmonary Embolism Present on Admission: No
[2024-12-24 12:00] VITALS: TEMP 36.2
[2024-12-24 13:50] VITALS: PULSE 76; RESP 20; O2SAT 92
--- NOTE | 2024-12-24 18:26 | PC.NURSE ---
Patient is A&OX4, VSS, afebrile on 2 LNC. She does desat w/o oxygen on pretty quickly 02 sats 60's on RA. She is easily fatigued with activity and tachypnic. She reports pain to throat and headache this afternoon. She coughs frequently. Inspiratory and expiratory wheezing. She is evaluated by the hospitalist and cleared for discharge home today with portable and home 02. Patient acknowledges understanding of medications, and the importance of keeping 02 on at home throughout the day and with daily activities. She verbalizes understanding of discharge medications and follow up recommendations. She has all of her belongings with her including her 3 zip lock bags of home meds. She is escorted via w/ch with portable 02 to private vehicle with friend for discharge home today at 1850.
== END 2024-12-24 18:50 | disposition home or self-care (01) | DRG 177 ==
LOC: ED 23:33 → AC 23:34
PROVIDERS: Family Medicine; Admitting Provider Internal Medicine; Emergency Provider Emergency Medicine; Family Provider Family Medicine; PCP Family Medicine; Referring Provider Emergency Medicine; Visit Provider Internal Medicine
DX: J69.0 Pneumonitis due to inhalation of food and vomit (principal); J96.21 Acute and chronic respiratory failure with hypoxia; J44.1 Chronic obstructive pulmonary disease with (acute) exacerbation; R73.9 Hyperglycemia, unspecified; E78.5 Hyperlipidemia, unspecified; E03.9 Hypothyroidism, unspecified; F41.9 Anxiety disorder, unspecified; Z79.890 Hormone replacement therapy; Z85.118 Personal history of other malignant neoplasm of bronchus and lung; Z85.21 Personal history of malignant neoplasm of larynx; Z98.890 Other specified postprocedural states; Z99.81 Dependence on supplemental oxygen
CPT/HCPCS: 36415; 71045; 80048; 80053; 80342; 82550; 82962; 83036; 83605; 83690; 83880; 84145; 84484; 85025; 87040; 87637; 92610; 93005; 94640; 94762; 96365; 96375; 99285; J1644; J1815; J2543; J2919; J7613

== ENCOUNTER 2025-02-02 16:19 | Inpatient (IN) | payer MEDICARE, MEDICAID, SELFPAY ==
[2024-03-05 16:00] VITALS: PULSE 87
[2024-03-06 00:35] VITALS: RESP 24; O2SAT 45
[2024-12-23 00:42] VITALS: BMI 18.8
[2025-02-02] VITALS (9 sets, daily range): BP systolic 111–141; BP diastolic 57–77; PULSE 87–98; RESP 14–22; TEMP 36.1; O2SAT 86–96; BMI 19.2; BMI 20.1
--- NOTE | 2025-02-02 16:25 | DI.RAD.S_ITS ---
PROCEDURE: XR HIP W PEL IF DONE LT 2V
--- NOTE | 2025-02-02 16:25 | DI.RAD.S_ITS ---
PROCEDURE: XR CHEST 1V
--- NOTE | 2025-02-02 16:29 | ED_ITS ---
HPI - General Adult
--- NOTE | 2025-02-02 16:29 | ED.GENADULT ---
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 Patient is reports a mechanical ground level fall at home had a trip. Fell onto her left side and has a pain in her left hip. She is able to Army crawl but was quite hypoxic for EMS when they arrived. She describes no loss of conscious did not in her head denies any C-spine or midline back pain. No nausea or vomiting no GI or urinary symptoms. Any movement of her leg causes pain she denies numbness tingling or weakness she can move her foot normally. She denies any anticoagulants. Patient was 92% on 4 L with the EMS. Patient states home medications include levothyroxine escitalopram and an antacid, she notes a statin. Patient does not have any known drug allergies. She denies surgery besides her lobectomy. Notes she is a former smoker, occasional alcohol, no recreational drugs. Patient does have a DPOA was here in the department with the patient. Related Data Home Medications ?Medication ?Instructions ?Recorded ?Confirmed atorvastatin 40 mg tablet 40 mg PO DAILY 02/19/22 12/23/24 escitalopram oxalate 20 mg tablet 20 mg PO DAILY 02/19/22 12/23/24 levothyroxine 50 mcg tablet 50 mcg PO DAILY 02/19/22 12/23/24 quetiapine 25 mg tablet 25 mg PO BEDTIME 02/19/22 12/23/24 alprazolam 0.5 mg tablet 0.5 mg PO BID PRN Anxiety 02/20/22 12/23/24 alprazolam 0.5 mg tablet 0.5 - 1 mg PO DAILY PRN anxiety 02/08/24 12/23/24 cefdinir 300 mg capsule 300 mg PO BID 12/23/24 12/23/24 doxycycline monohydrate 100 mg 100 mg PO BID 12/23/24 12/23/24 capsule fluticasone fur. 200 mcg-umeclid 1 inh inhalation DAILY 12/23/24 12/23/24 62.5 mcg-vilant 25 mcg inhalat.powder (Trelegy Ellipta) gabapentin 300 mg capsule 300 mg PO DAILY 12/23/24 12/23/24 ibuprofen 600 mg tablet 600 mg PO Q6H PRN pain 12/23/24 12/23/24 mirtazapine 15 mg tablet 15 mg PO ONCE PM 12/23/24 12/23/24 omeprazole 20 mg capsule,delayed 20 mg PO DAILY 12/23/24 12/23/24 release prednisone 20 mg tablet 20 mg PO BID 12/23/24 12/23/24 tiotropium bromide 2.5 1 inh inhalation DAILY 12/23/24 12/23/24 mcg/actuation mist for inhalation (Spiriva Respimat) Previous Rx's ?Medication ?Instructions ?Recorded albuterol sulfate 90 mcg/actuation 2 puff inhalation Q4H PRN 02/23/22 aerosol inhaler shortness of breath or wheezing #8.5 grams Allergies Allergy/AdvReac Type Severity Reaction Status Date / Time No Known Drug Allergies Allergy Unverified 01/26/25 11:09 Review of Systems Review of Systems ROS Unobtainable: All systems reviewed & are unremarkable except as noted in HPI and below Patient History Medical History Chronic pulmonary aspiration Laryngeal cancer Acute exacerbation of chronic obstructive pulmonary disease Lung cancer Surgical History S/P breast lumpectomy History of lobectomy of lung Family History Father Old age Mother Crohn's disease Social History household members: none alcohol intake: former alcohol intake frequency: 0-2 drinks per day Exam Narrative Exam Narrative: GEN: Patient appears in moderate distress. HEAD: No evidence of trauma, no raccoon/Billings sign. NECK: Nontender, painless range of motion, trachea midline Negative Nexus criteria, no midline line tenderness, distracting injury, altered mental status, neuro deficit, recent EtOH. EYES: PERRLA, EOMI ENT: External inspection normal, trachea is midline, Nares are clear, no septal hematoma, no dental or oral injury, airway is normal and with normal occlusion, No bony tenderness, patient on nasal cannula RESP: Chest is nontender and has symmetric movement, no ecchymosis, breath sounds are normal no crackles, wheezes or rales CVS: Heart sounds are normal, no murmur noted, No JVD. ABG/GI: Nontender, soft, normal bowel sounds, no distention, no organomegaly, pelvic rock is negative NEURO: Oriented AOx3, neuro is grossly intact, sensation and motor is normal all 4 extremities moving, cranial nerves II through XII are intact, GCS is 15 PSYCH: Normal mood and affect SKIN: Intact, warm and dry, no crepitus and without decubitus BACK: No CVA tenderness, no vertebral tenderness, no step-off's, no crepitus EXT: Patient has a very minimal tenderness over the left greater trochanter, she does not appear shortened and slightly internally rotated. She has good dorsiflexion plantar flexion with her left lower extremity. 2+ pulses bilaterally. Normal sensation throughout. No obvious ecchymosis over the hip. Right Hip is nontender, no pedal edema, normal color and temperature, normal range of motion of extremities with normal tendon exam, patient has no tenderness and full range of motion of bilateral upper extremities. Initial Vital Signs Initial Vital Signs: Vital Signs Pulse Rate 89 02/02/25 16:42 Respiratory Rate 20 02/02/25 16:42 Blood Pressure 141/77 H 02/02/25 16:42 Pulse Oximetry 92 02/02/25 16:42 Oxygen Delivery Method Nasal Cannula 02/02/25 16:42 Oxygen Flow Rate 4 02/02/25 16:42 Scores GCS [place] coma scale eye opening: Spontaneous Paulino coma scale verbal response: Orientated Paulino coma scale motor response: Obey commands Paulino coma scale total score: 15 Course Orders Ordered: ED Orders 02/02/25 16:25 XR chest 1V Stat XR hip w pel LT 2V Stat 02/02/25 16:26 Complete Blood Count AUTO DIFF Stat Comprehensive Metabolic Panel Stat Lipase Stat Magnesium Stat NT-proBNP (BNP-Adult 18+) Stat Troponin I Stat EKG-12 Lead Stat Discontinued Medications Hydromorphone HCl (Hydromorphone 1 Mg/Ml Syringe) 1 mg IV NOW ONE Stop: 02/02/25 16:26 Last Admin: 02/02/25 16:51 Dose: 1 mg Hydromorphone HCl (Hydromorphone 1 Mg/Ml Syringe) 1 mg IV NOW ONE Stop: 02/02/25 17:39 Last Admin: 02/02/25 17:46 Dose: 1 mg Vital Signs Vital signs: Vital Signs - 8 hr 02/02/25 16:42 02/02/25 17:20 02/02/25 17:28 Pulse Rate 89 89 91 H Respiratory Rate 20 22 21 Blood Pressure 141/77 H Pulse Oximetry 92 86 L 96 Oxygen Delivery Method Nasal Cannula Nasal Cannula Nasal Cannula Oxygen Flow Rate 4 3 6 Medical Decision Making Lab Data 02/02/25 17:28 02/02/25 17:28 Labs: Lab Results 02/02/25 Range/Units 17:28 WBC 15.8 H (4.5-11.0) X10^3/uL RBC 4.08 (4.0-5.2) X10^6/uL Hgb 12.3 (12.0-16.0) g/dL Hct 38.0 (36-46) % MCV 93.2 (80-100) fL MCH 30.2 (26-34) PG MCHC 32.4 (30-36) % RDW 15.1 H (11.6-14.8) % Plt Count 260 (150-400) X10^3/uL Neut % (Auto) 89.0 H (50-75) % Lymph % (Auto) 4.8 L (25-40) % [place]ade % (Auto) 5.8 (3-14) % Eos % (Auto) 0.2 L (2-4) % Baso % (Auto) 0.2 (0-2) % Neut # (Auto) 13232 H (5714-0746) /uL Lymph # (Auto) 800 L (4225-8090) /uL [place] # (Auto) 900 (0-900) /uL Eos # (Auto) 0 (0-450) /uL Baso # (Auto) 0 (0-100) /uL Sodium 139 (137-145) mmol/L Potassium 4.5 (3.4-5.1) mmol/L Chloride 104 (98-107) mmol/L Carbon Dioxide 29 (22-32) mmol/L BUN 17 (7-17) mg/dL Creatinine 1.06 H (0.52-1.04) mg/dL Estimated GFR 55 L (>60) mL/min BUN/Creatinine Ratio 16.0 (6-22) Glucose 171 H (70-99) mg/dL Calcium 9.1 (8.4-10.2) mg/dL Magnesium 2.1 (1.6-2.3) mg/dL Total Bilirubin 0.3 (0.2-1.3) mg/dL AST 36 (14-36) IU/L ALT 21 (<35) IU/L Alkaline Phosphatase 96 (38-126) U/L Troponin I < 0.012 (0.01-0.034) ng/mL NT-Pro-B Natriuret Pep 151 (<450) pg/mL Total Protein 7.4 (6.3-8.2) g/dL Albumin 4.2 (3.5-5.0) g/dL Globulin 3.2 (1.7-4.1) g/dL Albumin/Globulin Ratio 1.3 (1.0-2.8) Lipase 101 (23-300) U/L [facility] Narrative Medical decision making narrative: EKG shows sinus rhythm left axis deviation rate of 90 MN 146 QRS of 72 QTC of 442, no acute ST-elevation or depression. Patient has prior with no acute ST changes. Labs show white count of 15.8 hemoglobin of 12.3 platelets are 260 predominance of neutrophils, chemistries Left hip x-ray shows acute displaced left femoral neck fracture with superior migration femoral shaft relation to femoral head, moderate bilateral hip joint osteoarthritis no evidence avascular necrosis of the femoral head. Chest x-ray shows mild COPD, no acute cardiopulmonary pathology. Patient received fentanyl EN route with EMS, had additional narcotic pain medication here in the department. Patient has a nasal cannula but had several doses of pain medication she does normally use home O2 intermittently with exertion. Spoke with Dr. Muir @ [phone], orthopedic surgery: they are reviewing images and will callback. Dr. Muir saw patient in the department. Spoke with Dr. Clemente @ [phone] accepts for inpatient. Discharge Plan Departure Patient Disposition: Admitted As Inpatient Clinical Impression: Closed left hip fracture
[2025-02-02 17:34] LABS: Add Manual Diff / Slide Review NO; Hematocrit 38.0 % (36-46); Hemoglobin 12.3 g/dL (12.0-16.0); Lymphocytes Absolute Auto 800 /uL (1100-4500); Mean Corpuscular HGB Conc 32.4 % (30-36); Mean Corpuscular Hemoglobin 30.2 PG (26-34); Mean Corpuscular Volume 93.2 fL (80-100); Platelet Count 260 X10^3/uL (150-400)
[2025-02-02 17:47] LABS: Alanine Aminotransferase 21 IU/L (<35); Albumin 4.2 g/dL (3.5-5.0); Albumin Globulin Ratio 1.3 (1.0-2.8); Alkaline Phosphatase 96 U/L (38-126); Blood Urea Nitrogen 17 mg/dL (7-17); Calcium 9.1 mg/dL (8.4-10.2); Carbon Dioxide 29 mmol/L (22-32); Chloride 104 mmol/L (98-107); Estimated Glomerular Filt Rate 55 mL/min (>60); Globulin 3.2 g/dL (1.7-4.1); Glucose 171 mg/dL (70-99); HEMOLYSIS < 15 (0-50); Lipase 101 U/L (23-300); Magnesium 2.1 mg/dL (1.6-2.3); Potassium 4.5 mmol/L (3.4-5.1); Sodium 139 mmol/L (137-145); Total Protein 7.4 g/dL (6.3-8.2)
[2025-02-02 17:58] LABS: NT-proBNP (BNP-Adult 18+) 151 pg/mL (<450); Troponin I < 0.012 ng/mL (0.01-0.034)
--- NOTE | 2025-02-02 18:14 | P.HP_ITS ---
History of Present Illness
--- NOTE | 2025-02-02 18:14 | PM.HP.1 ---
History of Present Illness History of Present Illness Date Patient Seen: 02/02/25 Chief complaint: Ground level fall with left subcapital hip fractur Narrative: Chief complaint: Ground level fall with left subcapital hip fracture History of present illness: 02/02: 74-year-old female tripped and fell severe hip pain brought in by EMS Hip imaging demonstrates subcapital hip fracture with angulation displacement CBC 15.9 otherwise hemogram normal Basic metabolic profile unremarkable Troponin negative BNP normal PT/PTT pending Chest x-ray with extensive chronic lung changes but no acute EKG no acute ST segment changes or T-wave changes Review of systems: No fever or chills rigors No chest pain shortness for breath palpitations No cough No nausea vomiting diarrhea No urinary symptom Physical exam: Elderly female no acute distress HEENT unremarkable Heart rate and rhythm regular no murmurs Lungs clear Abdomen nondistended bowel sounds present Extremities no edema Pulses intact in left foot and toes with good capillary refill Assessment and plan: 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 has already been seen by Orthopedic surgery Dr. Waller There are no findings that introduced prohibitive risk of surgery Benefits of surgery outweigh risks Recommend proceeding at 1st opportunity Chronic lung disease with chronic oxygen dependent Continue oxygen Does not introduce prohibitive risk of surgery Laryngeal cancer status post radiation No signs of recurrence History of left-sided lung cancer status post lobectomy: No signs of recurrence History of cardiac catheterization 2023 with no significant coronary disease normal left ventricular function Low risk of cardiovascular complications DVT prophylaxis: Defer to Orthopedic surgery stewardship Code status: Do not resuscitate Disposition: Inpatient for Orthopedic surgery Monitoring on telemetry for hypoxia Time based billin minutes were involved in evaluation of this patient including [id number] evaluation physical examination review of previous records review of outside records discussion with emergency provider placement of orders and moderate complex decision making [facility] Medical History Chronic pulmonary aspiration Laryngeal cancer Acute exacerbation of chronic obstructive pulmonary disease Lung cancer Surgical History S/P breast lumpectomy History of lobectomy of lung Family History Father Old age Mother Crohn's disease Social History household members: none alcohol intake: former Meds Home Medications and Allergies Home Medications ?Medication ?Instructions ?Recorded ?Confirmed ?Type atorvastatin 40 mg tablet 40 mg PO DAILY 02/19/22 12/23/24 History escitalopram oxalate 20 mg tablet 20 mg PO DAILY 02/19/22 12/23/24 History levothyroxine 50 mcg tablet 50 mcg PO DAILY 02/19/22 12/23/24 History quetiapine 25 mg tablet 25 mg PO BEDTIME 02/19/22 12/23/24 History alprazolam 0.5 mg tablet 0.5 mg PO BID PRN Anxiety 02/20/22 12/23/24 History albuterol sulfate 90 mcg/actuation 2 puff inhalation Q4H PRN 02/23/22 12/23/24 Rx aerosol inhaler shortness of breath or wheezing #8.5 grams alprazolam 0.5 mg tablet 0.5 - 1 mg PO DAILY PRN anxiety 02/08/24 12/23/24 History cefdinir 300 mg capsule 300 mg PO BID 12/23/24 12/23/24 History doxycycline monohydrate 100 mg 100 mg PO BID 12/23/24 12/23/24 History capsule fluticasone fur. 200 mcg-umeclid 1 inh inhalation DAILY 12/23/24 12/23/24 History 62.5 mcg-vilant 25 mcg inhalat.powder (Trelegy Ellipta) gabapentin 300 mg capsule 300 mg PO DAILY 12/23/24 12/23/24 History ibuprofen 600 mg tablet 600 mg PO Q6H PRN pain 12/23/24 12/23/24 History mirtazapine 15 mg tablet 15 mg PO ONCE PM 12/23/24 12/23/24 History omeprazole 20 mg capsule,delayed 20 mg PO DAILY 12/23/24 12/23/24 History release prednisone 20 mg tablet 20 mg PO BID 12/23/24 12/23/24 History tiotropium bromide 2.5 1 inh inhalation DAILY 12/23/24 12/23/24 History mcg/actuation mist for inhalation (Spiriva Respimat) Allergies Allergy/AdvReac Type Severity Reaction Status Date / Time No Known Drug Allergies Allergy Unverified 01/26/25 11:09 Exam Vital Signs (past 8 hours): - 02/02/25 16:42 02/02/25 17:20 02/02/25 17:28 Pulse Rate 89 89 91 H Respiratory Rate 20 22 21 Blood Pressure 141/77 H Pulse Oximetry 92 86 L 96 Oxygen Delivery Method Nasal Cannula Nasal Cannula Nasal Cannula Oxygen Flow Rate 4 3 6 Oxygen Delivery Method Nasal Cannula Oxygen Flow Rate 6 Objective Labs 02/02/25 17:28 02/02/25 17:28 Labs: Laboratory Results - last 24 hr 02/02/25 17:28 WBC 15.8 H RBC 4.08 Hgb 12.3 Hct 38.0 MCV 93.2 MCH 30.2 MCHC 32.4 RDW 15.1 H Plt Count 260 Neut % (Auto) 89.0 H Lymph % (Auto) 4.8 L [place] % (Auto) 5.8 Eos % (Auto) 0.2 L Baso % (Auto) 0.2 Neut # (Auto) 28837 H Lymph # (Auto) 800 L [place] # (Auto) 900 Eos # (Auto) 0 Baso # (Auto) 0 Sodium 139 Potassium 4.5 Chloride 104 Carbon Dioxide 29 BUN 17 Creatinine 1.06 H Estimated GFR 55 L BUN/Creatinine Ratio 16.0 Glucose 171 H Calcium 9.1 Magnesium 2.1 Total Bilirubin 0.3 AST 36 ALT 21 Alkaline Phosphatase 96 Troponin I < 0.012 NT-Pro-B Natriuret Pep 151 Total Protein 7.4 Albumin 4.2 Globulin 3.2 Albumin/Globulin Ratio 1.3 Lipase 101 Assessment & Plan Time-Based Coding :: [TOTAL MINUTES] spent with patient and on the chart (including review of chart, obtaining history, exam, reviewing outside data, placing orders, documenting exam and treatment plan, and counseling patient) on [DATE].
--- NOTE | 2025-02-02 18:52 | CM.DANOTE ---
DCP Assessment Note: Pt is a 74yo female, resident [facility], is admitted for closed L hip fracture after a GLF. Patient has a history of laryngeal CA and 8 weeks of radiation. Pt lives in an apartment alone, she is in a process of moving in with her friend. Pt's Primary Care Provider is Dr. Dominique Oakley and insurance is [facility] Medicare and Medicaid. Reviewed chart and discussed with multidisciplinary team pt's medical status and initial discharge needs. Per ED Provider, pt to be accepted to acute care by hospitalist with Ortho Surgery consulting and scheduled surgery on 02/03 for repair. Last admission was on 12/22/24 - 12/24/24 in which pt discharged home with no needs; declined home health. Plan: Acute care admission, pending recommendations post-surgery evaluations for discharge plans. CM team will follow closely for coordination of discharge plans. WILLIAM Toth Discharge Planning/Care Management CM Discharge Assessment Start: 02/02/25 18:29 Freq: Status: Active Protocol: Document 02/02/25 18:49 MW (Rec: 02/02/25 18:51 MW [id number]) Discharge Planning Assessment Assigned Discharge [employer] Provider Dr. Dominique Oakley Insurance Medicaid,Medicare,[facility] DPOA/Assigned Carolin Bridges Designee Name Contact Information [phone] Advance Directives? Yes Advance Directives Yes on File History Provided By Patient,Medical Record Prior Living House Arrangements Household Members none Type of Relies on Others transporation used prior to admit Independent with ADL Yes 's Is patient alert and Yes oriented? Needs Assistance Managing Medications,Home Chores / Shopping With Caregiver for No Another DME Already Rented / Oxygen Owned Comment Oxygen PRN Discharge Plan Home Transportation Friend Arrangement Additional Comment Pending progress/recommendations after surgery. Review Status In Process Please Provide Date 02/02/25 Initial DC Assessment Was Performed Next Review Type Continued Stay Review
[2025-02-02 18:55] LABS: INR 1.0 (0.9-1.3); Prothrombin Time 11.2 SECONDS (9.4-12.5)
[2025-02-02 19:03] LABS: PTT Partial Thromboplastin Tim 32 SECONDS (25.1-36.5)
--- NOTE | 2025-02-02 19:06 | ED_ITS ---
HPI - Extremity Injury (Lower)
--- NOTE | 2025-02-02 19:06 | ED.LOWEXIN ---
HPI - Extremity Injury (Lower) General Chief Complaint: Extremity Injury, Lower Stated Complaint: Fall Time Seen by Provider: 02/02/25 16:25 Source: patient, EMS, RN notes reviewed and old records reviewed Mode of arrival: EMS Limitations: no limitations History of Present Illness HPI Narrative: 74 yo female with left hip pain after falling down 2 stairs on 02/02/2025. She denies prior hip pain and ambulates unassisted. She lives alone. She presented to ED via ambulance and was found to have a displaced subcapital hip fracture on x-ray. Related Data Home Medications ?Medication ?Instructions ?Recorded ?Confirmed atorvastatin 40 mg tablet 40 mg PO DAILY 02/19/22 12/23/24 escitalopram oxalate 20 mg tablet 20 mg PO DAILY 02/19/22 12/23/24 levothyroxine 50 mcg tablet 50 mcg PO DAILY 02/19/22 12/23/24 quetiapine 25 mg tablet 25 mg PO BEDTIME 02/19/22 12/23/24 alprazolam 0.5 mg tablet 0.5 mg PO BID PRN Anxiety 02/20/22 12/23/24 alprazolam 0.5 mg tablet 0.5 - 1 mg PO DAILY PRN anxiety 02/08/24 12/23/24 cefdinir 300 mg capsule 300 mg PO BID 12/23/24 12/23/24 doxycycline monohydrate 100 mg 100 mg PO BID 12/23/24 12/23/24 capsule fluticasone fur. 200 mcg-umeclid 1 inh inhalation DAILY 12/23/24 12/23/24 62.5 mcg-vilant 25 mcg inhalat.powder (Trelegy Ellipta) gabapentin 300 mg capsule 300 mg PO DAILY 12/23/24 12/23/24 ibuprofen 600 mg tablet 600 mg PO Q6H PRN pain 12/23/24 12/23/24 mirtazapine 15 mg tablet 15 mg PO ONCE PM 12/23/24 12/23/24 omeprazole 20 mg capsule,delayed 20 mg PO DAILY 12/23/24 12/23/24 release prednisone 20 mg tablet 20 mg PO BID 12/23/24 12/23/24 tiotropium bromide 2.5 1 inh inhalation DAILY 12/23/24 12/23/24 mcg/actuation mist for inhalation (Spiriva Respimat) Previous Rx's ?Medication ?Instructions ?Recorded albuterol sulfate 90 mcg/actuation 2 puff inhalation Q4H PRN 02/23/22 aerosol inhaler shortness of breath or wheezing #8.5 grams Allergies Allergy/AdvReac Type Severity Reaction Status Date / Time No Known Drug Allergies Allergy Unverified 01/26/25 11:09 Patient History Medical History Chronic pulmonary aspiration Laryngeal cancer Acute exacerbation of chronic obstructive pulmonary disease Lung cancer Surgical History S/P breast lumpectomy History of lobectomy of lung Family History Father Old age Mother Crohn's disease Social History household members: none Smoking Status: Former smoker alcohol intake: former Smoking Status: Former smoker alcohol intake frequency: 0-2 drinks per day Exam Narrative Exam Narrative: WD/WN/NAD Bilateral upper extremities and right lower extremity nttp. Left Lower extremity: Shortened and externally rotated. Fires tibialis anterior, Gastroc soleus, EHL and FHL SILT s/s/t/dp/sp. DP 2+ and brisk cap refill. AP Pelvsi and lateral of the L hip: Displaced subcapital femoral neck fracture. Initial Vital Signs Initial Vital Signs: Vital Signs Pulse Rate 89 02/02/25 16:42 Respiratory Rate 20 02/02/25 16:42 Blood Pressure 141/77 H 02/02/25 16:42 Pulse Oximetry 92 02/02/25 16:42 Oxygen Delivery Method Nasal Cannula 02/02/25 16:42 Oxygen Flow Rate 4 02/02/25 16:42 Course Orders Ordered: ED Orders 02/02/25 16:25 XR chest 1V Stat XR hip w pel LT 2V Stat 02/02/25 16:26 EKG-12 Lead Stat 02/02/25 17:28 Complete Blood Count AUTO DIFF Stat Comprehensive Metabolic Panel Stat Lipase Stat Magnesium Stat NT-proBNP (BNP-Adult 18+) Stat Troponin I Stat Acetaminophen (Acetaminophen 325 Mg Tablet) 650 mg PO Q6H ERROL Hydromorphone HCl (Hydromorphone Hcl 0.5 Mg/0.5 Ml Syringe) 1 mg IV Q2H PRN PRN Reason: Pain, Severe (7-10) Sodium Chloride (Normal Saline 0.45%) 1,000 mls @ 100 mls/hr IV CONT ERROL Ibuprofen (Ibuprofen 400 Mg Tablet) 400 mg PO Q4H PRN PRN Reason: Pain, Mild (1-3) Naloxone HCl (Naloxone 0.4 Mg/Ml Vial) 0.2 mg IV Q2MIN PRN PRN Reason: Opiate Reversal Ondansetron HCl (Ondansetron 4 Mg/2 Ml Inj) 4 mg IV Q8HR PRN PRN Reason: Nausea And Vomiting Oxycodone HCl (Oxycodone Ir 5 Mg Tablet) 5 mg PO Q3H PRN PRN Reason: Pain, Moderate (4-6) Discontinued Medications Heparin Sodium (Porcine) (Heparin 5,000 Unit/Ml Vial) 5,000 unit SUBCUT NOW ONE Stop: 02/02/25 18:30 Hydromorphone HCl (Hydromorphone 1 Mg/Ml Syringe) 1 mg IV NOW ONE Stop: 02/02/25 16:26 Last Admin: 02/02/25 16:51 Dose: 1 mg Documented By: WILD Hydromorphone HCl (Hydromorphone 1 Mg/Ml Syringe) 1 mg IV NOW ONE Stop: 02/02/25 17:39 Last Admin: 02/02/25 17:46 Dose: 1 mg Documented By: NIKKI Vital Signs Vital signs: Vital Signs - 8 hr 02/02/25 16:42 02/02/25 17:20 02/02/25 17:28 Pulse Rate 89 89 91 H Respiratory Rate 20 22 21 Blood Pressure 141/77 H Pulse Oximetry 92 86 L 96 Oxygen Delivery Method Nasal Cannula Nasal Cannula Nasal Cannula Oxygen Flow Rate 4 3 6 02/02/25 17:30 02/02/25 17:45 02/02/25 17:45 Pulse Rate 90 92 H Respiratory Rate 20 20 Blood Pressure 121/68 Pulse Oximetry 96 96 Oxygen Delivery Method Oxygen Flow Rate 02/02/25 18:00 02/02/25 18:00 Pulse Rate 87 Respiratory Rate 22 Blood Pressure 122/60 Pulse Oximetry 92 Oxygen Delivery Method Oxygen Flow Rate MDM - Extremity Injury (Lower) Lab Data 02/02/25 17:28 02/02/25 17:28 Labs: Lab Results 02/02/25 Range/Units 17:28 WBC 15.8 H (4.5-11.0) X10^3/uL RBC 4.08 (4.0-5.2) X10^6/uL Hgb 12.3 (12.0-16.0) g/dL Hct 38.0 (36-46) % MCV 93.2 (80-100) fL MCH 30.2 (26-34) PG MCHC 32.4 (30-36) % RDW 15.1 H (11.6-14.8) % Plt Count 260 (150-400) X10^3/uL Neut % (Auto) 89.0 H (50-75) % Lymph % (Auto) 4.8 L (25-40) % [place] % (Auto) 5.8 (3-14) % Eos % (Auto) 0.2 L (2-4) % Baso % (Auto) 0.2 (0-2) % Neut # (Auto) 54698 H (1649-4074) /uL Lymph # (Auto) 800 L (2573-7851) /uL [place] # (Auto) 900 (0-900) /uL Eos # (Auto) 0 (0-450) /uL Baso # (Auto) 0 (0-100) /uL PT 11.2 (9.4-12.5) SECONDS INR 1.0 (0.9-1.3) APTT 32 (25.1-36.5) SECONDS Sodium 139 (137-145) mmol/L Potassium 4.5 (3.4-5.1) mmol/L Chloride 104 (98-107) mmol/L Carbon Dioxide 29 (22-32) mmol/L BUN 17 (7-17) mg/dL Creatinine 1.06 H (0.52-1.04) mg/dL Estimated GFR 55 L (>60) mL/min BUN/Creatinine Ratio 16.0 (6-22) Glucose 171 H (70-99) mg/dL Calcium 9.1 (8.4-10.2) mg/dL Magnesium 2.1 (1.6-2.3) mg/dL Total Bilirubin 0.3 (0.2-1.3) mg/dL AST 36 (14-36) IU/L ALT 21 (<35) IU/L Alkaline Phosphatase 96 (38-126) U/L Troponin I < 0.012 (0.01-0.034) ng/mL NT-Pro-B Natriuret Pep 151 (<450) pg/mL Total Protein 7.4 (6.3-8.2) g/dL Albumin 4.2 (3.5-5.0) g/dL Globulin 3.2 (1.7-4.1) g/dL Albumin/Globulin Ratio 1.3 (1.0-2.8) Lipase 101 (23-300) U/L Discharge Plan Departure Patient Disposition: Admitted As Inpatient Clinical Impression: Closed left hip fracture
[2025-02-02] MEDS: NALOXONE 0.4 MG/ML VIAL 0.2 MG IV (20:00)
--- NOTE | 2025-02-02 20:14 | P.HP_ITS ---
History of Present Illness
--- NOTE | 2025-02-02 20:14 | PM.HP.IH.1 ---
History of Present Illness History of Present Illness Date Patient Seen: 02/02/25 Time Patient Seen: 06:00 Date of Onset of Symptoms: 02/02/25 Chief complaint: Ground level fall with left subcapital hip fractur Narrative: 74 yo female with left hip pain after falling down 2 stairs on 02/02/2025. She denies prior hip pain and ambulates unassisted. She lives alone. She presented to ED via ambulance and was found to have a displaced subcapital hip fracture on x-ray. She denies pain elsewhere. [facility] Medical History Acute exacerbation of chronic obstructive pulmonary disease Chronic pulmonary aspiration Laryngeal cancer Lung cancer Surgical History History of lobectomy of lung S/P breast lumpectomy Family History Father Old age Mother Crohn's disease Social History household members: none Smoking Status: Former smoker alcohol intake: former Meds Home Medications and Allergies Home Medications ?Medication ?Instructions ?Recorded ?Confirmed ?Type atorvastatin 40 mg tablet 40 mg PO DAILY 02/19/22 12/23/24 History escitalopram oxalate 20 mg tablet 20 mg PO DAILY 02/19/22 12/23/24 History levothyroxine 50 mcg tablet 50 mcg PO DAILY 02/19/22 12/23/24 History quetiapine 25 mg tablet 25 mg PO BEDTIME 02/19/22 12/23/24 History alprazolam 0.5 mg tablet 0.5 mg PO BID PRN Anxiety 02/20/22 12/23/24 History albuterol sulfate 90 mcg/actuation 2 puff inhalation Q4H PRN 02/23/22 12/23/24 Rx aerosol inhaler shortness of breath or wheezing #8.5 grams alprazolam 0.5 mg tablet 0.5 - 1 mg PO DAILY PRN anxiety 02/08/24 12/23/24 History cefdinir 300 mg capsule 300 mg PO BID 12/23/24 12/23/24 History doxycycline monohydrate 100 mg 100 mg PO BID 12/23/24 12/23/24 History capsule fluticasone fur. 200 mcg-umeclid 1 inh inhalation DAILY 12/23/24 12/23/24 History 62.5 mcg-vilant 25 mcg inhalat.powder (Trelegy Ellipta) gabapentin 300 mg capsule 300 mg PO DAILY 12/23/24 12/23/24 History ibuprofen 600 mg tablet 600 mg PO Q6H PRN pain 12/23/24 12/23/24 History mirtazapine 15 mg tablet 15 mg PO ONCE PM 12/23/24 12/23/24 History omeprazole 20 mg capsule,delayed 20 mg PO DAILY 12/23/24 12/23/24 History release prednisone 20 mg tablet 20 mg PO BID 12/23/24 12/23/24 History tiotropium bromide 2.5 1 inh inhalation DAILY 12/23/24 12/23/24 History mcg/actuation mist for inhalation (Spiriva Respimat) Allergies Allergy/AdvReac Type Severity Reaction Status Date / Time No Known Drug Allergies Allergy Unverified 01/26/25 11:09 Exam Vital Signs (past 8 hours): - 02/02/25 16:42 02/02/25 17:20 02/02/25 17:28 Pulse Rate 89 89 91 H Respiratory Rate 20 22 21 Blood Pressure 141/77 H Pulse Oximetry 92 86 L 96 Oxygen Delivery Method Nasal Cannula Nasal Cannula Nasal Cannula Oxygen Flow Rate 4 3 6 02/02/25 17:30 02/02/25 17:45 02/02/25 17:45 Pulse Rate 90 92 H Respiratory Rate 20 20 Blood Pressure 121/68 Pulse Oximetry 96 96 Oxygen Delivery Method Oxygen Flow Rate 02/02/25 18:00 02/02/25 18:00 02/02/25 18:30 Pulse Rate 87 Respiratory Rate 22 Blood Pressure 122/60 116/57 L Pulse Oximetry 92 Oxygen Delivery Method Oxygen Flow Rate 02/02/25 18:30 02/02/25 18:45 Pulse Rate 97 H Respiratory Rate 21 Blood Pressure Pulse Oximetry 92 Oxygen Delivery Method Simple Mask Oxygen Flow Rate 8 Oxygen Delivery Method Simple Mask Oxygen Flow Rate 8 Narrative Exam Narrative: WD/WN/NAD Bilateral upper extremities and right lower extremity NTTP. LLE: shortened and externally rotated. FIres ta/gs/ehl/fhl SILT s/s/t/dp/sp DP 2+ and brisk cap refill AP PELVIS AND LAT OF THE L HIP: Subcapital femoral neck fracture Left hip - displaced. Objective Labs 02/02/25 17:28 02/02/25 17:28 Labs: Laboratory Results - last 24 hr 02/02/25 17:28 WBC 15.8 H RBC 4.08 Hgb 12.3 Hct 38.0 MCV 93.2 MCH 30.2 MCHC 32.4 RDW 15.1 H Plt Count 260 Neut % (Auto) 89.0 H Lymph % (Auto) 4.8 L [place] % (Auto) 5.8 Eos % (Auto) 0.2 L Baso % (Auto) 0.2 Neut # (Auto) 21659 H Lymph # (Auto) 800 L [place] # (Auto) 900 Eos # (Auto) 0 Baso # (Auto) 0 PT 11.2 INR 1.0 APTT 32 Sodium 139 Potassium 4.5 Chloride 104 Carbon Dioxide 29 BUN 17 Creatinine 1.06 H Estimated GFR 55 L BUN/Creatinine Ratio 16.0 Glucose 171 H Calcium 9.1 Magnesium 2.1 Total Bilirubin 0.3 AST 36 ALT 21 Alkaline Phosphatase 96 Troponin I < 0.012 NT-Pro-B Natriuret Pep 151 Total Protein 7.4 Albumin 4.2 Globulin 3.2 Albumin/Globulin Ratio 1.3 Lipase 101 Assessment & Plan Assessment & Plan narrative: The risks benefits and alternatives were discussed with the patient. Risks include but are not limited to damage to arteries, veins, nerves, need for additional surgery, stiffness of the hip, infection, implant failure, prolonged rehabilitation, blood clots, and risks with anesthesia. All questions were answered. - NPO after midnight for left hip hemiarthroplasty tomorrow 02/03/2025 - After surgery, patient will be weightbearing as tolerated - Will need PT/OT post operatively. - Appreciate hospitalist help with this patient's care Time-Based Coding :: 30 minutes spent with patient and on the chart (including review of chart, obtaining history, exam, reviewing outside data, placing orders, documenting exam and treatment plan, and counseling patient) on [DATE]. Quality VTE Deep Vein Thrombosis/Pulmonary Embolism Present on Admission: No IH [employer] Document charge(s): Yes
[2025-02-03] VITALS (15 sets, daily range): BP systolic 105–138; BP diastolic 51–74; PULSE 74–94; RESP 16–22; TEMP 36.1–37.9; O2SAT 91–99
[2025-02-03] MEDS: SODIUM CHLORIDE 0.45% 1,000 ML 100 ML IV ×2 (02:29→12:44)
[2025-02-03 04:59] LABS: Add Manual Diff / Slide Review NO; Hematocrit 35.8 % (36-46); Hemoglobin 11.8 g/dL (12.0-16.0); Lymphocytes Absolute Auto 300 /uL (1100-4500); Mean Corpuscular HGB Conc 32.9 % (30-36); Mean Corpuscular Hemoglobin 31.1 PG (26-34); Mean Corpuscular Volume 94.4 fL (80-100); Platelet Count 193 X10^3/uL (150-400)
[2025-02-03 05:11] LABS: Blood Urea Nitrogen 17 mg/dL (7-17); Calcium 8.6 mg/dL (8.4-10.2); Carbon Dioxide 30 mmol/L (22-32); Chloride 103 mmol/L (98-107); Estimated Glomerular Filt Rate 58 mL/min (>60); Glucose 128 mg/dL (70-99); HEMOLYSIS < 15 (0-50); Potassium 5.1 mmol/L (3.4-5.1); Sodium 139 mmol/L (137-145)
--- NOTE | 2025-02-03 13:58 | P.OP.PRE_ITS ---
Pre-operative Note
--- NOTE | 2025-02-03 13:58 | PM.PREOP ---
Pre-operative Note COVID-19 COVID-19 status: Not tested Interval Note History & Physical reviewed/Exam performed by Physician: Yes Changes to H&P: No
[2025-02-03] MEDS: ACETAMINOPHEN IV 1,000 MG/100 ML VIAL 400 MG IV (14:04)
[2025-02-03] MEDS: ONDANSETRON 4 MG/2 ML INJ IV (14:04)
[2025-02-03] MEDS: LACTATED RINGERS 1,000 ML 42 ML IV (14:08)
[2025-02-03 14:59] LABS: Appearance Urine UA CLOUDY; Bilirubin Urine UA NEGATIVE (NEGATIVE); Color Urine UA YELLOW; Glucose Urine UA NEGATIVE (Negative); Ketones Urine UA NEGATIVE (NEGATIVE); Leukocyte Esterase Urine UA NEGATIVE (NEGATIVE); Nitrite Urine UA NEGATIVE (Negative); Occult Blood Urine UA NEGATIVE (Negative); Protein Urine UA NEGATIVE (Negative); Specific Gravity Urine UA >=1.030 (1.000-1.035); Urobilinogen Urine UA 0.2 E.U./dL (0.2)
[2025-02-03 15:01] LABS: pH Urine UA 5.5 (4.5-8.0)
[2025-02-03 15:05] LABS: Culture Indicated Urine Cult Not Indicated
--- NOTE | 2025-02-03 15:13 | SUR.OPER ---
lateral, head on pillow, gel axillary roll in place, bottom leg bent with gel pad under knee to foot, upper leg straight and supported with pillows. Upper arm supported by pillows and secured over bottom arm to padded arm board. Safety belt at hip, tape over blanket lower legs.
[2025-02-03] MEDS: BUPivacaine 0.25% W/ EPI (PF) 30 ML VIAL 60 ML INJ (15:30)
--- NOTE | 2025-02-03 16:27 | PC.NURSE ---
Addendum entered by Lissa Cuellar RN 02/03/25 19:01: Pt back to room after surgery. Sleepy, but responds IVF infusing Aquacell dsg CDI O2 @ 4L SpO2 94% Call light w/in reach, bed alarm on for pt safety. Continue w/plan of care. Original Note: A/ O when friend is present, when alone occasional confusion noted. Pt med x 2 prior to OR for pain Pt cries out w/ any movement. Escorted to OR by OR staff 1230 Continues in OR at this time.
--- NOTE | 2025-02-03 17:08 | DI.RAD.S_ITS ---
PROCEDURE: XR HIP W PEL IF DONE LT 2V
--- NOTE | 2025-02-03 17:46 | PM.PN.1 ---
Subjective Subjective Date Patient Seen: 02/03/25 Interval history: Chief complaint: Ground level fall with left subcapital hip fracture History of present illness: 02/02: 74-year-old female tripped and fell severe hip pain brought in by EMS Hip imaging demonstrates subcapital hip fracture with angulation displacement CBC 15.9 otherwise hemogram normal Basic metabolic profile unremarkable Troponin negative BNP normal PT/PTT pending Chest x-ray with extensive chronic lung changes but no acute EKG no acute ST segment changes or T-wave changes Hospital course: 02/03: No events overnight patient is whimpering in pain and confused Review of systems: No fever or chills rigors No chest pain shortness for breath palpitations No cough No nausea vomiting diarrhea No urinary symptom Physical exam: Elderly female no acute distress HEENT unremarkable Heart rate and rhythm regular no murmurs Lungs clear Abdomen nondistended bowel sounds present Extremities no edema Pulses intact in left foot and toes with good capillary refill Assessment and plan: 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 has already been seen by Orthopedic surgery Dr. Waller There are no findings that introduced prohibitive risk of surgery Benefits of surgery outweigh risks Recommend proceeding at 1st opportunity Chronic lung disease with chronic oxygen dependent Continue oxygen Does not introduce prohibitive risk of surgery Laryngeal cancer status post radiation No signs of recurrence History of left-sided lung cancer status post lobectomy: No signs of recurrence History of cardiac catheterization 2023 with no significant coronary disease normal left ventricular function Low risk of cardiovascular complications DVT prophylaxis: Defer to Orthopedic surgery stewardship Code status: Do not resuscitate Disposition: Inpatient for Orthopedic surgery Monitoring on telemetry for hypoxia Time based billin minutes were involved in evaluation of this patient including [id number] evaluation physical examination review of previous records review of outside records discussion with emergency provider placement of orders and moderate complex decision making Exam Vital Signs (past 8 hours): - 02/03/25 14:15 02/03/25 17:10 02/03/25 17:18 Temperature 100.3 F H 97.4 F L 97.5 F L Pulse Rate 88 94 H 88 Respiratory Rate 16 16 22 Blood Pressure 127/71 134/71 126/60 Pulse Oximetry 94 99 95 Oxygen Delivery Method Room Air Simple Mask Simple Mask Oxygen Flow Rate 10 5 02/03/25 17:25 02/03/25 17:30 02/03/25 17:35 Temperature Pulse Rate 88 86 86 Respiratory Rate 16 16 17 Blood Pressure 128/58 L 118/56 L 123/58 L Pulse Oximetry 93 92 92 Oxygen Delivery Method Nasal Cannula Nasal Cannula Nasal Cannula Oxygen Flow Rate 4 4 4 02/03/25 17:40 Temperature Pulse Rate 85 Respiratory Rate 16 Blood Pressure 119/58 L Pulse Oximetry 92 Oxygen Delivery Method Nasal Cannula Oxygen Flow Rate 4 Fraction of Inspired Oxygen 45 SaO2/FiO2 Ratio 197 Oxygen Delivery Method Nasal Cannula Oxygen Flow Rate 4 Objective Labs 02/03/25 04:28 02/03/25 04:28 Labs: Laboratory Results - last 24 hr 02/02/25 02/03/25 02/03/25 17:28 04:28 09:48 WBC 17.7 H RBC 3.79 L Hgb 11.8 L Hct 35.8 L MCV 94.4 MCH 31.1 MCHC 32.9 RDW 15.3 H Plt Count 193 Neut % (Auto) 93.6 H Lymph % (Auto) 1.8 L [place] % (Auto) 4.4 Eos % (Auto) 0.1 L Baso % (Auto) 0.1 Neut # (Auto) 80575 H Lymph # (Auto) 300 L [place] # (Auto) 800 Eos # (Auto) 0 Baso # (Auto) 0 PT 11.2 INR 1.0 APTT 32 Sodium 139 139 Potassium 4.5 5.1 Chloride 104 103 Carbon Dioxide 29 30 BUN 17 17 Creatinine 1.06 H 1.01 Estimated GFR 55 L 58 L BUN/Creatinine Ratio 16.0 16.8 Glucose 171 H 128 H POC Whole Bld Glucose 133 H Calcium 9.1 8.6 Magnesium 2.1 Total Bilirubin 0.3 AST 36 ALT 21 Alkaline Phosphatase 96 Troponin I < 0.012 NT-Pro-B Natriuret Pep 151 Total Protein 7.4 Albumin 4.2 Globulin 3.2 Albumin/Globulin Ratio 1.3 Lipase 101 Urine Color Urine Appearance Urine pH Ur Specific [place] Urine Protein Urine Glucose (UA) Urine Ketones Urine Occult Blood Urine Nitrate Urine Bilirubin Urine Urobilinogen Ur Leukocyte Esterase Urine RBC Urine WBC Ur Squamous Epith Cells Calcium Oxalate Crystal Amorphous Sediment Urine Bacteria Ur Culture Indicated? Vol Urine Centrifuged 02/03/25 09:56 WBC RBC Hgb Hct MCV MCH MCHC RDW Plt Count Neut % (Auto) Lymph % (Auto) [place] % (Auto) Eos % (Auto) Baso % (Auto) Neut # (Auto) Lymph # (Auto) [place] # (Auto) Eos # (Auto) Baso # (Auto) PT INR APTT Sodium Potassium Chloride Carbon Dioxide BUN Creatinine Estimated GFR BUN/Creatinine Ratio Glucose POC Whole Bld Glucose Calcium Magnesium Total Bilirubin AST ALT Alkaline Phosphatase Troponin I NT-Pro-B Natriuret Pep Total Protein Albumin Globulin Albumin/Globulin Ratio Lipase Urine Color Yellow Urine Appearance Cloudy Urine pH 5.5 Ur Specific [place] >=1.030 H Urine Protein Negative Urine Glucose (UA) Negative Urine Ketones Negative Urine Occult Blood Negative Urine Nitrate Negative Urine Bilirubin Negative Urine Urobilinogen 0.2 Ur Leukocyte Esterase Negative Urine RBC 0-1/hpf Urine WBC None seen Ur Squamous Epith Cells 1-5 /hpf Calcium Oxalate Crystal Moderate H Amorphous Sediment 4+ Urine Bacteria None seen Ur Culture Indicated? Cult not indicated Vol Urine Centrifuged 10ml (spun) PFSH Medical History Acute exacerbation of chronic obstructive pulmonary disease Chronic pulmonary aspiration Laryngeal cancer Lung cancer Surgical History History of lobectomy of lung S/P breast lumpectomy Family History Father Old age Mother Crohn's disease Social History household members: none Smoking Status: Former smoker alcohol intake: former Assessment & Plan Time-Based Coding :: [TOTAL MINUTES] spent with patient and on the chart (including review of chart, obtaining history, exam, reviewing outside data, placing orders, documenting exam and treatment plan, and counseling patient) on [DATE]. Quality VTE Deep Vein Thrombosis/Pulmonary Embolism Present on Admission: No
[2025-02-03] MEDS: ALBUTEROL 2.5 MG/3 ML NEB (ADULT) INH (18:07)
--- NOTE | 2025-02-03 18:12 | PC.NURSE ---
Pt arrived to floor at 1740 A/O, denies discomfort SL intact/patent. Lungs clear, Tele placed, SR per ICU staff, Orineted to room & call system Call light w/in reach. pt calls appropriately for needs. Continue w/ plan of care.
[2025-02-03] MEDS: LACTATED RINGERS 1,000 ML 100 ML IV (20:32)
[2025-02-04] MEDS: ACETAMINOPHEN 325 MG TABLET 650 MG PO ×4 (00:56→21:00)
[2025-02-04 01:30] VITALS: BP 123/72; PULSE 91; RESP 18; TEMP 35.9; O2SAT 95
[2025-02-04] MEDS: LACTATED RINGERS 1,000 ML 100 ML IV ×2 (03:39→15:35)
[2025-02-04] MEDS: IBUPROFEN 400 MG TABLET PO (04:31)
[2025-02-04 04:33] VITALS: O2SAT 94
[2025-02-04 05:37] LABS: Add Manual Diff / Slide Review NO; Hematocrit 30.5 % (36-46); Hemoglobin 10.1 g/dL (12.0-16.0); Lymphocytes Absolute Auto 400 /uL (1100-4500); Mean Corpuscular HGB Conc 33.0 % (30-36); Mean Corpuscular Hemoglobin 30.8 PG (26-34); Mean Corpuscular Volume 93.3 fL (80-100); Platelet Count 137 X10^3/uL (150-400)
[2025-02-04 05:47] LABS: Blood Urea Nitrogen 18 mg/dL (7-17); Calcium 8.4 mg/dL (8.4-10.2); Carbon Dioxide 32 mmol/L (22-32); Chloride 102 mmol/L (98-107); Estimated Glomerular Filt Rate > 60 mL/min (>60); Glucose 145 mg/dL (70-99); HEMOLYSIS < 15 (0-50); Potassium 4.6 mmol/L (3.4-5.1); Sodium 137 mmol/L (137-145)
[2025-02-04 08:20] VITALS: O2SAT 98
[2025-02-04] MEDS: ESCITALOPRAM 10 MG TABLET 20 MG PO (09:23)
[2025-02-04] MEDS: ASPIRIN EC 81 MG TABLET PO ×2 (09:23→20:57)
[2025-02-04] MEDS: GABAPENTIN 300 MG CAPSULE PO (09:23)
[2025-02-04] MEDS: ONDANSETRON 4 MG/2 ML INJ IV (09:23)
[2025-02-04] MEDS: LEVOTHYROXINE 50 MCG TABLET PO ×2 (09:23→09:46)
--- NOTE | 2025-02-04 11:14 | CM.DPC ---
Addendum entered by Keke Alas RN 02/04/25 15:20: Patient profile sent to . Addendum entered by Keke Alas RN 02/04/25 15:12: CM spoke with Kristina at bedside. Kristina is agreeable to . Original Note: CM spoke with patient's POA, Kristina Wall. #[phone]. Kristina is aware of the likelihood of SNF for Rehab. List of SNF left at bedside for review. Per Kristina, she will arrive in a few hours. CM to follow up as needed.
--- NOTE | 2025-02-04 12:11 | P.OP_ITS ---
Operative Date/Time/Diagnoses
--- NOTE | 2025-02-04 12:11 | PM.OP.1 ---
Operative Date/Time/Diagnoses Date of procedure: 02/04/25 Time of procedure: 05:30 Pre-op diagnosis: left hip femoral neck fracture Post-op diagnosis: same Procedure & Clinicians Procedure: left hip hemiarthroplasty Same procedure(s) as scheduled: Yes Surgeon: Mallorie Muir Assisted?: Yes Blind Escort: Arie Hill Anesthesia Type: General Operative Notes Findings: see below Closure Type: primary Specimen(s): none sent Applied: implant(s) Estimated Blood Loss (mL): 100 Blood products transfused: none Procedure in detail: ?PROCEDURE IN DETAIL: ? Patient is brought to the operating room and given a preoperative antibiotic, and placed comfortably into the lateral decubitus position.? All bony prominences were padded. 1g TXA was given preoperatively. ?The right hip was sterilely prepped and draped. A time out was performed confirming the correct patient, correct location, and administration of antibiotics. ?A curvilinear posterior incision was made centered over the greater trochanter in line with the femur. ?Dissection was carefully carried through the subcutaneous tissue. ? ?Electrocautery was used for hemostasis. ?A split was then made in the ? ?iliotibial band in line with the skin incision. ?The glute santiago was split in line with its fibers. ?The Charnley retractor was placed. ?The troch bursa was removed.? The piriformis and external rotators were identified with the leg in internal rotation.? I then used Bovie electrocautery to take down the piriformis as well as the external rotators.? These were tagged with Ethibond suture. A hockey-stick type incision was made in the capsule.? This was also tagged with Ethibond suture.? The hip was then dislocated and The femoral head was removed.? ? The head was measured. ?The head measured 45 mm and a trial was utilized with excellent fit. The femur was then prepared beginning with a box osteotome. A lateralizer was used and then sequential hand reamers until an 11 broach was found to be stable. ?This was broached sequentially up to a size 11 which had excellent fit and fill. We then trialed the components and were quite satisfied with regard to leg length, stability, and range of motion.? The femoral canal was prepared and irrigated, the distal cement restrictor was measured and placed, the canal was irrigated then dried, 3rd generation cement technique was used, the anesthesiologist was informed prior to pressurization. The implant was placed and held in position until the cement hardened. The trial head was placed again. The hip was located it had excellent range of motion, great stability. The wound was irrigated and final implants were implanted. The wound was irrigated again.? ?The hip was located it had excellent range of motion, great stability, and the wound was then irrigated. A 2-0 drill bit was utilized to place 2 drill holes in the posterior aspect of the greater trochanter and the piriformis and external rotators were repaired.? The Wound was then Closed with #1 barbed suture in the IT band and glut medius.?The subcutaneous tissue was irrigated with dilute iodine and NS. ?Subcutaneos tissue was closed with 2-0 Vicryl and the skin was closed with ty. ?30 ml of local anesthetic was used to infiltrate the incision site. The patient tolerated the procedure well.? IMPLANTS: Bone plug: size small Unipolar tandom stem: +0 mm 12/14 taper sleeve Tandem Unipolar head 45 mm Synergy cemented stem size 11 Distal post centralizer 9 mm Blind Escort surgeon:? Arie Hill MD Blind Escort: Celeste Nixon PA-C SPECIMENS: None COMPLICATIONS: None BLOOD PRODUCTS: None BLOOD LOSS: 100 IMPLANTS: 52 size femoral head and 11 stem ? POSTOPERATIVE PROTOCOL: ? ?The patient should weightbear to tolerance. Use a walker for ambulation. ?I ? ?would like them to follow up in two weeks or sooner if needed. ?Will plan to ? use aspirin for DVT prophylaxis. ?Follow up with me in 2 weeks for wound check, then again at 6 weeks with standing AP and cross table hip xray. Complications: none
--- NOTE | 2025-02-04 13:35 | PT.IIE ---
Current Diagnoses Unspecified intracapsular fracture of left femur, initial encounter for closed fracture (02/02/25) Surgery Performed Operation Date: 02/03/25 14:30 Actual Procedures p Hip Hemiarthroplasty [place](Left) - Mallorie Muir DO Surgical History (Last Reviewed 02/02/25 @ 20:15 by Mallorie Muir DO) History of lobectomy of lung S/P breast lumpectomy Medical History (Last Reviewed 02/02/25 @ 20:15 by Mallorie Muir DO) Acute exacerbation of chronic obstructive pulmonary disease Chronic pulmonary aspiration Laryngeal cancer Lung cancer Physical Therapy Inpatient Evaluation/Re-Eval M1 PT IP Prior Functional Status Start: 02/04/25 16:57 Freq: NEEDED Status: Active Protocol: Document 02/04/25 13:35 AB (Rec: 02/04/25 17:18 AB [id number]) Medical Review Prior Functional Status Medical History Yes Reviewed Communication able to make needs known; have decrease memory Mobility and Gait pt's friends provided most of pt's PLOF and home setup: POA tends to speak for pt: stated that pt was modified independent with all mobilities and ambulation without AD Activities of Daily per OT note: Pt able to do all ADL and IADl needs. Living and IADL's Social History Household Members none Living Arrangements House Number of Floors ( Two Floors Floors) Number of Stairs To has 3 steps with bilateral wide rails to enter and can Enter/Railing? only hold on to one rail at a time pt has 17 steps with left rail ascending + R side wall to get to the shower Home Environment Standard Height Toilet,Tub/Shower Home Equipment Shower Seat without Backrest,Hand Held Shower Additional Social pt was in the process of moving to her friend's house: History Comment plan is possibly to go to her friend's house after SNF rehab M2 PT-IP Current Condition Start: 02/04/25 16:57 Freq: NEEDED Status: Active Protocol: Document 02/04/25 13:35 AB (Rec: 02/04/25 17:18 AB [id number]) Physical Therapy Current Condition Current Condition Evaluation Date 02/04/25 Treatment Diagnosis L hip fx s/p L hip hemiarthroplasty; difficulty in walking Onset Date 02/02/25 M3 PT-IP Subjective Start: 02/04/25 16:57 Freq: NEEDED Status: Active Protocol: Document 02/04/25 13:35 AB (Rec: 02/04/25 17:18 AB [id number]) Subjective Physical Therapy Visit Type Type Initial Evaluation Visit Start Time 13:35 Visit Stop Time 14:50 Notes PT eval order received. EMR reviewed. No operative note and weight bearing orders this morning. Called ortho MD office and spoke with receptionist/telephone operator to clarify and for ortho doctor to put in orders for weight bearing status. currently, still no weight bearing orders but operative note in at 1211pm today and has WBAT on note. Saw Dr. Muir when PT was working with pt and asked the doctor to put in orders for weight bearing. Checked 1707 but still no orders. Number of FISH BAILER Visits 0 Physical Therapy Visit Comments Patient Comments agreeable to do PT Therapy Pain Assessment Pain When Pain Assessed At Rest Location Left Hip Intensity 5 Scale Used Numeric (0 - 10) Pain Behaviors Guarding Pain Management Modification of Treatment,Re-positioning Techniques M4 PT-IP Mobility and Gait Start: 02/04/25 16:57 Freq: NEEDED Status: Active Protocol: Document 02/04/25 13:35 AB (Rec: 02/04/25 17:18 AB [id number]) PT-Transfer Assessment Sit to and From Stand Sit to and from Maximum Assistance,1 Person Assistance,2 Person Stand Assistance,Use of Upper Extremities Equipment Transfer Assistive Gait Belt,Front Wheeled Walker Device Orthotic/Prosthetic No Devices or Brace: Transfers Transfer Destination Chair Transfer Technique Stand Step Pivot Transfer Ability Level of Assist Maximum Assistance,1 Person Assistance,2 Person Assistance,Use of Upper Extremities Comments Mobility Comments pt in bed and friends in room. obtained PLOF and home set up. pt's friends provided pt's PLOF and home setup . BP: 124/74. O2 sat with 2L/min O2: 96%. assessed O2 sat at RA and pt's O2 sat decrease to 77%. put O2 back on and cued for PLB. O2 sat increased to 93%. initiated educated pt on posterior hip precautions. pt easily distracted and needs constant cues to focus on task. Ortho MD arrived to see pt. PT stepped out. checked back on pt after ortho consult. pt sitting on EOB with OT. pt completed sit to stand max A x 1-2 and max cues. pt able to step transfer to chair using FWW max A x 1-2 and max cues. pt refused to ambulate but agreed to sit up on the chair. positioned pt on the chair. call light and table placed within reach. Gait Assessment Comments Gait Comments refused ambulation but able to take a few steps to transfer to chair using FWW max A x 1-2 and max cues PT-Balance Assessment Sitting Balance and Reactions Static Sitting Good Balance Ability Dynamic Sitting Fair Balance Ability Standing Balance and Reactions Static Standing Poor Balance Ability Dynamic Standing Poor Balance Ability Device Used FWW M5 PT-IP Objective Assessments Start: 02/04/25 16:57 Freq: NEEDED Status: Active Protocol: Document 02/04/25 13:35 AB (Rec: 02/04/25 17:18 AB [id number]) Orientation Orientation/Cognition Level of Alertness Alert Orientation Place,Situation Language Function Hard of Hearing Ability Safety Awareness Decreased Safety Awareness Memory Description Short Term Impaired,[facility] Impaired Gross Range of Motion Lower Extremity ROM Assessment Left Impaired Impairments increase LLE guarding with movement affecting ROM during testing Strength Lower Extremity Strength Assessment Left Impaired Hip 3-/5 Knee 3+/5 Muscle Tone Muscle Tone WNL Yes M6 PT-IP Treatment Start: 02/04/25 16:57 Freq: NEEDED Status: Active Protocol: Document 02/04/25 13:35 AB (Rec: 02/04/25 17:18 AB [id number]) Physical Therapy Treatment Exercises Exercises Heel Slides Education Education Provided Precautions,Weight Bearing Status,Post-Op Packet,Safety M7 PT-IP Assessment and Plan Start: 02/04/25 16:57 Freq: NEEDED Status: Active Protocol: Document 02/04/25 13:35 AB (Rec: 02/04/25 17:18 AB [id number]) PT Summary Assessment and Plan Potential Rehabilitation Fair Potential Status of Condition Evolving at Evaluation Summary Impairments Pain,ROM,Strength,Balance,Coordination,Sensation,Tone, Cognition,Bed Mobility,Transfers,Gait,Activity Tolerance Assessment Summary pt is a 74y/o F s/p fall and sustain a L hip fx. pt underwent L hip hemiarthroplasty POD 1. pt has posterior hip precautions and is WBAT. pt requiring max A x 1-2 for transfers using FWW. Pt will require 24/7 assist and will benefit from SNF rehab to improve strength and mobility independence. Goals Bed Mobility Goal Minimal Assistance Transfer Goal Minimal Assistance,Front Wheeled Walker Gait Goal Minimal Assistance,Front Wheel Walker Gait Distance 50 Other Goals improve bed mobility, transfers, ambulation using FWW ~ 100 ft SBA Days to Meet Goals 10 Frequency of Treatment Other frequency 1-2x/day Treatment Plan Physical Therapy Bed Mobility Training,Transfer Training,Gait Training, Treatment Plan Therapeutic Exercise,Balance Retraining,Post Op Education,Discharge Planning,Hot or Cold Pack, Neuromuscular Re-ed,Coordination Retraining,Manual Therapy Precautions Posterior Hip No Hip Flexion > 90 degrees,No Hip Internal Rotation,No Precautions Hip Adduction Weight Bearing Status Weight Bearing Weight Bear as Tolerated Status Allowed Weight LLE WBAT Bearing Amount ( enter % or #) (%) Recommendations To Nursing Amount of Assist 2 Person Assist Needed Discharge Recommendations PT Discharge SNF Rehab Recommendations Transportation Needs Wheelchair/Cabulance at Discharge - PT assist 1-2
--- NOTE | 2025-02-04 14:34 | PM.PNPO.1 ---
Subjective Subjective Date Patient Seen: 02/04/25 Time Patient Seen: 02:00 Interval history: 74 yo F s/p Left hip hemiarthroplasty Doing well post op. Pain well controlled. She has not yet been up with PT. She denies f/c/ns. PE: wd/wn/nad Lhip: Dressing c/d/i. SILT s/s/t/dp/sp Fires ta/gs/ehl/fhl DP 2+ and brisk cap refill. Exam Vital Signs (past 8 hours): - 02/04/25 08:20 02/04/25 09:15 Pulse Oximetry 98 Oxygen Delivery Method Nasal Cannula Nasal Cannula Oxygen Flow Rate 3 Fraction of Inspired Oxygen 32 SaO2/FiO2 Ratio 293 Oxygen Delivery Method Nasal Cannula Oxygen Flow Rate 3 Objective Labs 02/04/25 04:50 02/04/25 04:50 Labs: Laboratory Results - last 24 hr 02/03/25 02/04/25 09:56 04:50 WBC 16.4 H RBC 3.27 L Hgb 10.1 L Hct 30.5 L MCV 93.3 MCH 30.8 MCHC 33.0 RDW 15.1 H Plt Count 137 L Neut % (Auto) 94.1 H Lymph % (Auto) 2.5 L [place] % (Auto) 3.4 Eos % (Auto) 0.0 L Baso % (Auto) 0.0 Neut # (Auto) 71530 H Lymph # (Auto) 400 L [place] # (Auto) 600 Eos # (Auto) 0 Baso # (Auto) 0 Sodium 137 Potassium 4.6 Chloride 102 Carbon Dioxide 32 BUN 18 H Creatinine 0.78 Estimated GFR > 60 BUN/Creatinine Ratio 23.1 H Glucose 145 H Calcium 8.4 Urine Color Yellow Urine Appearance Cloudy Urine pH 5.5 Ur Specific [place] >=1.030 H Urine Protein Negative Urine Glucose (UA) Negative Urine Ketones Negative Urine Occult Blood Negative Urine Nitrate Negative Urine Bilirubin Negative Urine Urobilinogen 0.2 Ur Leukocyte Esterase Negative Urine RBC 0-1/hpf Urine WBC None seen Ur Squamous Epith Cells 1-5 /hpf Calcium Oxalate Crystal Moderate H Amorphous Sediment 4+ Urine Bacteria None seen Ur Culture Indicated? Cult not indicated Vol Urine Cent[facility]ed [facility]un) [facility] Medical History Acute exacerbation of chronic obstructive pulmonary disease Chronic pulmonary aspiration Laryngeal cancer Lung cancer Surgical History History of lobectomy of lung S/P breast lumpectomy Family History Father Old age Mother Crohn's disease Social History household members: none Smoking Status: Former smoker alcohol intake: former Assessment & Plan Post-op Postoperative Procedures: Procedures Operation Date: 02/03/25 14:30 Actual Procedure Side Surgeon p Hip Hemiarthroplasty [place] Left Mallorie Muir DO Postoperative day: 1 Postoperative status: doing well Postoperative status narrative: WBAT LLE with walker and PT/OT. Aspirin BID x 6 weeks F/u with [facility] 2 weeks for wound check and staple removal Postoperative plan: routine post-op care Time Spent With Patient Time with patient: less than 15 minutes Quality VTE Deep Vein Thrombosis/Pulmonary Embolism Present on Admission: No
--- NOTE | 2025-02-04 14:40 | OT.IP.EVAL ---
Current Diagnoses Unspecified intracapsular fracture of left femur, initial encounter for closed fracture (02/02/25) Surgery Performed Operation Date: 02/03/25 14:30 Actual Procedures p Hip Hemiarthroplasty [place](Left) - Mallorie Muir DO Past Medical History (Last Reviewed 02/02/25 @ 20:15 by Mallorie Muir DO) Acute exacerbation of chronic obstructive pulmonary disease Chronic pulmonary aspiration Laryngeal cancer Lung cancer Surgical History (Last Reviewed 02/02/25 @ 20:15 by Mallorie Muir DO) History of lobectomy of lung S/P breast lumpectomy Occupational Therapy Inpatient Evaluation/Re-Eval M1 OT IP Prior Functional Status Start: 02/04/25 16:17 Freq: Status: Active Protocol: Document 02/04/25 16:18 [facility] (Rec: 02/04/25 16:42 [facility] Desktop) Medical Review Prior Functional Status Communication I Mobility and Gait Prior pt did not walk with device per pt's friends. Activities of Daily Pt able to do all ADL and IADl needs. Living and IADL's Prior Functional Pt is the process of moving into her friend's house. Level (Other details ) Social History Household Members none Living Arrangements House Number of Floors ( Two Floors Floors) Number of Stairs To Pt lives in a two level town home with 3 steps with Enter/Railing? wide rails to enter and 17steps with left rail and wall to get to the shower level. Home Environment Standard Height Toilet,Tub/Shower Home Equipment Shower Seat with Backrest,Hand Held Shower M2 OT-IP Current Condition Start: 02/04/25 16:17 Freq: Status: Active Protocol: Document 02/04/25 16:18 [facility] (Rec: 02/04/25 16:42 [facility] Desktop) Occupational Therapy Current Condition Current Condition Evaluation Date 02/04/25 Treatment Diagnosis GLF S/P Left Subcapital hip fx Diagnosis Onset Date 02/02/25 Post Operative Precautions Posterior Hip No Hip Flexion > 90 degrees,No Hip Internal Rotation,No Precautions Hip Adduction Weight Bearing Status Weight Bearing Weight Bear as Tolerated Status M3 OT- IP Subjective and Pain Start: 02/04/25 16:17 Freq: Status: Active Protocol: Document 02/04/25 16:18 [facility] (Rec: 02/04/25 16:42 [facility] Desktop) OT- Subjective Occupational Therapy Visit Type Type Initial Evaluation Visit Start Time 13:45 Visit Stop Time 14:44 Occupational Therapy Visit Comments Patient Comments Pt agreed to get up after encouragement. Pt's friends and PT present for part of OT eval. Patient/Caregiver TO get better. Goals OT Pain Assessment Pain When Pain Assessed At Rest Pain Present Pain Present Pain Reported Location Left Hip Intensity 4 Scale Used Numeric (0 - 10) Pain Behaviors Facial Grimacing,Guarding,Holding Area M4 OT- IP ADL's Start: 02/04/25 16:17 Freq: Status: Active Protocol: Document 02/04/25 16:18 [facility] (Rec: 02/04/25 16:42 [facility] Desktop) OT [id number] Comments OT Self-Feeding Not at meal time. Comments OT ADL-Grooming General Evaluation Grooming Ability Standby Assistance Areas Needing Retrieving/Set-up of Grooming Items Assistance Comments OT Grooming Comments Able to do while seated in the recliner. OT ADL-Oral Care General Eval Oral Care Ability Standby Assistance Areas of Assistance Retrieving/Set-Up of Items OT ADL-Dressing General Eval Lower Body Dressing Total Assistance Ability Areas Needing Socks Assistance Comments OT Dressing Comments Total assist at this time for LB dressing needs. OT ADL-Toileting General Evaluation Toileting Ability Total Assistance Comments OT Toileting Pt had Purewick in prior to seeing pt. Pt will need use Comments of malorie lift for transfers at this time due to decreased safety awareness, ability to follow commands and guarding her LLE. OT ADL-Bathing Comments OT Bathing Comments Sponge bath more appropriate at this time. M5 OT- IP IADL's Start: 02/04/25 16:17 Freq: Status: Active Protocol: Document 02/04/25 16:18 [facility] (Rec: 02/04/25 16:42 [facility] Desktop) OT-Instrumental Activities of Daily Living Home Safety Awareness Awareness of Need Decreased Awareness for Assistance at Home Ability to Problem Unable to Problem Solve Solve Emergency Situations Home Safety Comments Pt very groggy and at times not making sense and very tangential. Medication Management Medication Pt will need assist at this time. Management Comments Money Management Money Management Pt will need help. Comments Meal Preparation Meal Preparation Pt will need help. Comments Sand Tester Sand Tester Pt will need help. Comments Driving Driving Comments Pt will need asisst. M6 OT- IP Functional Cognition Start: 02/04/25 16:17 Freq: Status: Active Protocol: Document 02/04/25 16:18 [facility] (Rec: 02/04/25 16:42 [facility] Desktop) Cognitive Factors Limiting Selfcare Function Cognitive Ability Level of Alertness Confusional State Patient Orientation Name,Place Attention Span Capable of Focused Attention,Unable to Focus,Unable to Ability Sustain Attention Ability to Follow Able to Follow One Step Commands with Increased Time, Commands Able to Follow One Step Commands with Repetition Memory Description Short Term Impaired,Working Impaired Safety Awareness Underestimates Need for Assistance Cognitive Comments Cognitive Assessment Pt's friend states pt is not at her baseline for Comments thinking and usually very sharp and probably affected from the pain meds and surgery at this time. Pt needing simple concrete cues to follow, hand over hand assist and visual cues as well. OT- Vision and Hearing OT- Hearing Assessment OT- Hearing WFL Assessment OT- Vision Assessment Visual Acuity WFL M7 OT- IP Mobility and Balance Start: 02/04/25 16:17 Freq: Status: Active Protocol: Document 02/04/25 16:18 [facility] (Rec: 02/04/25 16:42 [facility] Desktop) OT- Bed Mobility Assessment Supine to Sit Supine to Sit Assist Maximum Assistance,1 Person Assistance,Head of Bed Elevated,Bedrails OT-Transfer Assessment Sit to and From Stand Sit to and from Maximum Assistance,2 Person Assistance Stand Transfers Transfer Ability Maximum Assistance,2 Person Assistance Technique Transfer Destination Bed,Chair Transfer Technique Stand Step Pivot Devices Transfer Assistive Gait Belt,Front Wheeled Walker Devices Comments Mobility Comments MAX AX 1 assist vc for sequencing of task mainly and assist to help move her LLE to the edge of the bed and assist with green pad to move as well. Pt not coordinating her movements well and mainly just extending her LLE and having difficulty to bend her left knee. Pt having spasms and guarding her LLE. MAX AX 2 to stand and assist for balance and to guide the FWW and able to transfer to the recliner. Due to pt's difficulty to follow commands and guarding her LLE , best to use malorie lift for transfers at this time. OT- Balance Assessment Sitting Balance and Reactions Static Sitting Fair Balance Ability Dynamic Sitting Poor Balance Ability Standing Balance and Reactions Static Standing Poor Balance Ability Dynamic Standing Poor Balance Ability M8 OT- IP Objective Assessments Start: 02/04/25 16:17 Freq: Status: Active Protocol: Document 02/04/25 16:18 [facility] (Rec: 02/04/25 16:42 [facility] Desktop) OT Gross Range of Motion Upper Extremity Range of Motion Assessment Bilaterally Impaired ROM Impairments Elbow to distal bilaterally WFL. Bilateral shoulders per pt rotator cuff issues. OT Strength Upper Extremity Strength Assessment Bilaterally Impaired Comments Strength Comments Bilateral shoulders 3-/5, elbow to distal 4/5. M9 OT- IP Assessment and Plan Start: 02/04/25 16:17 Freq: Status: Active Protocol: Document 02/04/25 16:18 [facility] (Rec: 02/04/25 16:42 [facility] Desktop) OT Summary Assessment and Plan Potential Rehabilitation Good Potential Analytic Complexity Moderate at Evaluation Summary OT Impairments Pain,Range of Motion,Strength,Balance,Functional Cognition,Functional Mobility,Self-Feeding,Grooming, Dressing,Toileting,Bathing,Toilet Transfers,Shower Transfers,Activity Tolerance Progress Towards Slow Progress due to Pain,Slow Progress due to Medical Goals Issues,Slow Progress due to Activity Tolerance,Slow Progress due to Cognition Assessment Summary Pt MOD complexity and main barriers are pain, confusion from medication and pain meds, guarding and spasms in LLE and best to use malorie lift at this time as pt having trouble to follow commands. Pt also not able to recall any on her hip precautions. Pt will benefit from skilled rehab. Goals Self-Feeding Goal Independent Grooming Goal Independent Dressing Goal Minimal Assistance Toileting Goal Minimal Assistance Bathing Goal Moderate Assistance Toilet Transfer Goal Contact Guard Assistance Shower Transfer Goal Minimal Assistance Days to Meet Goals 25 Frequency of Treatment Other frequency 5x/week Treatment Plan OT Treatment Plan ADL Training,Functional Cognition Training,Functional Mobility,Patient/Family Education,Discharge Planning Other Treatment [place] [facility] [place] with FWW. Practice LB Recommendations and dressing equipment. Next Treatment Focus Discharge Recommendations OT Discharge SNF Rehab Recommendations Transportation Needs Wheelchair/Cabulance at Discharge
--- NOTE | 2025-02-04 15:01 | PM.PN.IH.1 ---
Subjective Subjective Date Patient Seen: 02/04/25 Time Patient Seen: 08:40 Interval history: Ground level fall with left subcapital hip fracture History of present illness: 02/02: 74-year-old female tripped and fell severe hip pain brought in by EMS Hip imaging demonstrates subcapital hip fracture with angulation displacement CBC 15.9 otherwise hemogram normal Basic metabolic profile unremarkable Troponin negative BNP normal PT/PTT pending Chest x-ray with extensive chronic lung changes but no acute EKG no acute ST segment changes or T-wave changes Hospital course: 02/03: No events overnight patient is whimpering in pain and confused. 02/04: She underwent left hip hemiarthroplasty this morning, and remains confused but is much more oriented and improving as the morning progressed. She is seen with a friend. Exam Vital Signs (past 8 hours): - 02/04/25 08:20 02/04/25 09:15 Pulse Oximetry 98 Oxygen Delivery Method Nasal Cannula Nasal Cannula Oxygen Flow Rate 3 Fraction of Inspired Oxygen 32 SaO2/FiO2 Ratio 293 Oxygen Delivery Method Nasal Cannula Oxygen Flow Rate 3 Narrative Exam Narrative: GENERAL: This is a thin, frail appearing female patient, in no apparent distress. Nasal cannula oxygen in place. HEAD: Atraumatic. Normocephalic. No temporal or scalp tenderness. EYES: Pupils equal round and reactive. Extraocular motions intact. No scleral icterus. No injection or drainage. ENT: Mucous membranes pink and moist. NECK: Trachea midline. No JVD, bruits or lymphadenopathy. Supple, nontender, no meningeal signs. CARDIOVASCULAR: Regular rate and rhythm without murmurs, gallops, or rubs. RESPIRATORY: Clear to auscultation. GASTROINTESTINAL: Abdomen soft, non-tender, nondistended. EXTREMITIES: No clubbing, cyanosis, or edema. MSK: Left hip bandage in place, clean, dry and intact. Normal distal sensation and motor function. NEUROLOGIC: Alert, oriented, speech fluent, full upper and lower motor strength, no focal deficits evident. DERMATOLOGIC: No rashes or skin lesions. Objective Imaging *: Radiologist's impression: 1. Chest x-ray 02/02/2025: Mild COPD. No acute cardiopulmonary pathology. 2. Left hip x-ray 02/02/2025: Acute displaced left femoral neck fracture as above. 3. Left hip x-ray 02/03/2025: Interval left hip antonella arthroplasty. No hardware failure. No new fracture. Mild degenerative change in chondrocalcinosis of the right hip. Osseous demineralization. Soft tissue gas expected postoperatively along the left thigh with swelling. IMPRESSION: Postoperative examination as above Labs 02/04/25 04:50 02/04/25 04:50 Labs: Laboratory Results - last 24 hr 02/03/25 02/04/25 09:56 04:50 WBC 16.4 H RBC 3.27 L Hgb 10.1 L Hct 30.5 L MCV 93.3 MCH 30.8 MCHC 33.0 RDW 15.1 H Plt Count 137 L Neut % (Auto) 94.1 H Lymph % (Auto) 2.5 L [place] % (Auto) 3.4 Eos % (Auto) 0.0 L Baso % (Auto) 0.0 Neut # (Auto) 35994 H Lymph # (Auto) 400 L [place] # (Auto) 600 Eos # (Auto) 0 Baso # (Auto) 0 Sodium 137 Potassium 4.6 Chloride 102 Carbon Dioxide 32 BUN 18 H Creatinine 0.78 Estimated GFR > 60 BUN/Creatinine Ratio 23.1 H Glucose 145 H Calcium 8.4 Urine Color Yellow Urine Appearance Cloudy Urine pH 5.5 Ur Specific [place] >=1.030 H Urine Protein Negative Urine Glucose (UA) Negative Urine Ketones Negative Urine Occult Blood Negative Urine Nitrate Negative Urine Bilirubin Negative Urine Urobilinogen 0.2 Ur Leukocyte Esterase Negative Urine RBC 0-1/hpf Urine WBC None seen Ur Squamous Epith Cells 1-5 /hpf Calcium Oxalate Crystal Moderate H Amorphous Sediment 4+ Urine Bacteria None seen Ur Culture Indicated? 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, status post left hip hemiarthroplasty 02/04/2025 Postoperative management per Orthopedics and Physical therapy Chronic lung disease with chronic oxygen dependent Continue oxygen Laryngeal cancer status post radiation No signs of recurrence Moderate protein calorie malnutrition Consult dietary History of left-sided lung cancer status post lobectomy: No signs of recurrence History of cardiac catheterization 2023 with no significant coronary disease normal left ventricular function Low risk of cardiovascular complications DVT prophylaxis: Heparin SQ BID Code status: Do not resuscitate Disposition: Inpatient for Orthopedic surgery Monitoring on telemetry for hypoxia Quality VTE Deep Vein Thrombosis/Pulmonary Embolism Present on Admission: No IH PROFEE Equal Employment Opportunity Officer Document charge(s): No Charge Codes Subsequent inpatient/observation care: [id number]
[2025-02-04 20:49] VITALS: BP 98/53; PULSE 80; RESP 18; TEMP 36.6; O2SAT 98
[2025-02-04] MEDS: DOCUSATE 100 MG CAPSULE PO (20:57)
[2025-02-04] MEDS: HEPARIN 5,000 UNIT/ML VIAL 5000 UNIT SUBCUT (20:58)
--- NOTE | 2025-02-05 01:59 | PC.NURSE ---
patient requested to not be disturbed tonight after medication pass at 2100, stating she needed rest. RN explained that RN and PCT will continue to do hourly checks but will not intentionally wake patient up, RN asked patient if she wanted to be woken for her scheduled tylenol, Patient declined stating she wanted rest.
[2025-02-05] MEDS: IBUPROFEN 400 MG TABLET PO (04:42)
--- NOTE | 2025-02-05 04:51 | PC.NURSE ---
this RN was doing hourly check and found patient had removed her gown and accidentally removed her IV, catheter was intact, RN stopped fluids and applied pressure to IV site, Patient refused to have another IV placed requesting to have it done after breakfast, home service director Telly zavala. communication order placed for No IV access until after breakfast per patient request.
[2025-02-05] MEDS: LEVOTHYROXINE 50 MCG TABLET PO (05:53)
[2025-02-05 06:31] LABS: Add Manual Diff / Slide Review NO; Hematocrit 29.8 % (36-46); Hemoglobin 9.9 g/dL (12.0-16.0); Lymphocytes Absolute Auto 300 /uL (1100-4500); Mean Corpuscular HGB Conc 33.1 % (30-36); Mean Corpuscular Hemoglobin 31.1 PG (26-34); Mean Corpuscular Volume 93.9 fL (80-100); Platelet Count 107 X10^3/uL (150-400)
[2025-02-05 06:45] LABS: Blood Urea Nitrogen 25 mg/dL (7-17); Calcium 8.3 mg/dL (8.4-10.2); Carbon Dioxide 32 mmol/L (22-32); Chloride 102 mmol/L (98-107); Estimated Glomerular Filt Rate 55 mL/min (>60); Glucose 136 mg/dL (70-99); HEMOLYSIS < 15 (0-50); Potassium 4.7 mmol/L (3.4-5.1); Sodium 138 mmol/L (137-145)
--- NOTE | 2025-02-05 09:41 | PM.PN.IH.1 ---
Subjective Subjective Date Patient Seen: 02/05/25 Time Patient Seen: 09:30 Interval history: PATIENT SUMMARY Trish Espinal, a 74-year-old patient, is being evaluated postoperatively following a left hip hemiarthroplasty for a femoral neck fracture. PAST SURGICAL HISTORY - Left hip hemiarthroplasty for femoral neck fracture performed by Dr. Muir on February 04. SUBJECTIVE The patient is experiencing confusion and disorientation. She was found naked, attempting to get out of bed, and was unable to answer questions regarding her orientation. She does not respond appropriately to direct questions. The patient has been non-compliant with hospital protocols, removing her IV and urinating in her bed overnight. PHYSICAL EXAM Constitutional: The patient is quite obviously delirious, unable to respond coherently to orientation questions, and has removed her hospital gown. She was expressing pain but did not verbalize where this was localized to when asked. Musculoskeletal: Dressing is clean, dry, intact. Intact plantar flexion and dorsiflexion of hallux and ankle. Volitional movement of operative hip without severe discomfort, but tenderness to palpation around the surgical site. LABS - Hemoglobin: 9.9 - Creatinine: 1.06 (slightly elevated compared to her baseline of 0.9 in October). ASSESSMENT - Postoperative delirium. - Status post left hip hemiarthroplasty for femoral neck fracture. PLAN - Physical therapy with weight bearing as tolerated with walker utilization anytime she is out of bed. - Maintain compliance with posterior hip precautions. - Minimize use of mentally altering medications. Her baseline medications include alprazolam, gabapentin, mirtazapine, and quetiapine. Recommend utilization of all non-opioid pain control modalities in order to minimize opioids. Appreciate input of medical team regarding anything that can be done to modify baseline medications to minimize AMS. - Continue subcutaneous heparin for DVT prophylaxis. DISPOSITION Likely discharge to a [facility] facility due to delirium and increased care needs. FOLLOWUP Follow-up in the outpatient setting at [facility] in two weeks for a wound check. No X-rays planned at that visit. Exam Vital Signs (past 8 hours): Fraction of Inspired Oxygen 32 SaO2/FiO2 Ratio 293 Oxygen Delivery Method Nasal Cannula Oxygen Flow Rate 3 Objective Labs 02/05/25 06:10 02/05/25 06:10 Labs: Laboratory Results - last 24 hr 02/05/25 06:10 WBC 9.2 RBC 3.17 L Hgb 9.9 L Hct 29.8 L MCV 93.9 MCH 31.1 MCHC 33.1 RDW 15.4 H Plt Count 107 L Neut % (Auto) 88.0 H Lymph % (Auto) 3.4 L [place] % (Auto) 7.5 Eos % (Auto) 0.3 L Baso % (Auto) 0.8 Neut # (Auto) 8100 H Lymph # (Auto) 300 L [place] # (Auto) 700 Eos # (Auto) 0 Baso # (Auto) 100 Sodium 138 Potassium 4.7 Chloride 102 Carbon Dioxide 32 BUN 25 H Creatinine 1.06 H Estimated GFR 55 L BUN/Creatinine Ratio 23.6 H Glucose 136 H Calcium 8.3 L PFSH Medical History Acute exacerbation of chronic obstructive pulmonary disease Chronic pulmonary aspiration Laryngeal cancer Lung cancer Surgical History History of lobectomy of lung S/P breast lumpectomy Family History Father Old age Mother Crohn's disease Social History household members: none Smoking Status: Former smoker alcohol intake: former Assessment & Plan Time-Based Coding :: [TOTAL MINUTES] spent with patient and on the chart (including review of chart, obtaining history, exam, reviewing outside data, placing orders, documenting exam and treatment plan, and counseling patient) on [DATE]. Quality VTE Deep Vein Thrombosis/Pulmonary Embolism Present on Admission: No PROFEE Front End Web Developer Document charge(s): Yes
[2025-02-05] MEDS: DOCUSATE 100 MG CAPSULE PO ×2 (09:56→20:13)
[2025-02-05] MEDS: ASPIRIN EC 81 MG TABLET PO ×2 (09:56→20:13)
[2025-02-05] MEDS: ACETAMINOPHEN 325 MG TABLET 650 MG PO ×3 (09:58→20:13)
[2025-02-05] MEDS: ESCITALOPRAM 10 MG TABLET 20 MG PO (09:59)
[2025-02-05] MEDS: GABAPENTIN 300 MG CAPSULE PO (09:59)
[2025-02-05] MEDS: HEPARIN 5,000 UNIT/ML VIAL 5000 UNIT SUBCUT ×2 (09:59→20:13)
--- NOTE | 2025-02-05 11:51 | PM.PN.IH.1 ---
Subjective Subjective Date Patient Seen: 02/05/25 Time Patient Seen: 08:29 Interval history: Ground level fall with left subcapital hip fracture History of present illness: 02/02: 74-year-old female tripped and fell severe hip pain brought in by EMS Hip imaging demonstrates subcapital hip fracture with angulation displacement CBC 15.9 otherwise hemogram normal Basic metabolic profile unremarkable Troponin negative BNP normal PT/PTT pending Chest x-ray with extensive chronic lung changes but no acute EKG no acute ST segment changes or T-wave changes Hospital course: 02/03: No events overnight patient is whimpering in pain and confused. 02/04: She underwent left hip hemiarthroplasty this morning, and remains confused but is much more oriented and improving as the morning progressed. She is seen with a friend. 02/05: The patient pulled out her IV overnight. She is alert and oriented but mildly confused this morning. Exam Vital Signs (past 8 hours): Fraction of Inspired Oxygen 32 SaO2/FiO2 Ratio 293 Oxygen Delivery Method Nasal Cannula Oxygen Flow Rate 3 Narrative Exam Narrative: GENERAL: This is a thin, frail appearing female patient, in no apparent distress. Nasal cannula oxygen in place. EYES: Pupils equal round and reactive. Extraocular motions intact. No scleral icterus. No injection or drainage. ENT: Mucous membranes pink and moist. NECK: Trachea midline. No JVD, bruits or lymphadenopathy. Supple, nontender, no meningeal signs. CARDIOVASCULAR: Regular rate and rhythm without murmurs, gallops, or rubs. RESPIRATORY: Clear to auscultation. GASTROINTESTINAL: Abdomen soft, non-tender, nondistended. EXTREMITIES: No clubbing, cyanosis, or edema. NEUROLOGIC: Alert, oriented, speech fluent, full upper and lower motor strength, no focal deficits evident. DERMATOLOGIC: No rashes or skin lesions. Left hip bandage in place, clean, dry and intact. Objective Imaging *: Radiologist's impression: 1. Chest x-ray 02/02/2025: Mild COPD. No acute cardiopulmonary pathology. 2. Left hip x-ray 02/02/2025: Acute displaced left femoral neck fracture as above. 3. Left hip x-ray 02/03/2025: Interval left hip antonella arthroplasty. No hardware failure. No new fracture. Mild degenerative change in chondrocalcinosis of the right hip. Osseous demineralization. Soft tissue gas expected postoperatively along the left thigh with swelling. IMPRESSION: Postoperative examination as above Labs 02/05/25 06:10 02/05/25 06:10 Labs: Laboratory Results - last 24 hr 02/05/25 06:10 WBC 9.2 RBC 3.17 L Hgb 9.9 L Hct 29.8 L MCV 93.9 MCH 31.1 MCHC 33.1 RDW 15.4 H Plt Count 107 L Neut % (Auto) 88.0 H Lymph % (Auto) 3.4 L [place] % (Auto) 7.5 Eos % (Auto) 0.3 L Baso % (Auto) 0.8 Neut # (Auto) 8100 H Lymph # (Auto) 300 L [place] # (Auto) 700 Eos # (Auto) 0 Baso # (Auto) 100 Sodium 138 Potassium 4.7 Chloride 102 Carbon Dioxide 32 BUN 25 H Creatinine 1.06 H Estimated GFR 55 L BUN/Creatinine Ratio 23.6 H Glucose 136 H Calcium 8.3 L PFSH Medical History Acute exacerbation of chronic obstructive pulmonary disease Chronic pulmonary aspiration Laryngeal cancer Lung cancer Surgical History History of lobectomy of lung S/P breast lumpectomy Family History Father Old age Mother Crohn's disease Social History household members: none Smoking Status: Former smoker alcohol intake: former Assessment & Plan Assessment & Plan narrative: 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, status post left hip hemiarthroplasty 02/04/2025 Postoperative management per Orthopedics and Physical therapy Chronic lung disease with chronic oxygen dependent Continue oxygen Laryngeal cancer status post radiation No signs of recurrence Moderate protein calorie malnutrition Consult dietary Postoperative delirium Limit pain and psychotropic medications Monitor History of left-sided lung cancer status post lobectomy: No signs of recurrence History of cardiac catheterization 2023 with no significant coronary disease normal left ventricular function Low risk of cardiovascular complications DVT prophylaxis: Heparin SQ BID Code status: Do not resuscitate Disposition: Inpatient for Orthopedic surgery Monitoring on telemetry for hypoxia Quality VTE Deep Vein Thrombosis/Pulmonary Embolism Present on Admission: No IH PROFEE Entry Writer Document charge(s): No Charge Codes Subsequent inpatient/observation care: [id number]
--- NOTE | 2025-02-05 12:45 | PT-IP ANOTE ---
checked on pt this morning and friend in room. pt confused and agitated this morning and not appropriate for PT. will f/u this afternoon
[2025-02-05 14:00] VITALS: BP 129/71; PULSE 71; RESP 18; TEMP 35.6; O2SAT 100
--- NOTE | 2025-02-05 15:25 | PT.IPTN ---
Current Diagnoses Unspecified intracapsular fracture of left femur, initial encounter for closed fracture (02/02/25) Surgery Performed Operation Date: 02/03/25 14:30 Actual Procedures p Hip Hemiarthroplasty Benson(Left) - Mallorie Muir, DO Physical Therapy Treatment Note M2 PT-IP Current Condition Start: 02/04/25 16:57 Freq: NEEDED Status: Active Protocol: Document 02/04/25 13:35 AB (Rec: 02/04/25 17:18 AB [id number]) Physical Therapy Current Condition Current Condition Evaluation Date 02/04/25 Treatment Diagnosis L hip fx s/p L hip hemiarthroplasty; difficulty in walking Onset Date 02/02/25 M3 PT-IP Subjective Start: 02/04/25 16:57 Freq: NEEDED Status: Active Protocol: Document 02/05/25 15:25 AB (Rec: 02/05/25 17:32 AB Desktop) Subjective Physical Therapy Visit Type Type Treatment Note Visit Start Time 15:25 Visit Stop Time 15:40 Number of PETROLEUM SUPPLY SPECIALIST Visits 0 M4 PT-IP Mobility and Gait Start: 02/04/25 16:57 Freq: NEEDED Status: Active Protocol: Document 02/05/25 15:25 AB (Rec: 02/05/25 17:32 AB Desktop) PT-Bed Mobility Assessment Scooting Scooting Up and Down Dependent in Bed PT-Transfer Assessment Comments Mobility Comments pt in bed and asleep. Attempted to wake pt up but needed constant cues to stay awake. pt agreed to do PT. set up chair and initiated mobility but pt became restless and pulling gown off needing max cues to settle down. pt unable to follow commands. NAC in room to assist. repositioned pt in bed and completed proper bed positioning with pillows in between LE due to posterior hip precautions. pt's friend in room and aware of pt's confusion. call light and table placed next to pt. left pt with her friend. M5 PT-IP Objective Assessments Start: 02/04/25 16:57 Freq: NEEDED Status: Active Protocol: Document 02/04/25 13:35 AB (Rec: 02/04/25 17:18 AB [id number]) Orientation Orientation/Cognition Level of Alertness Alert Orientation Place,Situation Language Function Hard of Hearing Ability Safety Awareness Decreased Safety Awareness Memory Description Short Term Impaired,Care Home Impaired Gross Range of Motion Lower Extremity ROM Assessment Left Impaired Impairments increase LLE guarding with movement affecting ROM during testing Strength Lower Extremity Strength Assessment Left Impaired Hip 3-/5 Knee 3+/5 Muscle Tone Muscle Tone WNL Yes M6 PT-IP Treatment Start: 02/04/25 16:57 Freq: NEEDED Status: Active Protocol: Document 02/04/25 13:35 AB (Rec: 02/04/25 17:18 AB [id number]) Physical Therapy Treatment Exercises Exercises Heel Slides Education Education Provided Precautions,Weight Bearing Status,Post-Op Packet,Safety M7 PT-IP Assessment and Plan Start: 02/04/25 16:57 Freq: NEEDED Status: Active Protocol: Document 02/05/25 15:25 AB (Rec: 02/05/25 17:32 AB Desktop) PT Summary Assessment and Plan Potential Rehabilitation Fair Potential Summary Impairments Pain,ROM,Strength,Balance,Coordination,Sensation,Tone, Cognition,Bed Mobility,Transfers,Gait,Activity Tolerance Progress Towards Slow Progress due to Medical Issues,Slow Progress due Goals to Activity Tolerance,Slow Progress - Other Assessment Summary pt with limited participation today. pt with confusion and agitation on first attempt and was not able to participate with PT. pt still limited with participation on 2nd attempt, continues to have confusion but less agitation and also drowsy. pt will require 24/7 assist and will need SNF rehab. will continue to assess progress. Goals Bed Mobility Goal Minimal Assistance Transfer Goal Minimal Assistance,Front Wheeled Walker Gait Goal Minimal Assistance,Front Wheel Walker Gait Distance 50 Other Goals improve bed mobility, transfers, ambulation using FWW ~ 100 ft SBA Days to Meet Goals 10 Frequency of Treatment Frequency Of Once a Day Treatment Treatment Plan Physical Therapy Bed Mobility Training,Transfer Training,Gait Training, Treatment Plan Therapeutic Exercise,Balance Retraining,Post Op Education,Discharge Planning,Hot or Cold Pack, Neuromuscular Re-ed,Coordination Retraining,Manual Therapy Precautions Posterior Hip No Hip Flexion > 90 degrees,No Hip Internal Rotation,No Precautions Hip Adduction Weight Bearing Status Weight Bearing Weight Bear as Tolerated Status Allowed Weight LLE WBAT Bearing Amount ( enter % or #) (%) Recommendations To Nursing Amount of Assist 2 Person Assist Needed Discharge Recommendations PT Discharge SNF Rehab Recommendations Transportation Needs Wheelchair/Cabulance at Discharge - PT assist 1-2
--- NOTE | 2025-02-05 16:22 | PC.NURSE ---
Pt resting in bed, pt drank an entire vanila ensure, friend at bedside, pt given scheduled tylenol medication, denies pain, resting with eyes closed, will continue to monitor.
--- NOTE | 2025-02-05 17:21 | PC.NURSE ---
pt given ensure to drink, pt sitting up watching the [employer] channel, lights are on, brief changed
[2025-02-05 20:24] VITALS: BP 95/56; PULSE 73; RESP 17; TEMP 36.2; O2SAT 99
[2025-02-06] MEDS: ACETAMINOPHEN 325 MG TABLET 650 MG PO ×3 (02:12→20:57)
[2025-02-06] MEDS: LEVOTHYROXINE 50 MCG TABLET PO (06:53)
--- NOTE | 2025-02-06 07:58 | PM.PN.IH.1 ---
Subjective Subjective Interval history: PROGRESS NOTE PATIENT SUMMARY Trish Espinal is a patient on postoperative day two following a left hip hemiarthroplasty performed by myself on February 04, presenting with postoperative delirium. PAST SURGICAL HISTORY - Left hip hemiarthroplasty performed by Dr. Muir on February 04 through posterior approach SUBJECTIVE Helen reports that her hip hurts a little bit. Despite some confusion, she recognizes her name and recalls the reason for her hip pain. She is experiencing delirium, confusion, and drowsiness, which have affected her ability to participate in physical therapy. Physical therapy notes indicate she requires a two-person assist for ambulation and recommend discharge to a [facility] facility. PHYSICAL EXAM Constitutional: - Patient is confused and drowsy, able to report her name and injury but unable to correctly answer other orientation questions. When I asked her where we are located her response on more than one occasion was oh please Musculoskeletal: - Left hip examination shows dressing is clean, dry, and intact with Richie covering. - Intact plantar flexion and dorsiflexion of toes and ankle. - Femoral nerve examination limited by lack of participation. - Well-perfused with palpable PT pulse. LABS - Hemoglobin: 9.9 ASSESSMENT - Postoperative delirium following left hip hemiarthroplasty - Pain in left hip - History of COPD, cardiac catheterization in 2023, and laryngeal cancer PLAN - Continue weight-bearing as tolerated with posterior hip precautions. - Utilize all nonopioid pain management strategies to minimize use of opioids. She takes multiple other mentally altering medications and has pain in her hip, all of which contribute to her delirium although this does seem at least somewhat improved today - Continue heparin for DVT prophylaxis. DISPOSITION Discharge to [facility] facility as recommended by physical therapy. FOLLOWUP Follow-up appointment at [facility] in two weeks for wound check. Exam Vital Signs (past 8 hours): Fraction of Inspired Oxygen 32 SaO2/FiO2 Ratio 293 Oxygen Delivery Method Nasal Cannula Oxygen Flow Rate 3 Objective Labs 02/05/25 06:10 02/05/25 06:10 COUNT INCLUDES THE [facility] Medical History Acute exacerbation of chronic obstructive pulmonary disease Chronic pulmonary aspiration Laryngeal cancer Lung cancer Surgical History History of lobectomy of lung S/P breast lumpectomy Family History Father Old age Mother Crohn's disease Social History household members: none Smoking Status: Former smoker alcohol intake: former Assessment & Plan Time-Based Coding :: [TOTAL MINUTES] spent with patient and on the chart (including review of chart, obtaining history, exam, reviewing outside data, placing orders, documenting exam and treatment plan, and counseling patient) on [DATE]. Quality VTE Deep Vein Thrombosis/Pulmonary Embolism Present on Admission: No [facility]H PROFEE Quality Project Manager Document charge(s): Yes
[2025-02-06 08:00] VITALS: BP 141/68; PULSE 69; RESP 20; TEMP 36.1; O2SAT 100
[2025-02-06] MEDS: ESCITALOPRAM 10 MG TABLET 20 MG PO (08:01)
[2025-02-06] MEDS: HEPARIN 5,000 UNIT/ML VIAL 5000 UNIT SUBCUT ×2 (08:01→20:58)
[2025-02-06] MEDS: ASPIRIN EC 81 MG TABLET PO ×2 (08:01→20:58)
[2025-02-06] MEDS: GABAPENTIN 300 MG CAPSULE PO (08:01)
[2025-02-06] MEDS: DOCUSATE 100 MG CAPSULE PO ×2 (08:01→20:58)
[2025-02-06] MEDS: IBUPROFEN 400 MG TABLET PO (08:40)
[2025-02-06 09:18] VITALS: O2SAT 98
--- NOTE | 2025-02-06 09:27 | DI.CT.S_ITS ---
PROCEDURE: CT HEAD/BRAIN WO CON
--- NOTE | 2025-02-06 11:11 | PM.PN.IH.1 ---
Subjective Subjective Date Patient Seen: 02/06/25 Time Patient Seen: 07:41 Interval history: Ground level fall with left subcapital hip fracture History of present illness: 02/02: 74-year-old female tripped and fell severe hip pain brought in by EMS Hip imaging demonstrates subcapital hip fracture with angulation displacement CBC 15.9 otherwise hemogram normal Basic metabolic profile unremarkable Troponin negative BNP normal PT/PTT pending Chest x-ray with extensive chronic lung changes but no acute EKG no acute ST segment changes or T-wave changes Hospital course: 02/03: No events overnight patient is whimpering in pain and confused. 02/04: She underwent left hip hemiarthroplasty this morning, and remains confused but is much more oriented and improving as the morning progressed. She is seen with a friend. 02/05: The patient pulled out her IV overnight. She is alert and oriented but mildly confused this morning. 02/06: The patient is confused, appears restless. It is noted that her usual mirtazapine and quetiapine have not been restarted postoperatively. She also states that she hit her head when she fell a few days ago at the time of her hip fracture. She denies headache. Exam Vital Signs (past 8 hours): - 02/06/25 08:00 02/06/25 09:18 Temperature 97.0 F L Pulse Rate 69 Respiratory Rate 20 Blood Pressure 141/68 H Pulse Oximetry 100 98 Oxygen Delivery Method Nasal Cannula Oxygen Flow Rate 3 1 Fraction of Inspired Oxygen 32 SaO2/FiO2 Ratio 293 Oxygen Delivery Method Nasal Cannula Oxygen Flow Rate 1 Narrative Exam Narrative: GENERAL: This is a thin, frail appearing female patient, in no apparent distress, mildly restless, confused. Nasal cannula oxygen in place. EYES: Pupils equal round and reactive. Extraocular motions intact. No scleral icterus. No injection or drainage. ENT: Mucous membranes pink and moist. NECK: Trachea midline. No JVD, bruits or lymphadenopathy. Supple, nontender, no meningeal signs. CARDIOVASCULAR: Regular rate and rhythm without murmurs, gallops, or rubs. RESPIRATORY: Clear to auscultation. GASTROINTESTINAL: Abdomen soft, non-tender, nondistended. EXTREMITIES: No clubbing, cyanosis, or edema. NEUROLOGIC: Alert, oriented to person and place, appears confused, speech fluent, full upper and lower motor strength, no focal deficits evident. DERMATOLOGIC: No rashes or skin lesions. Left hip bandage in place, clean, dry and intact. Objective Imaging *: Radiologist's impression: 1. Chest x-ray 02/02/2025: Mild COPD. No acute cardiopulmonary pathology. 2. Left hip x-ray 02/02/2025: Acute displaced left femoral neck fracture as above. 3. Left hip x-ray 02/03/2025: Interval left hip antonella arthroplasty. No hardware failure. No new fracture. Mild degenerative change in chondrocalcinosis of the right hip. Osseous demineralization. Soft tissue gas expected postoperatively along the left thigh with swelling. IMPRESSION: Postoperative examination as above Labs 02/05/25 06:10 02/05/25 06:10 Labs: Laboratory Results - last 24 hr 02/05/25 06:10 WBC 9.2 RBC 3.17 L Hgb 9.9 L Hct 29.8 L MCV 93.9 MCH 31.1 MCHC 33.1 RDW 15.4 H Plt Count 107 L Neut % (Auto) 88.0 H Lymph % (Auto) 3.4 L Faulkner % (Auto) 7.5 Eos % (Auto) 0.3 L Baso % (Auto) 0.8 Neut # (Auto) 8100 H Lymph # (Auto) 300 L Faulkner # (Auto) 700 Eos # (Auto) 0 Baso # (Auto) 100 Sodium 138 Potassium 4.7 Chloride 102 Carbon Dioxide 32 BUN 25 H Creatinine 1.06 H Estimated GFR 55 L BUN/Creatinine Ratio 23.6 H Glucose 136 H Calcium 8.3 L PFSH Medical History Acute exacerbation of chronic obstructive pulmonary disease Chronic pulmonary aspiration Laryngeal cancer Lung cancer Surgical History History of lobectomy of lung S/P breast lumpectomy Family History Father Old age Mother Crohn's disease Social History household members: none Smoking Status: Former smoker alcohol intake: former Assessment & Plan Assessment & Plan narrative: 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, status post left hip hemiarthroplasty 02/04/2025 Postoperative management per Orthopedics and Physical therapy Postoperative delirium Check head CT Add back routine mirtazapine and quetiapine, continue escitalopram Limit pain and psychotropic medications Monitor Chronic lung disease with chronic oxygen dependent Continue oxygen Laryngeal cancer status post radiation No signs of recurrence Moderate protein calorie malnutrition Consult dietary Postoperative delirium Monitor History of left-sided lung cancer status post lobectomy: No signs of recurrence History of cardiac catheterization 2023 with no significant coronary disease normal left ventricular function Low risk of cardiovascular complications DVT prophylaxis: Heparin SQ BID Code status: Do not resuscitate Disposition: Inpatient for Orthopedic surgery Monitoring on telemetry for hypoxia, delirium Quality VTE Deep Vein Thrombosis/Pulmonary Embolism Present on Admission: No I[facility]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
[2025-02-06] MEDS: ALBUTEROL 2.5 MG/3 ML NEB (ADULT) INH (11:21)
[2025-02-06 11:22] VITALS: PULSE 69; RESP 16; O2SAT 98
--- NOTE | 2025-02-06 12:25 | PT.IPTN ---
Current Diagnoses Unspecified intracapsular fracture of left femur, initial encounter for closed fracture (02/02/25) Surgery Performed Operation Date: 02/03/25 14:30 Actual Procedures p Hip Hemiarthroplasty Benson(Left) - Mallorie Muir, DO Physical Therapy Treatment Note M2 PT-IP Current Condition Start: 02/04/25 16:57 Freq: NEEDED Status: Active Protocol: Document 02/04/25 13:35 AB (Rec: 02/04/25 17:18 AB [id number]) Physical Therapy Current Condition Current Condition Evaluation Date 02/04/25 Treatment Diagnosis L hip fx s/p L hip hemiarthroplasty; difficulty in walking Onset Date 02/02/25 M3 PT-IP Subjective Start: 02/04/25 16:57 Freq: NEEDED Status: Active Protocol: Document 02/06/25 12:13 SAK (Rec: 02/06/25 12:24 SAK [id number]) Subjective Physical Therapy Visit Type Type Treatment Note Visit Start Time 10:56 Visit Stop Time 11:24 Physical Therapy Visit Comments Patient Comments drowsy, but agreeable to do PT Therapy Pain Assessment Pain When Pain Assessed At Rest Location Left Hip Intensity 6 Description Aching Pain Management Modification of Treatment,Re-positioning Techniques M4 PT-IP Mobility and Gait Start: 02/04/25 16:57 Freq: NEEDED Status: Active Protocol: Document 02/06/25 12:13 SAK (Rec: 02/06/25 12:24 SAK [id number]) PT-Transfer Assessment Sit to and From Stand Sit to and from Moderate Assistance,2 Person Assistance,Use of Upper Stand Extremities Equipment Transfer Assistive Gait Belt,Front Wheeled Walker Device Orthotic/Prosthetic No Devices or Brace: Transfers Transfer Destination Chair Transfer Technique Stand Step Pivot Transfer Ability Level of Assist Moderate Assistance,2 Person Assistance Comments Mobility Comments Pt. needed frequent cues to open eyes supine, sitting, and standing. Pt needed constant verbal and tactile cues to perform exercises and mobility skills. PLANT UTILITIES ENGINEER in room to assist, PT assisted patient standing (min assist) while PLANT UTILITIES ENGINEER changed brief with. Gait Assessment Comments Gait Comments Able only to take small shuffling steps from bed to chair with verbal cues and mod assist. M5 PT-IP Objective Assessments Start: 02/04/25 16:57 Freq: NEEDED Status: Active Protocol: Document 02/04/25 13:35 AB (Rec: 02/04/25 17:18 [id number]) Orientation Orientation/Cognition Level of Alertness Alert Orientation Place,Situation Language Function Hard of Hearing Ability Safety Awareness Decreased Safety Awareness Memory Description Short Term Impaired,Group Home Impaired Gross Range of Motion Lower Extremity ROM Assessment Left Impaired Impairments increase LLE guarding with movement affecting ROM during testing Strength Lower Extremity Strength Assessment Left Impaired Hip 3-/5 Knee 3+/5 Muscle Tone Muscle Tone WNL Yes M6 PT-IP Treatment Start: 02/04/25 16:57 Freq: NEEDED Status: Active Protocol: Document 02/06/25 12:13 [facility] (Rec: 02/06/25 12:24 [facility] [id number]) Physical Therapy Treatment Exercises Exercises Ankle Pumps,Heel Slides,Short Arc Quads M7 PT-IP Assessment and Plan Start: 02/04/25 16:57 Freq: NEEDED Status: Active Protocol: Document 02/06/25 12:13 [facility] (Rec: 02/06/25 12:24 [facility] [id number]) PT Summary Assessment and Plan Potential Rehabilitation Fair Potential Summary Impairments Pain,ROM,Strength,Balance,Coordination,Sensation,Tone, Cognition,Bed Mobility,Transfers,Gait,Activity Tolerance Progress Towards Slow Progress due to Medical Issues,Slow Progress due Goals to Activity Tolerance,Slow Progress - Other Assessment Summary pt with limited participation today. pt with confusion and agitation on first attempt and was not able to participate with PT. pt still limited with participation on 2nd attempt, continues to have confusion but less agitation and also drowsy. pt will require 24/7 assist and will need SNF rehab. will continue to assess progress. Goals Bed Mobility Goal Minimal Assistance Transfer Goal Minimal Assistance,Front Wheeled Walker Gait Goal Minimal Assistance,Front Wheel Walker Gait Distance 50 Other Goals improve bed mobility, transfers, ambulation using FWW ~ 100 ft SBA Days to Meet Goals 10 Frequency of Treatment Frequency Of Once a Day Treatment Treatment Plan Physical Therapy Bed Mobility Training,Transfer Training,Gait Training, Treatment Plan Therapeutic Exercise,Balance Retraining,Post Op Education,Discharge Planning,Hot or Cold Pack, Neuromuscular Re-ed,Coordination Retraining,Manual Therapy Precautions Posterior Hip No Hip Flexion > 90 degrees,No Hip Internal Rotation,No Precautions Hip Adduction Weight Bearing Status Weight Bearing Weight Bear as Tolerated Status Allowed Weight LLE WBAT Bearing Amount ( enter % or #) (%) Recommendations To Nursing Amount of Assist 2 Person Assist Needed Discharge Recommendations PT Discharge SNF Rehab Recommendations Transportation Needs Wheelchair/Cabulance at Discharge
--- NOTE | 2025-02-06 16:46 | CM.DPNOTE ---
DCP note per Preeti at , can accept, got auth. per provider, if pt confusion improves overnight could dc tomorrow. pt was not getting some of her home meds which could be leading to her confusion, restart those today UI SOFTWARE ENGINEER attempted to meet with pt/DPOA in room, pt sleeping, DPOA not in room. will f/u tomorrow pending how pt does overnight. PASRR needed P: dc Mon vs to pending confusion. got auth. will continue to follow closely for DCP Coordination [employer] [place]
[2025-02-06] MEDS: ALBUTEROL/IPRATROPIUM 3 ML AMPUL INH (19:21)
[2025-02-06] MEDS: BUDESONIDE 0.5 MG/2 ML NEB INH (19:21)
[2025-02-06 19:26] VITALS: PULSE 74; RESP 16; O2SAT 98
[2025-02-06 19:55] VITALS: BP 110/66; PULSE 77; RESP 17; TEMP 36.2; O2SAT 91
[2025-02-06] MEDS: MIRTAZAPINE 15 MG TABLET PO (20:58)
[2025-02-07] MEDS: LEVOTHYROXINE 50 MCG TABLET PO (05:51)
[2025-02-07] MEDS: ALBUTEROL 2.5 MG/3 ML NEB (ADULT) INH (06:11)
[2025-02-07 06:13] VITALS: PULSE 70; RESP 18; O2SAT 96
--- NOTE | 2025-02-07 07:37 | PM.PN.1 ---
Subjective Subjective Interval history: Summary: Ground level fall with left subcapital hip fracture History of present illness: 02/02: 74-year-old female tripped and fell severe hip pain brought in by EMS Hip imaging demonstrates subcapital hip fracture with angulation displacement CBC 15.9 otherwise hemogram normal Basic metabolic profile unremarkable Troponin negative BNP normal PT/PTT pending Chest x-ray with extensive chronic lung changes but no acute EKG no acute ST segment changes or T-wave changes Hospital course: 02/03: No events overnight patient is whimpering in pain and confused. 02/04: She underwent left hip hemiarthroplasty this morning, and remains confused but is much more oriented and improving as the morning progressed. She is seen with a friend. 02/05: The patient pulled out her IV overnight. She is alert and oriented but mildly confused this morning. 02/06: The patient is confused, appears restless. It is noted that her usual mirtazapine and quetiapine have not been restarted postoperatively. She also states that she hit her head when she fell a few days ago at the time of her hip fracture. She denies headache. S: O: IMAGIN. Chest x-ray 02/02/2025: Mild COPD. No acute cardiopulmonary pathology. 2. Left hip x-ray 02/02/2025: Acute displaced left femoral neck fracture as above. 3. Left hip x-ray 02/03/2025: Interval left hip antonella arthroplasty. No hardware failure. No new fracture. Mild degenerative change in chondrocalcinosis of the right hip. Osseous demineralization. Soft tissue gas expected postoperatively along the left thigh with swelling. IMPRESSION: Postoperative examination as above A/P: 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, status post left hip hemiarthroplasty 02/04/2025 Postoperative management per Orthopedics and Physical therapy Postoperative delirium Check head CT Add back routine mirtazapine and quetiapine, continue escitalopram Limit pain and psychotropic medications Monitor Chronic lung disease with chronic oxygen dependent Continue oxygen Laryngeal cancer status post radiation No signs of recurrence Moderate protein calorie malnutrition Consult dietary Postoperative delirium Monitor History of left-sided lung cancer status post lobectomy: No signs of recurrence History of cardiac catheterization 2023 with no significant coronary disease normal left ventricular function Low risk of cardiovascular complications DVT prophylaxis: Heparin SQ BID Code status: Do not resuscitate Exam Vital Signs (past 8 hours): - 02/07/25 06:13 Pulse Rate 70 Respiratory Rate 18 Pulse Oximetry 96 Oxygen Delivery Method Nasal Cannula Oxygen Flow Rate 2 Fraction of Inspired Oxygen 28 Fraction of Inspired Oxygen 28 SaO2/FiO2 Ratio 339 Oxygen Delivery Method Nasal Cannula Oxygen Flow Rate 2 Objective Labs 02/05/25 06:10 02/05/25 06:10 [facility] Medical History Acute exacerbation of chronic obstructive pulmonary disease Chronic pulmonary aspiration Laryngeal cancer Lung cancer Surgical History History of lobectomy of lung S/P breast lumpectomy Family History Father Old age Mother Crohn's disease Social History household members: none Smoking Status: Former smoker alcohol intake: former Assessment & Plan Time-Based Coding :: [TOTAL MINUTES] spent with patient and on the chart (including review of chart, obtaining history, exam, reviewing outside data, placing orders, documenting exam and treatment plan, and counseling patient) on [DATE]. Quality VTE Deep Vein Thrombosis/Pulmonary Embolism Present on Admission: No
[2025-02-07] MEDS: DOCUSATE 100 MG CAPSULE PO (08:00)
[2025-02-07] MEDS: ASPIRIN EC 81 MG TABLET PO (08:00)
[2025-02-07] MEDS: ACETAMINOPHEN 325 MG TABLET 650 MG PO (08:00)
[2025-02-07] MEDS: ESCITALOPRAM 10 MG TABLET 20 MG PO (08:00)
[2025-02-07] MEDS: GABAPENTIN 300 MG CAPSULE PO (08:00)
[2025-02-07] MEDS: HEPARIN 5,000 UNIT/ML VIAL 5000 UNIT SUBCUT (08:01)
[2025-02-07] MEDS: ALBUTEROL/IPRATROPIUM 3 ML AMPUL INH (08:47)
[2025-02-07] MEDS: BUDESONIDE 0.5 MG/2 ML NEB INH (08:47)
[2025-02-07 08:50] VITALS: PULSE 72; RESP 18; O2SAT 98
[2025-02-07 09:00] VITALS: PULSE 82; RESP 20; O2SAT 91
--- NOTE | 2025-02-07 09:43 | P.DS_ITS ---
History of Present Illness
--- NOTE | 2025-02-07 09:43 | PM.DS.1 ---
History of Present Illness History of Present Illness Chief complaint: Ground level fall with left subcapital hip fractur Narrative: From H&P: History of present illness: 02/02: 74-year-old female tripped and fell severe hip pain brought in by EMS Hip imaging demonstrates subcapital hip fracture with angulation displacement CBC 15.9 otherwise hemogram normal Basic metabolic profile unremarkable Troponin negative BNP normal PT/PTT pending Chest x-ray with extensive chronic lung changes but no acute EKG no acute ST segment changes or T-wave changes Hospital course: 02/03: No events overnight patient is whimpering in pain and confused 02/04: She underwent left hip hemiarthroplasty this morning, and remains confused but is much more oriented and improving as the morning progressed. She is seen with a friend. 02/05: The patient pulled out her IV overnight. She is alert and oriented but mildly confused this morning. 02/06: The patient is confused, appears restless. It is noted that her usual mirtazapine and quetiapine have not been restarted postoperatively. She also states that she hit her head when she fell a few days ago at the time of her hip fracture. She denies headache. 02/07: Doing well, mild confusion but able to follow commands and track. Still not able to come up with the year. She does appear to be relatively stable for [facility] with ongoing close medical supervision. O: VSS NAD, alert and oriented. Fluent speech. Still very mildly confused with some issues coming up with year. Lungs are clear, normal rate and effort. Heart is regular, no murmur gallop or rub. Abdomen is soft, non distended. Extremities are free of edema. IMAGIN. Chest x-ray 02/02/2025: Mild COPD. No acute cardiopulmonary pathology. 2. Left hip x-ray 02/02/2025: Acute displaced left femoral neck fracture as above. 3. Left hip x-ray 02/03/2025: Interval left hip antonella arthroplasty. No hardware failure. No new fracture. Mild degenerative change in chondrocalcinosis of the right hip. Osseous demineralization. Soft tissue gas expected postoperatively along the left thigh with swelling. IMPRESSION: Postoperative examination as above A/P: 1. 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, status post left hip hemiarthroplasty 02/04/2025, improving. 2. Postoperative delirium, improving. 3. Chronic lung disease with chronic oxygen dependent, stable. Continue oxygen 4. Laryngeal cancer status post radiation, stable. 5. Moderate protein calorie malnutrition, active. 6. History of left-sided lung cancer status post lobectomy, stable. 7. History of cardiac catheterization 2023 with no significant coronary disease normal left ventricular function, stable. PLAN: -DC to SNF. [N], the patient has documentation of a left ventricle ejection fracture less than or equal to 40%, or moderately or severely reduced left ventricle systolic function. [N] the patient has a history of heart transplant or left ventricular assist device (LVAD). [N], the patient was prescribed an PACHECO inhibitor at discharge or is already being taken. The patient was not prescribed an PACHECO-inhibitor because of the following exception: NA. [N], the patient was prescribed Metoprolol succinate, bisoprolol, or carvedilol at discharge. The patient was not prescribed Metoprolol succinate, bisoprolol, or carvedilol at discharge because of the following exception: NA Discharge Providers Provider Date of admission: 02/02/25 18:18 Discharge Date: 02/07/25 Primary care physician: Dominique Oakley DO Consults: 02/03/25 14:01 Consult to Anesthesiology Routine Comment: Consulting Provider: Anesthesiologist Reason for consultation: Regional block for post-operative pain control 02/03/25 19:43 Consult to Discharge Planning Routine Comment: SNF planning Consult to Occupational Therapy Evaluate & Treat Comment: posterior hip precautions, WBAT Physician Instructions: Evaluate and treat Consult to Physical Therapy Evaluate & Treat Comment: posterior hip precautions, WBAT Physician Instructions: Evaluate and Treat 02/04/25 15:09 Consult to Dietitian, Adult Routine Comment: Reason For Exam: malnutrition 02/06/25 09:50 Consult to Pharmacy Routine Comment: if new meds Discharge provider: Damián Chambers MD Summary Hospital Course Discharge Diagnosis: As above. Hospital Course: As above. Status at Discharge Cognitive/behavioral status at discharge: confused Functional status at discharge: uses cane/walker Overall status at discharge: patient is progressing back to baseline Time Spent with Patient Time spent: Greater than 30 minutes Exam Vital Signs (past 8 hours): - 02/07/25 06:13 02/07/25 08:50 02/07/25 09:00 Pulse Rate 70 72 82 Respiratory Rate 18 18 20 Pulse Oximetry 96 98 91 Oxygen Delivery Method Nasal Cannula Nasal Cannula Oxygen Flow Rate 2 2 2 Fraction of Inspired Oxygen 28 28 Fraction of Inspired Oxygen 28 SaO2/FiO2 Ratio 350 Oxygen Delivery Method Nasal Cannula Oxygen Flow Rate 2 Objective Labs 02/05/25 06:10 02/05/25 06:10 [facility] Medical History Chronic pulmonary aspiration Laryngeal cancer Acute exacerbation of chronic obstructive pulmonary disease Lung cancer Surgical History S/P breast lumpectomy History of lobectomy of lung Family History Father Old age Mother Crohn's disease Social History household members: none Smoking Status: Former smoker alcohol intake: former Discharge Plan Discharge Plan Patient Disposition: [facility] Transfer to: [facility] Under care of provider: SNF provider Provider Discharge Comment: PROCEDURE: Left Hip Hemiarthroplasty SURGEON: Dr Muir DATE: 02/03/25 ACTIVITY INSTRUCTIONS o You are weight bearing as tolerated to the left lower extremity with a front wheeled walker at all times. We encourage active movement of the toes and ankle every hour while awake to prevent stiffness. o Please follow posterior hip precautions to prevent hip dislocation. Do not cross your legs or point your toes inward o Do not drive while taking narcotic medications and recovering from your surgery. DRESSING CARE o You have an Aquacell dressing on top of your incision. This is a waterproof dressing and so you may shower with the dressing so long as the dressing remains clean and dry to the surgical site. Leave the dressing in place until your follow up in the orthopedic clinic. If the dressing becomes saturated or is disrupted call our office for further guidance. o Your skin was closed with ty which are under the dressing and will be removed at a post operative appointment at your surgeon?s discretion. POST-OPERATIVE INSTRUCTIONS o If you notice fever, chills, night sweats, redness, excessive drainage or bleeding, a sharp increase in pain that persists after taking pain medication, pain in your calf muscles, chest pain or trouble breathing please unwrap the dressing and investigate. Then call the office with findings for further guidance. If it is after regular clinic hours, please seek care in the emergency department. o In the rare case of any severe chest pain and trouble breathing, seek immediate care, do not delay for a call to the clinic. o Use ice to the affected extremity for 15 minutes increments as needed. Use your ice machine as discussed in your pre-operative visit. o Keep extremity elevated to the level of the heart to reduce swelling. You can use ice on top of the dressing to reduce pain and swelling of the extremity. o You may gradually resume your normal diet if you have no nausea or vomiting o You will follow up with your orthopedic surgeon in the [facility] 2 weeks after surgery. Our office should call your to schedule the appointment, however you can call our office at [phone] to schedule your appointment or address any questions or concerns. MEDICATIONS o Take two pills of 500 mg Tylenol (acetaminophen) every 8 hours regardless of pain in a scheduled manner. Do not exceed 3000 mg of Tylenol (from ALL sources, including over the counter combination products) in a 24-hour period due to risk of liver injury. o Take one pill of 5 mg oxycodone every 4-6 hours as needed for break through pain after taking your regular Tylenol. o Take 200 mg of Colace by mouth every 12 hours for constipation. Narcotic medications such as oxycodone and tramadol as well as anesthesia may increase your risk of constipation after surgery. o Take 4 mg of Zofran by mouth every 6 hours as needed for uncontrolled nausea or vomiting. If you have persistent nausea and vomiting call our office or seek care in the emergency department. o Take one pill of 81 mg of aspirin two times daily 12 hours apart for 6 weeks for blood clot prevention. Take this medication regardless of pain. o Resume all of your normal home medications unless specified otherwise by your surgeon or the internal medicine doctor during your admission. Discharge orders & Medications Prescriptions: New aspirin 81 mg Tablet,Delayed Release (Dr/Ec) 81 mg PO BID Qty: 90 0RF docusate sodium 100 mg Capsule 100 mg PO BID Qty: 14 0RF oxycodone 5 mg Tablet 5 mg PO Q4H PRN (Reason: Pain, Moderate (4-6)) Qty: 14 0RF Continued atorvastatin 40 mg tablet 40 mg PO DAILY Patient Comments: takes at bedtime escitalopram oxalate 20 mg tablet 20 mg PO DAILY Patient Comments: TAKE 1 TABLET BY MOUTH EVERY MORNING DIRECTED levothyroxine 50 mcg tablet 50 mcg PO DAILY quetiapine 25 mg tablet 25 mg PO BEDTIME Patient Comments: TAKE 1 TABLET BY MOUTH EVERY NIGHT AT BEDTIME DIRECTED albuterol sulfate 90 mcg/actuation HFA aerosol inhaler 2 puff INHALATION Q4H PRN (Reason: shortness of breath or wheezing) Qty: 8.5 2RF alprazolam 0.5 mg tablet 0.5 mg PO BID PRN (Reason: Anxiety) Qty: 14 0RF Patient Comments: TAKE 1 TABLET BY MOUTH UP TO TWICE DAILY NEEDED FOR ACUTE ANXIETY gabapentin 300 mg capsule 300 mg PO DAILY Patient Comments: takes at bedtime omeprazole 20 mg capsule,delayed release(DR/EC) 20 mg PO DAILY mirtazapine 15 mg tablet 15 mg PO ONCE PM ibuprofen 600 mg tablet 600 mg PO Q6H PRN (Reason: pain) Spiriva Respimat 2.5 mcg/actuation mist 1 inh inhalation DAILY Trelegy Ellipta 200-62.5-25 mcg blister with device 1 inh inhalation DAILY Discontinued alprazolam 0.5 mg tablet 0.5 - 1 mg PO DAILY PRN (Reason: anxiety) nystatin 100,000 unit/mL suspension 5 ml PO QID Follow up/Referrals: Dominique Oakley DO [Primary Care Provider, Medical] Diet/Activity/Treatments Diet: Regular Liquid consistency: Normal/Thin [facility] Reason for rehabilitation: Post-operative therapy Rehab type: Physical therapy and Occupational therapy Visit Report/Discharge Packet Instructions: DI for Hip Replacement Stand Alone Forms: Patient Portal/API Discharge Data Primary Care Provider: Dominique Oakley Quality VTE Deep Vein Thrombosis/Pulmonary Embolism Present on Admission: No
--- NOTE | 2025-02-07 10:57 | DIET.CONS ---
Dietary Consultation Note Admission Date: 02/02/2025 18:18 Assessment: 74 y F admitted after GLF. Dietitian consulted for moderate protein calorie malnutrition. Met with pt and pt friends at bedside. Pt getting ready to dc, limited assessment. Has been drinking Ensure vanillas. Reports lower PO intakes whenever pt is hospitalized. Sees [facility] but no specific diet recc. They will reschedule her OP f/u. Ht: 157.48 cm Wt: 50 kg BMI: 20.1 UBW: 105-110#; hx of 42.638 kg on 03/05/24 and 46.7 kg on 12/23 per EMR Last BM: 02/02/25 (02/02/25 18:57) MNA: Federico Score: 19 Diet: 02/06/25 Lunch General (Regular) Diet Diet Modifications: Please add Ensure with every meal Food Texture: Level 7 - Regular Liquid Consistency: Level 0 - Thin Nutrition Percent Meal Consumed 0% 02/05/25 18:02 Labs: RBC 3.17 X10^6/uL (4.0-5.2) L 02/05/25 06:10 Hgb 9.9 g/dL (12.0-16.0) L 02/05/25 06:10 Hct 29.8 % (36-46) L 02/05/25 06:10 Creatinine 1.06 mg/dL (0.52-1.04) H 02/05/25 06:10 NT-Pro-B Natriuret Pep 151 pg/mL (<450) 02/02/25 17:28 Nutrition Diagnosis: Moderate protein calorie malnutrition r/t inadequate oral intakes as evidenced by reduced PO intakes when hospitalized (<50%) and BMI underweight for age (20) Interventions: -ONS+ TID, continue this at rehab -Coordination w RN to pass along to SNF team that pt needs assistance w meal set up at every meal EER: 1500 kcals (30 kcals/kg) 50-60 g protein (1-1.2 g/kg per age and PCM) Monitoring/Evaluations: pt d/c to SNF today Electronically Signed by: Lizzy Mancilla 02/07/25 10:57 Clinical Dietitian [address] [id number]
[2025-02-07] MEDS: IBUPROFEN 400 MG TABLET PO (11:08)
--- NOTE | 2025-02-07 13:22 | PC.NURSE ---
Discharge: Pt and DPOA agreeable to discharge plan. No IV access, pt assisted to BSC 1PA w/ FWW. Pt assisted to W/C, all belongings given to pt including outpatient oral rinse. Pt wheeled to facility vehicle at approximately 1315.
--- NOTE | 2025-02-07 13:37 | CM.DPNOTE ---
DCP note SHOE [employer]S CASER reviewed EMR per provider cleared to dc to [facility] today. Per Preeti can flower picker at 1300. SHOE PARTS CASER updated CLIENT HR MANAGER/RN/gave RN report number. SHOE [employer]S CASER updated pt/DPOA in room. in agreement with plan. SHOE [employer]S [employer]ER emailed Preeti GILLIS/meds/script. placed in chart. P: dc today to [facility]. no furhter CM needs at this time. will continue to follow as needed [facility]
== END 2025-02-07 13:15 | DRG 522 ==
LOC: ED 18:19 → AC 18:20
PROVIDERS: Orthopaedic Surgery; Admitting Provider Internal Medicine; Emergency Provider Emergency Medicine; Family Provider Family Medicine; PCP Family Medicine; Referring Provider Emergency Medicine; Visit Provider Internal Medicine
PROC: 0SRS0JZ Replacement of Left Hip Joint, Femoral Surface with Synthetic Substitute, Open Approach (ICD-10-PCS; CPT 27125; principal; 2025-02-03 14:30)
DX: S72.012A Unspecified intracapsular fracture of left femur, initial encounter for closed fracture (principal); F05 Delirium due to known physiological condition; E44.0 Moderate protein-calorie malnutrition; W01.0XXA Fall on same level from slipping, tripping and stumbling without subsequent striking against object, initial encounter; Z99.81 Dependence on supplemental oxygen; C32.9 Malignant neoplasm of larynx, unspecified; Z85.118 Personal history of other malignant neoplasm of bronchus and lung; Z90.2 Acquired absence of lung [part of]; J44.9 Chronic obstructive pulmonary disease, unspecified; Z66 Do not resuscitate; E03.9 Hypothyroidism, unspecified; K21.9 Gastro-esophageal reflux disease without esophagitis; Z92.3 Personal history of irradiation; Y92.009 Unspecified place in unspecified non-institutional (private) residence as the place of occurrence of the external cause; Z79.890 Hormone replacement therapy; Z87.891 Personal history of nicotine dependence; Z79.51 Long term (current) use of inhaled steroids; Z79.52 Long term (current) use of systemic steroids; Z68.20 Body mass index [BMI] 20.0-20.9, adult
CPT/HCPCS: 36415; 70450; 71045; 73502; 80048; 80053; 81001; 82962; 83690; 83735; 83880; 84484; 85025; 85610; 85730; 93005; 93010; 94640; 94762; 96374; 96376; 97110; 97162; 97166; 97530; 99285; C1776; C1713; J0131; J0687; J0689; J1100; J1171; J1644; J2250; J2312; J2405; J2704; J3010; J7050; J7120; J7613